=== PATIENT | female | born 1970 | race Caucasian/White ===

== ENCOUNTER 2017-02-03 23:53 | Emergency (ER) | payer MEDICAID, OTHER ==
[~2017-02-03] VITALS: Ht 165.1 cm; Wt 122.9 kg
[2017-02-04] MEDS ORDERED: TORS10TA2 PO (00:42)
[2017-02-04] MEDS ORDERED: ZOLP5TAB PO (00:42)
[2017-02-04] MEDS ORDERED: MONT10TA21 PO (00:42)
[2017-02-04] MEDS ORDERED: POTA99TA21 PO (00:42)
[2017-02-04] MEDS ORDERED: RT-ALBUINH IH (00:42)
[2017-02-04] MEDS ORDERED: [UNRECOGNIZED DRUG - CODE] TP (00:42)
[2017-02-04] MEDS ORDERED: LORA0.5T PO (00:42)
[2017-02-04] MEDS ORDERED: [UNRECOGNIZED DRUG - CODE] IJ (00:42)
[2017-02-04] MEDS ORDERED: ATOR80TA64 PO (00:42)
[2017-02-04 02:11] LABS: BILIRUBIN,URINE NEGATIVE (NEGATIVE); KETONES,URINE NEGATIVE (NEGATIVE); LEUKOCYTE ESTERASE ,URINE NEGATIVE (NEGATIVE); NITRITE,URINE NEGATIVE (NEGATIVE); PH,URINE 6.5 (5-9); PROTEIN,URINE NEGATIVE (NEGATIVE); UROBILINOGEN,URINE NORMAL (NORMAL)
[2017-02-04 02:19] LABS: SQUAMOUS EPITHELIAL CELL,UR 0-2 /HPF
[2017-02-04] MEDS ORDERED: fentaNYL INJECTION 100 MCG/2 ML AMP IVP ONE (02:45)
[2017-02-04 02:58] LABS: BASOPHILS % (AUTO) 0 % (0-10); EOSINOPHILS # (AUTO) 0.1 10^3/uL (0.0-0.3); EOSINOPHILS % (AUTO) 1 % (0-10); LYMPHOCYTES # (AUTO) 2.4 X 10^3 (1.0-4.0); LYMPHOCYTES % (AUTO) 21 % (12-44); MEAN CORPUSCULAR HEMOGLOBIN 32 PG (25-34); MEAN CORPUSCULAR HGB CONC 35 G/DL (32-36); MEAN CORPUSCULAR VOLUME 93 FL (80-99); MEAN PLATELET VOLUME 10.3 FL (7.4-10.4); MONOCYTES # (AUTO) 0.8 X 10^3 (0.0-1.0); MONOCYTES % (AUTO) 7 % (0-12); NEUTROPHILS # (AUTO) 8.1 X 10^3 (1.8-7.8); NEUTROPHILS % (AUTO) 71 % (42-75); PLATELET COUNT 208 10^3/uL (130-400); RED BLOOD COUNT 4.14 10^6/uL (4.35-5.85); RED CELL DISTRIBUTION WIDTH 12.7 % (10.0-14.5); WHITE BLOOD COUNT 11.4 10^3/uL (4.3-11.0)
[2017-02-04 03:17] LABS: ALANINE AMINOTRANSFERASE 23 U/L (0-55); ALBUMIN 3.9 G/DL (3.2-4.5); ANION GAP 13 MMOL/L (5-14); ASPARTATE AMINO TRANSFERASE 15 U/L (5-34); BILIRUBIN,TOTAL 0.6 MG/DL (0.1-1.0); BLOOD UREA NITROGEN 11 MG/DL (7-18); BUN/CREATININE RATIO 17; CALCIUM 9.8 MG/DL (8.5-10.1); CARBON DIOXIDE 28 MMOL/L (21-32); CHLORIDE 98 MMOL/L (98-107); CREATININE SERUM 0.66 MG/DL (0.60-1.30); GFR ESTIMATED > 60; GLUCOSE 146 MG/DL (70-105); LIPASE 23 U/L (8-78); POTASSIUM 3.1 MMOL/L (3.6-5.0); SODIUM 139 MMOL/L (135-145); TOTAL PROTEIN 6.8 G/DL (6.4-8.2)
[2017-02-04] MEDS ORDERED: LIDOCAINE 2% VISCOUS 15 ML UDC PO ONE (04:45)
[2017-02-04] MEDS ORDERED: ANTACID SUSP 30 ML UDC (MYLANTA) PO ONE (04:45)
[2017-02-04] MEDS ORDERED: FAMOTIDINE 20MG/2ML IV (PEPCID) IVP ONE (04:45)
[2017-02-04] MEDS ORDERED: KETOROLAC 30 MG/ML VIAL IVP ONE (05:15)
[2017-02-04] MEDS ORDERED: HYDR-3812 PO (05:17)
[2017-02-04] MEDS ORDERED: SUCR1ORA5 PO (05:17)
--- NOTE | 2017-02-04 05:17 | ED Abdominal Pain ---
General Chief Complaint: General Problems/Pain Stated Complaint: ABDOMINAL HERNIA PAIN Nursing Triage Note: PT AMBULATED TO ROOM. PT STATES SHE WOKE UP YESTERDAY AND HER HERNIA IN HER LOWER ABD HAS BEEN HURTING HER. Sepsis Screen: No Definite Risk Source of Information: Patient Exam Limitations: No Limitations History of Present Illness Time Seen By Provider: 02:06 Initial Comments This 46-year-old woman presents to the emergency room with complaints of left upper quadrant pain radiating down to the suprapubic region. She denies any nausea, vomiting, or diarrhea. Symptoms have been present since the morning of February 02. She reports her last bowel movement was February 03 and was normal. She denies constipation. She sees Dr. Herrera and Dr. Cortez in [place]. She has a known history of a ventral hernia. She reports her pain as 7/10. She has a history of gastric bypass, umbilical hernia, ventral hernia, , and tubal ligation. Allergies and Home Medications Allergies Coded Allergies: amoxicillin (Verified Allergy, Unknown, 02/04/17) clavulanic acid (Verified Allergy, Unknown, 02/04/17) morphine (Verified Allergy, Unknown, 02/04/17) Uncoded Allergies: PAPER TAPE (Allergy, Mild, 02/04/17) Home Medications Albuterol Sulfate 1 Puff Puff, 2 PUFF IH Q4H, (Reported) 1 PUFF = 90 MCG Atorvastatin Calcium 80 Mg Tablet, 80 MG PO, (Reported) Lidocaine HCl/Pf 10 Mg/1 Ml Ampul, 10 MG IJ, (Reported) Lorazepam 0.5 Mg Tablet, 0.5 MG PO, (Reported) Menthol/Aloe Vera Extract 85 Gm Gel..gram., 85 GM TP, (Reported) Montelukast Sodium 10 Mg Tablet, 10 MG PO, (Reported) Potassium Gluconate 99 Mg Tablet, 99 MG PO, (Reported) Sucralfate 1 Gm/10 Ml Oral.susp, 1 GM PO QID, #1200 30 minutes before meals and before bed. Shake well before use Prescribed by: ELIAS RIVERA on 02/04/17 0517 Torsemide 10 Mg Tablet, 10 MG PO, (Reported) Tramadol HCl 50 Mg Tablet, 50 MG PO Q6H PRN for PAIN-MODERATE TO SEVERE, #10 Prescribed by: ELIAS RIVERA on 02/04/17 0518 Zolpidem Tartrate 5 Mg Tablet, 5 MG PO, (Reported) Review of Systems Constitutional: no symptoms reported EENTM: No Symptoms Reported Respiratory: No Symptoms Reported Cardiovascular: No Symptoms Reported Gastrointestinal: See HPI Genitourinary: No Symptoms Reported Musculoskeletal: no symptoms reported Skin: no symptoms reported Psychiatric/Neurological: No Symptoms Reported Endocrine: No Symptoms Reported Past Gpzdthy-Dhrbnz-Xbcpyt Hx Patient Social History Alcohol Use: Denies Use Recreational Drug Use: No Smoking Status: Former Smoker 2nd Hand Smoke Exposure: No Recent Foreign Travel: No Contact w/Someone Who Travel: No Recent Infectious Disease Expo: No Recent Hopitalizations: No Seasonal Allergies Seasonal Allergies: Yes Surgeries HX Surgeries: Yes Surgeries: Abdominal (umbilical hernia repair, gastric bypass), Section, Tubal Ligation Respiratory Hx Respiratory Disorders: Yes Respiratory Disorders: Asthma Cardiovascular Hx Cardiac Disorders: Yes Cardiac Disorders: High Cholesterol, Hypertension Neurological Hx Neurological Disorders: No Reproductive System : No Genitourinary Hx Genitourinary Disorders: No Gastrointestinal Hx Gastrointestinal Disorders: Yes Gastrointestinal Disorders: Abdominal Hernia Musculoskeletal Hx Musculoskeletal Disorders: Yes Musculoskeletal Disorders: Chronic Back Pain Endocrine Hx Endocrine Disorders: Yes Endocrine Disorders: Diabetes, Non-Insulin dep HEENT HX ENT Disorders: No Cancer Hx Cancer: No Psychosocial Hx Psychiatric Problems: No Integumentary HX Skin/Integumentary Disorder: No Physical Exam Vital Signs VS - Last 72 Hours, by Label 02/04/17 02/04/17 02/04/17 02/04/17 00:31 01:00 02:00 03:00 Temp 99.2 Pulse 83 76 73 77 Resp 20 14 18 15 B/P (MAP) 106/57 130/97 131/71 118/60 Pulse Ox 92 95 95 96 O2 Delivery Room Air Room Air Room Air Room Air 02/04/17 02/04/17 04:10 05:22 Temp 98.2 Pulse 73 79 Resp 15 18 B/P (MAP) 135/71 Pulse Ox 98 94 O2 Delivery Room Air Capillary Refill : Less Than 3 Seconds General Appearance: WD/WN, no apparent distress, obese HEENT: PERRL/EOMI, normal ENT inspection Neck: normal inspection Respiratory: lungs clear, normal breath sounds, no respiratory distress, no accessory muscle use Cardiovascular: regular rate, rhythm, no edema, no murmur Gastrointestinal: normal bowel sounds, soft, tenderness (mild to moderate throughout the left and central abdomen, most intense in the left flank and left upper quadrant), other (obese abdomen obscured his exam) Extremities: normal inspection, no pedal edema 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 nml as tested, no motor/sensory deficits, alert, normal mood/affect, oriented x 3 Skin: normal color, warm/dry Progress/Results/Core Measures Results/Orders Lab Results Laboratory Tests Test 02/04/17 02:01 02/04/17 02:50 Range/Units Urine Color YELLOW Urine Clarity CLEAR Urine pH 6.5 5-9 Urine Specific [place] 1.010 L 1.016-1.022 Urine Protein NEGATIVE NEGATIVE Urine Glucose (UA) 4+ H NEGATIVE Urine Ketones NEGATIVE NEGATIVE Urine Nitrite NEGATIVE NEGATIVE Urine Bilirubin NEGATIVE NEGATIVE Urine Urobilinogen NORMAL NORMAL MG/DL Urine Leukocyte Esterase NEGATIVE NEGATIVE Urine RBC (Auto) NEGATIVE NEGATIVE Urine RBC NONE /HPF Urine WBC NONE /HPF Urine Squamous Epithelial Cells 0-2 /HPF Urine Crystals NONE /LPF Urine Bacteria NEGATIVE /HPF Urine Casts NONE /LPF Urine Mucus NEGATIVE /LPF Urine Culture Indicated NO White Blood Count 11.4 H 4.3-11.0 10^3/uL Red Blood Count 4.14 L 4.35-5.85 10^6/uL Hemoglobin 13.3 11.5-16.0 G/DL Hematocrit 39 35-52 % Mean Corpuscular Volume 93 80-99 FL Mean Corpuscular Hemoglobin 32 25-34 PG Mean Corpuscular Hemoglobin Concent 35 32-36 G/DL Red Cell Distribution Width 12.7 10.0-14.5 % Platelet Count 208 130-400 10^3/uL Mean Platelet Volume 10.3 7.4-10.4 FL Neutrophils (%) (Auto) 71 42-75 % Lymphocytes (%) (Auto) 21 12-44 % Monocytes (%) (Auto) 7 0-12 % Eosinophils (%) (Auto) 1 0-10 % Basophils (%) (Auto) 0 0-10 % Neutrophils # (Auto) 8.1 H 1.8-7.8 X 10^3 Lymphocytes # (Auto) 2.4 1.0-4.0 X 10^3 Monocytes # (Auto) 0.8 0.0-1.0 X 10^3 Eosinophils # (Auto) 0.1 0.0-0.3 10^3/uL Basophils # (Auto) 0.0 0.0-0.1 10^3/uL Sodium Level 139 135-145 MMOL/L Potassium Level 3.1 L 3.6-5.0 MMOL/L Chloride Level 98 98-107 MMOL/L Carbon Dioxide Level 28 21-32 MMOL/L Anion Gap 13 5-14 MMOL/L Blood Urea Nitrogen 11 7-18 MG/DL Creatinine 0.66 0.60-1.30 MG/DL Estimat Glomerular Filtration Rate > 60 BUN/Creatinine Ratio 17 Glucose Level 146 H 70-105 MG/DL Calcium Level 9.8 8.5-10.1 MG/DL Total Bilirubin 0.6 0.1-1.0 MG/DL Aspartate Amino Transf (AST/SGOT) 15 5-34 U/L Alanine Aminotransferase (ALT/SGPT) 23 0-55 U/L Alkaline Phosphatase 59 40-136 U/L Total Protein 6.8 6.4-8.2 G/DL Albumin 3.9 3.2-4.5 G/DL Lipase 23 8-78 U/L My Orders Orders - ELIAS WALLER MD Ua Culture If Indicated (02/04/17 02:05) Saline Lock/Iv-Start (02/04/17 02:38) Cbc With Automated Diff (02/04/17 02:38) Comprehensive Metabolic Panel (02/04/17 02:38) Lipase (02/04/17 02:38) Fentanyl Injection (Sublimaze Injection (02/04/17 02:45) Ct Abdomen/Pelvis W (02/04/17 03:27) Famotidine Injection (Pepcid Injection) (02/04/17 04:45) Lidocaine 2% Viscous 15 Ml (Xylocaine Vi (02/04/17 04:45) Antacid Suspension (Mylanta Suspension (02/04/17 04:45) Ketorolac Injection (Toradol Injection) (02/04/17 05:15) Medications Given in ED Vital Signs/I&O Vital Sign - Last 12Hours 02/04/17 02/04/17 02/04/17 02/04/17 00:31 01:00 02:00 03:00 Temp 99.2 Pulse 83 76 73 77 Resp 20 14 18 15 B/P (MAP) 106/57 130/97 131/71 118/60 Pulse Ox 92 95 95 96 O2 Delivery Room Air Room Air Room Air Room Air 02/04/17 02/04/17 04:10 05:22 Temp 98.2 Pulse 73 79 Resp 15 18 B/P (MAP) 135/71 Pulse Ox 98 94 O2 Delivery Room Air Blood Pressure Mean: 73 Progress Note : Progress Note GI cocktail and Pepcid did modestly improved pain. Patient was given Toradol for additional pain management. Patient was instructed to increase PPI use to twice daily and add Carafate. Lifestyle and dietary recommendations were suggested. Patient was advised to follow-up as soon as possible with her surgeon. A CD of images was provided. Diagnostic Imaging Diagonstic Imaging: CT Plain Films/CT/US/NM/MRI: abdomen, pelvis Comments CT abdomen and pelvis viewed by me and Stat rad report reviewed. There are numerous findings including a mild focal wall thickening of the gastric antrum. There is adjacent omental fat stranding. No free air or loculated fluid collection. This could represent focal omental infarct or focal gastritis. Neoplastic process is less likely. No findings to suggest perforation. There is a large ventral abdominal wall hernia containing loops of bowel. There is a well-circumscribed partially calcified ovoid cystic structure within the hernial sac. This most likely represents a chronic finding and could represent duplication cyst or sequela of prior omental infarct. Incidental findings include hepatic steatosis, cholelithiasis, and fibroid uterus. Departure Impression Impression: Primary Impression: Left sided abdominal pain Additional Impressions: Gastritis Qualified Codes: K29.00 - Acute gastritis without bleeding Ventral hernia Qualified Codes: K43.9 - Ventral hernia without obstruction or gangrene Disposition: 01 HOME, SELF-CARE Condition: Improved Departure-Patient Inst. Decision time for Depature: 05:00 Referrals: NO,LOCAL PHYSICIAN (PCP) Primary Care Physician Patient Instructions: CONTRAST ANTIDIABETIC MEDS, Gastritis Add. Discharge Instructions: Increase your Prilosec (omeprazole) to twice daily dosing for 2 weeks. Then reduce to once daily dosing again if symptoms improve. Add Carafate (sucralfate) as prescribed. Contact your surgeon as soon as possible for follow-up instructions. No may need endoscopy for further evaluation of possible gastritis or ulcer. Avoid the following: Eating large meals, eating close to bedtime, caffeine, carbonation, chocolate, tomato products, alcohol, tobacco, citrus fruits and juices, mints, fatty or greasy foods, spicy foods, NSAID medications such as ibuprofen or naproxen, or anything else you know your take your stomach. Return to the emergency room if symptoms worsen. All discharge instructions reviewed with patient and/or family. Voiced understanding. Scripts Tramadol HCl (Ultram) 50 Mg Tablet 50 MG PO Q6H Y for PAIN-MODERATE TO SEVERE, #10 TAB Prov: ELIAS WALLER MD 02/04/17 Sucralfate (Carafate) 1 Gm/10 Ml Oral.susp 1 GM PO QID, #1200 ML 30 minutes before meals and before bed. Shake well before use Prov: ELIAS WALLER MD 02/04/17 ELIAS WALLER MD Feb 04, 2017 05:17
[2017-02-04] MEDS ORDERED: TRAM-42 PO (05:18)
[2017-02-04 05:22] VITALS: BP 108/53
--- NOTE | 2017-02-04 08:52 | Diagnostic Imaging Report ---
PROCEDURE: CT abdomen and pelvis with contrast. TECHNIQUE: Multiple contiguous axial images were obtained through the abdomen and pelvis after administration of intravenous contrast. INDICATION: Abdominal pain There are no previous studies available for comparison. There are postsurgical changes involving the gastric fundus and body. Furthermore the gastric antrum is distended by gas. There also seems to be generalized thickening of the wall of the antrum and there is a prominent area of distortion of the mesenteric fat along the inferior margin of the gastric antrum. This finding does suggest edema/inflammation and could be secondary to antral gastritis. An omental infarct would be possible but less likely. There is a minute gallstone within the gallbladder. There is no sign of acute cholecystitis. The liver, spleen, pancreas, adrenals, kidneys, aorta and inferior vena cava show no sign of an acute abnormality. There is a large 25 CM defect in the anterior abdominal wall with segments of large and small bowel extending through the defect. There is no incarceration or obstruction of the bowel. Also, within this defect on the left there is a fairly well-circumscribed 4.9 x 9.0 CM area of low density. This may represent a fluid collection. There are linear radiopaque densities in this area which may be related to calcification or to wire mesh. Correlation with the patient's surgical history would be recommended. There is no pelvic mass or free fluid collection noted. The uterus is prominent and may contain one or 2 fibroids. The urinary bladder is grossly unremarkable. There may be a 1.8 CM cyst associated with the right ovary. The left ovary is unremarkable. The appendix was not well-visualized but there are no indirect signs of acute appendicitis. There is no acute bony abnormality appreciated. The lung bases are clear. IMPRESSION: The wall of the gastric antrum is thickened and there is a prominent area of distortion of the mesenteric fat adjacent to the gastric antrum. This does suggest edema/inflammation and may be related to antral gastritis. The possibility of an omental infarct would be less likely but should also be considered. There is no acute abnormality of the abdomen or pelvis otherwise. There is a large ventral hernia with segments of large bowel extending through the hernia. There is no evidence for obstruction of bowel. The fluid collection along the anterior aspect of the ventral hernia on the left is of uncertain etiology. Considerations as above. There is cholelithiasis without evidence for acute cholecystitis. Dictated by: Dictated on workstation # [id number]
== END 2017-02-04 05:23 | disposition home or self-care (01) ==
LOC: ER 02-04
DX: K29.70 Gastritis, unspecified, without bleeding (principal); K43.9 Ventral hernia without obstruction or gangrene; E11.9 Type 2 diabetes mellitus without complications; I10 Essential (primary) hypertension; E78.00 Pure hypercholesterolemia, unspecified; F17.200 Nicotine dependence, unspecified, uncomplicated
CPT/HCPCS: 36415; 74177; 80053; 81000; 83690; 85025; 96374; 96375

== ENCOUNTER 2018-01-11 12:13 | Emergency (ER) | payer MEDICAID ==
[~2018-01-11] VITALS: Ht 165.1 cm; Wt 122.9 kg
[~2018-01-11 12:13] MED LIST: ACHD5005 PO; ATOR80TA64 PO; LORA0.5T PO; MONT10TA21 PO; POTA99TA21 PO; RT-ALBUINH IH; SUCR1ORA5 PO; TORS10TA2 PO; TRAM-42 PO; ZOLP5TAB PO; [UNRECOGNIZED DRUG - CODE] IJ; [UNRECOGNIZED DRUG - CODE] TP
--- OUTSIDE RECORDS SUMMARY | 2018-01-11 12:21 | XMS REPORT | Encounter Summary ---
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 Name Role Phone Linus Herrera DO PCP Encounter Details Date Type Department Care Team Description 11/24/2017 Prep for Case [facility] Max Culver DO Incisional hernia, [place] [address] without obstruction or Surgery Clin [place] 2005 gangrene (Primary Dx); [address] [place] [address] [place] [address] [phone] Social History Tobacco Use Types Packs/Day Years Used Date Former Smoker Smokeless Tobacco: Never Used Alcohol Use Drinks/Week oz/Week Comments No Sex Assigned at Date Recorded Not on file as of this encounter Functional Status Functional Status Response Date of Assessment Does the patient have a hearing impairment: No 10/08/2017 Does the patient have a visual impairment: Yes 10/08/2017 Does the patient have impaired ambulation: No 10/08/2017 Does the patient have an activity of daily living No 10/08/2017 (ADL) impairment: Does the patient have an instrumental activity of No 10/08/2017 daily living (IADL) impairment: Cognitive Status Response Date of Assessment Does the patient have a cognitive impairment: No 10/08/2017 as of this encounter Plan of Treatment Not on fileas of this encounter Visit Diagnoses Diagnosis Incisional hernia, without obstruction or gangrene - Primary Incisional hernia without mention of obstruction or gangrene Abdominal pannus Localized adiposity
--- OUTSIDE RECORDS SUMMARY | 2018-01-11 12:21 | XMS REPORT | Continuity of Care Document ---
Author Author [facility] Organization [facility] Address Unknown Phone Unavailable Care Team Providers Care Rn Burn Name Role Phone [employer] Unavailable Unavailable Problems Medications Allergies, Adverse Reactions, Alerts Immunizations Results Vital Signs Encounters Location Location Details Encounter Type Encounter Number Reason For Visit Attending Provider ADM Date DC Date Status Source OUTPATIENT [id number] TRACEY VICTORIA 10/08/2017 10/08/2017 Active [facility] O TRACEY VICTORIA Active [facility] Procedures Plan of Care Social History Assessment and Plan Family History Advance Directives Functional Status
--- OUTSIDE RECORDS SUMMARY | 2018-01-11 12:21 | XMS REPORT | Clinical Summary ---
Author Author [facility] Organization [facility] Address Unknown Phone Unavailable Care Team Providers Care Equipment Operator Wage Hand Name Role Phone Linus Herrera DO PCP Source Comments Some departments are not documenting in the electronic medical record. If you do not see the information that you expected, contact Release of Information in the Health Information Management department at [phone] for further assistance in locating additional records.[facility] Allergies Active Allergy Reactions Severity Noted Date Comments Adhesive Tape (Rosins) HIVES Medium 08/21/2017 Paper tape Amoxicillin-Pot HIVES Medium 08/21/2017 Clavulanate Fentanyl HIVES Medium 08/21/2017 Morphine HEADACHE, HIVES, NAUSEA High 08/21/2017 ONLY, HYPOTENSION Current Medications Prescription Sig. Disp. Refills Start End Date Status Date zolpidem (AMBIEN) 10 mg Take 10 mg by mouth at Active tablet bedtime as needed for Sleep. LORazepam (ATIVAN) 0.5 mg Take 1 tablet by mouth Active tablet every 12 hours as needed for Nausea. exenatide microspheres Inject 2 mg under the Active ER(+) (BYDUREON) 2 mg skin every 7 days. injection dapagliflozin 10 mg tab Take 1 tablet by mouth at Active bedtime daily. fenofibrate Take 145 mg by mouth Active nanocrystallized (TRICOR) daily. Take with food. 145 mg tablet butalbital/acetaminophen/ Take 1 tablet by mouth Active caffeine(+) (FIORICET) every 4 hours as needed 50/325/40 mg tablet for Headache. cyclobenzaprine Take 10 mg by mouth three Active (FLEXERIL) 10 mg tablet times daily as needed for Muscle Cramps. fluticasone (FLONASE) 50 Apply 2 sprays to each Active mcg/actuation nasal spray nostril as directed daily. Shake bottle gently before using. HYDROcodone/acetaminophen Take 1 tablet by mouth Active (+) (NORCO) 10/325 mg every 6 hours as needed tablet for Pain lidocaine (LIDODERM) 5 % Apply 1 patch topically Active topical patch to affected area every 24 hours. Apply patch for 12 hours, then remove for 12 hours before repeating. atorvastatin (LIPITOR) 80 Take 80 mg by mouth Active mg tablet daily. potassium chloride SR Take 20 mEq by mouth Active (K-DUR) 20 mEq tablet three times daily. Take with a meal and a full glass of water. omeprazole DR(+) Take 20 mg by mouth daily Active (PRILOSEC) 20 mg capsule before breakfast. albuterol (PROAIR HFA) 90 Inhale 2 puffs by mouth Active mcg/actuation inhaler into the lungs every 6 hours as needed for Wheezing or Shortness of Breath. Shake well before use. montelukast (SINGULAIR) Take 10 mg by mouth at Active 10 mg tablet bedtime daily. torsemide(+) (DEMADEX) 20 Take 80 mg by mouth Active mg tablet daily. ERGOCALCIFEROL (VITAMIN Take 50,000 Units by Active D2) (VITAMIN D PO) mouth every 7 days. ranitidine(+) (ZANTAC) Take 150 mg by mouth Active 150 mg tablet twice daily. ondansetron (ZOFRAN) 8 mg Take 8 mg by mouth every Active tablet 8 hours as needed for Nausea or Vomiting. budesonide/formoterol Inhale by mouth into the 01/11/20 Active (SYMBICORT HFA) 160/4.5 lungs. 17 mcg inhalation Active Problems Problem Noted Date Abdominal pannus 09/29/2017 Incisional hernia, without obstruction or gangrene 09/11/2017 Encounters Date Type Specialty Care Team Description 12/12/2017 Telephone General Surgery Max Culver, DO General Question 11/24/2017 Prep for Case General Surgery Max Culver, DO Incisional hernia, without obstruction or gangrene (Primary Dx); Abdominal pannus from Last 3 Months Social History Tobacco Use Types Packs/Day Years Used Date Former Smoker Smokeless Tobacco: Never Used Alcohol Use Drinks/Week oz/Week Comments No Sex Assigned at Date Recorded Not on file Last Filed Vital Signs Vital Sign Reading Time Taken Blood Pressure 133/73 10/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 Pulse 87 10/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 Temperature 36.4 C (97.6 F) 10/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 Respiratory Rate 16 10/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 Oxygen Saturation - - Inhaled Oxygen - - Concentration Weight 129.4 kg (285 lb 3.2 oz) 10/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 Height 165.1 cm (5' 5") 10/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 Body Mass Index 47.46 10/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 Plan of Treatment Health Maintenance Due Date Last Done Comments PHYSICAL (COMPREHENSIVE) 1979 EXAM PERTUSSIS VACCINE 1983 HIV SCREENING 1987 TETANUS VACCINE 1989 CERVICAL CANCER SCREENING 2002 BREAST CANCER SCREENING 2012 INFLUENZA VACCINE 06/01/2018 Results Not on filefrom Last 3 Months
--- OUTSIDE RECORDS SUMMARY | 2018-01-11 12:21 | XMS REPORT | Encounter Summary ---
Author Author [facility] Organization [facility] Address Unknown Phone Unavailable Care Team Providers Care Ammunition Assembly I Laborer Name Role Phone Linus Herrera DO PCP Reason for Visit * Reason Comments General Question Encounter Details Date Type Department Care Team Description 12/12/2017 Telephone [facility] Max Culver DO General Question [address] [place] [address] [place] [address] [place] [address] [phone] Social History Tobacco Use Types Packs/Day Years [...] impairment: No 10/08/2017 as of this encounter Miscellaneous Notes * Telephone Encounter - Antonia Hope RN - 12/12/2017 10:49 AM CDT Pt with concerns regarding insurance and appeal for panniculectomy status. Directed pt to discuss with Dr. Cruz's office for appeal who will be performing the panniculectomy at [facility]. Pt reports insurance faxed appeal information to Dr. Dias's office. in this encounter Plan of Treatment Not on fileas of this encounter Visit Diagnoses Not on filein this encounter
[2018-01-11] MEDS ORDERED: NS IV 1000 ML 1,000 ML IV SCH (12:51)
--- NOTE | 2018-01-11 12:58 | ED Abdominal Pain ---
General Stated Complaint: ABD PAIN,VOMITING,HERNIA Source of Information: Patient, Family (daughter) Exam Limitations: No Limitations History of Present Illness Date Seen by Provider: January 11, 2018 Time Seen by Provider: 12:48 Initial Comments Patient presents to the ER by private conveyance with a chief complaint she is having 2 weeks now progressively worsening mid abdominal pain starting in her epigastric region working its way down to her suprapubic region. She has a history of , umbilical hernia repair with failure and ventral hernia repair. She is also had a sleeve gastrectomy. She says she's not been ill have a bowel movement for the past 7 days despite using Ex-Lax twice. This morning she drank some coffee hoping that would help her pass a bowel movement but then vomited it up. She's only down to keep down water and no food. She's not nauseated presently because she took one of her Zofran before coming in. She's not having any fevers but she did have some chills 2 days ago. She says she has a red patch on her mid abdominal wall that is tender to touch and feels that he has a fever in it. There is no discharge or mass. Her usual pain medicines are not helping. She did not take her NSAID lenex today. She usually uses hydrocodone 10 mg Half every 4 hours. Allergies and Home Medications Allergies Coded Allergies: amoxicillin (Verified Allergy, Unknown, 02/04/17) clavulanic acid (Verified Allergy, Unknown, 02/04/17) morphine (Verified Allergy, Unknown, 02/04/17) Uncoded Allergies: PAPER TAPE (Allergy, Mild, 02/04/17) Home Medications Albuterol Sulfate 1 Puff Puff, 2 PUFF IH Q4H, (Reported) 1 PUFF = 90 MCG Cephalexin 500 Mg Tablet, 500 MG PO QID Prescribed by: ANTHONY BAIRD on 01/11/18 155 Magnesium Oxide 500 Mg Capsule, 500 MG PO BID Prescribed by: ANTHONY BAIRD on 01/11/18 155 Potassium Chloride 20 Meq Tablet.er, 20 MEQ PO TID Prescribed by: ANTHONY BAIRD on 01/11/18 1553 Sucralfate 1 Gm/10 Ml Oral.susp, 1 GM PO QID 30 minutes before meals and before bed. Shake well before use Prescribed by: ELIAS RIVERA on 02/04/17 0517 Tramadol HCl 50 Mg Tablet, 50 MG PO Q6H PRN for PAIN-MODERATE TO SEVERE Prescribed by: ELIAS RIVERA on 02/04/17 0518 Patient Home Medication List Home Medication List Reviewed: Yes Review of Systems Constitutional: chills; No diaphoresis, No fever, No malaise, No weakness EENTM: No Blurred Vision, No Double Vision Respiratory: Denies Cough, Denies Shortness of Air Cardiovascular: Denies Chest Pain, Denies Edema Gastrointestinal: Denies Abdomen Distended; Abdominal Pain Genitourinary: Denies Burning, Denies Discharge Musculoskeletal: No back pain, No joint pain Skin: see HPI; No pruritus; rash Past Eutcxgl-Dcymno-Fdiqzz Hx Patient Social History Alcohol Use: Denies Use Recreational Drug Use: No Smoking Status: Never a Smoker 2nd Hand Smoke Exposure: No Recent Foreign Travel: No Contact w/Someone Who Travel: No Recent Hopitalizations: No Seasonal Allergies Seasonal Allergies: Yes Past Medical History Abdominal, Section, Tubal Ligation Respiratory: Yes Asthma Cardiac: Yes High Cholesterol, Hypertension Neurological: No Genitourinary: No Gastrointestinal: No Abdominal Hernia Musculoskeletal: No Chronic Back Pain Diabetes, Non-Insulin dep HEENT: No Cancer: No Psychosocial: No Integumentary: No Blood Disorders: No Physical Exam Vital Signs Vital Signs - First Documented 01/11/18 12:30 Temp 98.8 Pulse 86 Resp 18 B/P (MAP) 114/71 (85) Pulse Ox 95 Capillary Refill : General Appearance: no apparent distress, obese HEENT: PERRL/EOMI, normal ENT inspection, pharynx normal Neck: non-tender, supple, normal inspection Respiratory: chest non-tender, lungs clear, normal breath sounds, no respiratory distress, no accessory muscle use Cardiovascular: normal peripheral pulses, regular rate, rhythm, no edema Peripheral Pulses: 2+ Radial Pulses (R), 2+ Radial Pulses (L) Gastrointestinal: normal bowel sounds, soft, other (broad ventral hernia with firm palpable colon. There is an area about 10 cm in diameter periumbilical that is erythematous and warm to the touch without any area of fluctuance, or discharge.) Extremities: non-tender, no pedal edema, normal capillary refill Neurologic/Psychiatric: alert, normal mood/affect, oriented x 3 Skin: warm/dry, rash (10 cm periumbilical erythematous rash) Progress/Results/Core Measures Results/Orders Lab Results Laboratory Tests Test 01/11/18 13:00 Range/Units White Blood Count 9.8 4.3-11.0 10^3/uL Red Blood Count 4.06 L 4.35-5.85 10^6/uL Hemoglobin 12.7 11.5-16.0 G/DL Hematocrit 37 35-52 % Mean Corpuscular Volume 90 80-99 FL Mean Corpuscular Hemoglobin 31 25-34 PG Mean Corpuscular Hemoglobin Concent 35 32-36 G/DL Red Cell Distribution Width 13.5 10.0-14.5 % Platelet Count 228 130-400 10^3/uL Mean Platelet Volume 10.9 H 7.4-10.4 FL Neutrophils (%) (Auto) 68 42-75 % Lymphocytes (%) (Auto) 24 12-44 % Monocytes (%) (Auto) 6 0-12 % Eosinophils (%) (Auto) 1 0-10 % Basophils (%) (Auto) 0 0-10 % Neutrophils # (Auto) 6.7 1.8-7.8 X 10^3 Lymphocytes # (Auto) 2.4 1.0-4.0 X 10^3 Monocytes # (Auto) 0.6 0.0-1.0 X 10^3 Eosinophils # (Auto) 0.1 0.0-0.3 10^3/uL Basophils # (Auto) 0.0 0.0-0.1 10^3/uL Urine Color YELLOW Urine Clarity CLEAR Urine pH 6 5-9 Urine Specific [place] 1.010 L 1.016-1.022 Urine Protein 1+ H NEGATIVE Urine Glucose (UA) 4+ H NEGATIVE Urine Ketones NEGATIVE NEGATIVE Urine Nitrite NEGATIVE NEGATIVE Urine Bilirubin NEGATIVE NEGATIVE Urine Urobilinogen NORMAL NORMAL MG/DL Urine Leukocyte Esterase NEGATIVE NEGATIVE Urine RBC (Auto) NEGATIVE NEGATIVE Urine RBC NONE /HPF Urine WBC RARE /HPF Urine Squamous Epithelial Cells RARE /HPF Urine Crystals NONE /LPF Urine Bacteria TRACE /HPF Urine Casts NONE /LPF Urine Mucus NEGATIVE /LPF Urine Yeast FEW H /HPF Urine Culture Indicated NO Sodium Level 139 135-145 MMOL/L Potassium Level 2.8 L 3.6-5.0 MMOL/L Chloride Level 95 L 98-107 MMOL/L Carbon Dioxide Level 28 21-32 MMOL/L Anion Gap 16 H 5-14 MMOL/L Blood Urea Nitrogen 13 7-18 MG/DL Creatinine 0.66 0.60-1.30 MG/DL Estimat Glomerular Filtration Rate > 60 BUN/Creatinine Ratio 20 Glucose Level 198 H 70-105 MG/DL Calcium Level 9.8 8.5-10.1 MG/DL Magnesium Level 1.6 L 1.8-2.4 MG/DL Total Bilirubin 0.5 0.1-1.0 MG/DL Aspartate Amino Transf (AST/SGOT) 38 H 5-34 U/L Alanine Aminotransferase (ALT/SGPT) 64 H 0-55 U/L Alkaline Phosphatase 108 40-136 U/L Total Protein 7.3 6.4-8.2 GM/DL Albumin 3.9 3.2-4.5 GM/DL My Orders Orders - ANTHONY BAIRD Ct Abdomen/Pelvis W (01/11/18 12:51) Saline Lock/Iv-Start (01/11/18 12:51) Cbc With Automated Diff (01/11/18 12:51) Comprehensive Metabolic Panel (01/11/18 12:51) Magnesium (01/11/18 12:51) Ua Culture If Indicated (01/11/18 12:51) Saline Lock/Iv-Start (01/11/18 12:51) Ns Iv 1000 Ml (Sodium Chloride 0.9%) (01/11/18 12:51) Ketorolac Injection (Toradol Injection) (01/11/18 13:00) Iohexol Injection (Omnipaque 350 Mg/Ml 1 (01/11/18 13:30) Ns (Ivpb) (Sodium Chloride 0.9%) (01/11/18 13:30) Magnesium 1 Gm/100 Ml Ivpb (Magnesium [place] (01/11/18 14:45) Potassium Cl 10meq/50ml Ivpb (Kcl 10 Meq (01/11/18 14:45) Fentanyl Injection (Sublimaze Injection (01/11/18 14:45) Ceftriaxone Injection (Rocephin Injectio (01/11/18 14:45) Ekg Tracing (01/11/18 14:50) Medications Given in ED Current Medications Medications Dose Ordered Sig/Jj Route Start Time Stop Time Status Last Admin Dose Admin Ceftriaxone Sodium 1000 mg/ Sodium Chloride 50 ml @ 200 mls/hr ONCE ONCE IV 01/11/18 14:45 01/11/18 14:59 DC 01/11/18 15:07 200 MLS/HR Fentanyl Citrate 25 mcg ONCE ONCE IVP 01/11/18 14:45 01/11/18 14:46 DC 01/11/18 15:03 25 MCG Iohexol 100 ml ONCE ONCE IV 01/11/18 13:30 01/11/18 13:31 DC 01/11/18 13:51 100 ML Ketorolac Tromethamine 15 mg ONCE ONCE IVP 01/11/18 13:00 01/11/18 13:01 DC 01/11/18 13:12 15 MG Magnesium Sulfate/ Dextrose 100 ml @ 100 mls/hr ONCE ONCE IV 01/11/18 14:45 01/11/18 15:44 DC 01/11/18 15:04 100 MLS/HR Potassium Chloride 50 ml @ 50 mls/hr ONCE ONCE IV 01/11/18 14:45 01/11/18 15:44 DC 01/11/18 15:07 50 MLS/HR Sodium Chloride 250 ml ONCE ONCE IV 01/11/18 13:30 01/11/18 13:31 DC 01/11/18 13:51 80 ML Vital Signs/I&O 01/11/18 12:30 Temp 98.8 Pulse 86 Resp 18 B/P (MAP) 114/71 (85) Pulse Ox 95 Progress Progress Note #1: Time: 12:59 Progress Note There appears to be abdominal wall cellulitis as well as the possibility with her constipation there could be a bowel obstruction given her history of multiple surgeries of the abdomen and abdominal ventral hernias. We'll obtain a CT scan of her abdomen as well as some urine and blood samples. She is not septic at this time. Progress Note #2: Time: 14:46 Progress Note The patient's pain is fairly well controlled and it seems that her pathology is just cellulitis of the anterior abdominal wall. She would be a candidate for treating her hypokalemia which is chronic, hypomagnesemia and cellulitis outpatient. She is not septic. Her vomiting this morning she says is Axid chronic she says she usually vomits about once a day and take the Zofran about once a day on average although she has a written for 3 times a day as needed. She has an appointment to follow up on the which would be 2 weeks and we have discussed return precautions if things get worse. Initial ECG Impression Date: January 11, 2018 Initial ECG Impression Time: 14:53 Initial ECG Rate: 82 Initial ECG Rhythm: Normal Sinus Initial ECG Intervals: Normal Initial ECG Impression: Normal, Nonspecific Changes Initial ECG Comparisson: No Previous ECG Available Comment No tented T waves. No ST elevation or depression. Diagnostic Imaging Diagonstic Imaging: CT (w/contrast) Plain Films/CT/US/NM/MRI: abdomen, pelvis Comments [facility] [employer] [facility] [place], [place] NAME: NEWTON MOTA [facility] REC#: [id number] PT STATUS: REG ER : 1970 PHYSICIAN: ANTHONY BAIRD MD ADMIT DATE: 01/11/18/ER Draft Date of Exam:01/11/18 CT ABDOMEN/PELVIS W PROCEDURE: CT abdomen and pelvis with contrast. TECHNIQUE: Multiple contiguous axial images were obtained through the abdomen and pelvis after administration of intravenous contrast. INDICATION: Abdominal pain. COMPARISON: Comparison is made with a prior study from February 04, 2017. FINDINGS: The visualized lung bases are clear without infiltrate or effusion. The liver demonstrates no evidence of a focal intrahepatic abnormality. Patient is status post cholecystectomy. There is no abnormal biliary dilatation. Spleen is normal in size. Pancreas demonstrates no focal abnormality. There is no adrenal mass. The kidneys enhance normally and are nonobstructed. There are prior operative changes of a gastric sleeve. There are no findings of abnormal bowel dilation to suggest bowel obstruction. There is a large left paracentral and lower abdominal and pelvic hernia. This contains multiple loops of bowel as well as a stable region of low density fluid with internal calcifications. In addition to the bowel extending into the hernia sac, there are also some loops of bowel which extend through the hernia sac and are subcutaneous in location. This has also not significantly changed from the prior exam. There is some increased induration demonstrated around the inferior aspect of the hernia sac. Overlying cellulitis could not be excluded. The cecum and the appendix are within the hernia. There is no appendicitis. Urinary bladder is unremarkable. Uterus and adnexa are unremarkable. There is no intra-abdominal free air or free fluid or evidence of abscess. There is no pathologic adenopathy. IMPRESSION: 1. Large lower pelvic hernia containing multiple loops of small and large bowel as well as the appendix. There are no findings of dilation to suggest obstruction or evidence of incarceration of a loop of bowel. In addition to the loops of bowel extending into this hernia, there also is a defect within the hernia sac itself, and a loop of bowel extends superficial to the hernia sac and is immediately superficial to the skin surface. This is unchanged from the prior exam. There is some increased induration and stranding within the fat around the hernia sac and thickening of the overlying skin. Cellulitis could not be excluded. 2. Operative changes of previous gastric sleeve and cholecystectomy. 3. No intra-abdominal free air, free fluid, or abscess. Dictated on workstation # [id number] Dict: 01/11/18 1404 Trans: 01/11/18 1413 [id number] Interpreted by: FRANSISCA PHILLIPS MD Electronically signed by: Reviewed: Reviewed by Me Departure Impression Primary Impression: Cellulitis, abdominal wall Additional Impressions: Hypomagnesemia Hypokalemia Disposition: 01 HOME, SELF-CARE Condition: Improved Departure-Patient Inst. Decision time for Depature: 16:14 Referrals: NO,LOCAL PHYSICIAN (PCP) Primary Care Physician SHYLA GUARDADO DO (Family) Primary Care Physician Patient Instructions: Cellulitis (Skin Infection), Adult (DC) Add. Discharge Instructions: Start taking the Keflex tomorrow 4 times a day to completion. Follow up with your primary care provider. Return to the ER if you're unable to control your nausea with Zofran, fever above 100.3 after being on antibiotics for 2 days, or worsening redness and pain of your abdomen wall. Take one capsule of magnesium twice a day for the next week as well as double up on your potassium for the next week and call your primary care doctor office to recheck labs in the next 2 weeks. You can use Ex-Lax 1-2 times a day on a schedule and to you have bowel movements. Reduce the amount of opiates you use until you have a bowel movement. If you go another 3 days without a bowel movement call your primary care doctor's office. Scripts Cephalexin (Cephalexin) 500 Mg Tablet 500 MG PO QID for 7 Days, #28 TAB 0 Refills Prov: ANTHONY BAIRD 01/11/18 Potassium Chloride (Potassium Chloride) 20 Meq Tablet.er 20 MEQ PO TID for 7 Days, #21 TAB 0 Refills Prov: ANTHONY BAIRD 01/11/18 Magnesium Oxide (Magnesium) 500 Mg Capsule 500 MG PO BID for 7 Days, #14 CAP 0 Refills Prov: ANTHONY BAIRD 01/11/18 ANTHONY BAIRD January 11, 2018 12:58
[2018-01-11] MEDS ORDERED: KETOROLAC 30 MG/ML VIAL IVP ONE (13:00)
[2018-01-11 13:17] LABS: BASOPHILS % (AUTO) 0 % (0-10); EOSINOPHILS # (AUTO) 0.1 10^3/uL (0.0-0.3); EOSINOPHILS % (AUTO) 1 % (0-10); HEMATOCRIT 37 % (35-52); HEMOGLOBIN 12.7 G/DL (11.5-16.0); LYMPHOCYTES # (AUTO) 2.4 X 10^3 (1.0-4.0); LYMPHOCYTES % (AUTO) 24 % (12-44); MEAN CORPUSCULAR HEMOGLOBIN 31 PG (25-34); MEAN CORPUSCULAR HGB CONC 35 G/DL (32-36); MEAN CORPUSCULAR VOLUME 90 FL (80-99); MEAN PLATELET VOLUME 10.9 FL (7.4-10.4); MONOCYTES # (AUTO) 0.6 X 10^3 (0.0-1.0); MONOCYTES % (AUTO) 6 % (0-12); NEUTROPHILS # (AUTO) 6.7 X 10^3 (1.8-7.8); NEUTROPHILS % (AUTO) 68 % (42-75); PLATELET COUNT 228 10^3/uL (130-400); RED BLOOD COUNT 4.06 10^6/uL (4.35-5.85); RED CELL DISTRIBUTION WIDTH 13.5 % (10.0-14.5); WHITE BLOOD COUNT 9.8 10^3/uL (4.3-11.0)
[2018-01-11 13:18] LABS: BILIRUBIN,URINE NEGATIVE (NEGATIVE); CLARITY,URINE CLEAR; COLOR,URINE YELLOW; GLUCOSE, URINE (UA) 4+ (NEGATIVE); KETONES,URINE NEGATIVE (NEGATIVE); LEUKOCYTE ESTERASE ,URINE NEGATIVE (NEGATIVE); NITRITE,URINE NEGATIVE (NEGATIVE); PH,URINE 6 (5-9); PROTEIN,URINE 1+ (NEGATIVE); UROBILINOGEN,URINE NORMAL (NORMAL)
[2018-01-11 13:28] LABS: BACTERIA,URINE TRACE /HPF; SQUAMOUS EPITHELIAL CELL,UR RARE /HPF; WBC,URINE RARE /HPF; YEAST,URINE FEW /HPF
[2018-01-11] MEDS ORDERED: NS 250 ML (IVPB) BAG IV ONE (13:30)
[2018-01-11] MEDS ORDERED: IOHEXOL 350 MG/ML 100 ML (OMNIPAQUE 350) VIAL IV ONE (13:30)
[2018-01-11 13:35] LABS: ALANINE AMINOTRANSFERASE 64 U/L (0-55); ALBUMIN 3.9 GM/DL (3.2-4.5); ALKALINE PHOSPHATASE 108 U/L (40-136); BILIRUBIN,TOTAL 0.5 MG/DL (0.1-1.0); BUN/CREATININE RATIO 20; CALCIUM 9.8 MG/DL (8.5-10.1); CARBON DIOXIDE 28 MMOL/L (21-32); CHLORIDE 95 MMOL/L (98-107); CREATININE SERUM 0.66 MG/DL (0.60-1.30); GFR ESTIMATED > 60; GLUCOSE 198 MG/DL (70-105); MAGNESIUM 1.6 MG/DL (1.8-2.4); POTASSIUM 2.8 MMOL/L (3.6-5.0); SODIUM 139 MMOL/L (135-145); TOTAL PROTEIN 7.3 GM/DL (6.4-8.2)
--- NOTE | 2018-01-11 14:14 | Diagnostic Imaging Report ---
PROCEDURE: CT abdomen and pelvis with contrast. TECHNIQUE: Multiple contiguous axial images were obtained through the abdomen and pelvis after administration of intravenous contrast. INDICATION: Abdominal pain. COMPARISON: Comparison is made with a prior study from February 04, 2017. FINDINGS: The visualized lung bases are clear without infiltrate or effusion. The liver demonstrates no evidence of a focal intrahepatic abnormality. Patient is status post cholecystectomy. There is no abnormal biliary dilatation. Spleen is normal in size. Pancreas demonstrates no focal abnormality. There is no adrenal mass. The kidneys enhance normally and are nonobstructed. There are prior operative changes of a gastric sleeve. There are no findings of abnormal bowel dilation to suggest bowel obstruction. There is a large left paracentral and lower abdominal and pelvic hernia. This contains multiple loops of bowel as well as a stable region of low density fluid with internal calcifications. In addition to the bowel extending into the hernia sac, there are also some loops of bowel which extend through the hernia sac and are subcutaneous in location. This has also not significantly changed from the prior exam. There is some increased induration demonstrated around the inferior aspect of the hernia sac. Overlying cellulitis could not be excluded. The cecum and the appendix are within the hernia. There is no appendicitis. Urinary bladder is unremarkable. Uterus and adnexa are unremarkable. There is no intra-abdominal free air or free fluid or evidence of abscess. There is no pathologic adenopathy. IMPRESSION: 1. Large lower pelvic hernia containing multiple loops of small and large bowel as well as the appendix. There are no findings of dilation to suggest obstruction or evidence of incarceration of a loop of bowel. In addition to the loops of bowel extending into this hernia, there also is a defect within the hernia sac itself, and a loop of bowel extends superficial to the hernia sac and is immediately superficial to the skin surface. This is unchanged from the prior exam. There is some increased induration and stranding within the fat around the hernia sac and thickening of the overlying skin. Cellulitis could not be excluded. 2. Operative changes of previous gastric sleeve and cholecystectomy. 3. No intra-abdominal free air, free fluid, or abscess. Dictated by: Dictated on workstation # [id number]
[2018-01-11] MEDS ORDERED: cefTRIAXone INJECTION 1,000 MG in NS (IVPB) 50 ML IV ONE (14:45)
[2018-01-11] MEDS ORDERED: POTASSIUM CL 10MEQ/50ML IVPB 50 ML IV ONE (14:45)
[2018-01-11] MEDS ORDERED: MAGNESIUM 1 GM/100 ML IVPB 100 ML IV ONE (14:45)
[2018-01-11] MEDS ORDERED: fentaNYL INJECTION 100 MCG/2 ML AMP IVP ONE (14:45)
[2018-01-11] MEDS ORDERED: CEPH500T PO (15:53)
[2018-01-11] MEDS ORDERED: POTA-51 PO (15:53)
[2018-01-11] MEDS ORDERED: MAGN500C15 PO (15:53)
[2018-01-11 16:18] VITALS: BP 108/66
== END 2018-01-11 16:18 | disposition home or self-care (01) ==
LOC: EDUNIT# 12:13 → ER 12:14
DX: L03.311 Cellulitis of abdominal wall (principal); E83.42 Hypomagnesemia; E87.6 Hypokalemia; J45.909 Unspecified asthma, uncomplicated; E78.00 Pure hypercholesterolemia, unspecified; I10 Essential (primary) hypertension; E11.9 Type 2 diabetes mellitus without complications; Z88.0 Allergy status to penicillin; Z88.5 Allergy status to narcotic agent; Z88.8 Allergy status to other drugs, medicaments and biological substances; Z87.59 Personal history of other complications of pregnancy, childbirth and the puerperium; Z87.19 Personal history of other diseases of the digestive system; Z98.890 Other specified postprocedural states
CPT/HCPCS: 36415; 74177; 80053; 81000; 83735; 85025; 93005; 96361; 96365; 96367; 96368; 96375

== ENCOUNTER 2018-03-31 21:17 | Emergency (ER) | payer MEDICAID ==
[~2018-03-31] VITALS: Ht 165.1 cm; Wt 127.0 kg
[~2018-03-31 21:17] MED LIST changes: +CEPH500T PO; +MAGN500C15 PO; +POTA-51 PO
[2018-03-31] MEDS ORDERED: KETOROLAC 30 MG/ML VIAL IVP STA (21:38)
[2018-03-31] MEDS ORDERED: VANCOMYCIN INJECTION 1,000 MG in NS (IVPB) 250 ML IV ONE (21:45)
--- NOTE | 2018-03-31 22:03 | ED General ---
General Chief Complaint: Catheter/Drain/Tube Problems Stated Complaint: DRAIN TUBE LEAKING Nursing Triage Note: Pt ambulated to , 10 w/o difficulty. Pt states she had hernia surgery 3 weeks ago. Pt had drain put in at last Friday that started leaking Friday. Pt had new drain put in yesterday. Pt c/o localized pain/burning, and leaking from the L side of the tube. Pt states temperature at home was 101.9 and pt took clindamycin and hydrocodone at approximately 1800. Pt c/o generalized weakness and not feeling well. Nursing Sepsis Screen: No Definite Risk Source of Information: Patient History of Present Illness Date Seen by Provider: Mar 31, 2018 Time Seen by Provider: 21:30 Initial Comments PT ARRIVES VIA POV FROM HOME STATES SHE HAD HERNIA SURGERY 3 WEEKS AGO AT , AND WAS SENT HOME 2 WEEKS AGO PT DEVELOPED AN ABSCESS IN HER ABDOMEN, AND HAD A DRAIN PLACED AT 1 WEEK AGO ON Friday03/29/18, SHE STATES THE DRAIN QUIT WORKING AND STARTED LEAKING AROUND THE SITE YESTERDAY, AT , DRAIN WAS REPLACED STATES DRAIN HAS BEEN WORKING OK EARLIER TODAY--EMPTIED 150-160 ML THIS MORNING , EMPTIED 60 ML AT NOON, AND EMPTIED 125 ML AT 1700. CURRENTLY THERE IS > 120 ML OF SCOTTIE PURULENT DRAINAGE IN DRAINAGE CONTAINER PT STATES THAT AT 2000 TONIGHT SHE TOOK A BATH AND AFTERWARD, PUS "WAS GUSHING" OUT FROM AROUND DRAIN SITE PT STATES SHE HAD TEMP OF 101.9 TODAY HAS HAD INCREASED PAIN AROUND DRAIN AND "JUST DIDN'T FEEL GOOD" ALL DAY TODAY STATES SHE HAS HAD SOME FEVER OFF AND ON SINCE SHE WAS FIRST RELEASED FROM HOSPITAL PT IS CURRENTLY ON CLINDAMYCIN PT HAS BEEN EATING AND DRINKING WELL NO NAUSEA/VOMITING NO URINARY SYMPTOMS PT STATES SHE HAS BEEN TAKING HYDROCODONE 10 MG EVERY 4 HOURS, LAST DOSE WAS AT 1800 TONIGHT HAS OTHERWISE NOT TAKEN ANYTHING ELSE FOR SYMPTOMS HAS NOT ATTEMPTED TO CONTACT OR ANYONE ELSE TODAY FOR THESE SYMPTOMS Allergies and Home Medications Allergies Coded Allergies: amoxicillin (Verified Allergy, Unknown, 02/04/17) clavulanic acid (Verified Allergy, Unknown, 02/04/17) morphine (Verified Allergy, Unknown, 02/04/17) Uncoded Allergies: PAPER TAPE (Allergy, Mild, 02/04/17) Home Medications Albuterol Sulfate 1 Puff Puff, 2 PUFF IH Q4H, (Reported) 1 PUFF = 90 MCG Cephalexin 500 Mg Tablet, 500 MG PO QID Prescribed by: ANTHONY BAIRD on 01/11/181552 Magnesium Oxide 500 Mg Capsule, 500 MG PO BID Prescribed by: ANTHONY BAIRD on 01/11/181552 Potassium Chloride 20 Meq Tablet.er, 20 MEQ PO TID Prescribed by: ANTHONY BAIRD on 01/11/181552 Sucralfate 1 Gm/10 Ml Oral.susp, 1 GM PO QID 30 minutes before meals and before bed. Shake well before use Prescribed by: ELIAS RIVERA on 02/04/17516 Tramadol HCl 50 Mg Tablet, 50 MG PO Q6H PRN for PAIN-MODERATE TO SEVERE Prescribed by: ELIAS RIVERA on 02/04/17517 Patient Home Medication List Home Medication List Reviewed: Yes Review of Systems Constitutional: see HPI, fever, malaise, weakness EENTM: no symptoms reported Respiratory: no symptoms reported; No cough, No short of breath Cardiovascular: no symptoms reported Gastrointestinal: see HPI, abdominal pain; No constipation, No diarrhea, No loss of appetite, No nausea, No vomiting Genitourinary: no symptoms reported Musculoskeletal: no symptoms reported Skin: see HPI Psychiatric/Neurological: No Symptoms Reported Hematologic/Lymphatic: No Symptoms Reported Immunological/Allergic: no symptoms reported Past Xywzzth-Qphpjl-Enebih Hx Patient Social History Alcohol Use: Denies Use Recreational Drug Use: No 2nd Hand Smoke Exposure: No Recent Foreign Travel: No Contact w/Someone Who Travel: No Recent Infectious Disease Expo: No Recent Hopitalizations: No Immunizations Up To Date Tetanus Booster (TDap): Unknown Seasonal Allergies Seasonal Allergies: Yes Past Medical History Surgeries: Yes (HERNIA REPAIR X 2; DRAIN PLACED IN POST-OP ABSCESS 03/25/18 AND REPLACED AT [facility]; GASTRIC SLEEVE MARCH 2015) Abdominal, Section, Tubal Ligation Respiratory: Yes Asthma Cardiac: Yes High Cholesterol, Hypertension Neurological: No Last Menstrual Period: Oct 02, 2017 [employer] History: Tubal Ligation Genitourinary: No Gastrointestinal: Yes Abdominal Hernia Musculoskeletal: Yes Chronic Back Pain Endocrine: Yes (MORBID OBESITY) Diabetes, Non-Insulin dep HEENT: No Cancer: No Psychosocial: No Integumentary: No Blood Disorders: No Physical Exam Vital Signs Vital Signs - First Documented 03/31/18 21:32 Temp 97.3 Pulse 84 Resp 16 B/P (MAP) 107/66 (80) O2 Delivery Room Air Capillary Refill : Less Than 3 Seconds Height, Weight, BMI Height: 5'5.00" Weight: 280lbs. oz. 127.044661xc; BMI Method:Stated General Appearance: No Apparent Distress, Anxious, Obese Respiratory: Normal Breath Sounds, No Accessory Muscle Use, No Respiratory Distress Cardiovascular: Regular Rate, Rhythm, No Murmur Gastrointestinal: Other (MIDLINE INCISION HEALING, WITH SCAB FORMATION. SLIGHT ERYTHEMA TO INCISION LINE. DRAIN IN RIGHT MID ABDOMEN WITH LARGE AMOUNT OF PURULENT DRAINAGE. MILD TO MODERATE AMOUNT OF SURROUNDING ERYTHEMA TO LEFT ABDOMEN, WITH MODERATE AMOUNT OF INDURATION AND SIGNIFICANT TENDERNESS TO MOST OF LEFT ABDOMEN. SMALL AMOUNT OF PURULENT DRAINAGE FROM TUBE SITE. ) Back: No CVA Tenderness Extremity: Normal Range of Motion Neurologic/Psychiatric: Alert, Oriented x3, No Motor/Sensory Deficits, Normal Mood/Affect Skin: Normal Color, Warm/Dry, Other ( ABOVE) Focused Exam Lactate Level 03/31/18 21:55: Lactic Acid Level 1.84 Lactic Acid Level Laboratory Tests Test 03/31/18 21:55 Lactic Acid Level 1.84 MMOL/L (0.50-2.00) Progress/Results/Core Measures Suspected Sepsis Recent Fever Within 48 Hours: Yes Infection Criteria Present: Suspected New Infection New/Unexplained Altered Menta: No Sepsis Screen: No Definite Risk SIRS Temperature:97.3 Pulse: 84 Respiratory Rate: 16 Laboratory Tests 03/31/18 21:55: White Blood Count 8.0 Blood Pressure 107 /66 Mean: 80 03/31/18 21:55: Lactic Acid Level 1.84 Laboratory Tests 03/31/18 21:55: Creatinine 0.62, Platelet Count 637H, Total Bilirubin 0.3 Results/Orders Lab Results Laboratory Tests Test 03/31/18 21:55 Range/Units White Blood Count 8.0 4.3-11.0 10^3/uL Red Blood Count 3.24 L 4.35-5.85 10^6/uL Hemoglobin 9.7 L 11.5-16.0 G/DL Hematocrit 31 L 35-52 % Mean Corpuscular Volume 95 80-99 FL Mean Corpuscular Hemoglobin 30 25-34 PG Mean Corpuscular Hemoglobin Concent 32 32-36 G/DL Red Cell Distribution Width 15.1 H 10.0-14.5 % Platelet Count 637 H 130-400 10^3/uL Mean Platelet Volume 8.5 7.4-10.4 FL Neutrophils (%) (Auto) 54 42-75 % Lymphocytes (%) (Auto) 33 12-44 % Monocytes (%) (Auto) 8 0-12 % Eosinophils (%) (Auto) 4 0-10 % Basophils (%) (Auto) 1 0-10 % Neutrophils # (Auto) 4.3 1.8-7.8 X 10^3 Lymphocytes # (Auto) 2.6 1.0-4.0 X 10^3 Monocytes # (Auto) 0.7 0.0-1.0 X 10^3 Eosinophils # (Auto) 0.3 0.0-0.3 10^3/uL Basophils # (Auto) 0.1 0.0-0.1 10^3/uL Erythrocyte Sedimentation Rate > 140 H 0-20 MM/HR Sodium Level 140 135-145 MMOL/L Potassium Level 3.6 3.6-5.0 MMOL/L Chloride Level 99 98-107 MMOL/L Carbon Dioxide Level 29 21-32 MMOL/L Anion Gap 12 5-14 MMOL/L Blood Urea Nitrogen 9 7-18 MG/DL Creatinine 0.62 0.60-1.30 MG/DL Estimat Glomerular Filtration Rate > 60 BUN/Creatinine Ratio 15 Glucose Level 190 H 70-105 MG/DL Lactic Acid Level 1.84 0.50-2.00 MMOL/L Calcium Level 9.8 8.5-10.1 MG/DL Total Bilirubin 0.3 0.1-1.0 MG/DL Aspartate Amino Transf (AST/SGOT) 17 5-34 U/L Alanine Aminotransferase (ALT/SGPT) 26 0-55 U/L Alkaline Phosphatase 133 40-136 U/L C-Reactive Protein High Sensitivity 5.02 H 0.00-0.50 MG/DL Total Protein 7.4 6.4-8.2 GM/DL Albumin 3.3 3.2-4.5 GM/DL My Orders Orders - PREET,FARIDEH K DO Saline Lock/Iv-Start (03/31/18 21:38) Cbc With Automated Diff (03/31/18 21:38) Comprehensive Metabolic Panel (03/31/18 21:38) Hs C Reactive Protein (03/31/18 21:38) Erythrocyte Sedimentation Rate (03/31/18 21:38) Lactic Acid Analyzer (03/31/18 21:38) Blood Culture (03/31/18 21:38) Wound Culture (03/31/18 21:38) Ketorolac Injection (Toradol Injection) (03/31/18 21:38) Vancomycin Injection (Vancomycin Injecti (03/31/18 21:45) Medications Given in ED Current Medications Medications Dose Ordered Sig/Jj Route Start Time Stop Time Status Last Admin Dose Admin Vancomycin HCl 1000 mg/Sodium Chloride 250 ml @ 250 mls/hr ONCE ONCE IV 03/31/18 21:45 03/31/18 22:44 DC 03/31/18 22:25 250 MLS/HR Vital Signs/I&O 03/31/18 21:32 Temp 97.3 Pulse 84 Resp 16 B/P (MAP) 107/66 (80) O2 Delivery Room Air Capillary Refill : Less Than 3 Seconds Blood Pressure Mean: 80 Progress Note : Progress Note ON ARRIVAL, EMPTIED DRAIN OF 120 ML PURULENT DRAINAGE--CULTURES OBTAINED PRIOR TO DISMISSAL, AN ADDITIONAL 150 ML OF PURULENT DRAINAGE WAS EMPTIED, AND IS STARTING TO FILL AGAIN PT IS BEING DISMISSED REASSURANCE GIVEN TO PT PT STATES SHE HAS AN APPOINTMENT AT IN THE MORNING WITH SURGEON FOR FOLLOW UP ON THIS Departure Impression Primary Impression: Abscess of postoperative wound of abdominal wall Additional Impression: S/P hernia repair Disposition: 01 HOME, SELF-CARE Condition: Stable Departure-Patient Inst. Referrals: NO,LOCAL PHYSICIAN (PCP) Primary Care Physician SHYLA GUARDADO DO (Family) Primary Care Physician Patient Instructions: EXTERNAL DRAINAGE CATHETER D/C Add. Discharge Instructions: CONTINUE ALL POST OP INSTRUCTIONS CONTINUE YOUR REGULAR MEDICATIONS PRESCRIBED, INCLUDING YOUR ANTIBIOTIC KEEP YOUR APPOINTMENT WITH IN THE MORNING SCHEDULED All discharge instructions reviewed with patient and/or family. Voiced understanding. FARIDEH OVIEDO DO Mar 31, 2018 22:03
[2018-03-31 22:10] LABS: BASOPHILS # (AUTO) 0.1 10^3/uL (0.0-0.1); BASOPHILS % (AUTO) 1 % (0-10); EOSINOPHILS # (AUTO) 0.3 10^3/uL (0.0-0.3); EOSINOPHILS % (AUTO) 4 % (0-10); HEMATOCRIT 31 % (35-52); HEMOGLOBIN 9.7 G/DL (11.5-16.0); LYMPHOCYTES # (AUTO) 2.6 X 10^3 (1.0-4.0); LYMPHOCYTES % (AUTO) 33 % (12-44); MEAN CORPUSCULAR HEMOGLOBIN 30 PG (25-34); MEAN CORPUSCULAR HGB CONC 32 G/DL (32-36); MEAN CORPUSCULAR VOLUME 95 FL (80-99); MEAN PLATELET VOLUME 8.5 FL (7.4-10.4); MONOCYTES # (AUTO) 0.7 X 10^3 (0.0-1.0); MONOCYTES % (AUTO) 8 % (0-12); NEUTROPHILS # (AUTO) 4.3 X 10^3 (1.8-7.8); NEUTROPHILS % (AUTO) 54 % (42-75); PLATELET COUNT 637 10^3/uL (130-400); RED BLOOD COUNT 3.24 10^6/uL (4.35-5.85); RED CELL DISTRIBUTION WIDTH 15.1 % (10.0-14.5)
[2018-03-31 22:26] LABS: ALANINE AMINOTRANSFERASE 26 U/L (0-55); ALBUMIN 3.3 GM/DL (3.2-4.5); ALKALINE PHOSPHATASE 133 U/L (40-136); BILIRUBIN,TOTAL 0.3 MG/DL (0.1-1.0); BUN/CREATININE RATIO 15; CALCIUM 9.8 MG/DL (8.5-10.1); CARBON DIOXIDE 29 MMOL/L (21-32); CHLORIDE 99 MMOL/L (98-107); CREATININE SERUM 0.62 MG/DL (0.60-1.30); GFR ESTIMATED > 60; GLUCOSE 190 MG/DL (70-105); POTASSIUM 3.6 MMOL/L (3.6-5.0); SODIUM 140 MMOL/L (135-145); TOTAL PROTEIN 7.4 GM/DL (6.4-8.2)
[2018-03-31 22:54] LABS: ERYTHROCYTE SEDIMENTATION RATE > 140 MM/HR (0-20)
--- OUTSIDE RECORDS SUMMARY | 2018-03-31 23:33 | XMS REPORT | Clinical Summary ---
Author Author [facility] Organization [facility] Address Unknown Phone Unavailable Care Team Providers Care Labor Gang Supervisor Name Role Phone Linus Herrera DO PCP Source Comments Some departments are not documenting in the electronic medical record. If you do not see the information that you expected, contact Release of Information in the Health Information Management department at [phone] for further assistance in locating additional records.[facility] Allergies Active Allergy Reactions Severity Noted Date Comments Adhesive Tape (Rosins) ITCHING, REDNESS Medium 08/21/2017 Paper tape Amoxicillin-Pot HIVES Medium 08/21/2017 Pt reports that she Clavulanate tolerates Amoxil Fentanyl HIVES, NAUSEA ONLY Medium 08/21/2017 Morphine HEADACHE, HIVES, NAUSEA High 08/21/2017 ONLY, SHORTNESS OF BREATH, HYPOTENSION Current Medications Prescription Sig. Disp. Refills Start End Date Status Date exenatide microspheres Inject 2 mg under the Active ER(+) (BYDUREON) 2 mg skin every 7 days. injection Administer on Wednesdays dapagliflozin 10 mg tab Take 1 tablet by mouth at Active bedtime daily. fenofibrate Take 145 mg by mouth Active nanocrystallized (TRICOR) daily. Take with food. 145 mg tablet fluticasone (FLONASE) 50 Apply 2 sprays to each Active mcg/actuation nasal spray nostril as directed daily. Shake bottle gently before using. lidocaine (LIDODERM) 5 % Apply 2 patches topically Active topical patch to affected area at bedtime daily. Apply patch for 12 hours, then remove for 12 hours before repeating. atorvastatin (LIPITOR) 80 Take 80 mg by mouth Active mg tablet daily. potassium chloride SR Take 20 mEq by mouth Active (K-DUR) 20 mEq tablet three times daily. Take with a meal and a full glass of water. albuterol (PROAIR HFA) 90 Inhale 2 puffs by mouth Active mcg/actuation inhaler into the lungs every 6 hours as needed for Wheezing or Shortness of Breath. Shake well before use. montelukast (SINGULAIR) Take 10 mg by mouth at Active 10 mg tablet bedtime daily. ranitidine(+) (ZANTAC) Take 150 mg by mouth Active 150 mg tablet twice daily. ondansetron (ZOFRAN) 8 mg Take 8 mg by mouth every Active tablet 8 hours as needed for Nausea or Vomiting. budesonide/formoterol Inhale 1 puff by mouth 01/11/20 Active (SYMBICORT HFA) 160/4.5 into the lungs twice 17 mcg inhalation daily as needed. ergocalciferol (VITAMIN Take 1 capsule by mouth Active D-2) 50,000 unit capsule every 7 days. Administer on Friday' ipratropium/albuterol Inhale 1 puff by mouth Active (COMBIVENT RESPIMAT) into the lungs four times 20-100 mcg/actuation mist daily as needed. inhaler pediatric multivitamin Chew 2 tablets by mouth Active no.42 (CHILDREN'S daily. MULTIVITAMIN) chew cyanocobalamin (vitamin Dissolve 1 tablet by Active B-12) 5,000 mcg TbDi mouth daily. biotin 10,000 mcg TbDi Dissolve 2 tablets by Active mouth daily. prednisolone acetate Apply 1 drop to left eye 01/15/20 Active (PRED FORTE) 1 % as directed twice daily. 18 ophthalmic suspension metFORMIN (GLUCOPHAGE) Take 1 tablet by mouth 02/02/20 Active 1,000 mg tablet twice daily. 18 LINZESS 145 mcg cap Take 1 capsule by mouth 02/06/20 Active capsule daily. 18 clindamycin(+) (CLEOCIN Take 1 capsule by mouth 40 capsule 0 03/25/20 Active HCL) 300 mg capsule every 6 hours. Take with 18 8oz of water. HYDROcodone/acetaminophen Take 1 tablet by mouth 30 tablet 0 03/25/20 Active (+) (NORCO) 10/325 mg every 6 hours as needed 18 tablet for Pain zolpidem (AMBIEN) 10 mg Take 10 mg by mouth at 03/16/20 Discontin tablet bedtime daily. 18 ued LORazepam (ATIVAN) 0.5 mg Take 1 tablet by mouth at 03/16/20 Discontin tabletIndications: bedtime daily. 18 ued anxiety, sleep butalbital/acetaminophen/ Take 1 tablet by mouth 03/16/20 Discontin caffeine(+) (FIORICET) every 4 hours as needed 18 ued 50/325/40 mg tablet for Headache. cyclobenzaprine Take 10 mg by mouth three 03/16/20 Discontin (FLEXERIL) 10 mg tablet times daily as needed for 18 ued Muscle Cramps. HYDROcodone/acetaminophen Take 1 tablet by mouth 03/25/20 Discontin (+) (NORCO) 10/325 mg every 6 hours as needed 18 ued tablet for Pain omeprazole DR(+) Take 20 mg by mouth daily 03/25/20 Discontin (PRILOSEC) 20 mg capsule before breakfast. 18 ued torsemide(+) (DEMADEX) 20 Take 80 mg by mouth 03/25/20 Discontin mg tablet daily. 18 ued COLLAGEN MISC Take 1 tablet by mouth 03/25/20 Discontin daily. 18 ued ofloxacin(+) (FLOXIN) 0.3 Apply 1 drop to left eye 01/15/20 03/25/20 Discontin % ophthalmic solution as directed three times 18 18 ued daily. oxyCODONE (ROXICODONE, Take 1-3 tablets by mouth 40 tablet 0 03/16/20 03/25/20 Discontin OXY-IR) 5 mg tablet every 3 hours as needed 18 18 ued polyethylene glycol 3350 Take 2 packets by mouth 12 each 03/17/20 Discontin (MIRALAX) 17 g packet daily. 18 18 ued Active Problems Problem Noted Date Morbid obesity (HCC) 03/11/2018 Ventral hernia 03/10/2018 Abdominal pannus 09/29/2017 Incisional hernia, without obstruction or gangrene 09/11/2017 MALINDA on CPAP Hyperlipidemia GERD (gastroesophageal reflux disease) DM (diabetes mellitus) (HCC) Coronary artery disease Asthma Encounters Date Type Specialty Care Team Description 03/30/2018 [facility] Radiology Linus Maldonado MD Arrived Encounter Bertram Reid RN Lemons, Steven, MD 03/30/2018 Orders Only Radiology Sallie Walker RN 03/30/2018 Telephone Radiology Sallie Walker RN 03/27/2018 Telephone General Surgery Tracey Victoria, DO Transportation Issues; I 03/26/2018 Telephone General Surgery Tracey Victoria DO Appointment [facility] Abdominal fluid Encounter Caitie Nj Zachary S, MD 03/25/2018 Office Visit General Surgery Tracey Victoria DO Abdominal fluid collection (Primary Dx); Morbid obesity (HCC); Abdominal pannus; Incisional hernia, without obstruction or gangrene 03/25/2018 Telephone General Surgery Alex Rodarte RN Medication Follow-up 03/24/2018 Telephone General Surgery Tracey Victoria DO Skin Problem 03/16/2018 Pharmacy Visit 03/10/2018 [facility] Tracey, DO Incisional hernia, - Encounter without obstruction or 03/16/2018 gangrene 03/10/2018 Procedure Pass 03/10/2018 [facility] INCISIONAL HERNIA REPAIR WITH MESH, BILATERAL COMPONENT SEPARATION AND MYOCUTANOUS FLAP ADVANCEMENT, ABDOMINAL SCAR REVISION, REMOVAL OF FOREIGN OBJECT, REMOVAL AND DRAINAGE OF GRANULOMA/CYST 02/25/2018 PAC Office Anesthesiology Tracey Victoria DO Incisional hernia, Visit without obstruction or gangrene (Primary Dx); Pre-operative cardiovascular examination; Preoperative clearance 02/25/2018 Anesthesia Deb Leiva APRN Event 02/19/2018 Office Visit General Surgery Tracey Victoria DO Preoperative clearance (Primary Dx); Incisional hernia, without obstruction or gangrene; Abdominal pannus 02/19/2018 Prep for Case General Surgery Tracey Victoria, 01/30/2018 Telephone General Surgery Tracey Victoria DO Surgery ( appeal) 01/16/2018 Telephone General Surgery Tracey Victoria DO General Question 01/13/2018 Emergency Emergency Medicine Marbella Ahmadi MD 01/13/2018 Procedure Pass Emergency Medicine 01/12/2018 Telephone General Surgery Tracey Victoria DO Abdominal pain from Last 3 Months Social History Tobacco Use Types Packs/Day Years Used Date Former Smoker Quit: 03/11/1997 Smokeless Tobacco: Never Used Alcohol Use Drinks/Week oz/Week Comments No Sex Assigned at Date Recorded Not on file Last Filed Vital Signs Vital Sign Reading Time Taken Blood Pressure 116/61 03/30/2018 2:00 PM CDT Pulse 81 03/30/2018 2:00 PM CDT Temperature 36.7 C (98.1 F) 03/30/2018 1:38 PM CDT Respiratory Rate 18 03/25/2018 10:59 AM CDT Oxygen Saturation 96% 03/30/2018 2:00 PM CDT Inhaled Oxygen - - Concentration Weight 127 kg (280 lb) 03/30/2018 12:29 PM CDT Height 165.1 cm (5' 5") 03/30/2018 12:29 PM CDT Body Mass Index 46.59 03/30/2018 12:29 PM CDT Plan of Treatment Health Maintenance Due Date Last Done Comments PHYSICAL (COMPREHENSIVE) 1979 EXAM PERTUSSIS VACCINE 1983 HIV SCREENING 1987 TETANUS VACCINE 1989 CERVICAL CANCER SCREENING 2002 BREAST CANCER SCREENING 2012 INFLUENZA VACCINE 06/01/2018 Implants Implanted Type Area Transport Aircrewman Device Expiration Model / Identifier Date Serial / Lot Graft Soft Tissue [id number] Matristem N/A: [employer] 10/01/2019 [id number] / Thick Surgical Matrix - [id number] Abdomen [id number] / Implanted: Qty: 1 on 03/10/2018 by [id number] Tracey Victoria, DO Procedures Procedure Name Priority Date/Time Associated Diagnosis Comments ECG-SCAN 03/17/2018 Results for this 3:48 PM CDT procedure are in the results section. ECG-SCAN 03/17/2018 Results for this 3:48 PM CDT procedure are in the results section. CONSULT IV THERAPY TEAM Routine 03/12/2018 1:41 AM CDT ANESTHESIA EPIDURAL BLOCK Routine 03/10/2018 Results for this 1:00 PM CDT procedure are in the results section. REPAIR HERNIA VENTRAL 03/10/2018 Incisional hernia, 8:00 AM CDT without obstruction or gangrene from Last 3 Months Results * IR ASPIRATION/DRAIN (03/30/2018 1:23 PM) Only the most recent of 2 results within the time period is included. Impressions Performed At Fluoroscopic guided left lower quadrant abscess drain exchange and upsize to 12 [facility] Burmese. Finalized by Keshav Lentz M.D. on 03/31/2018 7:26 AM. Dictated by Keshav Lentz M.D. on 03/31/2018 7:22 AM. Narrative Performed At Left lower quadrant abscess drain exchange and upsize [facility] CLINICAL HISTORY: Left lower quadrant abscess with poor drainage output and pericatheter leakage TECHNIQUE AND FINDINGS: Ankur Sosa M.D., the attending radiologist, was present for the procedure, personally reviewed the images, and formulated the interpretations and opinions expressed in this report. SEDATION: I was personally responsible for the administration of moderate sedation services during the procedure performed, and I confirm requirements described in CPT section on moderate sedation were followed, including the use of an independent trained observer who had no other duties during the procedure.The total supervised sedation time was 4 minutes.See nursing log for complete details; the drugs utilized were:2 mg IV Versed; 0 mcg IV Fentanyl. After informed written consent was obtained, the patient was brought to the fluoroscopy suite and placed in the supine position. The left lower quadrant and 8 Burmese drainage catheter were prepped and draped in the usual sterile fashion. Contrast material was injected demonstrating a large residual abscess cavity within the left lower quadrant/pelvis. The catheter and anchor suture were transected after the skin was anesthetized with 2% lidocaine. An Amplatz wire was advanced through the catheter which was then removed and a 12 Burmese multipurpose pigtail drainage catheter was advanced over the Amplatz wire. The pigtails formed within the abscess. A large amount of purulent material was aspirated. The catheter was secured in place with 2 Ethilon suture and attached to a J vac drainage device. Sterile dressings were applied and the patient was taken to the recovery area in stable condition. Total radiation dose: 9 mg Contrast: 30 cc Isovue-300 Procedure Note Interface, Radiant Results - 03/31/2018 7:30 AM CDT Left lower quadrant abscess drain exchange and upsize CLINICAL HISTORY: Left lower quadrant abscess with poor drainage output and pericatheter leakage TECHNIQUE AND FINDINGS: Ankur Sosa M.D., the attending radiologist, was present for the procedure, personally reviewed the images, and formulated the interpretations and opinions expressed in this report. SEDATION: I was personally responsible for the administration of moderate sedation services during the procedure performed, and I confirm requirements described in CPT section on moderate sedation were followed, including the use of an independent trained observer who had no other duties during the procedure. The total supervised sedation time was 4 minutes. See nursing log for complete details; the drugs utilized were: 2 mg IV Versed; 0 mcg IV Fentanyl. After informed written consent was obtained, the patient was brought to the fluoroscopy suite and placed in the supine position. The left lower quadrant and 8 Burmese drainage catheter were prepped and draped in the usual sterile fashion. Contrast material was injected demonstrating a large residual abscess cavity within the left lower quadrant/pelvis. The catheter and anchor suture were transected after the skin was anesthetized with 2% lidocaine. An Amplatz wire was advanced through the catheter which was then removed and a 12 Burmese multipurpose pigtail drainage catheter was advanced over the Amplatz wire. The pigtails formed within the abscess. A large amount of purulent material was aspirated. The catheter was secured in place with 2 Ethilon suture and attached to a J vac drainage device. Sterile dressings were applied and the patient was taken to the recovery area in stable condition. Total radiation dose: 9 mg Contrast: 30 cc Isovue-300 IMPRESSION Fluoroscopic guided left lower quadrant abscess drain exchange and upsize to 12 Burmese. Finalized by Keshav Lentz M.D. on 03/31/2018 7:26 AM. Dictated by Keshav Lentz M.D. on 03/31/2018 7:22 AM. Performing Organization Address [facility] Phone Number [facility] RESULTS * ECG-SCAN (03/17/2018 3:48 PM) Narrative Performed At Ordered by an unspecified provider. * ECG-SCAN (03/17/2018 3:48 PM) Narrative Performed At Ordered by an unspecified provider. * POC GLUCOSE (03/16/2018 5:07 PM) Only the most recent of 36 results within the time period is included. Glucose, POC 224 (H) 70 - 100 MG/DL MAIN LAB Performing Organization Address [facility] Phone Number MAIN LAB [address] [place] [address] * PHOSPHORUS (03/16/2018 7:38 AM) Only the most recent of 7 results within the time period is included. Phosphorus 3.6 2.0 - 4.0 MG/DL MAIN LAB Specimen Blood Performing Organization [facility] Phone Number MAIN LAB [address] [place] [address] * MAGNESIUM (03/16/2018 7:38 AM) Only the most recent of 8 results within the time period is included. Magnesium 1.5 (L) 1.6 - 2.6 mg/dL [facility] Specimen Blood Performing Organization Address City/[facility]/Zipcode Phone Number MAIN LAB [address] [place] [address] * BASIC METABOLIC PANEL (03/16/2018 7:38 AM) Only the most recent of 8 results within the time period is included. Sodium 134 (L) 137 - 147 MMOL/L [facility] Potassium 3.8 3.5 - 5.1 MMOL/L [facility] Chloride 98 98 - 110 MMOL/L [facility] CO2 28 21 - 30 MMOL/L [facility] Anion Gap 8 3 - 12 [facility] Glucose 172 (H) 70 - 100 MG/DL [facility] Blood Urea Nitrogen 5 (L) 7 - 25 MG/DL [facility] Creatinine 0.27 (L) 0.4 - 1.00 MG/DL [facility] Calcium 9.1 8.5 - 10.6 MG/DL [facility] eGFR Non >60 >60 mL/min [facility] Comment: The eGFR is not validated for use in drug dosing adjustments.Continue to use estimated creatinine clearance per dosing reference text.Please contact the Clinical Pharmacist for questions. eGFR >60 >60 mL/min [facility] Comment: The eGFR is not validated for use in drug dosing adjustments.Continue to use estimated creatinine clearance per dosing reference text.Please contact the Clinical Pharmacist for questions. Specimen Blood Performing Organization Address City/[facility]/Zipcode Phone Number MAIN LAB [address] [place] [address] * CBC (03/15/2018 5:35 AM) Only the most recent of 7 results within the time period is included. White Blood Cells 8.5 4.5 - 11.0 K/UL [facility] RBC 2.80 (L) 4.0 - 5.0 M/UL [facility] Hemoglobin 8.8 (L) 12.0 - 15.0 GM/DL [facility] Hematocrit 25.9 (L) 36 - 45 % [facility] MCV 92.5 80 - 100 FL [facility] MCH 31.3 26 - 34 PG [facility] MCHC 33.9 32.0 - 36.0 G/DL [facility] RDW 14.9 11 - 15 % [facility] Platelet Count 283 150 - 400 K/UL [facility] MPV 7.7 7 - 11 FL [facility] Specimen Blood Performing Organization Address City/State/Zipcode Phone Number [facility] [address] [place] [address] * SURGICAL PATHOLOGY (03/10/2018 1:27 PM) PATHOLOGY REPORT [facility] [email or web address] Department of Pathology and Laboratory Medicine [address] [place] [address] Surgical Pathology Office:[phone] :[phone] SURGICAL PATHOLOGY REPORT NAME: RADHA MOTA SURG PATH #: [id number] MR #: [id number] SPECIMEN CLASS: SR BILLING #: [id number] ALT ID #:LOCATION: [id number] DATE OF PROCEDURE: 03/10/2018 AGE:47 SEX: F DATE RECEIVED: 03/10/2018 : 1970TIME RECEIVED:13:27 PHYSICIAN: TRACEY VICTORIA DATE OF REPORT: 03/12/2018 COPY TO:DATE OF PRINTIN03/12/2018 ############################## ############################## ############ Final Diagnosis: A. Foreign object, "foreign object", removal: Consistent with toothpick (gross only) B. Soft tissue, "abdominal wall cyst", excision: Fibrosis with necrosis and debris C. Mesothelial lined fibrous tissue, "old mesh", excision: Hernia sac with granulation tissue and chronic inflammation D. Skin, "abdominal scar", excision: Dermal fibrosis Attestation: By this signature, I attest that I have personally formulated the final interpretation expressed in this report and that the above diagnosis is based upon my examination of the slides and/or other material indicated in this report. +++ +++ ksw/03/11/2018 ############################## ############################## ############ Material Received: A: foreign object B: abdominal wall cyst C: old mesh D: abdominal scar History: 47-year-old female with a clinical history of incisional hernia, without obstruction or gangrene, abdominal pannus Gross Description: A. Received fresh, labeled with the patient's name and "foreign object" is a 0.5 cm in length by 0.3 cm in diameter andre-white, wood-like object consistent with a toothpick. The specimen is submitted for gross examination only. (jrt) B. Received in formalin, labeled with the patient's name and "abdominal wall cyst" is a 10.7 x 8.9 x 6.7 cm pink-purple cyst like structure with attached yellow-andre fibroadipose tissue. The cyst structure has been previously disrupted. The cystlike structure is opened to reveal yellow-andre, friable material. Technology Director sections of the specimen are submitted as follows: B1 Cyst wall. B2 Friable material. B3 Full thickness section of cyst wall fibroadipose tissue. (jrt) C. Received in formalin, labeled with the patient's name and "old mesh" is a 9.6 x 7.5 x 3.6 cm portion of andre-white, mesh like material with attached yellow-andre to pink-purple fibroadipose tissue. A pharmaceutical representative section of the attached fibroadipose tissue is submitted in cassette C1. (jrt) D. Received fresh labeled with the patient's name and "abdominal scar" is a 31.5 x 15.0 x 1.5 cm andre-white, annular portion of skin with a 1.5 x 1.5 cm possible umbilicus. No discrete scar is grossly identified on the surface of the skin. Technology Director sections are submitted in cassette D1. (sld) jr/03/10/2018 Performing Organization Address City/State/Zipcode Phone Number [facility] * ANESTHESIA EPIDURAL BLOCK (03/10/2018 1:00 PM) Narrative Performed At Elmer Mccauley DO 03/10/20188:01 AM Anesthesia Procedure: Epidural Block EPIDURAL BLOCK Date/Time: 03/10/2018 7:55 AM Patient location: pre-op Reason for block: post-op pain management Preprocedure checklist performed: 2 patient identifiers, risks & benefits discussed, patient evaluated, timeout performed, consent obtained, patient being monitored, existing labs reviewed, no anticoagulant within risk period and sterile drape Sterile technique: - Proper hand washing - Cap, mask - Sterile gloves - Skin prep for antisepsis Epidural Procedure Patient position: sitting Prep: ChloraPrep Monitoring: BP, EKG and continuous pulse ox Approach: right paramedian Location: thoracic Level/Interspace: T8-9 Injection technique: SERGIO saline Procedures: landmark technique Local infiltration: 1% lidocaine injected locally Number of attempts: 2 Needle/epidural catheter: Needle type: Tuohy Needle gauge: 18 G Needle length: 3.5 in Needle insertion depth: 8 cm Catheter type: multi orifice Catheter size: 20 G Catheter at skin depth: 13 cm Procedure Outcome Events: negative test dose, no paresthesia and negative aspiration test Patient tolerance of procedure: patient tolerated the procedure well with no immediate complications Refer to nursing documentation for vitals and monitoring data during procedure. Performed by: PRAVIN SHRESTHA Authorized by: PRAVIN SHRESTHA * TYPE & CROSSMATCH (03/10/2018 7:13 AM) Units Ordered 2 MAIN LAB Crossmatch Expires 03/13/2018 MAIN LAB Record Check FOUND MAIN LAB ABO/RH(D) A POS MAIN LAB Antibody Screen NEG MAIN LAB Electronic Crossmatch YES MAIN LAB Specimen Blood Performing Organization Address [facility] Phone Number MA[facility] LAB [address] [place] [address] * TEST-URINE (03/10/2018 6:25 AM) Urine-HCG NEG MAIN LAB Samples with Specific [place] <1.010 may result in a false negative test Specific [place] 1.019 MAIN LAB Specimen Urine - Urine Performing Organization Address [facility] Phone Number [facility] [address] [place] [address] * TYPE & SCREEN (NOT CROSSMATCH ELIGIBLE) (02/25/2018 5:06 PM) ABO/RH(D) A POS MAIN LAB Antibody Screen NEG MAIN LAB Blood Component Type RED CELL GROUP MAIN LAB Specimen Blood, venous - Blood Performing Organization Address City/State/Zipcode Phone Number MAIN LAB [address] [place] [address] * CT ABD/PELV W CONTRAST (01/13/2018 4:15 PM) Impressions Performed At 1.No bowel obstruction, ascites, or focal inflammatory process. [facility] 2.Large, wide-neck ventral abdominal wall hernia which contains nonobstructed small and large bowel loops. There are smaller associated hernias which extend from this larger hernia sac. A chronic, partially calcified fluid collection within the hernia sac is unchanged since an outside study one year prior, most likely a stable chronic walled off hematoma. 3.Mild inflammatory stranding of the anterior abdominal wall, which may represent particulate is. The lower aspect of the large hernia is not included on the [id number]. No abdominal wall fluid collections are identified to suggest abscess. 4.Hepatomegaly and probable diffuse hepatic steatosis. Rounding of the liver margins and fissural widening is more conspicuous than on the prior study, suggesting some degree of underlying liver fibrosis. 5.Irregular low attenuation within the left hepatic lobe adjacent to the falciform fissure, which has developed since the prior outside study 2016. This is incompletely characterized on this study, though is favored to represent a focal area of geographic steatosis. However, there is mild bile duct dilatation peripheral to this area, which is not typical for steatosis. Nonemergent contrast-enhanced MRI of the abdomen should be performed to exclude an underlying neoplasm. Liver findings and the recommendation for nonemergent MRI were discussed with Britt Lozano by telephone at 1655 on 01/13/2018. Finalized by Radha Diehl M.D. on 01/13/2018 4:59 PM. Dictated by Radha Diehl M.D. on 01/13/2018 4:36 PM. Narrative Performed At CT ABDOMEN AND PELVIS [facility] Clinical Indication:Female, 47 years old. Abdominal pain, hernia Technique:Multiple contiguous axial images were obtained through the abdomen and pelvis following the administration of IV contrast material. Portal venous phase of postcontrast imaging was obtained. Post processing coronal and sagittal reconstruction images were made from the axial images. IV contrast: Isovue-370 Bowel contrast:None Comparison: CT abdomen/pelvis performed at an outside facility 02/26/2017. FINDINGS: Lower Thorax: Unremarkable. Liver and Biliary system: The liver is enlarged with probable diffuse hepatic steatosis.Rounding of the liver margins and fissural widening is more conspicuous on the current exam. More focal, irregular low-attenuation in the left lobe is incompletely characterized on this study. Radiating linear structures extending from this mass in the left lobe, possibly mildly dilated bile ducts. The major portal veins are patent. Spleen: Persistent mild splenomegaly. Adrenal Glands and Kidneys: The kidneys are symmetric in size. No hydronephrosis. The adrenal glands are unremarkable. Pancreas and Retroperitoneum: No retroperitoneal adenopathy. Pancreas is unremarkable. Aorta and Major Vessels: The abdominal aorta is normal in caliber with very mild calcified plaque of the infrarenal aorta. A retroaortic left renal vein is noted. Bowel, Mesentery and Peritoneal space: Prior sleeve gastrectomy. The visualized small and large bowel loops are normal in caliber. The appendix is normal. There is a lentiform fluid collection with linear internal calcification within the larger hernia sac. This is not significantly changed in size since the prior outside study, today measuring 8.8 cm in maximum diameter compared to 8.8 cm on 02/26/2017. No ascites. Pelvis: The uterus and adnexa are normal for the patient age. There is no pelvic ascites or adenopathy. Abdominal wall and Osseous Structures: There is partial visualization of a large ventral abdominal wall hernia, with the hernia neck measuring greater than 15 cm in diameter. The lower aspect of the hernia sac is not included in the [id number]. The hernia contains nonobstructed small and large bowel loops. Separate, smaller hernias extend from this larger hernia sac, containing nonobstructed small bowel loops and/or areas of omental fat. There is mild inflammatory stranding of the anterior abdominal wall, though no associated fluid collection is identified. Mild lumbar spondylosis. No aggressive osseous lesions. Procedure Note Interface, Radiant Results - 01/13/2018 5:[address] ABDOMEN AND PELVIS Clinical Indication: Female, 47 years old. Abdominal pain, hernia Technique: Multiple contiguous axial images were obtained through the abdomen and pelvis following the administration of IV contrast material. Portal venous phase of postcontrast imaging was obtained. Post processing coronal and sagittal reconstruction images were made from the axial images. IV contrast: Isovue-370 Bowel contrast: None Comparison: CT abdomen/pelvis performed at an outside facility 02/26/2017. FINDINGS: Lower Thorax: Unremarkable. Liver and Biliary system: The liver is enlarged with probable diffuse hepatic steatosis. Rounding of the liver margins and fissural widening is more conspicuous on the current exam. More focal, irregular low-attenuation in the left lobe is incompletely characterized on this study. Radiating linear structures extending from this mass in the left lobe, possibly mildly dilated bile ducts. The major portal veins are patent. Spleen: Persistent mild splenomegaly. Adrenal Glands and Kidneys: The kidneys are symmetric in size. No hydronephrosis. The adrenal glands are unremarkable. Pancreas and Retroperitoneum: No retroperitoneal adenopathy. Pancreas is unremarkable. Aorta and Major Vessels: The abdominal aorta is normal in caliber with very mild calcified plaque of the infrarenal aorta. A retroaortic left renal vein is noted. Bowel, Mesentery and Peritoneal space: Prior sleeve gastrectomy. The visualized small and large bowel loops are normal in caliber. The appendix is normal. There is a lentiform fluid collection with linear internal calcification within the larger hernia sac. This is not significantly changed in size since the prior outside study, today measuring 8.8 cm in maximum diameter compared to 8.8 cm on 02/26/2017. No ascites. Pelvis: The uterus and adnexa are normal for the patient age. There is no pelvic ascites or adenopathy. Abdominal wall and Osseous Structures: There is partial visualization of a large ventral abdominal wall hernia, with the hernia neck measuring greater than 15 cm in diameter. The lower aspect of the hernia sac is not included in the [id number]. The hernia contains nonobstructed small and large bowel loops. Separate, smaller hernias extend from this larger hernia sac, containing nonobstructed small bowel loops and/or areas of omental fat. There is mild inflammatory stranding of the anterior abdominal wall, though no associated fluid collection is identified. Mild lumbar spondylosis. No aggressive osseous lesions. IMPRESSION 1. No bowel obstruction, ascites, or focal inflammatory process. 2. Large, wide-neck ventral abdominal wall hernia which contains nonobstructed small and large bowel loops. There are smaller associated hernias which extend from this larger hernia sac. A chronic, partially calcified fluid collection within the hernia sac is unchanged since an outside study one year prior, most likely a stable chronic walled off hematoma. 3. Mild inflammatory stranding of the anterior abdominal wall, which may represent particulate is. The lower aspect of the large hernia is not included on the [id number]. No abdominal wall fluid collections are identified to suggest abscess. 4. Hepatomegaly and probable diffuse hepatic steatosis. Rounding of the liver margins and fissural widening is more conspicuous than on the prior study, suggesting some degree of underlying liver fibrosis. 5. Irregular low attenuation within the left hepatic lobe adjacent to the falciform fissure, which has developed since the prior outside study 02/18/2017. This is incompletely characterized on this study, though is favored to represent a focal area of geographic steatosis. However, there is mild bile duct dilatation peripheral to this area, which is not typical for steatosis. Nonemergent contrast-enhanced MRI of the abdomen should be performed to exclude an underlying neoplasm. Liver findings and the recommendation for nonemergent MRI were discussed with Britt Lozano by telephone at 1655 on 01/13/2018. Finalized by Radha Diehl M.D. on 01/13/2018 4:59 PM. Dictated by Radha Diehl M.D. on 01/13/2018 4:36 PM. Performing Organization Address City/State/Zipcode Phone Number [facility] RESULTS * CBC AND DIFF (01/13/2018 12:06 PM) White Blood Cells 15.5 (H) 4.5 - 11.0 K/UL [facility] RBC 3.98 (L) 4.0 - 5.0 M/UL [facility] Hemoglobin 12.5 12.0 - 15.0 GM/DL [facility] Hematocrit 35.9 (L) 36 - 45 % [facility] MCV 90.0 80 - 100 FL [facility] MCH 31.5 26 - 34 PG [facility] MCHC 35.0 32.0 - 36.0 G/DL [facility] RDW 13.7 11 - 15 % [facility] Platelet Count 291 150 - 400 K/[facility] MPV 9.5 7 - 11 FL [facility] Neutrophils 61 41 - 77 % [facility] Lymphocytes 30 24 - 44 % [facility] Monocytes 6 4 - 12 % [facility] Eosinophils 2 0 - 5 % [facility] Basophils 1 0 - 2 % [facility] Absolute Neutrophil Count 9.50 (H) 1.8 - 7.0 K/UL [facility] Absolute Lymph Count 4.60 1.0 - 4.8 K/UL [facility] Absolute Monocyte Count 0.90 (H) 0 - 0.80 K/UL [facility] Absolute Eosinophil Count 0.30 0 - 0.45 K/UL [facility] Absolute Basophil Count 0.20 0 - 0.20 K/UL [facility] Specimen Blood Performing Organization Address [facility] Phone Number [facility] [address] [place] [address] * COMPREHENSIVE METABOLIC PANEL (01/13/2018 12:06 PM) Sodium 136 (L) 137 - 147 MMOL/L [facility] Potassium 3.8 3.5 - 5.1 MMOL/L [facility] Chloride 98 98 - 110 MMOL/L [facility] Glucose 162 (H) 70 - 100 MG/DL [facility] Blood Urea Nitrogen 14 7 - 25 MG/DL [facility] Creatinine 0.45 0.4 - 1.00 MG/DL [facility] Calcium 10.2 8.5 - 10.6 MG/DL [facility] Total Protein 7.0 6.0 - 8.0 G/DL [facility] Total Bilirubin 0.3 0.3 - 1.2 MG/DL [facility] Albumin 3.7 3.5 - 5.0 G/DL [facility] Alk Phosphatase 82 25 - 110 U/L [facility] AST (SGOT) 23 7 - 40 U/L [facility] CO2 31 (H) 21 - 30 MMOL/L [facility] ALT (SGPT) 35 7 - 56 U/L [facility] Anion Gap 7 3 - 12 [facility] eGFR Non >60 >60 mL/min [facility] Comment: The eGFR is not validated for use in drug dosing adjustments.Continue to use estimated creatinine clearance per dosing reference text.Please contact the Clinical Pharmacist for questions. eGFR >60 >60 mL/min [facility] Comment: The eGFR is not validated for use in drug dosing adjustments.Continue to use estimated creatinine clearance per dosing reference text.Please contact the Clinical Pharmacist for questions. Specimen Blood Performing Organization Address [facility] Phone Number [facility] [address] [place] [address] * URINALYSIS, MICROSCOPIC (01/13/2018 11:58 AM) WBCs,UA 0-2 0 - 2 /HPF [facility] RBCs,UA 0-2 0 - 3 /HPF [facility] MucousUA TRACE [facility] Squamous Epithelial Cells 0-2 0 - 5 [facility] Specimen Urine - Urine Performing Organization Address [facility] Phone Number [facility] [address] [place] [address] * URINALYSIS DIPSTICK POC (01/13/2018 11:57 AM) Urine Color POC YELLOW [facility] Urine Turbidity POC CLEAR CLEAR-CLEAR [facility] Urine Specific [place] <=1.005 1.003 - 1.035 [facility] POC Urine PH POC 5.5 5.0 - 8.0 [facility] Urine Protein POC NEG NEG-NEG [facility] Urine Glucose POC 3+ (A) NEG-NEG [facility] Urine Ketone POC NEG NEG-NEG [facility] Urine Bilirubin POC NEG NEG-NEG [facility] Urine Blood POC NEG NEG-NEG [facility] Urine Urobilinogen POC NORMAL NORM-NORMAL [facility] Urine Nitrite POC NEG NEG-NEG [facility] Urine Leukocytes POC NEG NEG-NEG [facility] Performing Organization Address City/[facility] Phone Number [facility] [address] [place] [address] from Last 3 Months
--- OUTSIDE RECORDS SUMMARY | 2018-03-31 23:36 | XMS REPORT | Encounter Summary ---
Author Author [facility] Organization [facility] Address Unknown Phone Unavailable Care Team Providers Care Breaker Mechanic Name Role Phone HerreraLinus mcclain Guanako DO PCP Encounter Details Date Type Department Care Team Description 03/30/2018 Hospital [facility] Linus Maldonado MD Arrived Encounter [facility] [address] [place] [address] [place] [address] H [phone] Bertram haas RN L Ankur iglesias MD [address] [place] [address] [phone] Social History Tobacco Use Types Packs/Day Years Used Date Former Smoker Quit: 03/11/1997 Smokeless Tobacco: Never Used Alcohol Use Drinks/Week oz/Week Comments No Sex Assigned at Date Recorded Not on file as of this encounter Last Filed Vital Signs Vital Sign Reading Time Taken Blood Pressure 116/61 03/30/2018 2:00 PM CDT Pulse 81 03/30/2018 2:00 PM CDT Temperature 36.7 C (98.1 F) 03/30/2018 1:38 PM CDT Respiratory Rate - - Oxygen Saturation 96% 03/30/2018 2:00 PM CDT Inhaled Oxygen - - Concentration Weight 127 kg (280 lb) 03/30/2018 12:29 PM CDT Height 165.1 cm (5' 5") 03/30/2018 12:29 PM CDT Body Mass Index 46.59 03/30/2018 12:29 PM CDT in this encounter Functional Status Functional Status Response Date of Assessment Does the patient have a hearing impairment: No 03/11/2018 Does the patient have a visual impairment: Yes 10/08/2017 Does the patient have impaired ambulation: No 10/08/2017 Does the patient have an activity of daily living No 10/08/2017 (ADL) impairment: Does the patient have an instrumental activity of No 10/08/2017 daily living (IADL) impairment: Cognitive Status Response Date of Assessment Does the patient have a cognitive impairment: No 10/08/2017 as of this encounter Medications at Time of Discharge Medication Sig. Disp. Refills Start Date End Date albuterol (PROAIR HFA) 90 Inhale 2 puffs by mouth mcg/actuation inhaler into the lungs every 6 hours as needed for Wheezing or Shortness of Breath. Shake well before use. atorvastatin (LIPITOR) 80 Take 80 mg by mouth mg tablet daily. biotin 10,000 mcg TbDi Dissolve 2 tablets by mouth daily. budesonide/formoterol Inhale 1 puff by mouth 01/10/2017 (SYMBICORT HFA) 160/4.5 into the lungs twice mcg inhalation daily as needed. clindamycin(+) (CLEOCIN Take 1 capsule by mouth 40 capsule 0 2017 HCL) 300 mg capsule every 6 hours. Take with 8oz of water. cyanocobalamin (vitamin Dissolve 1 tablet by B-12) 5,000 mcg TbDi mouth daily. dapagliflozin 10 mg tab Take 1 tablet by mouth at bedtime daily. ergocalciferol (VITAMIN Take 1 capsule by mouth D-2) 50,000 unit capsule every 7 days. Administer on exenatide microspheres Inject 2 mg under the ER(+) (BYDUREON) 2 mg skin every 7 days. injection Administer on Wednesdays fenofibrate Take 145 mg by mouth nanocrystallized (TRICOR) daily. Take with food. 145 mg tablet fluticasone (FLONASE) 50 Apply 2 sprays to each mcg/actuation nasal spray nostril as directed daily. Shake bottle gently before using. HYDROcodone/acetaminophen Take 1 tablet by mouth 30 tablet 0 2017 (+) (NORCO) 10/325 mg every 6 hours as needed tablet for Pain ipratropium/albuterol Inhale 1 puff by mouth (COMBIVENT RESPIMAT) into the lungs four times 20-100 mcg/actuation mist daily as needed. inhaler lidocaine (LIDODERM) 5 % Apply 2 patches topically topical patch to affected area at bedtime daily. Apply patch for 12 hours, then remove for 12 hours before repeating. LINZESS 145 mcg cap Take 1 capsule by mouth 02/05/2018 capsule daily. metFORMIN (GLUCOPHAGE) Take 1 tablet by mouth 02/01/2018 1,000 mg tablet twice daily. montelukast (SINGULAIR) Take 10 mg by mouth at 10 mg tablet bedtime daily. ondansetron (ZOFRAN) 8 mg Take 8 mg by mouth every tablet 8 hours as needed for Nausea or Vomiting. pediatric multivitamin Chew 2 tablets by mouth no.42 (CHILDREN'S daily. MULTIVITAMIN) chew potassium chloride SR Take 20 mEq by mouth (K-DUR) 20 mEq tablet three times daily. Take with a meal and a full glass of water. prednisolone acetate Apply 1 drop to left eye 01/14/2018 (PRED FORTE) 1 % as directed twice daily. ophthalmic suspension ranitidine(+) (ZANTAC) Take 150 mg by mouth 150 mg tablet twice daily. as of this encounter Progress Notes * Christie Jeong RN - 03/30/2018 1:20 PM CDT Sedation physician present in room. Recent vitals and patient condition reviewed between sedating physician and nurse. Reassessment completed. Determination made to proceed with planned sedation. in this encounter H&P Notes * Yobani Desai APRN-NP - 03/30/2018 12:46 PM CDT Formatting of this note may be different from the original. Pre-Procedure History and Physical/Sedation Plan Procedure Date: 03/30/2018 Planned Procedure(s): Abdominal drain check and treat Indication: Lyla-catheter leakage Chief Complaint: Lyla-catheter leakage History of Present Illness: Radha Cordova is a 47 y.o. female with a history of umbilical hernia repair who presents today for procedure. Patient Active Problem List Diagnosis Date Noted Morbid obesity (HCC) 03/11/2018 MALINDA on CPAP Hyperlipidemia GERD (gastroesophageal reflux disease) DM (diabetes mellitus) ([facility]) Coronary artery disease Asthma Ventral hernia 03/10/2018 Abdominal pannus 09/29/2017 Incisional hernia, without obstruction or gangrene 09/11/2017 Past Medical History: Diagnosis Date Anxiety disorder Asthma Coronary artery disease DM (diabetes mellitus) (HCC) GERD (gastroesophageal reflux disease) Headache Hyperlipidemia Obesity MALINDA on CPAP Past Surgical History: Procedure Laterality Date UMBILICAL HERNIA REPAIR 05/1999 SECTION 04/2000 HX TUBAL LIGATION 04/2000 VENTRAL HERNIA REPAIR 01/2011 rupture SLEEVE GASTROPLASTY 2014 HX CHOLECYSTECTOMY 02/19/2017 HX RETINAL DETACHMENT REPAIR Left 04/2017 HX CATARACT REMOVAL Left 02/09/2018 VENTRAL HERNIA REPAIR N/A 03/10/2018 OPEN INCISIONAL HERNIA REPAIR WITH MESH, BILATERAL COMPONENT SEPARATION AND MYOCUTANOUS FLAP ADVANCEMENT, ABDOMINAL SCAR REVISION, REMOVAL OF FOREIGN OBJECT , REMOVAL AND DRAINAGE OF GRANULOMA/CYST performed by Max Culver, at [facility] Prescriptions Prior to Admission Medication Sig Dispense Refill Last Dose albuterol (PROAIR HFA) 90 mcg/actuation inhaler Inhale 2 puffs by mouth into the lungs every 6 hours as needed for Wheezing or Shortness of Breath. Shake well before use. Past Week atorvastatin (LIPITOR) 80 mg tablet Take 80 mg by mouth daily. 03/29/2018 biotin 10,000 mcg TbDi Dissolve 2 tablets by mouth daily. 03/29/2018 budesonide/formoterol (SYMBICORT HFA) 160/4.5 mcg inhalation Inhale 1 puff by mouth into the lungs twice daily as needed. 03/30/2018 clindamycin(+) (CLEOCIN HCL) 300 mg capsule Take 1 capsule by mouth every 6 hours. Take with 8oz of water. 40 capsule 0 03/29/2018 cyanocobalamin (vitamin B-12) 5,000 mcg TbDi Dissolve 1 tablet by mouth daily. 03/29/2018 dapagliflozin 10 mg tab Take 1 tablet by mouth at bedtime daily. 2017 ergocalciferol (VITAMIN D-2) 50,000 unit capsule Take 1 capsule by mouth every 7 days. Administer on Friday'03/29/2018 exenatide microspheres ER(+) (BYDUREON) 2 mg injection Inject 2 mg under the skin every 7 days. Administer on Wednesdays03/25/2018 fenofibrate nanocrystallized (TRICOR) 145 mg tablet Take 145 mg by mouth daily. Take with food. 03/24/2018 fluticasone (FLONASE) 50 mcg/actuation nasal spray Apply 2 sprays to each nostril as directed daily. Shake bottle gently before using. 03/24/2018 HYDROcodone/acetaminophen(+) (NORCO) 10/325 mg tablet Take 1 tablet by mouth every 6 hours as needed for Pain 30 tablet 0 03/30/2018 ipratropium/albuterol (COMBIVENT RESPIMAT) 20-100 mcg/actuation mist inhaler Inhale 1 puff by mouth into the lungs four times daily as needed. 03/24 lidocaine (LIDODERM) 5 % topical patch Apply 2 patches topically to affected area at bedtime daily. Apply patch for 12 hours, then remove for 12 hours before repeating. 03/29/2018 LINZESS 145 mcg cap capsule Take 1 capsule by mouth daily. 03/29/2018 metFORMIN (GLUCOPHAGE) 1,000 mg tablet Take 1 tablet by mouth twice daily. 03/29/2018 montelukast (SINGULAIR) 10 mg tablet Take 10 mg by mouth at bedtime daily. 03/29/2018 ondansetron (ZOFRAN) 8 mg tablet Take 8 mg by mouth every 8 hours as needed for Nausea or Vomiting. 03/29/2018 pediatric multivitamin no.42 (CHILDREN'S MULTIVITAMIN) chew Chew 2 tablets by mouth daily. 03/29/2018 potassium chloride SR (K-DUR) 20 mEq tablet Take 20 mEq by mouth three times daily. Take with a meal and a full glass of water. 03/29/2018 prednisolone acetate (PRED FORTE) 1 % ophthalmic suspension Apply 1 drop to left eye as directed twice daily. 03/24/2018 ranitidine(+) (ZANTAC) 150 mg tablet Take 150 mg by mouth twice daily. Allergies Allergen Reactions Morphine HEADACHE, HIVES, NAUSEA ONLY, SHORTNESS OF BREATH and HYPOTENSION Adhesive Tape (Rosins) ITCHING and REDNESS Paper tape Augmentin [Amoxicillin-Pot Clavulanate] HIVES Pt reports that she tolerates Amoxil Fentanyl HIVES and NAUSEA ONLY Social History: Social History Substance Use Topics Smoking status: Former Smoker Quit date: 03/11/1997 Smokeless tobacco: Never Used Alcohol use No History reviewed. No pertinent family history. Review of Systems A comprehensive review of systems was negative. Previous Personal Anesthetic/Sedation History: Denies adverse events related to sedation/anesthesia. Previous Family Anesthetic/Sedation History: Denies adverse events related to sedation/anesthesia. Physical Exam: Vital Signs: Last Filed In 24 Hours Vital Signs: 24 Hour Range BP: 109/54 (03/30 1229) Temp: 36.8 C (98.2 F) (03/30 122) Pulse: 80 (03/30 1229) Respirations: 13 PER MINUTE (03/30 1229) SpO2: 96 % (03/30 1229) O2 Delivery: None (Room Air) (03/30 1229) Height: 165.1 cm (65") (03/30 1229) BP: (109)/(54) Temp: [36.8 C (98.2 F)] Pulse: [80] Respirations: [13 PER MINUTE] SpO2: [96 %] O2 Delivery: None (Room Air) Intensity Pain Scale 0-10 (Pain 1): 6 (03/30/18 122) General appearance: alert and no distress noted. Neurologic: Grossly normal. Lungs: Non labored. Heart: regular rate and rhythm Airway: airway assessment performed Mallampati II (soft palate, uvula, fauces visible) and habitus: significant obesity (especially involving the neck and facial structures) Head and Neck: no abnormalities noted Mouth: no abnormalities noted NPO status: Acceptable Status: Not Anesthesia Classification: ASA III (A patient with a severe systemic disease that limits activity, but is not incapacitating) Sedation/Medication Plan: Conscious sedation Discussion/Reviews: Physician has discussed risks and alternatives of this type of sedation and above planned procedures with patient Lab/Radiology/Other Diagnostic Tests: Labs: Pertinent labs reviewed Yobani Desai APRN-MACHINE SHOP SPECIALIST Pager [phone] in this encounter Miscellaneous Notes * Procedures (Immed Post or Bedside) - Ankur Lentz MD - 03/30/2018 1:28 PM CDT Immediate Post Procedure Note Date: 03/30/2018 Attending Physician: Tor Performing Provider: Ankur Lentz MD Consent: Consent obtained from patient. Time out performed: Consent obtained, correct patient verified, correct procedure verified, correct site verified, patient marked as necessary. Pre/Post Procedure Diagnosis: Abdominal abscess Indications: pericatheter leakeage Anesthesia: Local 5 mL 2% lidocaine without epinephrine with IV sedation versed 2mg Procedure(s) Abscess drain exchange/upsize to 12F Findings: Large residual abscess Estimated Blood Loss: None/Negligible Specimen(s) Removed/Disposition: Yes, sent to pathology Complications: None Patient Tolerated Procedure: Well Post-Procedure Condition: stable Ankur Lentz MD Pager [phone] in this encounter Plan of Treatment Not on fileas of this encounter Visit Diagnoses Not on filein this encounter Administered Medications Medication Order MAR Action Action Date Dose Rate Site iopamidol 300 (ISOVUE-300) injection 30 Given 03/30/2018 30 mL mL 13:45 CDT 30 mL, SEE ADMIN INSTRUCTIONS, ONCE, 1 dose, 03/30/18 at 1345, NOTE: This is a HIGH ALERT Medication. midazolam (VERSED) injection 1-2 mg Given 03/30/2018 1 mg 1-2 mg, Intravenous, ONCE, 1 dose, Mon 13:02 CDT 03/30/18 at 1300 midazolam (VERSED) injection Given 03/30/2018 1 mg INTRA-PROCEDURE MED, Starting Fri 13:19 CDT 03/30/18 at 1319, Until Fri03/30/18 at 1621 in this encounter
--- OUTSIDE RECORDS SUMMARY | 2018-03-31 23:38 | XMS REPORT | Encounter Summary ---
Author Author [facility] Address Unknown Phone Unavailable Care Team Providers Care Borematic Operator Name Role Phone Linus Herrera DO PCP Encounter Details Date Type Department Care Team Description 03/30/2018 Orders Only [facility] Sallie Walker RN Hospital Radiology [facility] [address] [place] [address] Social History Tobacco Use Types Packs/Day Years [...] Treatment Not on fileas of this encounter Results * IR ASPIRATION/DRAIN (03/30/2018 1:23 PM) Impressions Performed At Fluoroscopic guided left lower quadrant abscess drain exchange and upsize to 12 [facility] [place]. Finalized by Keshav Lentz M.D. on 03/31/2018 [...] position. The left lower quadrant and 8 Palauan drainage catheter were prepped and draped in the usual sterile fashion. Contrast material was injected demonstrating a large residual abscess cavity within the left lower quadrant/pelvis. The catheter and anchor suture were transected after the skin was anesthetized with 2% lidocaine. An Amplatz wire was advanced through the catheter which was then removed and a 12 Palauan multipurpose pigtail drainage catheter was advanced over [...] position. The left lower quadrant and 8 Palauan drainage catheter were prepped and draped in the usual sterile fashion. Contrast material was injected demonstrating a large residual abscess cavity within the left lower quadrant/pelvis. The catheter and anchor suture were transected after the skin was anesthetized with 2% lidocaine. An Amplatz wire was advanced through the catheter which was then removed and a 12 Palauan multipurpose pigtail drainage catheter was advanced over [...] abscess drain exchange and upsize to 12 [place]. Finalized by Keshav Lentz M.D. on 03/31/2018 7:26 AM. Dictated by Keshav Lentz M.D. on 03/31/2018 7:22 AM. Performing Organization Address City/State/Zipcode Phone Number [facility] in this encounter Visit Diagnoses Not on filein this encounter
--- OUTSIDE RECORDS SUMMARY | 2018-03-31 23:39 | XMS REPORT | Encounter Summary ---
Author Author [facility] Organization [facility] Address Unknown Phone Unavailable Care Team Providers Care Internal Controls Manager Name Role Phone Linus Herrera DO PCP Encounter Details Date Type Department Care Team Description 03/30/2018 Telephone [facility] Sallie Walker, BREA [facility] Radiology [facility] [address] [place] [address] Social History Tobacco Use Types Packs/Day Years [...] impairment: No 10/08/2017 as of this encounter Progress Notes * Sallie Walker, RN - 03/30/2018 8:54 AM CDT Interventional Radiology Progress Note Pt called this AM with c/o leaking j vac drain. Drain placed on 03/27. Per pt starting yesterday at about 12, no output has been in drain, but she is leaking "somewhere" as it has soaked her clothing. States drain can be flushed, no leaking at site when flushed, but has had some green output around drain. Pt has tightened and attempted to reset bag, but still no output. Pt will come today to [facility] to have drain check with possible exchange. Check in at 1200, pt has been NPO, only coffee this AM. Will bring route driver. Sallie Walker RN in this encounter Plan of Treatment Not on fileas of this encounter Visit Diagnoses Not on filein this encounter
--- OUTSIDE RECORDS SUMMARY | 2018-03-31 23:43 | XMS REPORT | Encounter Summary ---
Author Author [facility] Organization [facility] Address Unknown Phone Unavailable Care Team Providers Care Phone Specialist Name Role Phone Linus Herrera DO PCP Reason for Visit * Reason Comments Transportation Issues FYI Encounter Details Date Type Department Care Team Description 03/27/2018 Telephone [facility] Max Culver DO Transportation Issues; [address] FYI Surgery [place] [address] [place] [address] [place] [address] [phone] Social History Tobacco Use Types Packs/Day Years [...] encounter Miscellaneous Notes * Telephone Encounter - Belinda Vivar MA - 03/27/2018 2:29 PM CDT Left very detailed voicemail letting the patient know I have called her insurance and set up transportation for her upcoming appt on 04/01/[address] Culver at the main campus. [id number] transportation will call her he day before to verify milk pickup driver time and her location once again. All information was verified with insurance company. Ref# for this trip is [id number] I have also mailed out a copy of this including ALL information for the patient sent to her home address. in this encounter Plan of Treatment Not on fileas of this encounter Visit Diagnoses Not on filein this encounter
[2018-03-31 23:45] VITALS: BP 127/65
--- OUTSIDE RECORDS SUMMARY | 2018-03-31 23:46 | XMS REPORT | Encounter Summary ---
Author Author [facility] Organization [facility] Address Unknown Phone Unavailable Care Team Providers Care Garden Equipment Mechanic Name Role Phone Linus Herrera DO PCP Reason for Visit * Reason Comments Appointment Encounter Details Date Type Department Care Team Description 03/26/2018 Telephone [facility] Max Cluver DO Appointment [address] Surgery [place] [address] [place] [address] [place] [address] [phone] Social History Tobacco Use Types Packs/Day Years [...] Telephone Encounter - Antonia Hope RN - 03/26/2018 4:08 PM CDT Offered pt appt tomorrow with Dr. Culver to follow up on drain placement. Pt LVM stating she cannot get a ride for appt on Tuesday 03/27. in this encounter Plan of Treatment Not on fileas of this encounter Visit Diagnoses Not on filein this encounter
--- OUTSIDE RECORDS SUMMARY | 2018-03-31 23:48 | XMS REPORT | Encounter Summary ---
Author Author [facility] Organization [facility] Address Unknown Phone Unavailable Care Team Providers Care Identity Management Consultant Name Role Phone Linus Herrera DO PCP Reason for Visit * Reason Comments Medication Follow-up Encounter Details Date Type Department Care Team Description 03/25/2018 Telephone [facility] Alex Rodarte RN Medication Follow-up Physicians - Surgery [facility] [address] [place] [address] Social History Tobacco Use Types Packs/Day Years [...] encounter Miscellaneous Notes * Telephone Encounter - Alex Rodarte RN - 03/25/2018 12:04 PM CDT Rx given to patient today for Hamilton. Patient states she already has a Rx for Hamilton from her PCP. States it does not relieve her pain and would like to have Oxy-IR. Dr. Culver and residents in the OR for another few hours. Patient does not need this Rx at this time. [facility] Witnessed by CARISSA Marte. Alex Rodarte RN in this encounter Plan of Treatment Not on fileas of this encounter Visit Diagnoses Not on filein this encounter
--- OUTSIDE RECORDS SUMMARY | 2018-03-31 23:51 | XMS REPORT | Encounter Summary ---
Author Author [facility] Organization [facility] Address Unknown Phone Unavailable Care Team Providers Care Brine Supervisor Name Role Phone Linus Herrera DO PCP Reason for Referral * Radiology Services Status Reason Specialty Diagnoses / Referred By Referred To Procedures Contact Contact No Auth Needed Radiology Diagnoses [place] Culver, [place] [address] [place] [place] [address] [address] rocedures [place] [address] Phone: [place], [place] [phone] ASPIRATION/DRAIN [address] [place] Phone: [place] [phone] DX/THER Fax: W/IMAGING [phone] GUIDANCE * Radiology Services Status Reason Specialty Diagnoses / Referred By Referred To Procedures Contact Contact No Auth Needed Radiology Diagnoses [place] [address] [place] [place] [address] [address] rocedures [place] [address] Phone: [place], [place] [phone] ASPIRATION/DRAIN [address] [place] [address] Phone: [place] [phone] DX/THER Fax: W/IMAGING [phone] GUIDANCE Reason for Visit * Radiology Services Status Reason Specialty Diagnoses / Referred By Referred To Procedures Contact Contact No Auth Needed Radiology Diagnoses Max Culver, [place] [address] [place] [place] [address] [address] rocedures [place] [address] Phone: [place], [place] [phone] ASPIRATION/DRAIN [address] [place] Phone: [place] [phone] DX/THER Fax: W/IMAGING [phone] GUIDANCE Encounter Details Date Type Department Care Team Description 03/25/2018 Hospital [facility] Max Culver, DO Abdominal fluid Encounter [facility] [address] [place] [address] [place] [address] [phone] Caitie Powell Zachary S, MD [address] [place] [address] [phone] Social History Tobacco Use Types Packs/Day Years Used Date Former Smoker Quit: 03/11/1997 Smokeless Tobacco: Never Used Alcohol Use Drinks/Week oz/Week Comments No Sex Assigned at Date Recorded Not on file as of this encounter Last Filed Vital Signs Vital Sign Reading Time Taken Blood Pressure 124/79 03/25/2018 4:45 PM CDT Pulse 85 03/25/2018 4:45 PM CDT Temperature 37.6 C (99.6 F) 03/25/2018 4:27 PM CDT Respiratory Rate - - Oxygen Saturation 97% 03/25/2018 4:45 PM CDT Inhaled Oxygen - - Concentration Weight 130.6 kg (288 lb) 03/25/2018 2:12 PM CDT Height 165.1 cm (5' 5") 03/25/2018 2:12 PM CDT Body Mass Index 47.93 03/25/2018 2:12 PM CDT in this encounter Functional Status [...] impairment: No 10/08/2017 as of this encounter Discharge Instructions * Patient Instructions - Christie Jeong RN - 03/25/2018 2:15 PM CDT ABSCESS/FLUID COLLECTION DRAINAGE An abscess is a localized collection of infected fluid that usually occurs in the abdomen, pelvis, or chest. In some cases, a fluid collection may form that is not infected but that may need to be drained to alleviate pressure or pain on surrounding tissues. During abscess or fluid collection drainage, the Interventional Radiologist inserts a small, flexible tube into the abscess or fluid collection using x-ray or CT guidance. The tube, which may also be referred to as a drain or catheter, is then connected to a drainage bag, suction bulb or other drainage reservoir (often referred to as a j-vac) which assists in removing the abscess drainage or fluid collection from your body. POST-PROCEDURE ACTIVITY: A responsible adult must drive you home. If you receive sedation or anesthesia, do not drive, operate heavy machinery or do anything that requires concentration for at least 24 hours. It is recommended that a responsible adult be with you until morning. Avoid any strenuous activity that may affect the drain. Do not lift more than 10 lbs. and avoid pushing, pulling or straining while the drain is in place. Avoid any activity that causes tension or pulling on the drain and avoid bending or crimping the tube. Never use scissors, pins or other sharp objects near the tube. POST-PROCEDURE SITE CARE: Wash your hands thoroughly before handling the tube or touching near the tube site. Remove the bandage and clean around the tube every 2 days or more often if it becomes wet or soiled. 1. Clean around the tube with mild soap and clean gauze and rinse with saline or water. 2. When cleaning, start by cleaning in a circular motion around the tube site and work outward for 3-4 inches. 3. Rinse and gently dry. 4. Place a new clean bandage around the tube and tape to secure. Keep the bandage dry at all times. You may shower but you must cover the tube site with a waterproof covering such as plastic wrap. If the bandage becomes wet or soiled, it should be changed immediately. Do not submerge the tube or the tube site underwater (no tub bath, swimming, hot tub, etc.) Do not use ointments, creams or powders around the tube unless specifically ordered by the doctor. Wash your hands thoroughly beforehandling the tube or touching near the tube site. FLUSHING THE DRAIN: You will need to flush the drain with 5 mL of sterile saline every 8 hours or as ordered by the doctor. Flushing the drain will help keep the tube functioning properly. Always wash your hands thoroughly prior to this step. To flush the drain: 1. Turn the stopcock off to the drainage bag. 2. Clean the flushing port with an alcohol wipe for 30 seconds. 3. Attach the flush syringe. 4. Gently inject the saline and remove the syringe. 5. Turn the stopcock off to the flushing port and open to the drainage bag or reservoir. Write downthe daily output of your drain. Subtract the total amount of saline used for flushing. When the amount of drainage drops to less than 10- 15 mL per day, it will be time to have the drain reassessed. Be sure to notify your doctor when this happens. EMPTYING THE DRAIN: Empty the drain when flushing or as needed if the drain reservoir appears to be full. To empty the j-vac: 1. Turn the stopcock off to the body. 2. Open the drainage container orreservoir by removing the cap. 3. Empty the fluidandmeasure the amount of drainage. Discard the fluid into the toilet. 4. When emptied, compress the j-vac with both hands as illustrated on the drainagereservoir. 5. After hearing a click, replace the cap. Re-open the stopcock. 6. Activate the j-vac by bending the bottom of the drain up, until you hear another click. 7. Write down the amount of drainage on your drain log. DIET/MEDICATIONS: You may resume your previous diet after the procedure. If you receive sedation or anesthesia, avoid any foods or beverages containing alcohol for at least 24 hours. Please see the Medication Reconciliation sheet for instructions regarding resuming your home medications. CALL THE DOCTOR IF: Bright red blood soaks the bandage around the drain site or roberto carlos blood is seen in the drain tube or reservoir. You may noticea small amount of blood in the drainage for 1-2 days. The tube has become dislodged or pulled out. No drainage is seen coming out of the drain or you are unable to flush the drain tube. Drainage is leaking around the tube site onto the skin. You have new or worsened pain. Some soreness is to be expected. You have new or worsened signs of infection such as redness around tube site or fever greater than 101F. You oryour caregiver should call 911 for any severe bleeding,dizziness, shortness of breath or loss of consciousness. For any of the above symptoms or for problems or concerns related to the procedure,call [phone] for Friday-Friday 7-5. After-hours and weekends, please [phone] and ask for the Interventional Pharmacy Technician on-call. in this encounter Medications at Time of Discharge [...] as of this encounter Progress Notes * Caitie jN - 03/25/2018 4:05 PM CDT Sedation physician present in room. Recent vitals and patient condition reviewed between sedating physician and nurse. Reassessment completed. Determination made to proceed with planned sedation. in this encounter H&P Notes * Chucho Toledo MD - 03/25/2018 3:31 PM CDT Formatting of this note may be different from the original. Pre Procedure History and Physical/Sedation Plan Procedure Date: 03/25/2018 Planned Procedure(s): US or CT guided abdominal seroma placement Sedation/Medication Plan: Midazolam and Dilaudid Discussion/Reviews: Physician has discussed risks and alternatives of this type of sedation and above planned procedures with patient Chief Complaint: " Seroma " Previous Anesthetic/Sedation History: Fentanyl allergy Allergies: Morphine; Adhesive tape (rosins); Augmentin [amoxicillin-pot clavulanate]; and Fentanyl Medications: Scheduled Meds:Continuous Infusions: PRN and Respiratory Meds: Vital Signs: Last Filed Vital Signs: 24 Hour Range BP: 115/61 (03/25 1413) Temp: 37.2 C (98.9 F) (03/25 1413) Pulse: 86 (03/25 1413) Respirations: 18 PER MINUTE (03/25 1413) SpO2: 96 % (03/25 1413) O2 Delivery: None (Room Air) (03/25 1413) Height: 165.1 cm (65") (03/25 141) BP: (115-121)/(61-64) Temp: [36.7 C (98 F)-37.2 C (98.9 F)] Pulse: [86-96] Respirations: [18 PER MINUTE] SpO2: [96 %] O2 Delivery: None (Room Air) NPO Status: Airway: airway assessment performed Mallampati III (soft palate, base of uvula visible) Anesthesia Classification: ASA III (A patient with a severe systemic disease that limits activity, but is not incapacitating) Lab/Radiology/Other Diagnostic Tests Labs: Relevant labs reviewed I have examined the patient, and there are no significant changes in their condition, from the previous H&P performed on 03/10/18. Chucho Toledo MD Pager [phone] in this encounter Plan of Treatment Not on fileas of this encounter Results * IR ASPIRATION/DRAIN (03/25/2018 4:21 PM) Impressions Performed At Successful ultrasound-guided abscess drain placement as described. [facility] Finalized by Sonny Ravi M.D. on 03/27/2018 5:34 PM. Dictated by Sonny Ravi M.D. on 03/27/2018 5:32 PM. Narrative Performed At Ultrasound guided abscess drain placement: [facility] History: Left anterior abdominal fluid collection Technique and Findings: The procedure including risks, alternatives and benefits was explained to the patient.Written and verbal consent was obtained. The patient was placed supine on the examination table. A preliminary ultrasound of the affected abscess region was obtained. This redemonstrated an abscess in left anterior abdomen. A site overlying the abscess was then prepped in and draped sterilely. 1% lidocaine was used to anesthetize the local soft tissues. A dermatotomy was made with an 11 blade scalpel. A 7 cm 18-gauge Seldinger needle was advanced from the skin into the abscess under dynamic ultrasound guidance. Once in proper position, an Amplatz wire was advanced through the needle into the abscess. An ultrasound scan confirmed satisfactory wire position. At this point, the needle was withdrawn and exchanged for an 8 Persian pigtail catheter. The pigtail catheter was advanced over the wire into the abscess. The [place] loop was formed. The catheter was sewn in place with 2-0 Ethilon and attached to a J-Vac container for continuous aspiration. A sterile dressing was applied. A sample was sent for culture and sensitivity. Patient tolerated the procedure well and left the department in stable condition. Sedation Medication:I was personally responsible for the administration of moderate sedation services during the procedure performed and I confirm requirements described in CPT section on moderate sedation were followed, including the use of an independent trained observer who had no other duties during the procedure.The total supervised sedation time was 6 minutes.See nursing log for complete details; the drugs utilized were: 2 mg IV Versed; 0 mcg IV Fentanyl. Procedure Note Interface, Radiant Results - 03/27/2018 5:37 PM CDT Ultrasound guided abscess drain placement: History: Left anterior abdominal fluid collection Technique and Findings: The procedure including risks, alternatives and benefits was explained to the patient. Written and verbal consent was obtained. The patient was placed supine on the examination table. A preliminary ultrasound of the affected abscess region was obtained. This redemonstrated an abscess in left anterior abdomen. A site overlying the abscess was then prepped in and draped sterilely. 1% lidocaine was used to anesthetize the local soft tissues. A dermatotomy was made with an 11 blade scalpel. A 7 cm 18-gauge Seldinger needle was advanced from the skin into the abscess under dynamic ultrasound guidance. Once in proper position, an Amplatz wire was advanced through the needle into the abscess. An ultrasound scan confirmed satisfactory wire position. At this point , the needle was withdrawn and exchanged for an 8 Persian pigtail catheter. The pigtail catheter was advanced over the wire into the abscess. The [place] loop was formed. The catheter was sewn in place with 2-0 Ethilon and attached to a J-Vac container for continuous aspiration. A sterile dressing was applied. A sample was sent for culture and sensitivity. Patient tolerated the procedure well and left the department in stable condition. Sedation Medication: I was personally responsible for the administration of moderate sedation services during the procedure performed and I confirm requirements described in CPT section on moderate sedation were followed, including the use of an independent trained observer who had no other duties during the procedure. The total supervised sedation time was 6 minutes. See nursing log for complete details; the drugs utilized were: 2 mg IV Versed; 0 mcg IV Fentanyl. IMPRESSION Successful ultrasound-guided abscess drain placement as described. Finalized by Sonny Ravi M.D. on 03/27/2018 5:34 PM. Dictated by Sonny Ravi M.D. on 03/27/2018 5:32 PM. Performing Organization Address City/State/Zipcode Phone Number [facility] in this encounter Visit Diagnoses Diagnosis Abdominal fluid collection Other ascites Admitting Diagnoses Diagnosis Abdominal fluid collection Other ascites Administered Medications Medication Order MAR Action Action Date Dose Rate Site HYDROmorphone injection (DILAUDID) Given 03/25/2018 0.5 mg injection 0.5-1 mg 15:59 CDT 0.5-1 mg, Intravenous, ONCE, 1 dose, 03/25/18 at 1545 HYDROmorphone injection (DILAUDID) Given 03/25/2018 0.5 mg injection 16:07 CDT INTRA-PROCEDURE MED, Starting 03/25/18 at 1607, Until Fri03/25/18 at 1607 midazolam (VERSED) injection 1 mg Given 03/25/2018 1 mg 1 mg, Intravenous, ONCE, 1 dose, Wed 15:57 CDT 03/25/18 at 1545, Pre-procedural midazolam (VERSED) injection Given 03/25/2018 1 mg INTRA-PROCEDURE MED, Starting Wed 16:05 CDT 03/25/18 at 1605, Until Fri03/25/18 at 1605 sodium chloride 0.9 % infusion Given - New 03/25/2018 250 mL INTRA-PROCEDURE MED(CONT), Starting Wed Bag 15:57 CDT 03/25/18 at 1557, Until Fri03/25/18 at 1557 in this encounter
--- OUTSIDE RECORDS SUMMARY | 2018-03-31 23:58 | XMS REPORT | Encounter Summary ---
Author Author [facility] Organization [facility] Address Unknown Phone Unavailable Care Team Providers Care Crab Fisherman Name Role Phone Linus Herrera DO PCP Reason for Referral * Radiology Services Status Reason Specialty Diagnoses / Referred By Referred To Procedures Contact Contact No Auth Needed Radiology Diagnoses Max Culver, [place] [address] collection [address] [place] [place] [address] [address] rocedures [place] 2005 Phone: IR [place] [phone] ASPIRATION/DRAIN [address] [place] ABDOM Phone: [facility] [phone] DX/THER Fax: W/IMAGING [phone] GUIDANCE Reason for Visit * Reason Comments Post Operative Visit Encounter Details Date Type Department Care Team Description 03/25/2018 Office Visit [facility] Max Culver DO Abdominal fluid Physicians - Surgery [address] [facility] collection (Primary Dx); [facility] [place] 2005 Morbid obesity (HCC); [address] [place] [address] Abdominal pannus; [place], [place] [phone] Incisional hernia, [id number] without obstruction or [phone] gangrene Social History Tobacco Use Types Packs/Day Years Used Date Former Smoker Quit: 03/11/1997 Smokeless Tobacco: Never Used Alcohol Use Drinks/Week oz/Week Comments No Sex Assigned at Date Recorded Not on file as of this encounter Last Filed Vital Signs Vital Sign Reading Time Taken Blood Pressure 121/64 03/25/2018 10:59 AM CDT Pulse 96 03/25/2018 10:59 AM CDT Temperature 36.7 C (98 F) 03/25/2018 10:59 AM CDT Respiratory Rate 18 03/25/2018 10:59 AM CDT Oxygen Saturation - - Inhaled Oxygen - - Concentration Weight 130.9 kg (288 lb 9.6 oz) 03/25/2018 10:59 AM CDT Height 165.1 cm (5' 5") 03/25/2018 10:59 AM CDT Body Mass Index 48.03 03/25/2018 10:59 AM CDT in this encounter Functional Status Functional [...] impairment: No 10/08/2017 as of this encounter Instructions * Patient Instructions - Alex Rodarte RN - 03/25/2018 10:30 AM CDT Interventional Radiology for drain placement at [facility], conveniently located Address [address] [place] [address] Directions Located close to [facility], the [facility] is just north of [facility] and [facility] in [place], [place]. The main entrance to the hospital is on the south side of the building. Helpful driving directions - Take [facility] to [facility], [address] - Go north to [address] [place] [address]. - Turn left onto [address] [place] [address]. - Take the first left into the [facility] Parking Plentiful complimentary parking is just steps away from the front door, located on the south side of the building. Convenient complimentary parking for [facility] patients is located at that facility. Call BREA Johnson [phone] with questions or concerns Return next week to see Dr. Culver. in this encounter Progress Notes * Max Culver DO - 03/25/2018 10:30 AM CDT Reports was doing well until Friday when she noted a small area of redness along the inferior aspect of her incision. Redness has spread and she is feeling more pressure and pain Has been running low grade fevers. Decreased appetite, no N/V Normal BMs Has been wearing the binder. VSS Afebrile Abd - soft, no distention, no tenderness Incision well approximated, extensive cellulitis inferiorly, no drainage, (+) seroma - accessed with 18 ga needle and 2200 cc turbid fluid extracted. Unable to drain entirety S/P Incisional ehrnia repair WIll refer to IR for further drainage and drain placement today. Cont use of the binder Will start on abx prophylactically RTC on Friday for evaluation of seroma in this encounter Plan of Treatment Not [...] was withdrawn and exchanged for an 8 [place]kin[place] pigtail catheter. The pigtail catheter was advanced over the wire into the abscess. The [place] loop was formed. The catheter was sewn [...] was withdrawn and exchanged for an 8 [place] pigtail catheter. The pigtail catheter was advanced over the wire into the abscess. The [place] loop was formed. The catheter was sewn [...] encounter Visit Diagnoses Diagnosis Abdominal fluid collection - Primary Other ascites Morbid obesity (HCC) Morbid obesity Abdominal pannus Localized adiposity Incisional hernia, without obstruction or gangrene Incisional hernia without mention of obstruction or gangrene
--- OUTSIDE RECORDS SUMMARY | 2018-04-01 | XMS REPORT | Encounter Summary ---
Author Author [facility] Organization [facility] Address Unknown Phone Unavailable Care Team Providers Care Correctional Supervisor Lieutenant Name Role Phone Herrera, Linus Guanako LAWSON PCP Reason for Visit * Reason Comments Skin Problem Encounter Details Date Type Department Care Team Description 03/24/2018 Telephone [facility] Max Culver DO Skin Problem [address] Surgery [place] [address] [place] [address] [place] [address] [phone] Social History Tobacco Use Types Packs/Day Years [...] Telephone Encounter - Antonia Hope RN - 03/24/2018 11:48 AM CDT Pt states she saw PCP yesterday who felt she had a "small skin infection at the surface." Pt reports redness, warmth, tender to touch above and below the incision. Denies swelling or drainage of incision. Pt states she hasn't been checking her temperature but will begin, states she does have chills at times. Discussed with Dr. Culver, pt to keep planned post-op appt for tomorrow 03/25. Pt verbalizes understanding. in this encounter Plan of Treatment Not on fileas of this encounter Visit Diagnoses Not on filein this encounter
--- OUTSIDE RECORDS SUMMARY | 2018-04-01 00:01 | XMS REPORT | Encounter Summary ---
Author Author [facility] Organization [facility] Address Unknown Phone Unavailable Care Team Providers Care Door Manager Name Role Phone Herrera, Linus Guanako DO PCP Encounter Details Date Type Department Care Team Description 03/16/2018 Pharmacy Visit [facility] [address] [place] [address] Social History Tobacco Use Types Packs/Day Years [...]
--- OUTSIDE RECORDS SUMMARY | 2018-04-01 00:07 | XMS REPORT | Encounter Summary ---
Author Author [facility] Organization [facility] Address Unknown Phone Unavailable Care Team Providers Care Millinery Salesperson Name Role Phone HerreraLinus mcclain DO PCP Reason for Visit * Auth/Cert Status Reason Specialty Diagnoses / Referred By Referred To Procedures Contact Contact Diagnoses Incisional hernia, without obstruction or gangrene Abdominal pannus Incisional hernia, without obstruction or gangrene [K43.2] Abdominal pannus [E65] P rocedures GA REPAIR FIRST ABDOMINAL WALL HERNIA GA MUSC MYOCUTANEOUS/FAS CIOCUTANEOUS FLAP TRUNK GA REPAIR COMPLEX TRUNK 2.6-7.5 CM GA REPAIR COMPLEX TRUNK EACH ADDITIONAL 5 CM/< open incisional hernia repair with mesh, bilateral component separation and myoctuaneous flap advancement, abdominal scar revision Encounter Details Date Type Department Care Team Description 03/10/2018 Hospital Gen/Vasc/Plst/Trm Tracey Victoria, DO Incisional hernia, - [facility] [address] without obstruction or 03/16/2018 51 MS 2005 gangrene [address] [place] [address] [place] [address] [phone] Social History Tobacco Use Types Packs/Day Years Used Date Former Smoker Quit: 03/11/1997 Smokeless Tobacco: Never Used Alcohol Use Drinks/Week oz/Week Comments No Sex Assigned at Date Recorded Not on file as of this encounter Last Filed Vital Signs Vital Sign Reading Time Taken Blood Pressure 105/62 03/16/2018 3:11 PM CDT Pulse 93 03/16/2018 3:11 PM CDT Temperature 36.7 C (98 F) 03/16/2018 3:11 PM CDT Respiratory Rate - - Oxygen Saturation 96% 03/16/2018 3:11 PM CDT Inhaled Oxygen - - Concentration Weight 131 kg (288 lb 12.8 oz) 03/10/2018 6:09 PM CDT Height 165.1 cm (5' 5") 03/10/2018 6:09 PM CDT Body Mass Index 48.06 03/10/2018 6:09 PM CDT in this encounter Functional Status [...] No 10/08/2017 as of this encounter Discharge Summaries * Sylvester, November - 03/16/2018 7:48 AM CDT Formatting of this note may be different from the original. Physician Discharge Summary Name: Radha Mota Date Of : 1970 Age: 47 years Admit date: 03/10/2018 Discharge date: 03/16/2018 Attending Physician: Dr. Tracey Victoria DO Service: Surgery- Elective/Outpatient Physician Summary completed by: Yunier Harris MD Reason for hospitalization: Incisional hernia, without obstruction or gangrene; Abdominal pannus; Vent* Significant PMH: Past Medical History: Diagnosis Date Anxiety disorder Asthma Coronary artery disease DM (diabetes mellitus) (HCC) GERD (gastroesophageal reflux disease) Headache Hyperlipidemia Obesity MALINDA on CPAP Allergies: Morphine; Adhesive tape (rosins); Augmentin [amoxicillin-pot clavulanate]; and Fentanyl Admission Physical Exam notable for: Constitutional: She is oriented to person, place, and time. She appears well- developed and well-nourished. No distress. HENT: Head: Normocephalic and atraumatic. Cardiovascular: Normal rate and regular rhythm. Pulmonary/Chest: Effort normal and breath sounds normal. Abdominal: Soft. Bowel sounds are normal. She exhibits no distension. There is tenderness. There is no rebound and no guarding. A hernia (large with extension into large pannus. No erythema or ecchymosis) is present. Neurological: She is alert and oriented to person, place, and time. Skin: Skin is warm and dry. Psychiatric: She has a normal mood and affect. Her behavior is normal. Judgment and thought content normal. Admission Lab/Radiology studies notable for: Results for orders placed or performed during the hospital encounter of (from the past 24 hour(s)) POC GLUCOSE Result Value Ref Range Glucose, POC 197 (H) 70 - 100 MG/DL POC GLUCOSE Result Value Ref Range Glucose, POC 227 (H) 70 - 100 MG/DL POC GLUCOSE Result Value Ref Range Glucose, POC 202 (H) 70 - 100 MG/DL POC GLUCOSE Result Value Ref Range Glucose, POC 233 (H) 70 - 100 MG/DL POC GLUCOSE Result Value Ref Range Glucose, POC 210 (H) 70 - 100 MG/DL BASIC METABOLIC PANEL Result Value Ref Range Sodium 129 (L) 137 - 147 MMOL/L Potassium 4.0 3.5 - 5.1 MMOL/L Chloride 95 (L) 98 - 110 MMOL/L CO2 25 21 - 30 MMOL/L Anion Gap 9 3 - 12 Glucose 195 (H) 70 - 100 MG/DL Blood Urea Nitrogen 7 7 - 25 MG/DL Creatinine 0.30 (L) 0.4 - 1.00 MG/DL Calcium 8.8 8.5 - 10.6 MG/DL eGFR Non >60 >60 mL/min eGFR >60 >60 mL/min CBC Result Value Ref Range White Blood Cells 10.0 4.5 - 11.0 K/UL RBC 3.09 (L) 4.0 - 5.0 M/UL Hemoglobin 9.6 (L) 12.0 - 15.0 GM/DL Hematocrit 28.5 (L) 36 - 45 % MCV 92.3 80 - 100 FL MCH 31.0 26 - 34 PG MCHC 33.6 32.0 - 36.0 G/DL RDW 15.0 11 - 15 % Platelet Count 182 150 - 400 K/UL MPV 8.2 7 - 11 FL MAGNESIUM Result Value Ref Range Magnesium 1.7 1.6 - 2.6 mg/dL PHOSPHORUS Result Value Ref Range Phosphorus 2.0 2.0 - 4.0 MG/DL Brief Hospital Course: The patient was admitted and the following issues were addressed during this hospitalization: (with pertinent details). Radha Mota is a 47 y.o. female who was admitted following open incisional hernia repair with mesh, bilateral component separation and myocutaneous flap advancement, abdominal scar revision, removal of foreign object, removal and drainage of granuloma/cyst on 03/10/[address] Victoria for an incisional hernia. After the surgery she was transitioned from her epidural to PO pain medications, her diet was advanced, and she was voiding without difficulty. She worked with PT/OT during her stay and progressively improved. Her drains were removed on 03/16. At the time of discharge, her pain was controlled with PO pain medication, she was tolerating a general diet without any nausea or vomiting, voiding spontaneously, and ambulating with assistance. She was discharged to home with family assist. Condition at Discharge: Stable Discharge Diagnoses: Hospital Problems Active Problems Incisional hernia, without obstruction or gangrene Abdominal pannus Ventral hernia Morbid obesity (HCC) MALINDA on CPAP Hyperlipidemia GERD (gastroesophageal reflux disease) DM (diabetes mellitus) (HCC) Coronary artery disease Asthma Active Problems: Incisional hernia, without obstruction or gangrene Abdominal pannus Ventral hernia Morbid obesity (HCC) MALINDA on CPAP Hyperlipidemia GERD (gastroesophageal reflux disease) DM (diabetes mellitus) (HCC) Coronary artery disease Asthma Surgical Procedures: Procedure(s) (LRB): OPEN INCISIONAL HERNIA REPAIR WITH MESH, BILATERAL COMPONENT SEPARATION AND MYOCUTANOUS FLAP ADVANCEMENT, ABDOMINAL SCAR REVISION, REMOVAL OF FOREIGN OBJECT , REMOVAL AND DRAINAGE OF GRANULOMA/CYST (N/A) Significant Diagnostic Studies and Procedures: noted in brief hospital course Consults: CONSULT REHABILITATION MEDICINE PHYSICIAN Patient Disposition: Home with family assist Patient instructions/medications: No discharge procedures on file. Current Discharge Medication List CONTINUE these medications which have NOT CHANGED Details albuterol (PROAIR HFA) 90 mcg/actuation inhaler Inhale 2 puffs by mouth into the lungs every 6 hours as needed for Wheezing or Shortness of Breath. Shake well before use. PRESCRIPTION TYPE: Historical Med atorvastatin (LIPITOR) 80 mg tablet Take 80 mg by mouth daily. PRESCRIPTION TYPE: Historical Med biotin 10,000 mcg TbDi Dissolve 2 tablets by mouth daily. PRESCRIPTION TYPE: Historical Med budesonide/formoterol (SYMBICORT HFA) 160/4.5 mcg inhalation Inhale 1 puff by mouth into the lungs twice daily as needed. PRESCRIPTION TYPE: Historical Med butalbital/acetaminophen/caffeine(+) (FIORICET) 50/325/40 mg tablet Take 1 tablet by mouth every 4 hours as needed for Headache. PRESCRIPTION TYPE: Historical Med COLLAGEN MISC Take 1 tablet by mouth daily. PRESCRIPTION TYPE: Historical Med cyanocobalamin (vitamin B-12) 5,000 mcg TbDi Dissolve 1 tablet by mouth daily. PRESCRIPTION TYPE: Historical Med cyclobenzaprine (FLEXERIL) 10 mg tablet Take 10 mg by mouth three times daily as needed for Muscle Cramps. PRESCRIPTION TYPE: Historical Med dapagliflozin 10 mg tab Take 1 tablet by mouth at bedtime daily. PRESCRIPTION TYPE: Historical Med ergocalciferol (VITAMIN D-2) 50,000 unit capsule Take 1 capsule by mouth every 7 days. Administer on PRESCRIPTION TYPE: Historical Med exenatide microspheres ER(+) (BYDUREON) 2 mg injection Inject 2 mg under the skin every 7 days. Administer on Wednesdays PRESCRIPTION TYPE: Historical Med fenofibrate nanocrystallized (TRICOR) 145 mg tablet Take 145 mg by mouth daily. Take with food. PRESCRIPTION TYPE: Historical Med fluticasone (FLONASE) 50 mcg/actuation nasal spray Apply 2 sprays to each nostril as directed daily. Shake bottle gently before using. PRESCRIPTION TYPE: Historical Med HYDROcodone/acetaminophen(+) (NORCO) 10/325 mg tablet Take 1 tablet by mouth every 6 hours as needed for Pain PRESCRIPTION TYPE: Historical Med ipratropium/albuterol (COMBIVENT RESPIMAT) 20-100 mcg/actuation mist inhaler Inhale 1 puff by mouth into the lungs four times daily as needed. PRESCRIPTION TYPE: Historical Med lidocaine (LIDODERM) 5 % topical patch Apply 2 patches topically to affected area at bedtime daily. Apply patch for 12 hours, then remove for 12 hours before repeating. PRESCRIPTION TYPE: Historical Med LINZESS 145 mcg cap capsule Take 1 capsule by mouth daily. PRESCRIPTION TYPE: Historical Med LORazepam (ATIVAN) 0.5 mg tablet Take 1 tablet by mouth at bedtime daily. PRESCRIPTION TYPE: Historical Med metFORMIN (GLUCOPHAGE) 1,000 mg tablet Take 1 tablet by mouth twice daily. PRESCRIPTION TYPE: Historical Med montelukast (SINGULAIR) 10 mg tablet Take 10 mg by mouth at bedtime daily. PRESCRIPTION TYPE: Historical Med ofloxacin(+) (FLOXIN) 0.3 % ophthalmic solution Apply 1 drop to left eye as directed three times daily. PRESCRIPTION TYPE: Historical Med omeprazole DR(+) (PRILOSEC) 20 mg capsule Take 20 mg by mouth daily before breakfast. PRESCRIPTION TYPE: Historical Med ondansetron (ZOFRAN) 8 mg tablet Take 8 mg by mouth every 8 hours as needed for Nausea or Vomiting. PRESCRIPTION TYPE: Historical Med pediatric multivitamin no.42 (CHILDREN'S MULTIVITAMIN) chew Chew 2 tablets by mouth daily. PRESCRIPTION TYPE: Historical Med potassium chloride SR (K-DUR) 20 mEq tablet Take 20 mEq by mouth three times daily. Take with a meal and a full glass of water. PRESCRIPTION TYPE: Historical Med prednisolone acetate (PRED FORTE) 1 % ophthalmic suspension Apply 1 drop to left eye as directed twice daily. PRESCRIPTION TYPE: Historical Med ranitidine(+) (ZANTAC) 150 mg tablet Take 150 mg by mouth twice daily. PRESCRIPTION TYPE: Historical Med torsemide(+) (DEMADEX) 20 mg tablet Take 80 mg by mouth daily. PRESCRIPTION TYPE: Historical Med zolpidem (AMBIEN) 10 mg tablet Take 10 mg by mouth at bedtime daily. PRESCRIPTION TYPE: Historical Med Future Appointments Date Time Provider Department Center 03/19/2018 10:00 AM Tracey Victoria, DO [id number] General Pending items needing follow up: None Signed: Yunier Harris MD 03/13/2018 cc: Primary Care Physician: Linus Herrera Verified Referring physicians: Additional provider(s): in this encounter Medications at Time of [...] lungs twice mcg inhalation daily as needed. cyanocobalamin (vitamin Dissolve 1 tablet by B-12) [...] directed daily. Shake bottle gently before using. ipratropium/albuterol Inhale 1 puff by mouth (COMBIVENT [...] by mouth 150 mg tablet twice daily. COLLAGEN MISC Take 1 tablet by mouth 03/25/2018 daily. HYDROcodone/acetaminophen Take 1 tablet by mouth 03/25/2018 (+) (NORCO) 10/325 mg every 6 hours as needed tablet for Pain ofloxacin(+) (FLOXIN) 0.3 Apply 1 drop to left eye 01/14/20182017 % ophthalmic solution as directed three times daily. omeprazole DR(+) Take 20 mg by mouth daily 03/25/2018 (PRILOSEC) 20 mg capsule before breakfast. oxyCODONE (ROXICODONE, Take 1-3 tablets by mouth 40 tablet 0 201703/25/2018 OXY-IR) 5 mg tablet every 3 hours as needed polyethylene glycol 3350 Take 2 packets by mouth 12 each 03/17/2018 03/25/2018 (MIRALAX) 17 g packet daily. torsemide(+) (DEMADEX) 20 Take 80 mg by mouth 03/25/2018 mg tablet daily. as of this encounter Progress Notes * Delbert Briggs, RN - 03/16/2018 6:12 PM CDT Radha Mota discharged on 03/16/2018. . Discharge instructions reviewed with patient and family. Valuables returned: Personal Items / Valuables: CPAP Machine, Cell Phone Where Are Valuables Stored?: with pt. Home medications: . Functional assessment at discharge complete: Yes . Pt educated on d/c when walker arrived however pt did not want to wait. This RN called Eleazar who was to deliver the walker and he said that he will be here in 10 -15 minutes. This RN told pt and family that however they decided to leave stating that they had a walker at home they could use. Pt taken to lobby by aide via wheelchair. * Deven Ruffin RT - 03/16/2018 10:33 AM CDT Formatting of this note may be different from the original. RESPIRATORY THERAPY ADULT PROTOCOL EVALUATION RESPIRATORY PROTOCOL PLAN Medications Albuterol: MDI PRN Albuterol/Ipratropium: MDI PRN Note: If indicated by protocol, medication orders will be placed by therapist. Procedures PATIENT EVALUATION RESULTS Chart Review * Pulmonary Hx: Hx pulmonary disease, hx reactive or obstructive airway disease (PEFR & AM) OR regular home use of bronchodilators (AM) OR inhaled or systemic steroid use for lungs < or equal to 4 times/yr (AM) * Surgical Hx: Thoracic or abdominal surgery/injury (LE) * Chest X-Ray: Clear OR not available * PFT/Oxygenation: FEV1, PEFR > 80% predicted OR physically unable to perform OR Pa02 >80 RA OR Sp02 >95% RA Patient Assessment * Respiratory Pattern: Regular pattern and rate OR good chest excursion with deep breathing * Breath Sounds: Clear apically, but diminished in bases (LE) OR CHF related crackles (02) (oximetry) * Cough / Sputum: Good effective cough OR occasional or minimal sputum OR thin sputum * Mental Status: Alert, oriented, cooperative * Activity Level: Ambulatory with assistance Priority Index Total Points: 9 Points * Priority Index: 1+ PRIORITY INDEX GUIDELINES* Priority Points 1 0-9 points 2 9-18 points 3 > 18 points + Pulm Dx or Home Rx *Higher points indicate higher acuity. Therapist: Deven Ruffin, RT Date: 03/16/2018 Russell AC=Airway clearance AM=Aerosolized medication BA=Harper aerosol DB&C=Deep breathe & cough FEV1=Forced expiratory volume in first second) IC=Inspiratory capacity LE=Lung expansion MDI=Metered dose inhaler Neb=Nebulizer O2=Oxygen Oxim=Oximetry PEFR=Peak expiratory flow rate [employer]=Rapid Response Team * Shital Valdez, PT - 03/16/2018 8:55 AM CDT PHYSICAL THERAPY PROGRESS NOTE MOBILITY: Mobility Progressive Mobility Level: Walk laps (Simultaneous filing. User may not have seen previous data.) Distance Walked (feet): 300 ft (Simultaneous filing. User may not have seen previous data.) Level of Assistance: Stand by assistance (Simultaneous filing. User may not have seen previous data.) Assistive Device: None (Simultaneous filing. User may not have seen previous data.) Time Tolerated: 0-10 minutes (Simultaneous filing. User may not have seen previous data.) Activity Limited By: Fatigue;Pain (Simultaneous filing. User may not have seen previous data.) SUBJECTIVE: Subjective Significant hospital events: Dx: hx of gastric sleeve in 2014; s/p open incisional hernia repair and removal of foreign object (03/10) Mental / Cognitive Status: Alert;Oriented;Cooperative;Follows Commands Persons Present: Mother (Simultaneous filing. User may not have seen previous data.) Pain: Patient complains of pain;Patient does not rate pain Pain Location: Abdomen;Post-surgical Pain Interventions: Patient agrees to participate in therapy;Nursing staff notified of patient's pain level;Treatment altered to patient's pain tolerance Precautions: Abdominal Binder Ambulation Assist: Independent Mobility in Community without Device Patient Owned Equipment: None Home Situation: Lives with Family Type of Home: Mobile Home (Simultaneous filing. User may not have seen previous data.) Entry Stairs: 3-5 Stairs;Rail on 1 Side In-Home Stairs: No Stairs BED MOBILITY/TRANSFERS: Bed Mobility/Transfers Transfer Type: Sit to/from Stand Transfer: Assistance Level: Bed Side Chair;To;Bed;Standby Assist Transfer: Assistive Device: Roller Walker End Of Activity Status: Sitting at Edge of Bed GAIT: Gait Gait Distance: 300 feet Gait: Assistance Level: Standby Assist Gait: Assistive Device: None (occasionally reaches for handrail) Gait: Descriptors: Pace: Slow Stairs: Number Climbed: 5 Stairs: Descriptors: Ascend;Descend;Reciprocal Stairs: Assistance Level: Standby Assist Stairs: Assistive Device: One Rail ASSESSMENT/PROGRESS: Assessment/Progress Impaired Mobility Due To: Decreased Strength;Pain;Decreased Activity Tolerance; Post Surgical Changes Impaired Strength Due To: Pain;Post Surgical Changes Assessment/Progress: Should Improve w/ Continued PT Patient with improved mobility and able to ambulate and do stairs safely. Patient would like to DC home to mother's house and she can assist if needed. AM-PAC 6 Clicks Basic Mobility Inpatient Turning from your back to your side while in a flat bed without using bed rails : A Little Moving from lying on your back to sitting on the side of a flatbed without using bedrails : A Little Moving to and from a bed to a chair (including a wheelchair): None Standing up from a chair using your arms (e.g. wheelchair, or bedside chair): None To walk in hospital room: None Climbing 3-5 steps with a railing: None Raw Score: 22 Standardized (T-scale) Score: 47.4 Basic Mobility CMS 0-100%: 25.02 CMS G Code Modifier for Basic Mobility: CJ GOALS: Goals Goal Formulation: With Patient/Family Time For Goal Achievement: 5 days Pt Will Go Supine To/From Sit: Independently, Ongoing Pt Will Logroll: Independently Pt Will Transfer Bed/Chair: Ongoing Pt Will Transfer Sit to Stand: Independently, Ongoing Pt Will Ambulate: 101-150 Feet, w/ Walker, Independently, Ongoing Pt Will Go Up / Down Stairs: 3-5 Stairs, w/ Stand By Assist, Ongoing PLAN: Plan Treatment Interventions: Mobility Training;Strengthening;Endurance Training Plan Frequency: 5-7 Days per Week PT Plan for Next Visit: wean off walker RECOMMENDATIONS: PT Discharge Recommendations PT Discharge Recommendations: Home Equipment Recommendations: Roller Walker Patient requires the use of a walker with wheels to complete ADLs in the home including meal preparation, ambulation the bathroom for toileting, bathing and grooming, and safe home mobility. Patient is unable to complete these ADL s with a cane or crutch and can safely use the walker. Therapist: Shital Valdez, PT Date: 03/16/2018 * Frederick Ren, OT - 03/16/2018 8:49 AM CDT Formatting of this note may be different from the original. OCCUPATIONAL THERAPY PROGRESS/DISCHARGE NOTE Patient Name: Radha Mota Room/Bed: [id number]/ Admitting Diagnosis: Incisional hernia, without obstruction or gangrene [K43.2] Abdominal pannus [E65] Ventral hernia Past Medical History: Diagnosis Date Anxiety disorder Asthma Coronary artery disease DM (diabetes mellitus) (HCC) GERD (gastroesophageal reflux disease) Headache Hyperlipidemia Obesity MALINDA on CPAP Mobility Progressive Mobility Level: Walk laps Distance Walked (feet): 300 ft Level of Assistance: Stand by assistance Assistive Device: None Time Tolerated: 0-10 minutes Activity Limited By: Fatigue;Pain Subjective Pertinent Dx per Physician: OPEN INCISIONAL HERNIA REPAIR WITH MESH, BILATERAL COMPONENT SEPARATION AND MYOCUTANOUS FLAP ADVANCEMENT, ABDOMINAL SCAR REVISION, REMOVAL OF FOREIGN OBJECT, REMOVAL AND DRAINAGE OF GRANULOMA/CYST Precautions: Falls;Abdominal Binder (CARINA drain x2) Pain / Complaints: Patient agrees to participate in therapy Pain Location: Incisional Pain Level Current: 3 Objective Psychosocial Status: Willing and Cooperative to Participate Persons Present: Mother Home Living Type of Home: Mobile Home Home Layout: One Level Bathroom Shower / Tub: Tub/Shower Unit Home Equipment: (none) Comment: Pt reports her family will be unavailable to assist her during the day but will be available at night. Pt's daughter is a PLASTER DIE MAKER. 03/16/18: Pt now stating that her "adopted" mother is able and wanting to care for the pt following discharge. Her mother's home has 4 steps to enter, is a single level home, with a tub/shower combo and a shower chair with grab bars. Pt's mother will be able to provide 24/03 supervision/assist. Prior Function Level Of [place]: Independent with ADLs and functional transfers; Independent with homemaking w/ ambulation Lives With: Son;Daughter Receives Help From: None Needed Vocational: On Disability Vision Current Vision: No Visual Deficits ADL's Where Assessed: Chair;Standing at Sink;Supine, Bed;Edge of Bed Eating Assist: Independent Eating Deficits: No Assist Needed Grooming Assist: Independent (Standing at sink) Grooming Deficits: Setup;Wash/Dry Face;Teeth Care;Brushing Hair Bathing Assist: (Getting ready to shower with clinical nursing manager) Bathing Deficits: (Reports bathing the "other day" without difficulty) LE Dressing Assist: Stand By Assist (Sitting EOB and in chair) LE Dressing Deficits: Thread RLE Into Pants;Thread LLE Into Pants;Pull Up Over Hips;Fasteners;Don/Doff R Shoe;Don/Doff L Shoe Toileting Assist: (Denies difficulty with toileting in the past 24 hours) Functional Transfer Assist: Stand By Assist Functional Transfer Deficits: Supervision/Safety Comment: Pt in bed upon arrival and completes supine>sit with SBA. Pt completes sit<>stand and functional mobility around room for ADLs with SBA; with and without rolling walker. Pt working with PT at end of session. Activity Tolerance Endurance: 2/5 Tolerates 10-20 Minutes Exercise w/Multiple Rests Sitting Balance: 4/5 Moves/Returns Trunkal Midpoint 1-2 Inches in Multiple Planes Cognition Overall Cognitive Status: WFL to Adequately Complete Self Care Tasks Safely Education Persons Educated: Patient/Family Teaching Methods: Verbal Instruction;Demonstration Patient Response: Verbalized and Demo Understanding Topics: Role of OT, Goals for Therapy;ADL Compensatory Techniques;Energy Conservation;Home safety;DME for Home Discharge Goal Formulation: With Patient/Family Assessment Prognosis: Good;w/ Family Goal Formulation: Pt/family AM-PAC 6 Clicks Daily Activity Inpatient Putting on and taking off regular lower body clothes?: None Bathing (Including washing, rinsing, drying): A Little Toileting, which includes using toilet, bedpan, or urinal: None Putting on and taking off regular upper body clothing: None Taking care of personal grooming such as brushing teeth: None Eating meals?: None Daily Activity Raw Score: 23 Standardized (t-scale) score: 51.12 CMS 0-100% Score: 15.86 CMS G Code Modifier: CI Plan Progress: No Further Limitations OT Frequency: No Further Treatment ADL Goals Patient Will Perform All ADL's: w/ Setup;w/ Stand By Assist;Met Functional Transfer Goals Pt Will Perform All Functional Transfers: w/ Stand By Assist, Met OT Discharge Recommendations OT Discharge Recommendations: Home with family assist, Available help at home Equipment Recommendations: Shower Chair Recommend ongoing assistance for: Bathing, Dressing, Meal preparation Therapist: AMBER Boss/[place] [id number] Date: 03/16/2018 * Yunier Harris MD - 03/16/2018 7:40 AM CDT Formatting of this note may be different from the original. Daily Progress Note Today's Date: 03/16/2018 Name: Radha Mota Admission Date: 03/10/2018 (LOS: 6 days) Assessment: 47 y.o. female with a pmh of of gastric sleeve (2014), DM, CAD, obesity, MALINDA 6 Days Post-Op from Procedure(s) (LRB): OPEN INCISIONAL HERNIA REPAIR WITH MESH, BILATERAL COMPONENT SEPARATION AND MYOCUTANOUS FLAP ADVANCEMENT, ABDOMINAL SCAR REVISION, REMOVAL OF FOREIGN OBJECT , REMOVAL AND DRAINAGE OF GRANULOMA/CYST (N/A) on 03/10/2018. Active Problems: Incisional hernia, without obstruction or gangrene Abdominal pannus Ventral hernia Morbid obesity (HCC) MALINDA on CPAP Hyperlipidemia GERD (gastroesophageal reflux disease) DM (diabetes mellitus) (HCC) Coronary artery disease Asthma Plan: - pain control with acetaminophen, oxy for breakthrough - right sided drains removed this morning, will remove left sided drains prior to discharge - rehab recommending inpatient vs home with family assist depending on improvement with continued PT/OT - hyponatremia improving, continue 1.5L free water restriction and torsemide - bowel regimen with miralax, dulcolax suppository, - DIET DIABETIC (STANDARD) CONSISTENT CARB - Dispo: floor, discharge today, likely to rehab pending PT/OT recommendations today. Seen and discussed with Dr. Nelson. Subjective: Resting in bed this morning. Pain controlled. +flatus, +bm. Objective: BP: (100-117)/(58-87) Temp: [36.6 C (97.8 F)-37.9 C (100.2 F)] Pulse: [78-102] Respirations: [18 PER MINUTE] SpO2: [92 %-97 %] O2 Delivery: None (Room Air) Lab Results Component Value Date/Time NA 134 (L) 03/15/2018 05:35 AM K 4.1 03/15/2018 05:35 AM CL 99 03/15/2018 05:35 AM CO2 28 03/15/2018 05:35 AM BUN 6 (L) 03/15/2018 05:35 AM CR 0.26 (L) 03/15/2018 05:35 AM MG 1.6 03/15/2018 05:35 AM PO4 3.5 03/15/2018 05:35 AM Lab Results Component Value Date/Time HGB 8.8 (L) 03/15/2018 05:35 AM HCT 25.9 (L) 03/15/2018 05:35 AM WBC 8.5 03/15/2018 05:35 AM PLTCT 283 03/15/2018 05:35 AM Lab Results Component Value Date/Time GLUPOC 185 (H) 03/16/2018 03:01 AM GLUPOC 233 (H) 03/15/2018 09:43 PM GLUPOC 236 (H) 03/15/2018 05:35 PM Physical Exam Constitutional: She is oriented to person, place, and time. She appears well- developed and well-nourished. No distress. HENT: Head: Normocephalic and atraumatic. Eyes: No scleral icterus. Neck: No JVD present. No tracheal deviation present. Cardiovascular: Normal rate and intact distal pulses. Pulmonary/Chest: Effort normal and breath sounds normal. No stridor. No respiratory distress. Abdominal: Soft. She exhibits no distension. There is tenderness (appropriately tender to palpation). There is no rebound and no guarding. Obese; two CARINA drains on left - superior drain is subcutaneous, inferior drain is deep to mesh, minimal serosanguineous drainage, midline incision covered with dermabond with no erythema. Abdominal binder in place. Neurological: She is alert and oriented to person, place, and time. She exhibits normal muscle tone. Skin: Skin is warm and dry. Rash (erythema under breasts, nystatin powder applied) noted. No erythema. No pallor. Psychiatric: She has a normal mood and affect. Her behavior is normal. Judgment and thought content normal. Yunier Harris MD Service Pager: # [phone] Associated attestation - Tracey Victoria DO - 03/16/2018 12:38 PM CDT Formatting of this note may be different from the original. ATTESTATION I personally performed the russell portions of the E/M visit, discussed case with resident and concur with resident documentation of history, physical exam, assessment, and treatment plan unless otherwise noted. Staff name: TRACEY VICTORIA DO Date: 03/16/2018 * Darlene Welch - 03/15/2018 11:27 AM CDT PHYSICAL THERAPY MOBILITY NOTE Patient was mobilized today with the assistance of the P.T. mobility aide as part of the ongoing physical therapy plan of care. Mobility Progressive Mobility Level: Walk in hallway Distance Walked (feet): 60 ft Level of Assistance: Stand by assistance Assistive Device: Walker Time Tolerated: 0-10 minutes Activity Limited By: Fatigue Aide: Darlene Welch Date: 03/15/2018 * Judy Moran RN - 03/15/2018 8:08 AM CDT Patient informed this RN at shift change of taking a medication (magnesium citrate) without an order over night. RN notified MD Luis Manuel about issue. RN not to give one time dose of magnesium citrate ordered this morning. RN educated patient not to take medications without an order d/t possible risks may cause to patient. Patient verbalized understanding. Will continue to monitor. * Todd Issa DO - 03/15/2018 7:37 AM CDT Formatting of this note may be different from the original. Daily Progress Note Today's Date: 03/15/2018 Name: Radha Mota Admission Date: 03/10/2018 (LOS: 5 days) Assessment: 47 y.o. female 5 Days Post-Op from Procedure(s) (LRB): OPEN INCISIONAL HERNIA REPAIR WITH MESH, BILATERAL COMPONENT SEPARATION AND MYOCUTANOUS FLAP ADVANCEMENT, ABDOMINAL SCAR REVISION, REMOVAL OF FOREIGN OBJECT , REMOVAL AND DRAINAGE OF GRANULOMA/CYST (N/A) Active Problems: Incisional hernia, without obstruction or gangrene Abdominal pannus Ventral hernia Morbid obesity (HCC) MALINDA on CPAP Hyperlipidemia GERD (gastroesophageal reflux disease) DM (diabetes mellitus) (HCC) Coronary artery disease Asthma Plan: - Pain control - continue DAYCARE DIRECTOR meds - increasing bowel regimen - replace mag - Monitor drain output, will likely remove some drains tomorrow - therapy recommending inpatient rehab, will work on placement tomorrow - DIET DIABETIC (STANDARD) CONSISTENT CARB Subjective: passing gas, minimal pain, but complaining of feeling constipated Objective: BP: (107-123)/(59-67) Temp: [36.7 C (98 F)-37.4 C (99.4 F)] Pulse: [76-92] Respirations: [16 PER MINUTE-19 PER MINUTE] SpO2: [93 %-98 %] O2 Delivery: None (Room Air) Lab Results Component Value Date/Time NA 134 (L) 03/15/2018 05:35 AM K 4.1 03/15/2018 05:35 AM CL 99 03/15/2018 05:35 AM CO2 28 03/15/2018 05:35 AM BUN 6 (L) 03/15/2018 05:35 AM CR 0.26 (L) 03/15/2018 05:35 AM MG 1.6 03/15/2018 05:35 AM PO4 3.5 03/15/2018 05:35 AM Lab Results Component Value Date/Time HGB 8.8 (L) 03/15/2018 05:35 AM HCT 25.9 (L) 03/15/2018 05:35 AM WBC 8.5 03/15/2018 05:35 AM PLTCT 283 03/15/2018 05:35 AM Lab Results Component Value Date/Time GLUPOC 201 (H) 03/15/2018 03:15 AM GLUPOC 207 (H) 03/14/2018 09:40 PM GLUPOC 236 (H) 03/14/2018 06:02 PM Physical Exam Constitutional: She is oriented to person, place, and time. She appears well- developed and well-nourished. No distress. HENT: Head: Normocephalic and atraumatic. Cardiovascular: Normal rate. Abdominal: Soft. She exhibits no distension. There is no tenderness. There is no rebound. obese incision CDI with dermabond in place 4 CARINA drains with yellow serous drainage Musculoskeletal: She exhibits no edema. Neurological: She is alert and oriented to person, place, and time. She exhibits normal muscle tone. Skin: Skin is warm and dry. She is not diaphoretic. No erythema. Psychiatric: She has a normal mood and affect. Her behavior is normal. Nursing note and vitals reviewed. Todd Issa DO Personal Pager: # [phone] Team Pager: # [phone] * Shital Valdez, PT - 03/14/2018 3:32 PM CDT PHYSICAL THERAPY PROGRESS NOTE MOBILITY: Mobility Progressive Mobility Level: Walk in hallway Distance Walked (feet): 65 ft Level of Assistance: Stand by assistance Assistive Device: Walker Time Tolerated: 11-30 minutes SUBJECTIVE: Subjective Significant hospital events: Dx: hx of gastric sleeve in 2014; s/p open incisional hernia repair and removal of foreign object (03/10) Mental / Cognitive Status: Alert;Oriented;Cooperative;Follows Commands Pain: Patient complains of pain;Patient does not rate pain Pain Location: Abdomen;Post-surgical Pain Interventions: Patient agrees to participate in therapy;Nursing staff notified of patient's pain level;Treatment altered to patient's pain tolerance Precautions: Abdominal Binder Ambulation Assist: Independent Mobility in Community without Device Patient Owned Equipment: None Home Situation: Lives with Family Type of Home: Mobile Home Entry Stairs: 3-5 Stairs;Rail on 1 Side In-Home Stairs: No Stairs BED MOBILITY/TRANSFERS: Bed Mobility/Transfers Bed Mobility: Supine to Sit: Minimal Assist;Head of Bed Elevated Bed Mobility: Sit to Supine: Minimal Assist;HOB Elevated Transfer Type: Sit to/from Stand Transfer: Assistance Level: To/From;Bed;Minimal Assist Transfer: Assistive Device: Roller Walker Transfers: Type Of Assistance: For Safety Considerations GAIT: Gait Gait Distance: 65 feet Gait: Assistance Level: Minimal Assist (contact guard assist) Gait: Assistive Device: Roller Walker Gait: Descriptors: Pace: Slow;Swing-Through Gait;No balance loss;Decreased step length Activity Limited By: Complaint of Pain ASSESSMENT/PROGRESS: Progressing with mobility. Anticipate continued improvement with physical therapy. AM-PAC 6 Clicks Basic Mobility Inpatient Turning from your back to your side while in a flat bed without using bed rails : A Little Moving from lying on your back to sitting on the side of a flatbed without using bedrails : A Lot Moving to and from a bed to a chair (including a wheelchair): A Little Standing up from a chair using your arms (e.g. wheelchair, or bedside chair): A Little To walk in hospital room: A Little Climbing 3-5 steps with a railing: A Lot Raw Score: 16 Standardized (T-scale) Score: 38.32 Basic Mobility CMS 0-100%: 47.12 CMS G Code Modifier for Basic Mobility: CK GOALS: Goals Goal Formulation: With Patient/Family Time For Goal Achievement: 5 days Pt Will Go Supine To/From Sit: Independently, Ongoing Pt Will Logroll: Independently Pt Will Transfer Bed/Chair: Ongoing Pt Will Transfer Sit to Stand: Independently, Ongoing Pt Will Ambulate: 101-150 Feet, w/ Walker, Independently, Ongoing Pt Will Go Up / Down Stairs: 3-5 Stairs, w/ Stand By Assist, Ongoing PLAN: Plan Treatment Interventions: Mobility Training;Strengthening;Endurance Training Plan Frequency: 5-7 Days per Week PT Plan for Next Visit: increase gait distance, increase independence with bed mobility and transfers RECOMMENDATIONS: PT Discharge Recommendations PT Discharge Recommendations: Inpatient Setting Equipment Recommendations: Roller Walker Therapist: Shital Valdez, PT Date: 03/14/2018 * Yunier Harris MD - 03/14/2018 6:33 AM CDT Formatting of this note may be different from the original. Daily Progress Note Today's Date: 03/14/2018 Name: Radha Mota Admission Date: 03/10/2018 (LOS: 4 days) Assessment: 47 y.o. female with a pmh of of gastric sleeve (2014), DM, CAD, obesity, MALINDA 4 Days Post-Op from Procedure(s) (LRB): OPEN INCISIONAL HERNIA REPAIR WITH MESH, BILATERAL COMPONENT SEPARATION AND MYOCUTANOUS FLAP ADVANCEMENT, ABDOMINAL SCAR REVISION, REMOVAL OF FOREIGN OBJECT , REMOVAL AND DRAINAGE OF GRANULOMA/CYST (N/A) on 03/10/2018. Active Problems: Incisional hernia, without obstruction or gangrene Abdominal pannus Ventral hernia Morbid obesity (HCC) MALINDA on CPAP Hyperlipidemia GERD (gastroesophageal reflux disease) DM (diabetes mellitus) (HCC) Coronary artery disease Asthma Plan: - pain control with acetaminophen, oxy for breakthrough, given one dose of toradol overnight for headache - encourage ambulation, out of bed to chair, and IS as patient is high risk for atelectasis given body habitus - rehab recommending inpatient vs home with family assist depending on improvement with continued PT/OT - hyponatremia improving, continue 1.5L free water restriction and torsemide - bowel regimen with miralax - ADVANCE DIET TOLERATED DIET DIABETIC (STANDARD) CONSISTENT CARB - Dispo: floor, discharge early this week to rehab vs home with family assistance depending on improvement with PT Seen and discussed with Dr. Nelson. Subjective: Sleeping in bed with CPAP on this morning. Pain improved from yesterday. Toradol helped with headache last night. Ambulating short distance down jha with assistance, +flatus, +bm. Objective: BP: (96-130)/(56-65) Temp: [36.6 C (97.8 F)-37 C (98.6 F)] Pulse: [83-97] Respirations: [16 PER MINUTE-20 PER MINUTE] SpO2: [95 %-98 %] O2 Delivery: CPAP/BiPAP (Pt Owned) Lab Results Component Value Date/Time NA 134 (L) 03/14/2018 04:53 AM K 4.1 03/14/2018 04:53 AM CL 100 03/14/2018 04:53 AM CO2 25 03/14/2018 04:53 AM BUN 12 03/14/2018 04:53 AM CR 0.32 (L) 03/14/2018 04:53 AM MG 1.8 03/14/2018 04:53 AM PO4 3.1 03/14/2018 04:53 AM Lab Results Component Value Date/Time HGB 9.5 (L) 03/14/2018 04:53 AM HCT 28.6 (L) 03/14/2018 04:53 AM WBC 8.2 03/14/2018 04:53 AM PLTCT 236 03/14/2018 04:53 AM Lab Results Component Value Date/Time GLUPOC 213 (H) 03/14/2018 03:59 AM GLUPOC 243 (H) 03/13/2018 09:01 PM GLUPOC 232 (H) 03/13/2018 05:37 PM Physical Exam Constitutional: She is oriented to person, place, and time. She appears well- developed and well-nourished. No distress. HENT: Head: Normocephalic and atraumatic. Eyes: No scleral icterus. Neck: No JVD present. No tracheal deviation present. Cardiovascular: Normal rate and intact distal pulses. Pulmonary/Chest: Effort normal and breath sounds normal. No stridor. No respiratory distress. Abdominal: Soft. She exhibits no distension. There is tenderness (appropriately tender to palpation, improved from yesterdaya). There is no rebound and no guarding. Obese; four CARINA drains - superior drains are subcutaneous, inferior drains are deep to mesh, minimal serosanguineous drainage, midline incision c/d/i covered with dermabond with no erythema. Abdominal binder in place. Neurological: She is alert and oriented to person, place, and time. She exhibits normal muscle tone. Skin: Skin is warm and dry. No rash noted. No erythema. No pallor. Psychiatric: She has a normal mood and affect. Her behavior is normal. Judgment and thought content normal. Yunier Harris MD Service Pager: # [phone] * Teresa Gongora, RT - 03/13/2018 5:12 PM CDT Formatting of this note may be different from the original. RESPIRATORY THERAPY ADULT PROTOCOL EVALUATION RESPIRATORY PROTOCOL PLAN Medications Albuterol: MDI PRN Albuterol/Ipratropium: MDI PRN Note: If indicated by protocol, medication orders will be placed by therapist. Procedures PEP Therapy: Place a nursing order for "IS Q1h While Awake" for any of Lung Expansion indicators Oxygen/Humidity: Discontinued Monitoring: Discontinued Comment: MALINDA PATIENT EVALUATION RESULTS Chart Review * Pulmonary Hx: Hx pulmonary disease, hx reactive or obstructive airway disease (PEFR & AM) OR regular home use of bronchodilators (AM) OR inhaled or systemic steroid use for lungs < or equal to 4 times/yr (AM) * Surgical Hx: Thoracic or abdominal surgery/injury (LE) * Chest X-Ray: Clear OR not available * PFT/Oxygenation: FEV1, PEFR > 80% predicted OR physically unable to perform OR Pa02 >80 RA OR Sp02 >95% RA Patient Assessment * Respiratory Pattern: Regular pattern and rate OR good chest excursion with deep breathing * Breath Sounds: Clear apically, but diminished in bases (LE) OR CHF related crackles (02) (oximetry) * Cough / Sputum: Good effective cough OR occasional or minimal sputum OR thin sputum * Mental Status: Alert, oriented, cooperative * Activity Level: Ambulatory with assistance Priority Index Total Points: 9 Points * Priority Index: 1+ PRIORITY INDEX GUIDELINES* Priority Points 1 0-9 points 2 9-18 points 3 > 18 points + Pulm Dx or Home Rx *Higher points indicate higher acuity. Therapist: Teresa Gongora, RT Date: 03/13/2018 Russell AC=Airway clearance AM=Aerosolized medication BA=Harper aerosol DB&C=Deep breathe & cough FEV1=Forced expiratory volume in first second) IC=Inspiratory capacity LE=Lung expansion MDI=Metered dose inhaler Neb=Nebulizer O2=Oxygen Oxim=Oximetry PEFR=Peak expiratory flow rate [employer] [employer]=Rapid Response Team * Deb Degroot OT - 03/13/2018 2:45 PM CDT OCCUPATIONAL THERAPY NO TREATMENT NOTE The patient was not seen due to: Patient declined Attempted to see patient 1 time, pt declining OT having just worked with PT and complaining of a headache, OT will cont to follow Therapist: AMBER Renee/Elyse [id number] Date: 03/13/2018 * Brianna Ruiz - 03/13/2018 1:41 PM CDT PHYSICAL THERAPY PROGRESS NOTE MOBILITY: Mobility Progressive Mobility Level: Walk in hallway Distance Walked (feet): 40 ft Level of Assistance: Assist X1 Assistive Device: Walker Time Tolerated: 11-30 minutes Activity Limited By: Fatigue SUBJECTIVE: Subjective Significant hospital events: Dx: hx of gastric sleeve in 2014; s/p open incisional hernia repair and removal of foreign object (03/10) Mental / Cognitive Status: Alert;Oriented;Cooperative;Follows Commands Persons Present: Daughter Pain: Patient complains of pain;04/10;Patient does not rate pain Pain Location: Abdomen;Post-surgical Pain Interventions: Patient pre-medicated;Treatment altered to patient's pain tolerance;Pain unchanged after treatment;Patient assisted into position of comfort Precautions: Abdominal Binder Ambulation Assist: Independent Mobility in Community without Device Patient Owned Equipment: None Home Situation: Lives with Family Type of Home: Mobile Home Entry Stairs: 3-5 Stairs;Rail on 1 Side In-Home Stairs: No Stairs Pt C/O not feeling well today after reporting she had a reaction to IV fentanyl last night and this morning. BED MOBILITY/TRANSFERS: Bed Mobility/Transfers Transfer Type: Sit to/from Stand Transfer: Assistance Level: To/From;Bed Side Chair;Minimal Assist Transfer: Assistive Device: Roller Walker Transfers: Type Of Assistance: For Balance;For Strength Deficit;For Safety Considerations;Requires Extra Time End Of Activity Status: Up in Chair;Instructed Patient to Request Assist with Mobility;Instructed Patient to Use Call Light GAIT: Gait Gait Distance: 40 feet Gait: Assistance Level: Minimal Assist (contact guard assist) Gait: Assistive Device: Roller Walker Gait: Descriptors: Pace: Slow;Swing-Through Gait;No balance loss;Decreased step length Activity Limited By: Complaint of Fatigue ASSESSMENT/PROGRESS: Assessment/Progress Impaired Mobility Due To: Decreased Strength;Pain;Decreased Activity Tolerance; Post Surgical Changes AM-PAC 6 Clicks Basic Mobility Inpatient Turning from your back to your side while in a flat bed without using bed rails : A Little Moving from lying on your back to sitting on the side of a flatbed without using bedrails : A Lot Moving to and from a bed to a chair (including a wheelchair): A Little Standing up from a chair using your arms (e.g. wheelchair, or bedside chair): A Little To walk in hospital room: A Little Climbing 3-5 steps with a railing: A Lot Raw Score: 16 Standardized (T-scale) Score: 38.32 Basic Mobility CMS 0-100%: 47.12 CMS G Code Modifier for Basic Mobility: CK GOALS: Goals Goal Formulation: With Patient/Family Time For Goal Achievement: 5 days Pt Will Go Supine To/From Sit: Independently, Ongoing Pt Will Logroll: Independently Pt Will Transfer Bed/Chair: Ongoing Pt Will Transfer Sit to Stand: Independently, Ongoing Pt Will Ambulate: 101-150 Feet, w/ Walker, Independently, Ongoing Pt Will Go Up / Down Stairs: 3-5 Stairs, w/ Stand By Assist, Ongoing PLAN: Plan Treatment Interventions: Mobility Training;Strengthening;Endurance Training Plan Frequency: 5-7 Days per Week PT Plan for Next Visit: increase gait distance, increase independence with bed mobility and transfers . P.T. mobility aide to assist with ongoing mobilization and exercise per instructions of licensed physical therapy staff. RECOMMENDATIONS: PT Discharge Recommendations PT Discharge Recommendations: Home with Assistance;versus;Inpatient Setting. Anticipate patient will progress well and be safe for home discharge. Currently limited by: decreased strength, nausea, has not practiced stairs yet, and unsure of how much support pt will have at home. Will continue to assess and update recommendations. Equipment Recommendations: Roller Walker. Patient requires the use of a walker with wheels to complete ADLs in the home including meal preparation, ambulation the bathroom for toileting, bathing and grooming, and safe home mobility. Patient is unable to complete these ADLs with a cane or crutch and can safely use the walker. Therapist: Brianna Ruiz Date: 03/13/2018 * Yunier Harris MD - 03/13/2018 7:09 AM CDT Formatting of this note may be different from the original. Daily Progress Note Today's Date: 03/13/2018 Name: Radha ESTRADAN: [id number] Admission Date: 03/10/2018 (LOS: 3 days) Assessment: 47 y.o. female with a pmh of of gastric sleeve (2014), DM, CAD, obesity, MALINDA 3 Days Post-Op from Procedure(s) (LRB): OPEN INCISIONAL HERNIA REPAIR WITH MESH, BILATERAL COMPONENT SEPARATION AND MYOCUTANOUS FLAP ADVANCEMENT, ABDOMINAL SCAR REVISION, REMOVAL OF FOREIGN OBJECT , REMOVAL AND DRAINAGE OF GRANULOMA/CYST (N/A) on 03/10/2018. Active Problems: Incisional hernia, without obstruction or gangrene Abdominal pannus Ventral hernia Morbid obesity (HCC) MALINDA on CPAP Hyperlipidemia GERD (gastroesophageal reflux disease) DM (diabetes mellitus) (HCC) Coronary artery disease Asthma Plan: - pain control with acetaminophen, oxy for breakthrough - high risk for atelectasis given body habitus, encourage ambulation, out of bed to chair, and IS - will likely require rehab to return to prior level of function, will consult rehab today - hyponatremia - 1.5L free water restriction - restart home torsemide - bowel regimen with miralax - ADVANCE DIET TOLERATED DIET DIABETIC (STANDARD) CONSISTENT CARB - Dispo: floor, discharge planning based on rehab recommendations Seen and discussed with Dr. Victoria. Subjective: Awake, in bed this morning. Having increased pain this morning after the epidural was removed yesterday. Ambulated to the bathroom, was out of bed in the chair, +flatus, -bm. Objective: BP: (113-129)/(65-74) Temp: [36.4 C (97.6 F)-37.3 C (99.1 F)] Pulse: [77-96] Respirations: [18 PER MINUTE] SpO2: [92 %-99 %] O2 Delivery: CPAP/BiPAP (Pt Owned) Lab Results Component Value Date/Time NA 129 (L) 03/13/2018 05:05 AM K 4.0 03/13/2018 05:05 AM CL 95 (L) 03/13/2018 05:05 AM CO2 25 03/13/2018 05:05 AM BUN 7 03/13/2018 05:05 AM CR 0.30 (L) 03/13/2018 05:05 AM MG 1.7 03/13/2018 05:05 AM PO4 2.0 03/13/2018 05:05 AM Lab Results Component Value Date/Time HGB 9.6 (L) 03/13/2018 05:05 AM HCT 28.5 (L) 03/13/2018 05:05 AM WBC 10.0 03/13/2018 05:05 AM PLTCT 182 03/13/2018 05:05 AM Lab Results Component Value Date/Time GLUPOC 210 (H) 03/13/2018 03:22 AM GLUPOC 233 (H) 03/12/2018 09:06 PM GLUPOC 202 (H) 03/12/2018 05:55 PM Physical Exam Constitutional: She is oriented to person, place, and time. She appears well- developed and well-nourished. No distress. HENT: Head: Normocephalic and atraumatic. Eyes: No scleral icterus. Neck: No JVD present. No tracheal deviation present. Cardiovascular: Normal rate and intact distal pulses. Pulmonary/Chest: Effort normal and breath sounds normal. No stridor. No respiratory distress. Abdominal: Soft. She exhibits no distension. There is tenderness (appropriately tender to palpation). There is no rebound and no guarding. Obese; four CARINA drains - superior drains are subcutaneous, inferior drains are deep to mesh, all with serosanguineous drainage, midline incision c/d/i covered with dermabond. Neurological: She is alert and oriented to person, place, and time. She exhibits normal muscle tone. Skin: Skin is warm and dry. No rash noted. No erythema. No pallor. Psychiatric: She has a normal mood and affect. Her behavior is normal. Judgment and thought content normal. Yunier Harris MD Service Pager: # [phone] Associated attestation - Tracye Victoria DO - 03/13/2018 8:18 AM CDT Formatting of this note may be different from the original. ATTESTATION I personally performed the russell portions of the E/M visit, discussed case with resident and concur with resident documentation of history, physical exam, assessment, and treatment plan unless otherwise noted. Staff name: TRACEY VICTORIA DO Date: 03/13/2018 * Taryn Gorman - 03/12/2018 4:26 PM CDT Reason for Visit: Reptile Keeper rounds Maryann/Christian: Congregational Source of Purpose/Meaning: Not assessed Worries/Concerns/Struggles: Patient greeted aerial planting and cultivation manager with "I feel like I have been hit by a mac truck!" Pt expressed desire to do what the medical staff are asking her to do (get up, move around) but it is very hard for her. The patient is concerned that she will not have much time to recover at home. Method(s) of Coping: Not assessed. Support System: Large family support system, including her cousin who is also her broker agricultural produce. Interventions/Plan: Reptile Keeper provided supportive presence and prayer with the patient. Reptile Keeper and patient also talked about strategies for healing at home, including asking for help from her support system. The spiritual care team is available as needed, 24/03, through the campus switchboard ([phone]). For immediate response, please page [phone]. For a response within 24 hours, please submit an order in O2 for a aerial planting and cultivation manager consult or call the administrative voicemail at [phone]. * Loree Littlejohn, PT - 03/12/2018 1:27 PM CDT PHYSICAL THERAPY PROGRESS NOTE MOBILITY: Mobility Progressive Mobility Level: Walk in room Distance Walked (feet): 12 ft Level of Assistance: Assist X1 Assistive Device: Walker Time Tolerated: 11-30 minutes Activity Limited By: Pain;Fatigue;Patient request to stop SUBJECTIVE: Subjective Significant hospital events: Dx: hx of gastric sleeve in 2014; s/p open incisional hernia repair and removal of foreign object (03/10) Mental / Cognitive Status: Alert;Oriented;Cooperative;Follows Commands Pain: Patient complains of pain;Before activity;04/10 Pain Location: Abdomen;Post-surgical Pain Description: Aching Pain Interventions: Patient pre-medicated;Treatment altered to patient's pain tolerance;Pain unchanged after treatment;Patient assisted into position of comfort Precautions: Abdominal Binder Ambulation Assist: Independent Mobility in Community without Device Patient Owned Equipment: None Home Situation: Lives with Family Type of Home: Mobile Home Entry Stairs: 3-5 Stairs;Rail on 1 Side In-Home Stairs: No Stairs POSTURE/NEURO: Posture / Neurological Head Control: Independent Posture: Rounded Shoulders;Obesity Overall Tone: Normal BED MOBILITY/TRANSFERS: Bed Mobility/Transfers Transfer Type: Sit to/from Stand Transfer: Assistance Level: To/From;Bed Side Chair;Minimal Assist Transfer: Assistive Device: Roller Walker Transfers: Type Of Assistance: For Balance;For Safety Considerations End Of Activity Status: Up in Chair;Instructed Patient to Request Assist with Mobility;Instructed Patient to Use Call Light Comments: Pt. needs cues for hand placement with transfers BALANCE: Balance Sitting Balance: Static Sitting Balance;No UE Support;Independent Standing Balance: Dynamic Standing Balance;2 UE support;Minimal Assist GAIT: Gait Gait Distance: 12 feet Gait: Assistance Level: Minimal Assist Gait: Assistive Device: Roller Walker Gait: Descriptors: Pace: Slow;Swing-Through Gait;No balance loss;Decreased step length Activity Limited By: Complaint of Fatigue;Patient Choice Comments: Pt. able to ambulate on room air; O2 sats 96% post gait on room air ACTIVITY/EXERCISE: Activity / Exercise Stand At Bedside : 2 minutes Stand At Bedside Assist: Stand By Assist Exercise: Seated;RLE;LLE (ankle pumps) Exercise Repetitions: 3 EDUCATION: Education Persons Educated: Patient Patient Barriers To Learning: Pain Interventions: Repetition of Instructions;Demonstration Provided Teaching Methods: Verbal Instruction;Demonstration Patient Response: Verbalized Understanding;Return Demonstration Topics: Plan/Goals of PT Interventions;Mobility Progression;Up with Assist Only; Importance of Increasing Activity;Ambulate With Nursing;Equipment Recommendations;Positioning;Recommend Continued Therapy;Therapy Schedule Comments: Pt. encouraged to stay up in chair and ambulate again later today with nursing staff. ASSESSMENT/PROGRESS: Assessment/Progress Impaired Mobility Due To: Decreased Strength;Pain;Decreased Activity Tolerance; Post Surgical Changes Impaired Strength Due To: Pain;Post Surgical Changes Assessment/Progress: Should Improve w/ Continued PT AM-PAC 6 Clicks Basic Mobility Inpatient Turning from your back to your side while in a flat bed without using bed rails : A Little Moving from lying on your back to sitting on the side of a flatbed without using bedrails : A Lot Moving to and from a bed to a chair (including a wheelchair): A Lot Standing up from a chair using your arms (e.g. wheelchair, or bedside chair): A Lot To walk in hospital room: A Lot Climbing 3-5 steps with a railing: A Lot Raw Score: 13 Standardized (T-scale) Score: 33.99 Basic Mobility CMS 0-100%: 57.65 CMS G Code Modifier for Basic Mobility: CK GOALS: Goals Goal Formulation: With Patient/Family Time For Goal Achievement: 5 days Pt Will Go Supine To/From Sit: Independently, Ongoing Pt Will Logroll: Independently Pt Will Transfer Bed/Chair: Ongoing Pt Will Transfer Sit to Stand: Independently, Ongoing Pt Will Ambulate: 101-150 Feet, w/ Walker, Independently, Ongoing Pt Will Go Up / Down Stairs: 3-5 Stairs, w/ Stand By Assist, Ongoing PLAN: Plan Treatment Interventions: Mobility Training;Strengthening;Endurance Training Plan Frequency: 5-7 Days per Week PT Plan for Next Visit: increase gait distance, increase independence with bed mobility and transfers RECOMMENDATIONS: PT Discharge Recommendations PT Discharge Recommendations: Home with Assistance;versus;Inpatient Setting At current level of function would recommend inpatient setting due to the following barriers: patient continues to need assist with transfers and gait and will need to be more independent prior to discharge home as she will be alone during the day. Patient is progressing toward PT goals and is aware that she needs to increase her activity to discharge back to home. If patient does discharge home would require: Equipment Recommendations: Roller Walker Recommend ongoing assistance for: In and out of house;Transfers;Ambulation; Stairs;Bed mobility Patient requires the use of a walker with wheels to complete ADLs in the home including meal preparation, ambulation the bathroom for toileting, bathing and grooming, and safe home mobility. Patient is unable to complete these ADL s with a cane or crutch and can safely use the walker. Therapist: Loree Littlejohn, PT Date: 03/12/2018 * Nicolette Walter OT - 03/12/2018 11:32 AM CDT Formatting of this note may be different from the original. OCCUPATIONAL THERAPY PROGRESS NOTE Patient Name: Radha Mota Room/Bed: [place] [address] Admitting Diagnosis: Incisional hernia, without obstruction or gangrene [K43.2] Abdominal pannus [E65] Ventral hernia Past Medical History: Diagnosis Date Anxiety disorder Asthma Coronary artery disease DM (diabetes mellitus) (HCC) GERD (gastroesophageal reflux disease) Headache Hyperlipidemia Obesity MALINDA on CPAP Mobility Progressive Mobility Level: Active transfer to chair Level of Assistance: Assist X1 Assistive Device: Walker Time Tolerated: 11-30 minutes Activity Limited By: Pain Subjective Pertinent Dx per Physician: OPEN INCISIONAL HERNIA REPAIR WITH MESH, BILATERAL COMPONENT SEPARATION AND MYOCUTANOUS FLAP ADVANCEMENT, ABDOMINAL SCAR REVISION, REMOVAL OF FOREIGN OBJECT, REMOVAL AND DRAINAGE OF GRANULOMA/CYST Precautions: Standard;Falls;Abdominal Binder Pain / Complaints: Patient agrees to participate in therapy Pain Location: Abdomen Pain Level Current: 8 Very severe pain Comments: Pt seated in chair at end of session. Call light in reach and belongings near. Objective Psychosocial Status: Willing and Cooperative to Participate Persons Present: Daughter Home Living Type of Home: Mobile Home Home Layout: One Level Bathroom Shower / Tub: Tub/Shower Unit Home Equipment: (none) Comment: Pt reports her family will be unavailable to assist her during the day but will be available at night. Pt's daughter is a P[employer]ER [employer] Prior Function Level Of [place]: Independent with ADLs and functional transfers; Independent with homemaking w/ ambulation Lives With: Son;Daughter Receives Help From: None Needed Vocational: On Disability Vision Current Vision: No Visual Deficits ADL's Where Assessed: Edge of Bed;Chair Eating Assist: Independent Eating Deficits: No Assist Needed Grooming Assist: Stand By Assist Grooming Deficits: Setup;Wash/Dry Face UE Dressing Assist: Minimal Assist UE Dressing Deficits: Thread RUE;Thread LUE;Firestopper Technician Head;Fasteners LE Dressing Assist: Total Assist LE Dressing Deficits: Don/Doff R Sock;Don/Doff L Sock Functional Transfer Assist: Moderate Assist Functional Transfer Deficits: (Chair Transfer) Comment: Pt transfers to edge of bed with mod assist and increased time. Pt transfers to standing via walker and mod assist x1. Pt completes transfer to bedside chair but declined further mobility this date. OT will continue to follow. Activity Tolerance Endurance: 3/5 Tolerates 25-30 Minutes Exercise w/Multiple Rests Sitting Balance: 3+/5 Sits w/o UE Support for 30 Seconds or Greater Cognition Overall Cognitive Status: WFL to Adequately Complete Self Care Tasks Safely UE Strength / Tone Overall Strength / Tone: WFL Able to Perform ADL Tasks Education Persons Educated: Patient/Family Barriers To Learning: Pain Teaching Methods: Verbal Instruction;Demonstration Patient Response: Verbalized Understanding;Return Demonstration Topics: Role of OT, Goals for Therapy Goal Formulation: With Patient/Family Assessment Assessment: Decreased ADL Status;Decreased Endurance;Decreased Self-Care Trans; Decreased High-Level ADLs Prognosis: Good;w/Cont OT s/p Acute Discharge Goal Formulation: Pt/family AM-PAC 6 Clicks Daily Activity Inpatient Putting on and taking off regular lower body clothes?: Total Bathing (Including washing, rinsing, drying): A Lot Toileting, which includes using toilet, bedpan, or urinal: Total (catheter) Putting on and taking off regular upper body clothing: A Little Taking care of personal grooming such as brushing teeth: A Little Eating meals?: None Daily Activity Raw Score: 14 Standardized (t-scale) score: 33.39 CMS 0-100% Score: 59.67 CMS G Code Modifier: CK Plan Progress: Progressing Toward Goals OT Frequency: 5x/week OT Plan for Next Visit: Toilet transfer if able; LE dressing with AE ADL Goals Patient Will Perform All ADL's: w/ Setup;w/ Stand By Assist Functional Transfer Goals Pt Will Perform All Functional Transfers: w/ Stand By Assist OT Discharge Recommendations OT Discharge Recommendations: Inpatient Setting, Vs, Home with family assist. Pt 's activity limited by pain this session. Pt may benefit from continued care/ therapy in rehabilitation center to progress independence and endurance with ADL. If pt were to go home she would need to be able to tolerate increased mobility and ADL with less assist as family will not be available during the day. Equipment Recommendations: Too early to be determined Recommend ongoing assistance for: In and out of house, Transfers, Bed mobility, Ambulation, Stairs Therapist: [place] [id number] Date: 03/12/2018 * Ayan Cabrera MD - 03/12/2018 10:16 AM CDT Formatting of this note may be different from the original. Anesthesiology Acute Pain Service Date of Service: 03/12/2018 Name: Radha Mota is a 47 y.o. female : 1970 MRN# : [id number] PROCEDURE: Procedure(s) with comments: OPEN INCISIONAL HERNIA REPAIR WITH MESH, BILATERAL COMPONENT SEPARATION AND MYOCUTANOUS FLAP ADVANCEMENT, ABDOMINAL SCAR REVISION, REMOVAL OF FOREIGN OBJECT , REMOVAL AND DRAINAGE OF GRANULOMA/CYST - CASE LENGTH 4 HOURS, REQUEST 1ST START POD #: 2 ANALGESIA TECHNIQUE Epidural catheter: Bupivacaine 0.125% Bolus dose: 4mL Delay: 20mL Basal Infusion: 6mL ADJUNCT ANALGESIA MEDICATIONS fentanyl dilaudid oxycodone acetaminophen PO TREATMENT PLAN -TRAVIS removed per request from primary team given Pt has been hypotensive with SBP in 90s-100s yesterday and overnight -Encouraged use of PO pain adjuncts for pain control; will be managed by primary surgical team moving forward Anesthesia Pain pager: [phone] Allergies Allergen Reactions Morphine HEADACHE, HIVES, NAUSEA ONLY, SHORTNESS OF BREATH and HYPOTENSION Adhesive Tape (Rosins) ITCHING and REDNESS Paper tape Augmentin [Amoxicillin-Pot Clavulanate] HIVES Pt reports that she tolerates Amoxil Fentanyl NAUSEA ONLY and SEE COMMENTS Hypotension Inpatient Medications Scheduled Meds: atorvastatin (LIPITOR) tablet 80 mg 80 mg Oral QDAY budesonide/formoterol (SYMBICORT HFA) 160/4.5 mcg inhalation 2 puff 2 puff Inhalation BID enoxaparin (LOVENOX) syringe 40 mg 40 mg Subcutaneous QDAY(21) insulin aspart U-100 (NOVOLOG FLEXPEN) injection PEN 0-28 Units 0-28 Units Subcutaneous 5 X Day montelukast (SINGULAIR) tablet 10 mg 10 mg Oral QHS pantoprazole DR (PROTONIX) tablet 40 mg 40 mg Oral QDAY(21) polyethylene glycol 3350 (MIRALAX) packet 34 g 2 packet Oral QDAY sodium phosphate 20 mmol in sodium chloride 0.9% (NS) 250 mL IVPB 20 mmol Intravenous ONCE Continuous Infusions: bupivacaine FURNITURE MECHANIC 0.125% in NS 50mL epidural infusion syr Stopped (03/12/18 0700) PRN and Respiratory Meds:acetaminophen Q4H PRN, albuterol Q6H PRN, fentaNYL citrate PF Q1H PRN, HYDROmorphone (DILAUDID) injection Q10 MIN PRN, ipratropium/ albuterol QID PRN, lidocaine PF PRN, naloxone PRN, oxyCODONE Q3H PRN Anticoagulants enoxaparin (LOVENOX) syringe 40 mg QDAY(21) HPI Visual Analog Scale (VAS) (0-10 Scale) At rest: 6-7 Patient satisfied with pain control: Yes Side Effects: none EXAM Recent Vitals Vital Signs: 24 Hour Range BP: 121/68 (03/12 808) Temp: 36.8 C (98.2 F) (03/12 808) Pulse: 89 (03/12 808) Respirations: 18 PER MINUTE (03/12 808) SpO2: 92 % (03/12 808) O2 Delivery: CPAP/BiPAP (Pt Owned) (03/12 240) BP: (97-121)/(50-68) Temp: [36.6 C (97.8 F)-37.6 C (99.6 F)] Pulse: [78-94] Respirations: [16 PER MINUTE-18 PER MINUTE] SpO2: [92 %-97 %] O2 Delivery: CPAP/BiPAP (Pt Owned) Lab Results Component Value Date PLTCT 179 03/12/2018 WBC 12.1 03/12/2018 HGB 9.8 03/12/2018 HCT 29.7 03/12/2018 CR 0.37 03/12/2018 Level of Consciousness: Awake/alert Neurologic Function Sensory block: Yes Motor: No Insertion Site: site clean, non-erythematous Associated attestation - Kodi Gates MD - 03/12/2018 3:34 PM CDT ATTESTATION I personally observed the resident performing the E/M, discussed case with resident, and concur with resident documentation of history, physical assessment and treatment plan unless otherwise noted. * Yunier Harris MD - 03/12/2018 5:52 AM CDT Formatting of this note may be different from the original. Daily Progress Note Today's Date: 03/12/2018 Name: Radha Mota Admission Date: 03/10/2018 (LOS: 2 days) Assessment: 47 y.o. female with a pmh of of gastric sleeve (2014), DM, CAD, obesity, MALINDA 2 Days Post-Op from Procedure(s) (LRB): OPEN INCISIONAL HERNIA REPAIR WITH MESH, BILATERAL COMPONENT SEPARATION AND MYOCUTANOUS FLAP ADVANCEMENT, ABDOMINAL SCAR REVISION, REMOVAL OF FOREIGN OBJECT , REMOVAL AND DRAINAGE OF GRANULOMA/CYST (N/A) on 03/10/2018. Active Problems: Incisional hernia, without obstruction or gangrene Abdominal pannus Ventral hernia Morbid obesity (HCC) MALINDA on CPAP Hyperlipidemia GERD (gastroesophageal reflux disease) DM (diabetes mellitus) (HCC) Coronary artery disease Asthma Plan: - d/c PCEA, pain control with acetaminophen, oxy for breakthrough - high risk for atelectasis given body habitus, encourage ambulation, out of bed to chair, and IS - d/c diaz - bowel regimen with miralax - ADVANCE DIET TOLERATED DIET DIABETIC (STANDARD) CONSISTENT CARB - Dispo: floor, plan for discharge later this week, PT/OT recommending home with assistance vs inpatient Seen and discussed with Dr. Victoria. Subjective: Sleeping in bed with CPAP in place. Less pain than yesterday, +flatus, +bm. Objective: BP: (97-115)/(50-63) Temp: [36.6 C (97.8 F)-37.8 C (100 F)] Pulse: [78-94] Respirations: [16 PER MINUTE-18 PER MINUTE] SpO2: [92 %-97 %] O2 Delivery: CPAP/BiPAP (Pt Owned) Lab Results Component Value Date/Time NA 135 (L) 03/11/2018 03:15 AM K 3.6 03/11/2018 03:15 AM CL 103 03/11/2018 03:15 AM CO2 25 03/11/2018 03:15 AM BUN 16 03/11/2018 03:15 AM CR 0.50 03/11/2018 03:15 AM MG 1.4 (L) 03/11/2018 03:15 AM PO4 3.8 03/11/2018 03:15 AM Lab Results Component Value Date/Time HGB 11.5 (L) 03/11/2018 03:15 AM HCT 34.3 (L) 03/11/2018 03:15 AM WBC 10.0 03/11/2018 03:15 AM PLTCT 170 03/11/2018 03:15 AM Lab Results Component Value Date/Time GLUPOC 208 (H) 03/12/2018 02:40 AM GLUPOC 232 (H) 03/11/2018 08:56 PM GLUPOC 218 (H) 03/11/2018 04:27 PM Physical Exam Constitutional: She is oriented to person, place, and time. She appears well- developed and well-nourished. No distress. HENT: Head: Normocephalic and atraumatic. Eyes: No scleral icterus. Neck: No JVD present. No tracheal deviation present. Cardiovascular: Normal rate and intact distal pulses. Pulmonary/Chest: Effort normal and breath sounds normal. No stridor. No respiratory distress. Shallow breathing and splinting due to pain Abdominal: Soft. She exhibits no distension. There is tenderness (appropriately tender to palpation). There is no rebound and no guarding. Obese; four CARINA drains in place with serosanguinous drainage, superior drains are subcutaneous, inferior drains are deep to mesh Neurological: She is alert and oriented to person, place, and time. She exhibits normal muscle tone. Skin: Skin is warm and dry. No rash noted. No erythema. No pallor. Psychiatric: She has a normal mood and affect. Her behavior is normal. Judgment and thought content normal. Yunier Harris MD Service Pager: # [phone] Associated attestation - Tracey Victoria DO - 03/12/2018 9:12 AM CDT Formatting of this note may be different from the original. ATTESTATION I personally performed the russell portions of the E/M visit, discussed case with resident and concur with resident documentation of history, physical exam, assessment, and treatment plan unless otherwise noted. Staff name: TRACEY VICTORIA DO Date: 03/12/2018 * Madhavi Meadows OT - 03/11/2018 12:04 PM CDT Formatting of this note may be different from the original. OCCUPATIONAL THERAPY ASSESSMENT NOTE Patient Name: Radha Mota Room/Bed: [place] [address] Admitting Diagnosis: Incisional hernia, without obstruction or gangrene [K43.2] Abdominal pannus [E65] Ventral hernia Past Medical History: Diagnosis Date Anxiety disorder Asthma Coronary artery disease DM (diabetes mellitus) ([facility]) GERD (gastroesophageal reflux disease) Headache Hyperlipidemia Obesity MALINDA on CPAP Mobility Progressive Mobility Level: Sit on edge of bed Level of Assistance: Assist X1 Assistive Device: None Time Tolerated: 11-30 minutes Activity Limited By: Change in vital signs;Dizziness;Patient request to stop Subjective Pertinent Dx per Physician: PMH gastric sleeve, CPAP Dx: hernia repair Precautions: Standard;Falls (epidural in place) Pain / Complaints: Patient agrees to participate in therapy (epidural) Pain Location: Abdomen Pain Level Current: 6 Severe pain Objective Psychosocial Status: Willing and Cooperative to Participate (at bed level) Persons Present: Daughter;Son;Nursing Staff Home Living Type of Home: Mobile Home Home Layout: One Level Bathroom Shower / Tub: Tub/Shower Unit Home Equipment: (none) Prior Function Level Of [place]: Independent with ADLs and functional transfers; Independent with homemaking w/ ambulation Lives With: Son;Daughter Receives Help From: None Needed Vocational: On Disability Vision Current Vision: No Visual Deficits ADL's Where Assessed: Supine, Bed Eating Assist: Independent Eating Deficits: No Assist Needed Grooming Assist: Stand By Assist Grooming Deficits: Setup;No Assist Needed;Wash/Dry Hands;Wash/Dry Face;Teeth Care UE Dressing Assist: Not Addressed Today LE Dressing Assist: Total Assist LE Dressing Deficits: Don/Doff R Sock;Don/Doff L Sock Toileting Assist: Total Assist Toileting Deficits: (catheter in place) Functional Transfer Assist: Not Addressed Today Comment: Pt orthostatic at EOB wht PT just prior to OT treatment. EOB/OOB deferred at this time Activity Tolerance Sitting Balance: (stand by assist per PT) Cognition Overall Cognitive Status: WFL to Adequately Complete Self Care Tasks Safely UE Strength / Tone Overall Strength / Tone: WFL Able to Perform ADL Tasks Education Persons Educated: Patient Barriers To Learning: None Noted Teaching Methods: Verbal Instruction Patient Response: Verbalized Understanding;More Instruction Required Topics: Role of OT, Goals for Therapy Goal Formulation: With Patient/Family Assessment Assessment: Decreased ADL Status;Decreased Self-Care Trans AM-PAC 6 Clicks Daily Activity Inpatient Putting on and taking off regular lower body clothes?: Total Bathing (Including washing, rinsing, drying): A Lot Toileting, which includes using toilet, bedpan, or urinal: Total Putting on and taking off regular upper body clothing: A Little Taking care of personal grooming such as brushing teeth: A Little Eating meals?: None Daily Activity Raw Score: 14 Standardized (t-scale) score: 33.39 CMS 0-100% Score: 59.67 CMS G Code Modifier: CK Plan OT Frequency: 5x/week ADL Goals Patient Will Perform All ADL's: w/ Setup;w/ Stand By Assist OT Discharge Recommendations OT Discharge Recommendations: Inpatient Setting, Vs, Home with family assist At current level of function would recommend inpatient setting due to the following barriers: orthostatsis- should improve and be able to go home If patient does discharge home would require: to be independent with ADL's/ mobility Recommend ongoing assistance for: In and out of house, Transfers, Bed mobility, Ambulation, Stairs Therapist: Madhavi Meadows OT Date: 03/11/2018 * Loree Littlejohn, PT - 03/11/2018 11:36 AM CDT PHYSICAL THERAPY ASSESSMENT MOBILITY: Mobility Progressive Mobility Level: Sit on edge of bed Level of Assistance: Assist X1 Assistive Device: None Time Tolerated: 11-30 minutes Activity Limited By: Change in vital signs;Dizziness;Patient request to stop SUBJECTIVE: Subjective Significant hospital events: Dx: hx of gastric sleeve in 2014; s/p open incisional hernia repair and removal of foreign object (03/10) Mental / Cognitive Status: Alert;Oriented;Lethargic;Cooperative;Follows Commands Persons Present: Daughter;Son;Nursing Staff Pain: Patient complains of pain;03/10;Before activity;05/11;During activity Pain Location: Abdomen;Post-surgical Pain Interventions: Patient pre-medicated;Patient encouraged to use FURNITURE MECHANIC/PNC (IV) ;Treatment altered to patient's pain tolerance;Patient assisted into position of comfort Comments: Pt. wearing abdominal binder; 4 CARINA drains and epidural Ambulation Assist: Independent Mobility in Community without Device Patient Owned Equipment: None Home Situation: Lives with Family (Pt. is alone during the day) Type of Home: Mobile Home Entry Stairs: 3-5 Stairs;Rail on 1 Side In-Home Stairs: No Stairs ROM: ROM ROM Position Assessed: Supine;Seated ROM Method: Active LE ROM: Bilateral;Knee;Ankle;WFL STRENGTH: Strength Strength Unable To Assess: Due to Pain/Surgery Strength Comment: Pt. able to scoot up along side of bed in sitting POSTURE/NEURO: Posture / Neurological Head Control: Independent Posture: Rounded Shoulders;Flexed Trunk;Obesity BED MOBILITY/TRANSFERS: Bed Mobility/Transfers Bed Mobility: Rolling: Log Roll;Moderate Assist;Verbal Cues;Use of Rail; Requires Extra Time Bed Mobility: Supine to Sit: Moderate Assist;Verbal Cues;Assist with B LE; Assist with Trunk Bed Mobility: Sit to Supine: Moderate Assist;Verbal Cues;Bed Flat;Assist with B LE Comments: BP: 93/51 in sitting; transfers deferred End Of Activity Status: In Bed Comments: Pt. able to scoot in seated position with min A BALANCE: Balance Sitting Balance: Static Sitting Balance;2 UE Support;Standby Assist GAIT: Gait Comments: Gait assessment deferred secondary to low BP in sitting ACTIVITY/EXERCISE: Activity / Exercise Sit Edge Of Bed: 15 minutes Sit Edge Of Bed Assist: Stand By Assist EDUCATION: Education Persons Educated: Patient/Family Patient Barriers To Learning: Decreased Alertness;Pain Interventions: Repetition of Instructions;Demonstration Provided Teaching Methods: Verbal Instruction;Demonstration Patient Response: Verbalized Understanding;More Instruction Required Topics: Plan/Goals of PT Interventions;Use of Assistive Device/Orthosis; Mobility Progression;Safety Awareness;Up with Assist Only;Importance of Increasing Activity;Positioning;Compression;Recommend Continued Therapy;Therapy Schedule ASSESSMENT/PROGRESS: Assessment/Progress Impaired Mobility Due To: Decreased Strength;Pain;Decreased Activity Tolerance; Post Surgical Changes Impaired Strength Due To: Pain;Post Surgical Changes Assessment/Progress: Should Improve w/ Continued PT AM-PAC 6 Clicks Basic Mobility Inpatient Turning from your back to your side while in a flat bed without using bed rails : A Little Moving from lying on your back to sitting on the side of a flatbed without using bedrails : A Lot Moving to and from a bed to a chair (including a wheelchair): A Lot Standing up from a chair using your arms (e.g. wheelchair, or bedside chair): A Lot To walk in hospital room: A Lot Climbing 3-5 steps with a railing: A Lot Raw Score: 13 Standardized (T-scale) Score: 33.99 Basic Mobility CMS 0-100%: 57.65 CMS G Code Modifier for Basic Mobility: CK GOALS: Goals Goal Formulation: With Patient/Family Time For Goal Achievement: 5 days Pt Will Go Supine To/From Sit: Independently Pt Will Logroll: Independently Pt Will Transfer Bed/Chair: Independently Pt Will Transfer Sit to Stand: Independently Pt Will Ambulate: 101-150 Feet, w/ Walker, Independently Pt Will Go Up / Down Stairs: 3-5 Stairs, w/ Stand By Assist PLAN: Plan Treatment Interventions: Mobility Training Plan Frequency: 5-7 Days per Week PT Plan for Next Visit: assess transfers and gait if MAP > 60 mmHg., increase independence with bed mobility RECOMMENDATIONS: PT Discharge Recommendations PT Discharge Recommendations: Home with Assistance;versus;Inpatient Setting Equipment Recommendations: Too early to be determined At current level of function would recommend inpatient setting due to the following barriers: Patient needs mod A for bed mobility and is not ambulating at this time secondary to pain and hypotension. Anticipate patient will be able to progress with PT once BP normalizes. Will continue to assess. If patient does discharge home would require: 24-hour assistance, wheelchair Recommend ongoing assistance for: In and out of house;Transfers;Bed mobility; Ambulation;Stairs Therapist: Loree Littlejohn, PT Date: 03/11/2018 G-Codes: Mobility G8978 Current Status: 40-59% impairment G8979 Goal Status: 1-19% impairment Based on above evaluation and clinical judgment. * Ayan Cabrera MD - 03/11/2018 10:22 AM CDT Formatting of this note may be different from the original. Anesthesiology Acute Pain Service Date of Service: 03/11/2018 Name: Radha Mota is a 47 y.o. female : 1970 MRN# : [id number] PROCEDURE: Procedure(s) with comments: OPEN INCISIONAL HERNIA REPAIR WITH MESH, BILATERAL COMPONENT SEPARATION AND MYOCUTANOUS FLAP ADVANCEMENT, ABDOMINAL SCAR REVISION, REMOVAL OF FOREIGN OBJECT , REMOVAL AND DRAINAGE OF GRANULOMA/CYST - CASE LENGTH 4 HOURS, REQUEST 1ST START POD #: 1 ANALGESIA TECHNIQUE Epidural catheter: Bupivacaine 0.125% Bolus dose: 4mL Delay: 20mL Basal Infusion: 6mL ADJUNCT ANALGESIA MEDICATIONS fentanyl dilaudid TREATMENT PLAN Continue use of epidural for pain management Pt reports that pain is tolerable and has adequate coverage from TRAVIS. May consider increasing basal infusion rate for improved analgesia but will currently hold off given that Pt remains hypotensive with SBP in 90s. Anesthesia Pain pager: [phone] Allergies Allergen Reactions Morphine HEADACHE, HIVES, NAUSEA ONLY, SHORTNESS OF BREATH and HYPOTENSION Adhesive Tape (Rosins) ITCHING and REDNESS Paper tape Augmentin [Amoxicillin-Pot Clavulanate] HIVES Pt reports that she tolerates Amoxil Fentanyl NAUSEA ONLY and SEE COMMENTS Hypotension Inpatient Medications Scheduled Meds: budesonide/formoterol (SYMBICORT HFA) 160/4.5 mcg inhalation 2 puff 2 puff Inhalation BID enoxaparin (LOVENOX) syringe 40 mg 40 mg Subcutaneous QDAY(21) insulin aspart U-100 (NOVOLOG FLEXPEN) injection PEN 0-14 Units 0-14 Units Subcutaneous 5 X Day magnesium sulfate 4 g/50 mL IVPB 4 g Intravenous ONCE pantoprazole (PROTONIX) injection 40 mg 40 mg Intravenous QDAY Continuous Infusions: bupivacaine FURNITURE MECHANIC 0.125% in NS 50mL epidural infusion syr lactated ringers infusion Stopped (03/10/18 0900) PRN and Respiratory Meds:albuterol Q6H PRN, fentaNYL citrate PF Q1H PRN, HYDROmorphone (DILAUDID) injection Q10 MIN PRN, ipratropium/albuterol QID PRN, lidocaine PF PRN, naloxone PRN, promethazine Q10 MIN PRN, promethazine Q10 MIN PRN Anticoagulants enoxaparin (LOVENOX) syringe 40 mg QDAY(21) HPI Visual Analog Scale (VAS) (0-10 Scale) At rest: 6-7 Patient satisfied with pain control: Yes Side Effects: none EXAM Recent Vitals Vital Signs: 24 Hour Range BP: 97/57 (03/11 804) Temp: 37.8 C (100 F) (03/11 804) Pulse: 86 (03/11 804) Respirations: 17 PER MINUTE (03/11 804) SpO2: 92 % (03/11 804) O2 Delivery: Nasal Cannula (03/11 804) SpO2 Pulse: 93 (03/10 1700) Height: 165.1 cm (65") (03/10 1809) BP: (90-129)/(47-77) Temp: [36.4 C (97.6 F)-37.8 C (100 F)] Pulse: [81-96] Respirations: [8 PER MINUTE-22 PER MINUTE] SpO2: [92 %-99 %] O2 Delivery: Nasal Cannula Lab Results Component Value Date PLTCT 170 03/11/2018 WBC 10.0 03/11/2018 HGB 11.5 03/11/2018 HCT 34.3 03/11/2018 CR 0.50 03/11/2018 Level of Consciousness: Awake/alert Neurologic Function Sensory block: Yes Motor: No Insertion Site: deferred inspection at this time Associated attestation - Kodi Gates MD - 03/11/2018 3:44 PM CDT ATTESTATION I personally observed the resident performing the E/M, discussed case with resident, and concur with resident documentation of history, physical assessment and treatment plan unless otherwise noted. * Yunier Harris MD - 03/11/2018 7:12 AM CDT Formatting of this note may be different from the original. Daily Progress Note Today's Date: 03/11/2018 Name: Radha Mota Admission Date: 03/10/2018 (LOS: 1 day) Assessment: 47 y.o. female with a pmh of of gastric sleeve (2014), DM, CAD, obesity, MALINDA 1 Day Post-Op from Procedure(s) (LRB): OPEN INCISIONAL HERNIA REPAIR WITH MESH, BILATERAL COMPONENT SEPARATION AND MYOCUTANOUS FLAP ADVANCEMENT, ABDOMINAL SCAR REVISION, REMOVAL OF FOREIGN OBJECT , REMOVAL AND DRAINAGE OF GRANULOMA/CYST (N/A) on 03/10/2018. Active Problems: Incisional hernia, without obstruction or gangrene Abdominal pannus Ventral hernia Plan: - pain control with bupivicaine PCEA - high risk for atelectasis given body habitus, encourage ambulation, out of bed to chair, and IS - magnesium replaced - ADVANCE DIET TOLERATED DIET DIABETIC CLEAR LIQUIDS (60 G CARB/MEAL) - Dispo: floor, plan for discharge later this week Seen and discussed with Dr. Victoria. Subjective: Sleeping in bed with CPAP in place this morning. Pain is 6/10 this morning, - flatus, -bm. Objective: BP: (90-136)/(47-79) Temp: [36.4 C (97.6 F)-37.6 C (99.7 F)] Pulse: [68-96] Respirations: [8 PER MINUTE-22 PER MINUTE] SpO2: [92 %-100 %] O2 Delivery: CPAP/BiPAP (Pt Owned) Lab Results Component Value Date/Time NA 135 (L) 03/11/2018 03:15 AM K 3.6 03/11/2018 03:15 AM CL 103 03/11/2018 03:15 AM CO2 25 03/11/2018 03:15 AM BUN 16 03/11/2018 03:15 AM CR 0.50 03/11/2018 03:15 AM MG 1.4 (L) 03/11/2018 03:15 AM PO4 3.8 03/11/2018 03:15 AM Lab Results Component Value Date/Time HGB 11.5 (L) 03/11/2018 03:15 AM HCT 34.3 (L) 03/11/2018 03:15 AM WBC 10.0 03/11/2018 03:15 AM PLTCT 170 03/11/2018 03:15 AM Lab Results Component Value Date/Time GLUPOC 231 (H) 03/11/2018 03:15 AM GLUPOC 239 (H) 03/10/2018 08:47 PM GLUPOC 212 (H) 03/10/2018 06:10 PM Physical Exam Constitutional: She is oriented to person, place, and time. She appears well- developed and well-nourished. No distress. HENT: Head: Normocephalic and atraumatic. Eyes: No scleral icterus. Neck: No JVD present. No tracheal deviation present. Cardiovascular: Normal rate and intact distal pulses. Pulmonary/Chest: Effort normal and breath sounds normal. No stridor. No respiratory distress. Shallow breathing and splinting due to pain Abdominal: Soft. She exhibits no distension. There is tenderness (appropriately tender to palpation). There is no rebound and no guarding. Obese; four CARINA drains in place with serosanguinous drainage, superior drains are subcutaneous, inferior drains are deep to mesh, dana in place with no erythema or drainage. Neurological: She is alert and oriented to person, place, and time. She exhibits normal muscle tone. Skin: Skin is warm and dry. No rash noted. No erythema. No pallor. Psychiatric: She has a normal mood and affect. Her behavior is normal. Judgment and thought content normal. Yunier Harris MD Service Pager: # [phone] Associated attestation - Tracey Victoria DO - 03/11/2018 7:52 AM CDT Formatting of this note may be different from the original. ATTESTATION I personally performed the russell portions of the E/M visit, discussed case with resident and concur with resident documentation of history, physical exam, assessment, and treatment plan unless otherwise noted. Staff name: TRACEY VICTORIA DO Date: 03/11/2018 * Teresa Gongora, RT - 03/10/2018 7:09 PM CDT Formatting of this note may be different from the original. RESPIRATORY THERAPY ADULT PROTOCOL EVALUATION RESPIRATORY PROTOCOL PLAN Medications Albuterol: MDI PRN Albuterol/Ipratropium: MDI PRN Note: If indicated by protocol, medication orders will be placed by therapist. Procedures PEP Therapy: Place a nursing order for "IS Q1h While Awake" for any of Lung Expansion indicators Oxygen/Humidity: O2 to keep SpO2 > 95% (post-op) Monitoring: First treatment;PEFR Q a.m. & PRN;Pulse oximetry BID & PRN Comment: MALINDA on CPAP. PATIENT EVALUATION RESULTS Chart Review * Pulmonary Hx: Hx pulmonary disease, hx reactive or obstructive airway disease (PEFR & AM) OR regular home use of bronchodilators (AM) OR inhaled or systemic steroid use for lungs < or equal to 4 times/yr (AM) (Asthma, DAYCARE DIRECTOR: Combivent PRN , Albuterol PRN, Symbicort PRN) * Surgical Hx: Thoracic or abdominal surgery/injury (LE) * Chest X-Ray: Clear OR not available * PFT/Oxygenation: FEV1, PEFR < 70% OR Pa02 < 70 RA OR Sp02 <92% RA OR Fi02 > 0.21 to keep Sp02 > 92% OR < 24 hours post-op (02 & oxim) OR chronic C02 retention (C02) (post-op) Patient Assessment * Respiratory Pattern: Regular pattern and rate OR good chest excursion with deep breathing * Breath Sounds: Clear apically, but diminished in bases (LE) OR CHF related crackles (02) (oximetry) * Cough / Sputum: Strong, effective cough OR nonproductive * Mental Status: Alert, oriented, cooperative * Activity Level: Ambulatory Priority Index Total Points: 9 Points * Priority Index: 1+ PRIORITY INDEX GUIDELINES* Priority Points 1 0-9 points 2 9-18 points 3 > 18 points + Pulm Dx or Home Rx *Higher points indicate higher acuity. Therapist: Teresa Gongora, RT Date: 03/10/2018 Russell AC=Airway clearance AM=Aerosolized medication BA=Harper aerosol DB&C=Deep breathe & cough FEV1=Forced expiratory volume in first second) IC=Inspiratory capacity LE=Lung expansion MDI=Metered dose inhaler Neb=Nebulizer O2=Oxygen Oxim=Oximetry PEFR=Peak expiratory flow rate [employer]=Rapid Response Team * Siomara Dugan RN - 03/10/2018 6:08 PM CDT Patient arrived on unit via cart accompanied by transport. Patient scooted over to the bed with assistance. Focused assessment completed, refer to flowsheet for details. Orders released, reviewed, and implemented as appropriate. Oriented to surroundings, call light within reach. Plan of care reviewed. Will continue to monitor and assess. in this encounter H&P Notes * Yunier Harris MD - 03/10/2018 7:07 AM CDT Formatting of this note may be different from the original. History and Physical Update Note Allergies: Morphine; Adhesive tape (rosins); Augmentin [amoxicillin-pot clavulanate]; and Fentanyl Lab/Radiology/Other Diagnostic Tests: Pertinent labs reviewed Point of Care Testing: (Last 24 hours): I have examined the patient, and there are no significant changes in their condition, from the previous H&P performed on 02/19/2018. Yunier Harris MD Pager [phone] Date of Service: 02/19/2018 Subjective: Radha Mota is a 47 y.o. female. History of Present Illness Has continued to lose weight but reports she's been having more episodes of pain as well as nausea. Was seen in OSH with signs of incarceration and the hernia was able to be reduced. No hematochezia or melena. No fever or chills Review of Systems Constitutional: Negative for chills and fever. Respiratory: Negative for cough and shortness of breath. Cardiovascular: Negative for chest pain and palpitations. Gastrointestinal: Positive for abdominal pain and nausea. Negative for blood in stool, constipation and diarrhea. Genitourinary: Negative for dysuria and hematuria. Skin: Negative for rash and wound. Objective: albuterol (PROAIR HFA) 90 mcg/actuation inhaler Inhale 2 puffs by mouth into the lungs every 6 hours as needed for Wheezing or Shortness of Breath. Shake well before use. atorvastatin (LIPITOR) 80 mg tablet Take 80 mg by mouth daily. biotin 10,000 mcg TbDi Dissolve 2 tablets by mouth daily. budesonide/formoterol (SYMBICORT HFA) 160/4.5 mcg inhalation Inhale 1 puff by mouth into the lungs twice daily as needed. butalbital/acetaminophen/caffeine(+) (FIORICET) 50/325/40 mg tablet Take 1 tablet by mouth every 4 hours as needed for Headache. COLLAGEN MISC Take 1 tablet by mouth daily. cyanocobalamin (vitamin B-12) 5,000 mcg TbDi Dissolve 1 tablet by mouth daily. cyclobenzaprine (FLEXERIL) 10 mg tablet Take 10 mg by mouth three times daily as needed for Muscle Cramps. dapagliflozin 10 mg tab Take 1 tablet by mouth at bedtime daily. ergocalciferol (VITAMIN D-2) 50,000 unit capsule Take 1 capsule by mouth every 7 days. Administer on exenatide microspheres ER(+) (BYDUREON) 2 mg injection Inject 2 mg under the skin every 7 days. Administer on Wednesdays fenofibrate nanocrystallized (TRICOR) 145 mg tablet Take 145 mg by mouth daily. Take with food. fluticasone (FLONASE) 50 mcg/actuation nasal spray Apply 2 sprays to each nostril as directed daily. Shake bottle gently before using. HYDROcodone/acetaminophen(+) (NORCO) 10/325 mg tablet Take 1 tablet by mouth every 6 hours as needed for Pain ipratropium/albuterol (COMBIVENT RESPIMAT) 20-100 mcg/actuation mist inhaler Inhale 1 puff by mouth into the lungs four times daily as needed. lidocaine (LIDODERM) 5 % topical patch Apply 2 patches topically to affected area at bedtime daily. Apply patch for 12 hours, then remove for 12 hours before repeating. LINZESS 145 mcg cap capsule Take 1 capsule by mouth daily. LORazepam (ATIVAN) 0.5 mg tablet Take 1 tablet by mouth at bedtime daily. metFORMIN (GLUCOPHAGE) 1,000 mg tablet Take 1 tablet by mouth twice daily. montelukast (SINGULAIR) 10 mg tablet Take 10 mg by mouth at bedtime daily. ofloxacin(+) (FLOXIN) 0.3 % ophthalmic solution Apply 1 drop to left eye as directed three times daily. omeprazole DR(+) (PRILOSEC) 20 mg capsule Take 20 mg by mouth daily before breakfast. ondansetron (ZOFRAN) 8 mg tablet Take 8 mg by mouth every 8 hours as needed for Nausea or Vomiting. pediatric multivitamin no.42 (CHILDREN'S MULTIVITAMIN) chew Chew 2 tablets by mouth daily. potassium chloride SR (K-DUR) 20 mEq tablet Take 20 mEq by mouth three times daily. Take with a meal and a full glass of water. prednisolone acetate (PRED FORTE) 1 % ophthalmic suspension Apply 1 drop to left eye as directed twice daily. ranitidine(+) (ZANTAC) 150 mg tablet Take 150 mg by mouth twice daily. torsemide(+) (DEMADEX) 20 mg tablet Take 80 mg by mouth daily. zolpidem (AMBIEN) 10 mg tablet Take 10 mg by mouth at bedtime daily. Vitals: 02/19/18 1044 BP: 123/59 Pulse: 83 Resp: 18 Temp: 36.7 C (98 F) SpO2: 96% Weight: 127 kg (280 lb) Height: 165.1 cm (65") Body mass index is 46.59 kg/m. Physical Exam Constitutional: She is oriented to person, place, and time. She appears well- developed and well-nourished. No distress. HENT: Head: Normocephalic and atraumatic. Cardiovascular: Normal rate and regular rhythm. Pulmonary/Chest: Effort normal and breath sounds normal. Abdominal: Soft. Bowel sounds are normal. She exhibits no distension. There is tenderness. There is no rebound and no guarding. A hernia (large with extension into large pannus. No erythema or ecchymosis) is present. Neurological: She is alert and oriented to person, place, and time. Skin: Skin is warm and dry. Psychiatric: She has a normal mood and affect. Her behavior is normal. Judgment and thought content normal. Assessment and Plan: Will proceed with repair of her hernia. Discussed need for revision of her previous scar with excision of excess skin as well The procedure was described. Risks, benefits, complications were described. All questions were answered. The patient wishes to proceed with surgery Will schedule for PAT and surgery Associated attestation - Tracey Victoria DO - 03/10/2018 7:25 AM CDT Formatting of this note may be different from the original. ATTESTATION I personally performed the russell portions of the E/M visit, discussed case with resident and concur with resident documentation of history, physical exam, assessment, and treatment plan unless otherwise noted. Staff name: TRACEY VICTORIA DO Date: 03/10/2018 * Tracey Victoria DO - 02/19/2018 10:00 AM CDT Formatting of this note may be different from the original. Date of Service: 02/19/2018 Subjective: Radha Mota is a 47 y.o. female. History of Present Illness Has continued to lose weight but reports she's been having more episodes of pain as well as nausea. Was seen in OSH with signs of incarceration and the hernia was able to be reduced. No hematochezia or melena. No fever or chills Review of Systems Constitutional: Negative for chills and fever. Respiratory: Negative for cough and shortness of breath. Cardiovascular: Negative for chest pain and palpitations. Gastrointestinal: Positive for abdominal pain and nausea. Negative for blood in stool, constipation and diarrhea. Genitourinary: Negative for dysuria and hematuria. Skin: Negative for rash and wound. Objective: albuterol (PROAIR HFA) 90 mcg/actuation inhaler Inhale 2 puffs by mouth into the lungs every 6 hours as needed for Wheezing or Shortness of Breath. Shake well before use. atorvastatin (LIPITOR) 80 mg tablet Take 80 mg by mouth daily. biotin 10,000 mcg TbDi Dissolve 2 tablets by mouth daily. budesonide/formoterol (SYMBICORT HFA) 160/4.5 mcg inhalation Inhale 1 puff by mouth into the lungs twice daily as needed. butalbital/acetaminophen/caffeine(+) (FIORICET) 50/325/40 mg tablet Take 1 tablet by mouth every 4 hours as needed for Headache. COLLAGEN MISC Take 1 tablet by mouth daily. cyanocobalamin (vitamin B-12) 5,000 mcg TbDi Dissolve 1 tablet by mouth daily. cyclobenzaprine (FLEXERIL) 10 mg tablet Take 10 mg by mouth three times daily as needed for Muscle Cramps. dapagliflozin 10 mg tab Take 1 tablet by mouth at bedtime daily. ergocalciferol (VITAMIN D-2) 50,000 unit capsule Take 1 capsule by mouth every 7 days. Administer on exenatide microspheres ER(+) (BYDUREON) 2 mg injection Inject 2 mg under the skin every 7 days. Administer on Wednesdays fenofibrate nanocrystallized (TRICOR) 145 mg tablet Take 145 mg by mouth daily. Take with food. fluticasone (FLONASE) 50 mcg/actuation nasal spray Apply 2 sprays to each nostril as directed daily. Shake bottle gently before using. HYDROcodone/acetaminophen(+) (NORCO) 10/325 mg tablet Take 1 tablet by mouth every 6 hours as needed for Pain ipratropium/albuterol (COMBIVENT RESPIMAT) 20-100 mcg/actuation mist inhaler Inhale 1 puff by mouth into the lungs four times daily as needed. lidocaine (LIDODERM) 5 % topical patch Apply 2 patches topically to affected area at bedtime daily. Apply patch for 12 hours, then remove for 12 hours before repeating. LINZESS 145 mcg cap capsule Take 1 capsule by mouth daily. LORazepam (ATIVAN) 0.5 mg tablet Take 1 tablet by mouth at bedtime daily. metFORMIN (GLUCOPHAGE) 1,000 mg tablet Take 1 tablet by mouth twice daily. montelukast (SINGULAIR) 10 mg tablet Take 10 mg by mouth at bedtime daily. ofloxacin(+) (FLOXIN) 0.3 % ophthalmic solution Apply 1 drop to left eye as directed three times daily. omeprazole DR(+) (PRILOSEC) 20 mg capsule Take 20 mg by mouth daily before breakfast. ondansetron (ZOFRAN) 8 mg tablet Take 8 mg by mouth every 8 hours as needed for Nausea or Vomiting. pediatric multivitamin no.42 (CHILDREN'S MULTIVITAMIN) chew Chew 2 tablets by mouth daily. potassium chloride SR (K-DUR) 20 mEq tablet Take 20 mEq by mouth three times daily. Take with a meal and a full glass of water. prednisolone acetate (PRED FORTE) 1 % ophthalmic suspension Apply 1 drop to left eye as directed twice daily. ranitidine(+) (ZANTAC) 150 mg tablet Take 150 mg by mouth twice daily. torsemide(+) (DEMADEX) 20 mg tablet Take 80 mg by mouth daily. zolpidem (AMBIEN) 10 mg tablet Take 10 mg by mouth at bedtime daily. Vitals: 02/19/18 1044 BP: 123/59 Pulse: 83 Resp: 18 Temp: 36.7 C (98 F) SpO2: 96% Weight: 127 kg (280 lb) Height: 165.1 cm (65") Body mass index is 46.59 kg/m. Physical Exam Constitutional: She is oriented to person, place, and time. She appears well- developed and well-nourished. No distress. HENT: Head: Normocephalic and atraumatic. Cardiovascular: Normal rate and regular rhythm. Pulmonary/Chest: Effort normal and breath sounds normal. Abdominal: Soft. Bowel sounds are normal. She exhibits no distension. There is tenderness. There is no rebound and no guarding. A hernia (large with extension into large pannus. No erythema or ecchymosis) is present. Neurological: She is alert and oriented to person, place, and time. Skin: Skin is warm and dry. Psychiatric: She has a normal mood and affect. Her behavior is normal. Judgment and thought content normal. Assessment and Plan: Will proceed with repair of her hernia. Discussed need for revision of her previous scar with excision of excess skin as well The procedure was described. Risks, benefits, complications were described. All questions were answered. The patient wishes to proceed with surgery Will schedule for PAT and surgery in this encounter Consult Notes * Vibha Damon MD - 03/13/2018 9:54 AM CDT Associated Order(s): CONSULT REHABILITATION MEDICINE PHYSICIAN Formatting of this note may be different from the original. Physical Medicine & Rehabilitation Consult Note Date of Service: 03/13/2018 Radha Mota is a 47 y.o. female. : 1970 MRN# : [id number] Primary Insurance: [employer] [place] Secondary Insurance: Tertiary Insurance: Financial Class: Medicaid Repl [place] Date of Admission: 03/10/2018 Referring Physician: Tracey Victoria DO Reason for Consult: evaluate for Post-Acute Rehab/Placement Precautions: Fall, Weight bearing Precautions: No WB precautions Active Problems Active Problems: Incisional hernia, without obstruction or gangrene Abdominal pannus Ventral hernia Morbid obesity (HCC) MALINDA on CPAP Hyperlipidemia GERD (gastroesophageal reflux disease) DM (diabetes mellitus) (HCC) Coronary artery disease Asthma Pain Gait abnormality Impaired Mobility and ADLs Assessment & Plan Radha Mota is a 47 y.o. female admitted to [facility] on 03/10/2018 with the following issues: debility due to hernia repair Impairments: pain, poor activity tolerance and weakness Activity Limitations: grooming, bathing, dressing - lower, transfers, ambulation and stairs Participation Restrictions: unable to return home safely Post-acute care rehabilitation needs: home w/ family assist vs. SNF -Patient has therapeutic goals but limited medical complexity -At this moment, patient will likely need ongoing PT/OT therapy services. -Patient will need to be Mod-I as she will be home alone during the day. Depending on the duration of the patient's hospital stay, she may progress to that level of independence & may benefit from additional Home health PT/OT. However, if patient is unable to get to a functional level that is safe or family cannot provide assistance, referrals to SNF should be sent. -Will continue to follow as patient becomes medically stable and progresses with therapy. Other recommendations (bowel, bladder, skin, pain, etc): Impaired gait/mobility: DAYCARE DIRECTOR pt was independent at community level without assistive device Currently requiring Min A RW 12' Will benefit from continued work with PT to address mobility deficits Impaired ADL: DAYCARE DIRECTOR pt was independent Currently requiring Min A Grooming; total A LE Dressing; Mod A RW transfer to bedside chair Will benefit from ongoing OT to address functional deficits Acute post-op pain: Patient would benefit from pre-treatment of pain prior to therapies and possibly scheduling Tylenol 650mg-1g TID while awake for improved pain and function. Skin/MSK: Given relative immobility and/or risk for contractures and skin breakdown, recommend HOB > 30 degrees to reduce shearing, turning q2 hours while supine in bed, pressure relief [id number] in seated position. Thank you for this consultation. Please call our consult pager with questions or concerns. Vibha Damon MD Rehab Consult Pager: [phone] History of Present Illness Chief Complaint: Weakness Hospital Course: Radha Mota is a 47F PMH GERD gastric sleeve (2014) who presents with hernia s/p open incisional repair & removal of foreign object 03/[address] Victoria. Prior to this hospital admission, patient was ambulating without difficulty & without assitive device. PT and OT consulted to address functional and mobility deficits, rehab is now consulted for post-acute rehab/ placement recommendations. Past Medical History: Diagnosis Date Anxiety disorder Asthma Coronary artery disease DM (diabetes mellitus) (HCC) GERD (gastroesophageal reflux disease) Headache Hyperlipidemia Obesity MALINDA on CPAP Past Surgical History: Procedure Laterality Date UMBILICAL HERNIA REPAIR 05/1999 SECTION 04/2000 HX TUBAL LIGATION 04/2000 VENTRAL HERNIA REPAIR 01/2011 rupture SLEEVE GASTROPLASTY 2015 HX CHOLECYSTECTOMY 02/19/2017 HX RETINAL DETACHMENT REPAIR Left 04/2017 HX CATARACT REMOVAL Left 02/09/2018 VENTRAL HERNIA REPAIR N/A 03/10/2018 OPEN INCISIONAL HERNIA REPAIR WITH MESH, BILATERAL COMPONENT SEPARATION AND MYOCUTANOUS FLAP ADVANCEMENT, ABDOMINAL SCAR REVISION, REMOVAL OF FOREIGN OBJECT , REMOVAL AND DRAINAGE OF GRANULOMA/CYST performed by Tracey Victoria, DO at [facility] Social History Social History Marital status: Single Spouse name: N/A Number of children: N/A Years of education: N/A Occupational History Not on file. Social History Main Topics Smoking status: Former Smoker Quit date: 03/11/1997 Smokeless tobacco: Never Used Alcohol use No Drug use: No Sexual activity: Not on file Other Topics Concern Not on file Social History Narrative No narrative on file No family history on file. Scheduled Meds: atorvastatin (LIPITOR) tablet 80 mg 80 mg Oral QDAY budesonide/formoterol (SYMBICORT HFA) 160/4.5 mcg inhalation 2 puff 2 puff Inhalation BID bumetanide (BUMEX) tablet 0.25 mg 0.25 mg Oral QDAY enoxaparin (LOVENOX) syringe 40 mg 40 mg Subcutaneous QDAY(21) insulin aspart U-100 (NOVOLOG FLEXPEN) injection PEN 0-28 Units 0-28 Units Subcutaneous 5 X Day magnesium sulfate 4 g/50 mL IVPB 4 g Intravenous ONCE montelukast (SINGULAIR) tablet 10 mg 10 mg Oral QHS pantoprazole DR (PROTONIX) tablet 40 mg 40 mg Oral QDAY(21) polyethylene glycol 3350 (MIRALAX) packet 34 g 2 packet Oral QDAY sodium phosphate 16 mmol in sodium chloride 0.9% (NS) 250 mL IVPB 16 mmol Intravenous ONCE Continuous Infusions: PRN and Respiratory Meds:acetaminophen Q4H PRN, albuterol Q6H PRN, fentaNYL citrate PF Q1H PRN, HYDROmorphone (DILAUDID) injection Q10 MIN PRN, ipratropium/ albuterol QID PRN, lidocaine PF PRN, melatonin QHS PRN, naloxone PRN, oxyCODONE Q3H PRN Allergies Allergen Reactions Morphine HEADACHE, HIVES, NAUSEA ONLY, SHORTNESS OF BREATH and HYPOTENSION Adhesive Tape (Rosins) ITCHING and REDNESS Paper tape Augmentin [Amoxicillin-Pot Clavulanate] HIVES Pt reports that she tolerates Amoxil Fentanyl NAUSEA ONLY and SEE COMMENTS Hypotension Prior Level of Function Self-Care/ADLs: Independent Mobility: independent at community level w/o assistive device Support: Patient currently lives with family who can provide some assistance in the evening. Patient will be home alone during the day. Home Environment: Home Situation: Lives with Family (03/12/2018 1:00 PM) Patient Owned Equipment: None (03/12/2018 1:00 PM) Type of Home: Mobile Home (03/12/2018 1:00 PM) Entry Stairs: 3-5 Stairs;Rail on 1 Side (03/12/2018 1:00 PM) In-Home Stairs: No Stairs (03/12/2018 1:00 PM) No Data Recorded No Data Recorded Current Level Of Function: PT Gait:Gait Distance: 12 feet Gait: Assistance Level: Minimal Assist Gait: Assistive Device: Roller Walker Bed Mobility/Transfers Bed Mobility: Rolling: Log Roll, Moderate Assist, Verbal Cues, Use of Rail, Requires Extra Time Bed Mobility: Supine to Sit: Moderate Assist, Verbal Cues, Assist with B LE, Assist with Trunk Bed Mobility: Sit to Supine: Moderate Assist, Verbal Cues, Bed Flat, Assist with B LE Comments: BP: 93/51 in sitting; transfers deferred Transfer Type: Sit to/from Stand Transfer: Assistance Level: To/From, Bed Side Chair, Minimal Assist Transfer: Assistive Device: Roller Walker Transfers: Type Of Assistance: For Balance, For Safety Considerations End Of Activity Status: Up in Chair, Instructed Patient to Request Assist with Mobility, Instructed Patient to Use Call Light Comments: Pt. needs cues for hand placement with transfers OT ADL's Where Assessed: Edge of Bed, Chair Eating Assist: Independent Eating Deficits: No Assist Needed Grooming Assist: Stand By Assist Grooming Deficits: Setup, Wash/Dry Face UE Dressing Assist: Minimal Assist UE Dressing Deficits: Thread RUE, Thread LUE, Firestopper Technician Head, Fasteners LE Dressing Assist: Total Assist LE Dressing Deficits: Don/Doff R Sock, Don/Doff L Sock Toileting Assist: Total Assist Toileting Deficits: (catheter in place) Functional Transfer Assist: Moderate Assist Functional Transfer Deficits: (Chair Transfer) Comment: Pt transfers to edge of bed with mod assist and increased time. Pt transfers to standing via walker and mod assist x1. Pt completes transfer to bedside chair but declined further mobility this date. OT will continue to follow. PRESS BRAKE OPERATOR COGNITIVE EVALUATION SUMMARY PRAGMATICS: BEHAVIOR: AUDITORY COMPREHENSION: ORIENTATION: AUDITORY ATTENTION/WORKING MEMORY: AUDITORY MEMORY/SUSTAINED ATTENTION: NEW LEARNING: SEQUENCING/ORGANIZATION: PROBLEM SOLVING: REASONING: MATH/MONEY SKILLS: VISUAL PERCEPTUAL: SWALLOW EVALUATION SUMMARY Review of Systems A 14 point review of systems was negative except for: Gastrointestinal: positive for abdominal pain Musculoskeletal: positive for muscle weakness Neurological: positive for gait problems and weakness Physical Exam BP: 96/56 (03/13 729) Temp: 36.6 C (97.9 F) (03/13 729) Pulse: 83 (03/13 729) Respirations: 18 PER MINUTE (03/13 729) SpO2: 95 % (03/13 729) O2 Delivery: None (Room Air) (03/13 729) Body mass index is 48.06 kg/m. Gen: awake, alert, NAD HEENT: NCAT, EOMI, MMM Neck: Supple and symmetric Heart: Extremities are well perfused Lungs: respirations even and non-labored Abdomen: Soft, non-distended + CARINA drains Psych: pleasant mood/appropriate affect Ext: No c/c/e MS: Root Right Left Shoulder ABduction C5 5 5 Elbow Flexion C5 5 5 Wrist Extension C6 5 5 Elbow Extension C7 5 5 Finger Flexion C8 5 5 Finger Abduction T1 5 5 Hip Flexion L2 4 4 Knee Extension L3 5 5 Dorsiflexion L4 5 5 EHL Extension L5 5 5 Plantarflexion S1 5 5 Neuro: Cranial Nerves Cranial Nerves 2-12 are grossly intact DTR's no hyperreflexia Babinski Downgoing Bilaterally Prajapati Negative bilaterally Upper Extremity Tone Normal Lower Extremity Tone Normal Upper Extremity Sensation Intact to light touch bilaterally Lower Extremity Sensation Intact to light touch bilaterally Clonus Negative Bilaterally Memory/Concentration grossly intact Intake/Output Summary (Last 24 hours) at 03/13/18 0959 Last data filed at 03/13/18 0734 Gross per 24 hour Intake 3050 ml Output 2572.5 ml Net 477.5 ml Hematology: Lab Results Component Value Date HGB 9.6 03/13/2018 HCT 28.5 03/13/2018 PLTCT 182 03/13/2018 WBC 10.0 03/13/2018 NEUT 61 01/13/2018 ANC 9.50 01/13/2018 ALC 4.60 01/13/2018 WALESKA 6 01/13/2018 AMC 0.90 01/13/2018 ABC 0.20 01/13/2018 MCV 92.3 03/13/2018 MCHC 33.6 03/13/2018 MPV 8.2 03/13/2018 RDW 15.0 03/13/2018 , Coagulation: No results found for: PT, PTT, INR and General Chemistry: Lab Results Component Value Date NA 129 03/13/2018 K 4.0 03/13/2018 CL 95 03/13/2018 GAP 9 03/13/2018 BUN 7 03/13/2018 CR 0.30 03/13/2018 GLU 195 03/13/2018 CA 8.8 03/13/2018 ALBUMIN 3.7 01/13/2018 MG 1.7 03/13/2018 TOTBILI 0.3 01/13/2018 Radiology: Reviewed Vibha Damon MD Associated attestation - Carrillo Sosa MD - 03/14/2018 10:26 AM CDT Rehabilitation Medicine Attending Physician Attestation: I personally performed russell portions of the history and exam. I discussed the case with the resident and agree with the resident's documentation of history, physical assessment and treatment plan unless otherwise noted. Thank you for allowing us to participate in the care of this patient. Carrillo Sosa MD 03/14/2018 10:26 AM Attending physician in this encounter Miscellaneous Notes * Care Plan - Delbert Briggs RN - 03/16/2018 4:57 PM CDT Problem: Respiratory Impairment (Non-Ventilated Patient) Goal: Effective gas exchange Outcome: Goal Achieved Date Met: 03/16/18 Pt demonstrating effective gas exchange Goal: Effective breathing pattern Outcome: Goal Achieved Date Met: 03/16/18 Pt demonstrating effective breathing pattern Problem: Discharge Planning Goal: Participation in plan of care Outcome: Goal Achieved Date Met: 03/16/18 Pt participating in plan of care Goal: Knowledge regarding plan of care Outcome: Goal Achieved Date Met: 03/16/18 Pt educated regarding plan of care and verbalizes understanding Goal: Prepared for discharge Outcome: Goal Achieved Date Met: 03/16/18 Pt prepared for d/c Problem: Anxiety Goal: Alleviation of anxiety Outcome: Goal Achieved Date Met: 03/16/18 Pt verbalizes alleviation of anxiety Problem: Pain Goal: Management of pain Outcome: Goal Achieved Date Met: 03/16/18 Pt verbalizes pain managed with prn pain medication Goal: Knowledge of pain management Outcome: Goal Achieved Date Met: 03/16/18 Pt educated regarding pain management interventions and verbalizes undersatnding Problem: Self-Care Deficit Goal: Maximize ADL functioning Outcome: Goal Achieved Date Met: 03/16/18 Pt working towards maximal ADL functioning * Case Mgmt DC Plan - Madhavi Cortez RN - 03/16/2018 11:03 AM CDT Formatting of this note may be different from the original. Case Management Progress Note NAME:Radha Mota : AGE: 47 y.o. ADMISSION DATE: 03/10/2018 DAYS ADMITTED: LOS: 6 days Todays Date: 03/16/2018 Plan -Physical Therapy recommended patient d/c to home with use of a roller walker. -Order faxed to [facility] [phone]. [facility] [phone] will deliver RW prior to d/c today. Interventions ? Support Support: Pt/Family Updates re:POC or DC Plan ? Info or Referral ? Discharge Planning Discharge Planning: Inpatient Rehabilitation ? Medication Needs ? Financial ? Legal ? Other Disposition ? Expected Discharge Date Expected Discharge Date: 03/16/18 ? Transportation Does the patient need discharge transport arranged?: No Does the patient use Medicaid Transportation?: No ? Next Level of Care (Acute Psych discharges only) ? Discharge Disposition Durable Medical Equipment No service has been selected for the patient. Destination No service has been selected for the patient. Home Care No service has been selected for the patient. Dialysis/Infusion No service has been selected for the patient. Eddie CortezRN, [facility] Integrated [employer] *[phone] * Case Mgmt DC Plan - AleshaKrystal - 03/16/2018 9:28 AM CDT Formatting of this note may be different from the original. Case Management Progress Note NAME:Radha Mota : AGE: 47 y.o. ADMISSION DATE: 03/10/2018 DAYS ADMITTED: LOS: 6 days Todays Date: 03/16/2018 Plan: Pt to d/c home today. Interventions ? Support ? Info or Referral ? Discharge Planning Discharge Planning: Inpatient Rehabilitation SW spoke to MD Harris and pt is stable for d/c today. JARRETT contacted PT and requested PT/OT see pt this morning. JARRETT updated by OT pt was was seen by PT/OT and pt can d/c home but needs a walker. JARRETT updated BRET Cortez via text. ? Medication Needs ? Financial ? Legal ? Other Disposition ? Expected Discharge Date Expected Discharge Date: 03/16/18 ? Transportation Does the patient need discharge transport arranged?: No Does the patient use Medicaid Transportation?: No ? Next Level of Care (Acute Psych discharges only) ? Discharge Disposition Durable Medical Equipment No service has been selected for the patient. Destination No service has been selected for the patient. Home Care No service has been selected for the patient. Dialysis/Infusion No service has been selected for the patient. Krystal Eduardo LMSW *[phone] * Care Plan - Delbert Briggs RN - 03/14/2018 1:38 PM CDT Problem: Respiratory Impairment (Non-Ventilated Patient) Goal: Effective gas exchange Outcome: Goal Ongoing Pt demonstrating effective gas exchange Goal: Effective breathing pattern Outcome: Goal Ongoing Pt demonstrating effective breathing pattern Problem: Discharge Planning Goal: Participation in plan of care Outcome: Goal Ongoing Pt participating in plan of care Goal: Knowledge regarding plan of care Outcome: Goal Ongoing Pt educated regarding plan of care and verbalizes understanding Goal: Prepared for discharge Outcome: Goal Ongoing Pt has no d/c orders at this time Problem: Anxiety Goal: Alleviation of anxiety Outcome: Add Note Pt shows alleviation of anxiety during this shift Problem: Pain Goal: Management of pain Outcome: Goal Ongoing Pt verbalizes pain managed with prn pain medication. Pt states that she prefers the 10 mg of oxycodone vs 15 however is not able to get passed the 3 hour ruchi. Pt states that 15 mg causes her to have a headache. Pt educated regarding nonpharm pain interventions and pt verbalizes understanding. Goal: Knowledge of pain management Outcome: Goal Ongoing Pt educated regarding pain management interventions and verbalizes understanding Problem: Self-Care Deficit Goal: Maximize ADL functioning Outcome: Goal Ongoing Pt working towards maximal functional ADLs * Case Mgmt DC Plan - Katerin Montalvo - 03/13/2018 11:24 AM CDT BEVERAGE SERVER Note Sent an initial placement request via [employer] to the [facility] facility, per request from JARRETT StocktonCM: VIA [facility] [id number] Updated [facility]. Katerin Montalvo Plodding Operator For further assistance, please contact JOMAR Stockton *[phone] * Case Mgmt DC Plan - Krystal Eduardo - 03/13/2018 11:07 AM CDT Formatting of this note may be different from the original. Case Management Progress Note NAME:Radha Mota : AGE: 47 y.o. ADMISSION DATE: 03/10/2018 DAYS ADMITTED: LOS: 3 days Todays Date: 03/13/2018 Plan: [facility] [place] when medically stable and pending insurance authorization. Interventions ? Support Support: Pt/Family Updates re:POC or DC Plan SW met with pt and daughter at bedside and introduced self. SW discussed pt's d/ c plans and explained PT/OT recommendations. SW discussed Rehab placement in detail and provided pt with a Rehab list. Pt's daughter states she works at [employer] in [place] and pt would like her referral sent there. Pt reports she has support from her daughter. Pt has other family that is available if necessary but some of her family have their own health issues and would not be able to physically assist pt. Pt states she was independent with ADL's prior to admission. Pt understands her POC and is agreeable. SW to follow up with pt on the outcome of her Rehab referral. Pt denies any other needs at this time. SW provided pt with contact information. ? Info or Referral ? Discharge Planning Discharge Planning: Inpatient Rehabilitation JARRETT notified by MD Harris pt may d/c this vs Friday and Rehab has been consulted. JARRETT updated BRET Cortez. JARRETT tasked CELESTE Montalvo via [employer] and requested pt's referral be sent. JARRETT spoke to OT and requested pt be placed on weekend PT/OT list. JARRETT updated . JARRETT received a message from November with [facility] stating they can accept pt upon d/c. November stated she needs pt's H&P sent and then she can request insurance authorization. JARRETT notified BEVERAGE SERVER who will re-send pt's H&P. JARRETT called November back and left a message explaining pt will likely d/c Friday and JARRETT will update her on Mandeep with pt's POC. SW will continue to follow. ? Medication Needs ? Financial ? Legal ? Other Disposition ? Expected Discharge Date Expected Discharge Date: 03/16/18 ? Transportation Does the patient need discharge transport arranged?: No Does the patient use Medicaid Transportation?: No ? Next Level of Care (Acute Psych discharges only) ? Discharge Disposition Durable Medical Equipment No service has been selected for the patient. [facility] Destination No service has been selected for the patient. Home Care No service has been selected for the patient. [facility] Dialysis/Infusion No service has been selected for the patient. Krystal Eduardo, [facility] *[phone] * Med Student Progress Note - Harley Wong, MS - 03/13/2018 7:46 AM CDT Formatting of this note may be different from the original. Daily Progress Note Today's Date: 03/13/2018 Name: Radha Mota Admission Date: 03/10/2018 (LOS: 3 days) Assessment: 47 y.o. female with a pmh of asthma, DM, GERD, Sleep apnea, morbid obesity 3 Days Post-Op from Procedure(s) (LRB): OPEN INCISIONAL HERNIA REPAIR WITH MESH, BILATERAL COMPONENT SEPARATION AND MYOCUTANOUS FLAP ADVANCEMENT, ABDOMINAL SCAR REVISION, REMOVAL OF FOREIGN OBJECT , REMOVAL AND DRAINAGE OF GRANULOMA/CYST (N/A) Active Problems: Incisional hernia, without obstruction or gangrene Abdominal pannus Ventral hernia Morbid obesity (HCC) MALINDA on CPAP Hyperlipidemia GERD (gastroesophageal reflux disease) DM (diabetes mellitus) (HCC) Coronary artery disease Asthma Plan: - Continue PT/OT - Wean 02 during day - Rehab consult for discharge plan - Advance Diet as Tolerated - Continue to encourage ambulation and IS use - Dispo: Continue Floor status Subjective: No acute overnight events. Pain currently 5/10, no n/v, passing flatus but no BM yesterday, tolerating diet. Up in chair yesterday. Objective: BP: (96-129)/(56-74) Temp: [36.4 C (97.6 F)-37.3 C (99.1 F)] Pulse: [77-96] Respirations: [18 PER MINUTE] SpO2: [92 %-99 %] O2 Delivery: None (Room Air) Lab Results Component Value Date/Time NA 129 (L) 03/13/2018 05:05 AM K 4.0 03/13/2018 05:05 AM CL 95 (L) 03/13/2018 05:05 AM CO2 25 03/13/2018 05:05 AM BUN 7 03/13/2018 05:05 AM CR 0.30 (L) 03/13/2018 05:05 AM MG 1.7 03/13/2018 05:05 AM PO4 2.0 03/13/2018 05:05 AM Lab Results Component Value Date/Time HGB 9.6 (L) 03/13/2018 05:05 AM HCT 28.5 (L) 03/13/2018 05:05 AM WBC 10.0 03/13/2018 05:05 AM PLTCT 182 03/13/2018 05:05 AM Lab Results Component Value Date/Time GLUPOC 210 (H) 03/13/2018 03:22 AM GLUPOC 233 (H) 03/12/2018 09:06 PM GLUPOC 202 (H) 03/12/2018 05:55 PM Physical Exam GENERAL: Vital signs reviewed. A&Ox3. Patient appears well. HEENT: Normocephalic, atraumatic ORAL: Moist mucous membranes. ABD: Soft, appropriately tender to palpation, BS present, incision CDI, four CARINA drains with SS fluid MUSC: no pedal edema. SKIN: Normal color, no rash, warm, dry. PSYCH: mood/affect normal. Harley Wong, MS4 * Care Plan - Celso Mccray RN - 03/12/2018 6:21 PM CDT Problem: Infection, Risk of, Urinary Catheter-Associated Urinary Tract Infection Goal: Absence of urinary catheter-associated infection Outcome: Goal Achieved Date Met: 03/12/18 Pt has no signs and symptoms of infection Problem: Respiratory Impairment (Non-Ventilated Patient) Goal: Effective gas exchange Outcome: Goal Ongoing Pt has effective gas exchange. Goal: Effective breathing pattern Outcome: Goal Ongoing Pt has effective breathing pattern. Problem: Discharge Planning Goal: Participation in plan of care Outcome: Goal Ongoing Pt participating and verbalizes understanding of plan of care Goal: Knowledge regarding plan of care Outcome: Goal Ongoing Pt updated on plan of care, verbalizes understanding Goal: Prepared for discharge Outcome: Goal Ongoing Pt is working towards discharge. Problem: Anxiety Goal: Alleviation of anxiety Outcome: Goal Ongoing Pt has no anxiety. Problem: Pain Goal: Management of pain Outcome: Goal Ongoing Pt verbalizes understanding of pain management medications Goal: Knowledge of pain management Outcome: Goal Ongoing Pt verbalizes understanding of pain management medications Problem: Self-Care Deficit Goal: Maximize ADL functioning Pt is working on improving her ADL'S * Med Student Progress Note - Harley Wong, MS - 03/12/2018 5:47 AM CDT Formatting of this note may be different from the original. Medical Student Progress Note - Inpatient Daily Progress Note Today's Date: 03/12/2018 Name: Radha Mota Admission Date: 03/10/2018 (LOS: 2 days) Assessment: 47 y.o. female with a pmh of asthma, DM, GERD, Sleep apnea, morbid obesity 2 Days Post-Op from Procedure(s) (LRB): OPEN INCISIONAL HERNIA REPAIR WITH MESH, BILATERAL COMPONENT SEPARATION AND MYOCUTANOUS FLAP ADVANCEMENT, ABDOMINAL SCAR REVISION, REMOVAL OF FOREIGN OBJECT , REMOVAL AND DRAINAGE OF GRANULOMA/CYST (N/A) Active Problems: Incisional hernia, without obstruction or gangrene Abdominal pannus Ventral hernia Morbid obesity (HCC) MALINDA on CPAP Hyperlipidemia GERD (gastroesophageal reflux disease) DM (diabetes mellitus) (HCC) Coronary artery disease Asthma Plan: - Discontinue PCEA and switch to oral pain medication - Remove diaz catheter - Wean 02 during day - PT/OT - Advance Diet as Tolerated - Continue to encourage ambulation and IS use - Dispo: Continue Floor status Subjective: No acute overnight events. Pain currently 6/10, no n/v, having flatus and bm last night, not out of bed much, tolerating diet. Objective: BP: (97-115)/(50-63) Temp: [36.6 C (97.8 F)-37.8 C (100 F)] Pulse: [78-94] Respirations: [16 PER MINUTE-18 PER MINUTE] SpO2: [92 %-97 %] O2 Delivery: CPAP/BiPAP (Pt Owned) Lab Results Component Value Date/Time NA 135 (L) 03/11/2018 03:15 AM K 3.6 03/11/2018 03:15 AM CL 103 03/11/2018 03:15 AM CO2 25 03/11/2018 03:15 AM BUN 16 03/11/2018 03:15 AM CR 0.50 03/11/2018 03:15 AM MG 1.4 (L) 03/11/2018 03:15 AM PO4 3.8 03/11/2018 03:15 AM Lab Results Component Value Date/Time HGB 11.5 (L) 03/11/2018 03:15 AM HCT 34.3 (L) 03/11/2018 03:15 AM WBC 10.0 03/11/2018 03:15 AM PLTCT 170 03/11/2018 03:15 AM Lab Results Component Value Date/Time GLUPOC 208 (H) 03/12/2018 02:40 AM GLUPOC 232 (H) 03/11/2018 08:56 PM GLUPOC 218 (H) 03/11/2018 04:27 PM Physical Exam GENERAL: Vital signs reviewed. A&Ox3. Patient appears well. HEENT: Normocephalic, atraumatic ORAL: Moist mucous membranes. ABD: Soft, appropriately tender to palpation, BS present, incision CDI, four CARINA drains with SS fluid MUSC: no pedal edema. SKIN: Normal color, no rash, warm, dry. PSYCH: mood/affect normal. Harley Wong, MS4 * Care Plan - Celso Mccray RN - 03/11/2018 2:26 PM CDT Problem: Infection, Risk of, Urinary Catheter-Associated Urinary Tract Infection Goal: Absence of urinary catheter-associated infection Outcome: Goal Ongoing Pt has no signs and symptoms of infections. Problem: Respiratory Impairment (Non-Ventilated Patient) Goal: Effective gas exchange Outcome: Goal Ongoing Pt has effective gas exchange. Goal: Effective breathing pattern Outcome: Goal Ongoing Pt has effective breathing pattern. Problem: Discharge Planning Goal: Participation in plan of care Outcome: Goal Ongoing Pt participating and verbalizes understanding of plan of care Goal: Knowledge regarding plan of care Outcome: Goal Ongoing Pt updated on plan of care, verbalizes understanding Goal: Prepared for discharge Outcome: Goal Ongoing Pt is working towards discharge. Problem: Anxiety Goal: Alleviation of anxiety Outcome: Goal Ongoing Pt has no signs and symptoms anxiety. Problem: Pain Goal: Management of pain Outcome: Goal Ongoing Pt verbalizes understanding of pain management medications Goal: Knowledge of pain management Outcome: Goal Ongoing Pt verbalizes understanding of pain management medications Problem: Self-Care Deficit Goal: Maximize ADL functioning Outcome: Goal Ongoing Pt is working on improving on her ADL'S * Case Mgmt DC Plan - Madhavi Cortez RN - 03/11/2018 10:54 AM CDT Formatting of this note may be different from the original. Case Management Admission Assessment NAME:Radha Mota : AGE: 47 y.o. ADMISSION DATE: 03/10/2018 DAYS ADMITTED: LOS: 1 day Todays Date: 03/11/2018 Source of Information: Met with patient and her daughter and other friends/ family members at the bedside. Introduced self and explained role of CM. Patient 1 day s/p open hernia repair. Her daughter is availablle to assist her until next week when she returns to work. Patient stated she might want HH. RNCM explained she would have to qualify for this and that the physician orders it. Will continue to assess for d/c needs and facilitate as appropriate. Patient usess CPAP at home and obtains her supplies through [facility]. Plan Plan: Assist PRN with /NCM Services, Discharge Planning for Home Anticipated Interventions ? Support ? Info or Referral ? Discharge Planning ? Medication Needs ? Financial ? Legal ? Other Disposition ? Expected Discharge Date Expected Discharge Date: 03/13/18 ? Transportation Does the patient need discharge transport arranged?: No Does the patient use Medicaid Transportation?: No ? Next Level of Care (Acute Psych discharges only) ? Discharge Disposition Durable Medical Equipment No service has been selected for the patient. Destination No service has been selected for the patient. Home Care No service has been selected for the patient. Dialysis/Infusion No service has been selected for the patient. Patient Address/Phone [address] [facility] [address] (home) Emergency Contact Extended Emergency Contact Information Primary Emergency Contact: Thomas Mota [facility] Relation: Daughter Healthcare Directive Healthcare Directive: No, patient does not have a healthcare directive Transportation Does the patient need discharge transport arranged?: No Does the patient use Medicaid Transportation?: No Expected Discharge Date Expected Discharge Date: 03/13/18 Living Situation Prior to Admission ? Living Arrangements Type of Residence: Home, independent Living Arrangements: Children Bathroom Shower / Tub: Tub/Shower Unit How many levels in the residence?: 1 Can patient live on one level if needed?: Yes Does residence have entry and/or side stairs?: Yes (5) Assistance needed prior to admit or anticipated on discharge: No ? Level of Function Prior level of function: Independent ? Cognitive Abilities Cognitive Abilities: Alert and Oriented, Participates in decision making Financial Resources ? Coverage Primary Insurance: Medicaid ? Source of Income Source Of Income: SSDI ? Financial Assistance Needed? No Psychosocial Needs ? Mental Health Mental Health History: No ? Substance Use History Substance Use History Screen: No ? Other No Current/Previous Services ? PCP Linus Herrera, , ? Pharmacy [id number] [address] [address] [address] [facility] [address] ? Durable Medical Equipment Durable Medical Equipment at home: None ? Home Health Receiving home health: No ? Hemodialysis or Peritoneal Dialysis Undergoing hemodialysis or peritoneal dialysis: No ? Tube/Enteral Feeds Receive tube/enteral feeds: No ? Infusion Receive infusions: No ? Private Duty Private duty help used: No ? Home and Community Based Services Home and community based services: No ? [place]: N/A ? Hospice Hospice: No ? Outpatient Therapy PT: No OT: No PRESS BRAKE OPERATOR: No ? Retirement Facility/Snf SNF: No NH: No ? Inpatient Rehab IPR: No ? Long-Term Acute Care Hospital LTACH: No ? Acute Hospital Stay Acute Hospital Stay: No Eddie Cortez RN, [facility] Integrated Briefcase Sewer *[phone] * Anesthesia Post Op Day 1 - Denisse Red CRNA - 03/11/2018 10:02 AM CDT Formatting of this note may be different from the original. Anesthesia Follow-Up Evaluation: Post-Procedure Day One Name: Radha Mota : 1970 Age: 47 y.o. Sex: female Procedure Date: 03/10/2018 Procedure: Procedure(s) with comments: OPEN INCISIONAL HERNIA REPAIR WITH MESH, BILATERAL COMPONENT SEPARATION AND MYOCUTANOUS FLAP ADVANCEMENT, ABDOMINAL SCAR REVISION, REMOVAL OF FOREIGN OBJECT , REMOVAL AND DRAINAGE OF GRANULOMA/CYST - CASE LENGTH 4 HOURS, REQUEST 1ST START Physical Assessment Height: 165.1 cm (65") Weight: 131 kg (288 lb 12.8 oz) Vital Signs (Last Filed in 24 hours) BP: 97/57 (03/11 804) Temp: 37.8 C (100 F) (03/11 804) Pulse: 86 (03/11 804) Respirations: 17 PER MINUTE (03/11 804) SpO2: 92 % (03/11 804) O2 Delivery: Nasal Cannula (03/11 804) SpO2 Pulse: 93 (03/10 1700) Height: 165.1 cm (65") (03/10 180) Patient History Allergies Allergies Allergen Reactions Morphine HEADACHE, HIVES, NAUSEA ONLY, SHORTNESS OF BREATH and HYPOTENSION Adhesive Tape (Rosins) ITCHING and REDNESS Paper tape Augmentin [Amoxicillin-Pot Clavulanate] HIVES Pt reports that she tolerates Amoxil Fentanyl NAUSEA ONLY and SEE COMMENTS Hypotension Medications Scheduled Meds: budesonide/formoterol (SYMBICORT HFA) 160/4.5 mcg inhalation 2 puff 2 puff Inhalation BID enoxaparin (LOVENOX) syringe 40 mg 40 mg Subcutaneous QDAY(21) insulin aspart U-100 (NOVOLOG FLEXPEN) injection PEN 0-14 Units 0-14 Units Subcutaneous 5 X Day magnesium sulfate 4 g/50 mL IVPB 4 g Intravenous ONCE pantoprazole (PROTONIX) injection 40 mg 40 mg Intravenous QDAY Continuous Infusions: bupivacaine FURNITURE MECHANIC 0.125% in NS 50mL epidural infusion syr lactated ringers infusion Stopped (03/10/18 0900) PRN and Respiratory Meds:albuterol Q6H PRN, fentaNYL citrate PF Q1H PRN, HYDROmorphone (DILAUDID) injection Q10 MIN PRN, ipratropium/albuterol QID PRN, lidocaine PF PRN, naloxone PRN, promethazine Q10 MIN PRN, promethazine Q10 MIN PRN Diagnostic Tests Hematology: Lab Results Component Value Date HGB 11.5 03/11/2018 HCT 34.3 03/11/2018 PLTCT 170 03/11/2018 WBC 10.0 03/11/2018 NEUT 61 01/13/2018 ANC 9.50 01/13/2018 ALC 4.60 01/13/2018 WALESKA 6 01/13/2018 AMC 0.90 01/13/2018 EOSA 2 01/13/2018 ABC 0.20 01/13/2018 MCV 92.3 03/11/2018 MCH 31.0 03/11/2018 MCHC 33.6 03/11/2018 MPV 8.7 03/11/2018 RDW 14.9 03/11/2018 General Chemistry: Lab Results Component Value Date NA 135 03/11/2018 K 3.6 03/11/2018 CL 103 03/11/2018 CO2 25 03/11/2018 GAP 7 03/11/2018 BUN 16 03/11/2018 CR 0.50 03/11/2018 GLU 210 03/11/2018 CA 8.2 03/11/2018 ALBUMIN 3.7 01/13/2018 MG 1.4 03/11/2018 TOTBILI 0.3 01/13/2018 PO4 3.8 03/11/2018 Coagulation: No results found for: PT, PTT, INR Follow-Up Assessment Patient location during evaluation: floor Anesthetic Complications: Anesthetic complications: The patient did not experience any anesthestic complications. Pain: Score: 6 Management:satisfactory to patient Level of Consciousness: awake and alert Hydration:acceptable Airway Patency: patent Respiratory Status: acceptable Cardiovascular Status:acceptable Regional/Neuroaxial: Epidural in place * Med Student Progress Note - Harley Wong, - 03/11/2018 5:44 AM CDT Formatting of this note may be different from the original. Medical Student Progress Note - Inpatient Daily Progress Note Today's Date: 03/11/2018 Name: Radha Mota Admission Date: 03/10/2018 (LOS: 1 day) Assessment: 47 y.o. female with a pmh of asthma, DM, GERD, Sleep apnea, morbid obesity 1 Day Post-Op from Procedure(s) (LRB): OPEN INCISIONAL HERNIA REPAIR WITH MESH, BILATERAL COMPONENT SEPARATION AND MYOCUTANOUS FLAP ADVANCEMENT, ABDOMINAL SCAR REVISION, REMOVAL OF FOREIGN OBJECT , REMOVAL AND DRAINAGE OF GRANULOMA/CYST (N/A) Active Problems: Incisional hernia, without obstruction or gangrene Abdominal pannus Ventral hernia Plan: - Continue Pain management with bupivicaine FURNITURE MECHANIC and fentanyl - Consult PT/OT - Advance Diet as Tolerated - Electrolyte replacement - Dispo: Continue Floor status Subjective: No acute overnight events. Pain 6/10 and moderately controlled, No N/V, no flatus or BM, up to side of bedx2, currently NPO. Objective: BP: (90-136)/(47-79) Temp: [36.4 C (97.6 F)-37.6 C (99.7 F)] Pulse: [68-96] Respirations: [8 PER MINUTE-25 PER MINUTE] SpO2: [92 %-100 %] O2 Delivery: CPAP/BiPAP (Pt Owned) Lab Results Component Value Date/Time NA 135 (L) 03/11/2018 03:15 AM K 3.6 03/11/2018 03:15 AM CL 103 03/11/2018 03:15 AM CO2 25 03/11/2018 03:15 AM BUN 16 03/11/2018 03:15 AM CR 0.50 03/11/2018 03:15 AM MG 1.4 (L) 03/11/2018 03:15 AM PO4 3.8 03/11/2018 03:15 AM Lab Results Component Value Date/Time HGB 11.5 (L) 03/11/2018 03:15 AM HCT 34.3 (L) 03/11/2018 03:15 AM WBC 10.0 03/11/2018 03:15 AM PLTCT 170 03/11/2018 03:15 AM Lab Results Component Value Date/Time GLUPOC 231 (H) 03/11/2018 03:15 AM GLUPOC 239 (H) 03/10/2018 08:47 PM GLUPOC 212 (H) 03/10/2018 06:10 PM Physical Exam GENERAL: Vital signs reviewed. A&Ox3. Patient appears well. HEENT: Normocephalic, atraumatic ORAL: Moist mucous membranes. ABD: Soft, appropriately tender to palpation, BS present, incision CDI, four CARINA drains with SS fluid MUSC: no pedal edema. SKIN: Normal color, no rash, warm, dry. PSYCH: mood/affect normal. Harley Wong, MS4 * Procedures (Immed Post or Bedside) - Todd Issa DO - 03/10/2018 2 :57 PM CDT Formatting of this note may be different from the original. Brief Operative Note Name: Radha Mota is a 47 y.o. female : 1970 MRN# : [id number] DATE OF OPERATION: 03/10/2018 Date: 03/10/2018 Preoperative Dx: Incisional hernia, without obstruction or gangrene [K43.2] Abdominal pannus [E65] Post-op Diagnosis * Incisional hernia, without obstruction or gangrene [K43.2] * Abdominal pannus [E65] Procedure(s): OPEN INCISIONAL HERNIA REPAIR WITH MESH, BILATERAL COMPONENT SEPARATION AND MYOCUTANOUS FLAP ADVANCEMENT, ABDOMINAL SCAR REVISION, REMOVAL OF FOREIGN OBJECT , REMOVAL AND DRAINAGE OF GRANULOMA/CYST Anesthesia Type: General Surgeon(s) and Role: * Tracey Victoria DO - Primary * Todd Issa DO - Resident - Assisting Findings: complex abdominal hernia with multiple serbian cheese defects. intraabdominal cyst adhered to anterior abdominal wall with sebaceous contents. Dense adhesions between bowel and prior hernia repairs. Palpable foreign body in small bowel removed through small enterotomy which was repair in 2 layers. Foreign body was a tooth pick, presumably swallowed. Primary closure of peritoneum / posterior sheath. Underlay mesh with closure of fascia anteriorly over the mesh Estimated Blood Loss: 100 ml Specimen(s) Removed/Disposition: ID Type Source Tests Collected by Time Destination 1 : FOREIGN OBJECT Other (specify) Foreign Object SURGICAL PATHOLOGY Tracey Victoria DO 03/10/2018 1011 2 : ABDOMINAL WALL CYST - ROUTINE Tissue Abdominal Wall SURGICAL PATHOLOGY Tracey Victoria DO 03/10/2018 1246 3 : OLD MESH - ROUTINE Hardware Mesh SURGICAL PATHOLOGY Tracey Victoria DO 03/10/2018 1247 4 : ABDOMINAL SCAR FOR ROUTINE Tissue Abdomen SURGICAL PATHOLOGY Tracey Victoria DO 03/10/2018 1403 Complications: None Implants: biologic mesh Drains: 4 19F CARINA drains. The inferior drains are deep to the mesh. The superior drains are in the subcutaneous layer Disposition: PACU - stable Todd Issa DO Pager [phone] * Operative Report (DICTATED ONLY) - Tracey Victoria DO - 03/10/2018 2:37 PM CDT [address] [address] PATIENT NAME: RADHA MOTA MR#/PT#: [id number] Page 2 OPERATIVE REPORT DATE OF OPERATION: 03/10/2018 SURGEON: Tracey Victoria DO, FACOS CO-SURGEON(S): Todd Issa DO PREOPERATIVE DIAGNOSIS: Recurrent multiple incarcerated incisional hernia. POSTOPERATIVE DIAGNOSIS: Same. OPERATIVE PROCEDURE: 1. Repair of recurrent incarcerated incisional hernia times 3 with ACell biologic matrix measuring 30 x 30 cm. 2. Enterotomy with removal of foreign body with primary closure. 3. Component separation times 2. 4. Soft tissue rearrangements flaps measuring 40 x 30 cm in circumference. 5. Preparation of site for implantation of the mesh measuring 60 x 2 cm in aggregate. 6. Scar revision measuring 60 x 4 cm in aggregate. 7. Extensive intraabdominal lysis of adhesions lasting 2 hours in duration. ANESTHESIA: General endotracheal. DESCRIPTION AND FINDINGS OF OPERATIVE PROCEDURE: The patient was brought into the operating room after having had sequential compression devices placed in perioperative unit for DVT prophylaxis as well as initiation of appropriate antibiotic prophylaxis within 1 hour of surgical start time. She was placed in a supine position. General endotracheal anesthesia was administered by the Anesthesia Department. The area of the abdomen was sterilely prepped and draped in usual fashion. Using midline incision, skin was incised with a knife. Dissection continued down through the subcutaneous tissues. Hernia sac was identified. This was dissected circumferentially. Hernia sac was opened finding densely adhered small bowel. Hernia sac was opened to its fullest extent. Fascial bridge was open and second hernia sac was also identified and dissected circumferentially. Bridge was open connecting the 2 and hernia sac was opened to its fullest extent again noting significant intraabdominal small bowel adhesions. Final inferior hernia sac was identified as well and fascial bridge connecting between the 2, was opened to its fullest extent as well. Contents within all the hernias were significantly adhesed and incarcerated and this required extensive lysis of adhesions to reduce contents back into the abdominal cavity requiring 2 hours of dissection. Once small bowel, colon and omentum were back into anatomical position, area was inspected. The bowel was run, no enterotomies was noted. Foreign body was identified within the lumen of the mid jejunum. Using electrocautery, enterotomy was created on the anti- messenteric side of the bowel and foreign body was removed consistent with a toothpick. This was passed off the field for pathological review. Enterotomy was closed in 2 layer fashion with interrupted sutures of 3-0 Vicryl and the top layer of 3-0 GI silks in Lembert fashion. No other gross intraabdominal pathology was identified. Decision was made to proceed with hernia repair and closure. Due to the size and nature of the hernia defect as well as previous repairs, decision was made to proceed with bilateral component separation. Posterior sheath and peritoneum were identified on the right side, and these were dissected free laterally to the linea semilunaris and extending into the plane between the transversus abdominis and internal oblique. Similarly, on the left side, as well posterior sheath and peritoneum were dissected free laterally to the linea semilunaris extending inferiorly to the plane beyond the transversalis and internal oblique muscles. Once this was completed, the posterior sheath and peritoneum were closed in running fashion with a suture of 2-0 Vicryl closing the abdomen. Soft tissue rearrangements flaps measuring 40 x 30 cm were created to disconnect the anterior abdominal wall from its subcutaneous and skin components to release the tension at the midline. The retrorectus plane was measured and a piece of ACell 30 x 30 cm Gentrix biologic matrix was soaked appropriately. While soaking, the fascial edges and hernia sac were excised in preparation for implantation of the mesh measuring 60 x 2 cm in aggregate of excision of hernia sac and fascia. The mesh was fashioned, placed into the retrorectus plane and secured with U-stitches of 0 Vicryl through the anterior abdominal wall lateral to the linea semilunaris, but not cinched down at this time. Anterior fascia was reapproximated at the midline using a kwaep-hrdx-rrjx technique with interrupted mvryik-ez-guveo sutures of 0 Vicryl. Prior to closure of the midline, two 19-Moroccan Bradley drains 1 in the right and 1 on the left were brought through the fascia and placed along the lateral aspects of the subfascial plane. These were secured at the skin with interrupted sutures of 3-0 Nylon. The fascia was closed. Repair was inspected , found to have only physiologic tension at the midline. Through 2 separate stab incisions, 1 in the right and 1 in the left lower quadrant, two 19-Moroccan Bradley drains were brought into the subcutaneous plane and placed along the lateral gutters. Due to previous surgeries and excess skin, decision was made to proceed with scar revision with scar and excess skin measuring 60 x 4 in aggregate were excised and passed off the field. Skin and subcutaneous tissues were reapproximated with interrupted sutures of 0 Vicryl. Subdermal plane was closed with running 2-0 Monoderm Stratafix suture in running fashion and skin was closed with running 3-0 Monoderm Stratafix suture in subcuticular fashion. Dermabond was applied over the incision. This was allowed to dry. Dressing was applied. Binder was applied. The patient was awakened, extubated, and transferred to recovery room in stable condition. Sponge and needle counts were correct times 2. She tolerated the procedure well. There were no complications. ESTIMATED BLOOD LOSS: 250 mL. DRAINS: Two 19-Moroccan Bradley drains in the subfascial plane and two 19-Moroccan Bradley drains in the subcutaneous plane. SPECIMENS REMOVED: 1. Hernia sac and fascia measuring 60 x 2 in aggregate to Pathology. 2. Skin and scar measuring 60 x 4 in aggregate to Pathology 3. Foreign body (toothpick for gross only). COMPLICATIONS: None. Tracey Victoria DO, FACOS GB / [id number] /[id number] cc: - Tracey Victoria DO, DAHIANA Issa DO in this encounter Plan of Treatment Name Priority Associated Diagnoses Order Schedule SURGICAL PATHOLOGY Routine Incisional hernia, ONCE for 1 Occurrences without obstruction or starting 03/10/2018 gangrene Abdominal pannus as of this encounter Procedures Procedure Name Priority Date/Time Associated Diagnosis Comments ECG-SCAN 03/17/2018 Results for this 3:48 PM CDT procedure are in the results section. ECG-SCAN 03/17/2018 Results for this 3:48 PM CDT procedure are in the results section. CONSULT IV THERAPY TEAM Routine 03/12/2018 1:41 AM CDT REPAIR HERNIA VENTRAL 03/10/2018 Incisional hernia, 8:00 AM CDT without obstruction or gangrene in this encounter Results * ECG-SCAN (03/17/2018 3:48 PM) Narrative Performed At Ordered by an unspecified provider. * ECG-SCAN (03/17/2018 3:48 PM) Narrative Performed At Ordered by an unspecified provider. * POC GLUCOSE (03/16/2018 5:07 PM) Glucose, POC 224 (H) 70 - 100 MG/DL [facility] Performing Organization Address [facility] Phone Number [facility] [address] [place] [address] * POC GLUCOSE (03/16/2018 1:59 PM) Glucose, POC 175 (H) 70 - 100 MG/DL [facility] Performing Organization Address [facility] Phone Number [facility] [address] [place] [address] * POC GLUCOSE (03/16/2018 11:28 AM) Glucose, POC 188 (H) 70 - 100 MG/DL [facility] Performing Organization Address [facility] Phone Number [facility] [address] [place] [address] * POC GLUCOSE (03/16/2018 8:09 AM) Glucose, POC 172 (H) 70 - 100 MG/DL [facility] Performing Organization Address [facility] Phone Number [facility] [address] [place] [address] * PHOSPHORUS (03/16/2018 7:38 AM) Phosphorus 3.6 2.0 - 4.0 MG/DL [facility] Specimen Blood Performing Organization Address [facility] Unitcowi Phone Number MA[facility] [address] [place] [address] * MAGNESIUM (03/16/2018 7:38 AM) Magnesium 1.5 (L) 1.6 - 2.6 mg/dL [facility] Specimen Blood Performing Organization Address [facility] Phone Number [facility] [address] [place] [address] * BASIC METABOLIC PANEL (03/16/2018 7:38 AM) Sodium 134 (L) 137 - 147 MMOL/L [facility] Potassium 3.8 3.5 - 5.1 MMOL/L [facility] Chloride 98 98 - 110 MMOL/L [facility] CO2 28 21 - 30 MMOL/L [facility] Anion Gap 8 3 - 12 [facility] Glucose 172 (H) 70 - 100 MG/DL [facility] Blood Urea Nitrogen 5 (L) 7 - 25 MG/DL [facility] Creatinine 0.27 (L) 0.4 - 1.00 MG/DL [facility] Calcium 9.1 8.5 - 10.6 MG/DL [facility] eGFR Non >60 >60 mL/min [facility] Comment: The eGFR is not validated for use in drug dosing adjustments.Continue to use estimated creatinine clearance per dosing reference text.Please contact the Clinical Pharmacist for questions. eGFR >60 >60 mL/min [facility] Comment: The eGFR is not validated for use in drug dosing adjustments.Continue to use estimated creatinine clearance per dosing reference text.Please contact the Clinical Pharmacist for questions. Specimen Blood Performing Organization Address [facility]/Zipcode Phone Number MAIN LAB [address] [place] [address] * POC GLUCOSE (03/16/2018 3:01 AM) Glucose, POC 185 (H) 70 - 100 MG/DL [facility] Performing Organization Address [facility] Phone Number [facility] [address] [place] [address] * POC GLUCOSE (03/15/2018 9:43 PM) Glucose, POC 233 (H) 70 - 100 MG/DL [facility] Performing Organization Address City/[facility] Phone Number [facility] [address] [place] [address] * POC GLUCOSE (03/15/2018 5:35 PM) Glucose, POC 236 (H) 70 - 100 MG/DL [facility] Performing Organization Address [facility] Phone Number [facility] [address] [place] [address] * POC GLUCOSE (03/15/2018 3:27 PM) Glucose, POC 199 (H) 70 - 100 MG/DL [facility] Performing Organization Address [facility] Phone Number [facility] [address] [place] [address] * POC GLUCOSE (03/15/2018 9:04 AM) Glucose, POC 119 (H) 70 - 100 MG/DL [facility] Performing Organization Address [facility] Phone Number [facility] [address] [place] [address] * PHOSPHORUS (03/15/2018 5:35 AM) Phosphorus 3.5 2.0 - 4.0 MG/DL [facility] Specimen Blood Performing Organization Address [facility] Phone Number [facility] [address] [place] [address] * MAGNESIUM (03/15/2018 5:35 AM) Magnesium 1.6 1.6 - 2.6 mg/dL [facility] Specimen Blood Performing Organization Address [facility] Phone Number [facility] [address] [place] [address] * CBC (03/15/2018 5:35 AM) White Blood Cells 8.5 4.5 - 11.0 K/UL [facility] RBC 2.80 (L) 4.0 - 5.0 M/UL [facility] Hemoglobin 8.8 (L) 12.0 - 15.0 GM/DL [facility] Hematocrit 25.9 (L) 36 - 45 % [facility] MCV 92.5 80 - 100 FL [facility] MCH 31.3 26 - 34 PG [facility] MCHC 33.9 32.0 - 36.0 G/DL [facility] RDW 14.9 11 - 15 % [facility] Platelet Count 283 150 - 400 K/UL MA[facility] MPV 7.7 7 - 11 FL [facility] Specimen Blood Performing Organization Address City/[facility]/Zipcode Phone Number MAIN LAB [address] [place] [address] * BASIC METABOLIC PANEL (03/15/2018 5:35 AM) Sodium 134 (L) 137 - 147 MMOL/L [facility] Potassium 4.1 3.5 - 5.1 MMOL/L [facility] Chloride 99 98 - 110 MMOL/L [facility] CO2 28 21 - 30 MMOL/L [facility] Anion Gap 7 3 - 12 [facility] Glucose 191 (H) 70 - 100 MG/DL [facility] Blood Urea Nitrogen 6 (L) 7 - 25 MG/DL [facility] Creatinine 0.26 (L) 0.4 - 1.00 MG/DL [facility] Calcium 8.9 8.5 - 10.6 MG/DL [facility] eGFR Non >60 >60 mL/min [facility] Comment: The eGFR is not validated for use in drug dosing adjustments.Continue to use estimated creatinine clearance per dosing reference text.Please contact the Clinical Pharmacist for questions. eGFR >60 >60 mL/min [facility] Comment: The eGFR is not validated for use in drug dosing adjustments.Continue to use estimated creatinine clearance per dosing reference text.Please contact the Clinical Pharmacist for questions. Specimen Blood Performing Organization Address City/[facility] Phone Number [facility] [address] [place] [address] * POC GLUCOSE (03/15/2018 3:15 AM) Glucose, POC 201 (H) 70 - 100 MG/DL [facility] Performing Organization Address City/[facility]/Zipcode Phone Number MAIN LAB [address] [place] [address] * POC GLUCOSE (03/14/2018 9:40 PM) Glucose, POC 207 (H) 70 - 100 MG/DL [facility] Performing Organization Address City/[facility]/Zipcode Phone Number MAIN [facility] [address] [place] [address] * POC GLUCOSE (03/14/2018 6:02 PM) Glucose, POC 236 (H) 70 - 100 MG/DL [facility] Performing Organization Address [facility] Phone Number [facility] [address] [place] [address] * POC GLUCOSE (03/14/2018 3:51 PM) Glucose, POC 228 (H) 70 - 100 MG/DL [facility] Performing Organization Address [facility] Phone Number [facility] [address] [place] [address] * POC GLUCOSE (03/14/2018 1:48 PM) Glucose, POC 180 (H) 70 - 100 MG/DL [facility] Performing Organization Address [facility] Phone Number [facility] [address] [place] [address] * POC GLUCOSE (03/14/2018 9:33 AM) Glucose, POC 225 (H) 70 - 100 MG/DL [facility] Performing Organization Address [facility] Phone Number [facility] [address] [place] [address] * PHOSPHORUS (03/14/2018 4:53 AM) Phosphorus 3.1 2.0 - 4.0 MG/DL [facility] Specimen Blood Performing Organization Address [facility] Phone Number [facility] [address] [place] [address] * MAGNESIUM (03/14/2018 4:53 AM) Magnesium 1.8 1.6 - 2.6 mg/dL [facility] Specimen Blood Performing Organization Address [facility] Phone Number [facility] [address] [place] [address] * CBC (03/14/2018 4:53 AM) White Blood Cells 8.2 4.5 - 11.0 K/UL [facility] RBC 3.11 (L) 4.0 - 5.0 M/UL [facility] Hemoglobin 9.5 (L) 12.0 - 15.0 GM/DL [facility] Hematocrit 28.6 (L) 36 - 45 % [facility] MCV 91.9 80 - 100 FL [facility] MCH 30.5 26 - 34 PG MAIN LAB MCHC 33.2 32.0 - 36.0 G/DL MAIN LAB RDW 14.9 11 - 15 % MAIN LAB Platelet Count 236 150 - 400 K/UL MAIN LAB MPV 8.1 7 - 11 FL MAIN LAB Specimen Blood Performing Organization Address City/[facility] Phone Number MAIN LAB [address] [place] [address] * BASIC METABOLIC PANEL (03/14/2018 4:53 AM) Sodium 134 (L) 137 - 147 MMOL/L [facility] Potassium 4.1 3.5 - 5.1 MMOL/L [facility] Chloride 100 98 - 110 MMOL/L [facility] CO2 25 21 - 30 MMOL/L [facility] Anion Gap 9 3 - 12 MAIN LAB Glucose 238 (H) 70 - 100 MG/DL MAIN LAB Blood Urea Nitrogen 12 7 - 25 MG/DL [facility] Creatinine 0.32 (L) 0.4 - 1.00 MG/DL MAIN LAB Calcium 9.2 8.5 - 10.6 MG/DL MAIN LAB eGFR Non >60 >60 mL/min [...] for questions. Specimen Blood Performing Organization Address City/[facility] Phone Number MAIN LAB [address] [place] [address] * POC GLUCOSE (03/14/2018 3:59 AM) Glucose, POC 213 (H) 70 - 100 MG/DL [facility] Performing Organization Address City/[facility] Phone Number MAIN LAB [address] [place] [address] * POC GLUCOSE (03/13/2018 9:01 PM) Glucose, POC 243 (H) 70 - 100 MG/DL [facility] Performing Organization Address City/[facility] Phone Number MAIN LAB [address] [place] [address] * POC GLUCOSE (03/13/2018 5:37 PM) Glucose, POC 232 (H) 70 - 100 MG/DL [facility] Performing Organization Address [facility] Phone Number [facility] [address] [place] [address] * POC GLUCOSE (03/13/2018 12:55 PM) Glucose, POC 180 (H) 70 - 100 MG/DL [facility] Performing Organization Address [facility] Phone Number [facility] [address] [place] [address] * POC GLUCOSE (03/13/2018 9:07 AM) Glucose, POC 203 (H) 70 - 100 MG/DL [facility] Performing Organization Address [facility] Phone Number [facility] [address] [place] [address] * PHOSPHORUS (03/13/2018 5:05 AM) Phosphorus 2.0 2.0 - 4.0 MG/DL [facility] Specimen Blood Performing Organization Address [facility] Phone Number [facility] [address] [place] [address] * MAGNESIUM (03/13/2018 5:05 AM) Magnesium 1.7 1.6 - 2.6 mg/dL [facility] Specimen Blood Performing Organization Address [facility] Phone Number [facility] [address] [place] [address] * CBC (03/13/2018 5:05 AM) White Blood Cells 10.0 4.5 - 11.0 K/UL [facility] RBC 3.09 (L) 4.0 - 5.0 M/UL [facility] Hemoglobin 9.6 (L) 12.0 - 15.0 GM/DL MAIN LAB Hematocrit 28.5 (L) 36 - 45 % MAIN LAB MCV 92.3 80 - 100 FL MAIN LAB MCH 31.0 26 - 34 PG MAIN LAB MCHC 33.6 32.0 - 36.0 G/DL [facility] RDW 15.0 11 - 15 % MAIN LAB Platelet Count 182 150 - 400 K/UL [facility] MPV 8.2 7 - 11 FL MAIN LAB Specimen Blood Performing Organization Address City/[facility]/Zipcode Phone Number MAIN LAB [address] [place] [address] * BASIC METABOLIC PANEL (03/13/2018 5:05 AM) Sodium 129 (L) 137 - 147 MMOL/L [facility] Potassium 4.0 3.5 - 5.1 MMOL/L [facility] Chloride 95 (L) 98 - 110 MMOL/L [facility] CO2 25 21 - 30 MMOL/L [facility] Anion Gap 9 3 - 12 [facility] Glucose 195 (H) 70 - 100 MG/DL MAIN LAB Blood Urea Nitrogen 7 7 - 25 MG/DL [facility] Creatinine 0.30 (L) 0.4 - 1.00 MG/DL MAIN LAB Calcium 8.8 8.5 - 10.6 MG/DL MAIN LAB eGFR Non >60 >60 mL/min MAIN LAB Comment: The eGFR is not validated for use in drug dosing adjustments.Continue to use estimated creatinine clearance per dosing reference text.Please contact the Clinical Pharmacist for questions. eGFR >60 >60 mL/min MAIN LAB Comment: The eGFR is not validated for use in drug dosing adjustments.Continue to use estimated creatinine clearance per dosing reference text.Please contact the Clinical Pharmacist for questions. Specimen Blood Performing Organization Address [facility] Phone Number MAIN LAB [address] [place] [address] * POC GLUCOSE (03/13/2018 3:22 AM) Glucose, POC 210 (H) 70 - 100 MG/DL [facility] Performing Organization Address City/[facility] Phone Number MAIN LAB [address] [place] [address] * POC GLUCOSE (03/12/2018 9:06 PM) Glucose, POC 233 (H) 70 - 100 MG/DL [facility] Performing Organization Address City/[facility]/Zipcode Phone Number MAIN LAB [address] [place] [address] * POC GLUCOSE (03/12/2018 5:55 PM) Glucose, POC 202 (H) 70 - 100 MG/DL [facility] Performing Organization Address City/[facility]/Zipcode Phone Number MAIN LAB [address] [place] [phone] * POC GLUCOSE (03/12/2018 1:53 PM) Glucose, POC 227 (H) 70 - 100 MG/DL [facility] Performing Organization Address [facility] Phone Number [facility] [address] [place] [phone] * POC GLUCOSE (03/12/2018 8:20 AM) Glucose, POC 197 (H) 70 - 100 MG/DL [facility] Performing Organization Address [facility] Phone Number [facility] [address] [place] [phone] * PHOSPHORUS (03/12/2018 7:34 AM) Phosphorus 1.3 (LL) 2.0 - 4.0 MG/DL MAIN LAB Comment: Critical Value PHOS: Called To: MARIKA Aguirre at: 08:45:10 by: ELISE Read back by: MARIKA Aguirre Specimen Blood Performing Organization Address [facility] Phone Number [facility]IN [facility] [address] [place] [phone] * MAGNESIUM (03/12/2018 7:34 AM) Magnesium 1.9 1.6 - 2.6 mg/dL MAIN LAB Specimen Blood Performing Organization Address [facility] Phone Number [facility]IN [facility] [address] [place] [phone] * CBC (03/12/2018 7:34 AM) White Blood Cells 12.1 (H) 4.5 - 11.0 K/UL MAIN LAB RBC 3.22 (L) 4.0 - 5.0 M/UL MAIN LAB Hemoglobin 9.8 (L) 12.0 - 15.0 GM/DL MAIN LAB Hematocrit 29.7 (L) 36 - 45 % [facility] MCV 92.2 80 - 100 FL [facility] MCH 30.4 26 - 34 PG MAIN LAB MCHC 33.0 32.0 - 36.0 G/DL MAIN LAB RDW 14.9 11 - 15 % [facility] Platelet Count 179 150 - 400 K/UL [facility] MPV 8.1 7 - 11 FL [facility] Specimen Blood Performing Organization Address [facility]/State/Zipcode Phone Number MAIN LAB [address] [place] [address] * BASIC METABOLIC PANEL (03/12/2018 7:34 AM) Sodium 130 (L) 137 - 147 MMOL/L [facility] Potassium 3.6 3.5 - 5.1 MMOL/L [facility] Chloride 98 98 - 110 MMOL/L [facility] CO2 25 21 - 30 MMOL/L [facility] Anion Gap 7 3 - 12 [facility] Glucose 207 (H) 70 - 100 MG/DL [facility] Blood Urea Nitrogen 11 7 - 25 MG/DL [facility] Creatinine 0.37 (L) 0.4 - 1.00 MG/DL [facility] Calcium 8.7 8.5 - 10.6 MG/DL [facility] [...] for questions. Specimen Blood Performing Organization Address City/[facility]/Zipcode Phone Number MAIN LAB [address] [place] [address] * POC GLUCOSE (03/12/2018 2:40 AM) Glucose, POC 208 (H) 70 - 100 MG/DL [facility] Performing Organization Address City/[facility]/Zipcode Phone Number [facility] [address] [place] [address] * POC GLUCOSE (03/11/2018 8:56 PM) Glucose, POC 232 (H) 70 - 100 MG/DL [facility] Performing Organization Address City/State/Zipcode Phone Number MAIN LAB [address] [place] [address] * POC GLUCOSE (03/11/2018 4:27 PM) Glucose, POC 218 (H) 70 - 100 MG/DL [facility] Performing Organization Address City/[facility]/Zipcode Phone Number MAIN LAB [address] [place] [address] * POC GLUCOSE (03/11/2018 3:22 PM) Glucose, POC 212 (H) 70 - 100 MG/DL [facility] Performing Organization Address [facility] Phone Number [facility] [address] [place] [address] * POC GLUCOSE (03/11/2018 11:21 AM) Glucose, POC 215 (H) 70 - 100 MG/DL [facility] Performing Organization Address [facility] Phone Number [facility] [address] [place] [address] * POC GLUCOSE (03/11/2018 8:04 AM) Glucose, POC 213 (H) 70 - 100 MG/DL [facility] Performing Organization Address [facility] Phone Number [facility] [address] [place] [address] * POC GLUCOSE (03/11/2018 3:15 AM) Glucose, POC 231 (H) 70 - 100 MG/DL [facility] Performing Organization Address [facility] Phone Number [facility] [address] [place] [address] * PHOSPHORUS (03/11/2018 3:15 AM) Phosphorus 3.8 2.0 - 4.0 MG/DL [facility] Specimen Blood Performing Organization Address [facility] Phone Number [facility] [address] [place] [address] * MAGNESIUM (03/11/2018 3:15 AM) Magnesium 1.4 (L) 1.6 - 2.6 mg/dL [facility] Specimen Blood Performing Organization Address [facility] Phone Number [facility] [address] [place] [address] * CBC (03/11/2018 3:15 AM) White Blood Cells 10.0 4.5 - 11.0 K/UL [facility] RBC 3.71 (L) 4.0 - 5.0 M/UL [facility] Hemoglobin 11.5 (L) 12.0 - 15.0 GM/DL [facility] Hematocrit 34.3 (L) 36 - 45 % [facility] MCV 92.3 80 - 100 FL [facility] MCH 31.0 26 - 34 PG MAIN LAB MCHC 33.6 32.0 - 36.0 G/DL MAIN LAB RDW 14.9 11 - 15 % MAIN LAB Platelet Count 170 150 - 400 K/UL MAIN LAB MPV 8.7 7 - 11 FL MAIN LAB Specimen Blood Performing Organization Address City/[facility]/Zipcode Phone Number MAIN LAB [address] [place] [address] * BASIC METABOLIC PANEL (03/11/2018 3:15 AM) Sodium 135 (L) 137 - 147 MMOL/L [facility] Potassium 3.6 3.5 - 5.1 MMOL/L MAIN LAB Chloride 103 98 - 110 MMOL/L MAIN LAB CO2 25 21 - 30 MMOL/L MAIN LAB Anion Gap 7 3 - 12 MAIN LAB Glucose 210 (H) 70 - 100 MG/DL MAIN LAB Blood Urea Nitrogen 16 7 - 25 MG/DL MAIN LAB Creatinine 0.50 0.4 - 1.00 MG/DL MAIN LAB Calcium 8.2 (L) 8.5 - 10.6 MG/DL MAIN LAB eGFR Non >60 >60 mL/min MAIN LAB Comment: The eGFR is not validated for use in drug dosing adjustments.Continue to use estimated creatinine clearance per dosing reference text.Please contact the Clinical Pharmacist for questions. eGFR >60 >60 mL/min MAIN LAB Comment: The eGFR is not validated for use in drug dosing adjustments.Continue to use estimated creatinine clearance per dosing reference text.Please contact the Clinical Pharmacist for questions. Specimen Blood Performing Organization Address City/[facility]/Zipcode Phone Number MAIN LAB [address] [place] [address] * POC GLUCOSE (03/10/2018 8:47 PM) Glucose, POC 239 (H) 70 - 100 MG/DL [facility] Performing Organization Address City/[facility]/Zipcode Phone Number MAIN LAB [address] [place] [address] * POC GLUCOSE (03/10/2018 6:10 PM) Glucose, POC 212 (H) 70 - 100 MG/DL [facility] Performing Organization Address City/[facility]/Zipcode Phone Number MAIN LAB [address] [place] [address] * PHOSPHORUS (03/10/2018 3:53 PM) Phosphorus 5.7 (H) 2.0 - 4.0 MG/DL [facility] Specimen Blood Performing Organization Address [facility] Phone Number [facility] [address] [place] [address] * MAGNESIUM (03/10/2018 3:53 PM) Magnesium 1.5 (L) 1.6 - 2.6 mg/dL [facility] Specimen Blood Performing Organization Address [facility] Phone Number [facility] [address] [place] [address] * CBC (03/10/2018 3:53 PM) White Blood Cells 10.2 4.5 - 11.0 K/UL [facility] RBC 3.73 (L) 4.0 - 5.0 M/UL [facility] Hemoglobin 11.3 (L) 12.0 - 15.0 GM/DL [facility] Hematocrit 34.6 (L) 36 - 45 % [facility] MCV 92.8 80 - 100 FL [facility]IN [facility] MCH 30.4 26 - 34 PG [facility]IN [facility] MCHC 32.7 32.0 - 36.0 G/DL [facility] RDW 14.9 11 - 15 % [facility] Platelet Count 199 150 - 400 K/UL [facility]IN [facility] MPV 8.5 7 - 11 FL [facility]IN [facility] Specimen Blood Performing Organization Address [facility] Phone Number [facility] [address] [place] [address] * BASIC METABOLIC PANEL (03/10/2018 3:53 PM) Sodium 140 137 - 147 MMOL/L [facility] Potassium 3.9 3.5 - 5.1 MMOL/L [facility] Chloride 102 98 - 110 MMOL/L [facility] CO2 25 21 - 30 MMOL/L [facility] Anion Gap 13 (H) 3 - 12 [facility]IN [facility] Glucose 204 (H) 70 - 100 MG/DL [facility] Blood Urea Nitrogen 15 7 - 25 MG/DL [facility] Creatinine 0.52 0.4 - 1.00 MG/DL [facility] Calcium 9.1 8.5 - 10.6 MG/DL [facility] eGFR Non >60 >60 mL/min [facility] Comment: The eGFR is not validated for use in drug dosing adjustments.Continue to use estimated creatinine clearance per dosing reference text.Please contact the Clinical Pharmacist for questions. eGFR >60 >60 mL/min MAIN LAB Comment: The eGFR is not validated for use in drug dosing adjustments.Continue to use estimated creatinine clearance per dosing reference text.Please contact the Clinical Pharmacist for questions. Specimen Blood Performing Organization Address City/State/Zipcode Phone Number [facility] [address] [place] [address] * POC GLUCOSE (03/10/2018 3:17 PM) Glucose, POC 195 (H) 70 - 100 MG/DL MAIN LAB Performing Organization Address City/[facility]/Zipcode Phone Number [facility] [address] [place] [address] * SURGICAL PATHOLOGY (03/10/2018 1:27 PM) PATHOLOGY REPORT [facility] [email or web address] Department of Pathology and Laboratory Medicine [address] [place] [address] Surgical Pathology Office:[phone] SURGICAL PATHOLOGY REPORT NAME: RADHA MOTA GEOVANI SURG PATH #: [id number] MR #: [id number] SPECIMEN CLASS: SR BILLING #: [id number] ALT ID #:LOCATION: DATE OF PROCEDURE: 03/10/2018 AGE:47 SEX: F [...] is opened to reveal yellow-andre, friable material. Review Scheduling Coordinator sections of the specimen are submitted as follows: B1 Cyst wall. B2 Friable material. B3 Full thickness section of cyst wall fibroadipose tissue. (jrt) C. Received in formalin, labeled with the patient's name and "old mesh" is a 9.6 x 7.5 x 3.6 cm portion of andre-white, mesh like material with attached yellow-andre to pink-purple fibroadipose tissue. A chemical sales representative section of the attached fibroadipose tissue is submitted in cassette C1. (jrt) D. Received fresh labeled with the patient's name and "abdominal scar" is a 31.5 x 15.0 x 1.5 cm andre-white, annular portion of skin with a 1.5 x 1.5 cm possible umbilicus. No discrete scar is grossly identified on the surface of the skin. Review Scheduling Coordinator sections are submitted in cassette D1. (sld) jrt/03/10/2018 Performing Organization Address City/[facility] Phone Number LAB RESULTS * POC GLUCOSE (03/10/2018 7:21 AM) Glucose, POC 181 (H) 70 - 100 MG/DL [facility]IN [facility] Performing Organization Address [facility] Phone Number MAIN LAB [address] [place] [address] * TYPE & CROSSMATCH (03/10/2018 7:13 AM) Units Ordered 2 MAIN LAB Crossmatch Expires 03/13/2018 MAIN LAB Record Check FOUND MAIN LAB ABO/RH(D) A POS MAIN LAB Antibody Screen NEG MAIN LAB Electronic Crossmatch YES MAIN LAB Specimen Blood Performing Organization Address [facility] Phone Number MAIN LAB [address] [place] [phone] * TEST-URINE (03/10/2018 6:25 AM) Urine-HCG NEG MAIN LAB Samples with Specific [place] <1.010 may result in a false negative test Specific [place] 1.019 MAIN LAB Specimen Urine - Urine Performing Organization Address [facility] Phone Number MAIN LAB [address] [place] [address] in this encounter Visit Diagnoses Diagnosis Incisional hernia, without obstruction or gangrene Incisional hernia without mention of obstruction or gangrene Abdominal pannus Localized adiposity Ventral hernia Ventral hernia, unspecified, without mention of obstruction or gangrene Morbid obesity (HCC) Morbid obesity MALINDA on CPAP Obstructive sleep apnea (adult) (pediatric) Hyperlipidemia Other and unspecified hyperlipidemia GERD (gastroesophageal reflux disease) Esophageal reflux DM (diabetes mellitus) (HCC) Type II or unspecified type diabetes mellitus without mention of complication , not stated as uncontrolled Coronary artery disease Coronary atherosclerosis of unspecified type of vessel, [place] or graft Asthma Unspecified asthma Admitting Diagnoses Diagnosis Incisional hernia, without obstruction or gangrene - Incisional hernia, without obstruction or gangrene [K43.2] Incisional hernia without mention of obstruction or gangrene Abdominal pannus - Abdominal pannus [E65] Localized adiposity Ventral hernia Administered Medications Medication Order MAR Action Action Date Dose Rate Site acetaminophen (TYLENOL) tablet 1,000 mg Given 03/15/2018 1,000 mg 1,000 mg, Oral, EVERY 8 HOURS, First 20:09 CDT dose on 03/14/18 at 1200, Until Discontinued, TOTAL ACETAMINOPHEN DOSE NOT TO EXCEED 4GM DAILY Given 03/16/2018 1,000 mg 03:57 CDT Given 03/16/2018 1,000 mg 11:54 CDT acetaminophen (TYLENOL) tablet 650 mg Given 03/13/2018 650 mg 650 mg, Oral, EVERY 4 HOURS PRN, 15:56 CDT Starting Danae 03/12/18 at 0628, Until 03/14/18 at 0738, Pain non-opioid: may be used alone or in combination with opioid analgesia, TOTAL ACETAMINOPHEN DOSE NOT TO EXCEED 4GM DAILY Given 03/13/2018 650 mg 20:57 CDT Given 03/14/2018 650 mg 04:45 CDT albuterol (PROAIR HFA, VENTOLIN HFA, or PROVENTIL HFA) inhaler 2 puff 2 puff, Inhalation, RT EVERY 6 HOURS PRN, Starting Fri03/10/18 at 1905, Until Fri03/16/18 at 2029, RT PROTOCOL, When administered by RT, will be per RT policy. atorvastatin (LIPITOR) tablet 80 mg Given 03/14/2018 80 mg 80 mg, Oral, DAILY, First dose on Danae 09:25 CDT 03/12/18 at 0900, Until Discontinued Given 03/15/2018 80 mg 08:50 CDT Given 03/16/2018 80 mg 08:05 CDT bisacodyl (DULCOLAX) rectal suppository Given 03/13/2018 10 mg 10 mg 20:57 CDT 10 mg, Rectal, TWICE DAILY, First dose on Fri03/13/18 at 2100, Until Discontinued, Hold for loose stools Given 03/14/2018 10 mg 17:30 CDT Given 03/15/2018 10 mg 15:06 CDT budesonide/formoterol (SYMBICORT HFA) Given 03/15/2018 2 puffs 160/4.5 mcg inhalation 2 puff 17:35 CDT 2 puff, Inhalation, RT TWICE DAILY, First dose on Fri03/10/18 at 1915, Until Discontinued, When administered by RT, will be per RT policy. Given 03/16/2018 2 puffs 05:16 CDT Given 03/16/2018 2 puffs 16:48 CDT bumetanide (BUMEX) tablet 0.25 mg Given 03/14/2018 0.25 mg 0.25 mg, Oral, DAILY, First dose on Fri 09:25 CDT 03/13/18 at 0900, Until Discontinued Given 03/15/2018 0.25 mg 08:54 CDT Given 03/16/2018 0.25 mg 08:04 CDT bupivacaine FURNITURE MECHANIC 0.125% in NS 50mL Given - New 03/12/2018 epidural infusion syr Bag 01:52 CDT Epidural, FURNITURE MECHANIC, Starting Fri03/10/18 at 0915, Until Danae 03/12/18 at 1022, --FOR EPIDURAL ADMINISTRATION ONLY -- Administer only with FURNITURE MECHANIC Pump -- Only Patient may push FURNITURE MECHANIC button Prescription change can only be made by Anesthesiology Pain Service. NOTE: This is a HIGH ALERT Medication. Given - New Bag 03/12/2018 04:13 CDT Given - New Bag 03/12/2018 06:19 CDT enoxaparin (LOVENOX) syringe 40 mg Given 03/13/2018 40 mg Abdominal 40 mg, Subcutaneous, DAILY, First dose 20:57 CDT Tissue on Fri03/10/18 at 2100, Until Discontinued, For patients undergoing surgery: Consult physician in advance -- enoxaparin is an anticoagulant and may need to be held for 12hr prior to surgery or invasive procedures. NOTE: This is a HIGH ALERT Medication. Given 03/14/2018 40 mg Abdominal 20:55 CDT Tissue Given 03/15/2018 40 mg Abdominal 20:09 CDT Tissue fenofibrate nanocrystallized (TRICOR) Given 03/15/2018 145 mg tablet 145 mg 08:51 CDT 145 mg, Oral, DAILY, First dose on Fri03/15/18 at 0900, Until Discontinued, NURSING: Please educate patient and document: Give with food Given 03/16/2018 145 mg 08:05 CDT fentaNYL citrate PF (SUBLIMAZE) Given 03/12/2018 25 mcg injection 25-50 mcg 17:37 CDT 25-50 mcg, Intravenous, EVERY 1 HOUR PRN, Starting Fri03/10/18 at 0802, Until Fri03/13/18 at 1111, Pain Injectable, Give for inadequate pain control with Epidural PCEA. Given 03/12/2018 50 mcg 21:17 CDT Given 03/13/2018 50 mcg 06:46 CDT HYDROmorphone injection (DILAUDID) Given 03/11/2018 0.5 mg injection 0.5 mg 08:20 CDT 0.5 mg, Intravenous, EVERY 10 MIN PRN, Starting Fri03/10/18 at 1410, Until Fri03/13/18 at 1111, Pain Injectable, For Pain Score 4-6, Maximum total dose of 2 mg Hold for RR < 10 insulin aspart U-100 (NOVOLOG FLEXPEN) Given 03/11/2018 4 Units Abdomen:RLQ injection PEN 0-14 Units 03:16 CDT 0-14 Units, Subcutaneous, FIVE TIMES DAILY, First dose on Fri03/10/18 at 1700, Until Discontinued, -POC glucose 140-180mg/dL at administer 2 units insulin, at , 03* administer 0 units. -POC glucose 181-220mg/dL at , administer 4 units insulin, at , 03* administer 2 units. -POC glucose 221-260mg/dL at administer 6 units insulin, at , * administer 4 units. -POC glucose 261-300mg/dL at administer 8 units insulin, at , 03* administer 6 units. -POC glucose 301-350mg/dL at administer 10 units insulin, at , 03* administer 8 units. -POC glucose 351-400mg/dL at administer 12 units insulin, at , 03* administer 10 units. -POC glucose >400mg/dL at administer 14 units insulin, at , 03* administer 12 units. *only if ordered 5x's daily For POCT glucose >350mg/dL give correction bolus and recheck POCT glucose in 2 hours. If POCT glucose at 2 hours >300mg/dL call physician for further orders. For patients who are not eating meals, continue to administer the appropriate correction factor. NOTE: This is a HIGH ALERT Medication. Given 03/11/2018 4 Units Abdomen:LLQ 08:05 CDT Given 03/11/2018 4 Units Abdomen:LLQ 12:05 CDT insulin aspart U-100 (NOVOLOG FLEXPEN) Given 03/16/2018 4 Units Abdominal injection PEN 0-28 Units 03:58 CDT Tissue 0-28 Units, Subcutaneous, FIVE TIMES DAILY, First dose on Fri03/11/18 at 1715, Until Discontinued, -POC glucose 140-180mg/dL at , , administer 4 units insulin, at 21, 03* administer 0 units. -POC glucose 181-220mg/dL at , , administer 8 units insulin, at , 03* administer 4 units. -POC glucose 221-260mg/dL at , , administer 12 units insulin, at , * administer 8 units. -POC glucose 261-300mg/dL at , , administer 16 units insulin, at , * administer 12 units. -POC glucose 301-350mg/dL at , , administer 20 units insulin, at , 03* administer 16 units. -POC glucose 351-400mg/dL at , , administer 24 units insulin, at , 03* administer 20 units. -POC glucose >400mg/dL at , , administer 28 units insulin, at , 03* administer 24 units. *only if ordered 5x's daily For POCT glucose >350mg/dL give correction bolus and recheck POCT glucose in 2 hours. If POCT glucose at 2 hours >300mg/dL call physician for further orders. For patients who are not eating meals, continue to administer the appropriate correction factor. NOTE: This is a HIGH ALERT Medication. Given 03/16/2018 4 Units Abdominal 08:16 CDT Tissue Given 03/16/2018 4 Units Arm, Right 14:13 CDT ipratropium/albuterol (COMBIVENT Given 03/14/2018 1 puff RESPIMAT) inhaler 1 puff 16:55 CDT 1 puff, Inhalation, FOUR TIMES DAILY PRN, Starting Fri03/10/18 at 1905, Until Fri03/16/18 at 202, RT PROTOCOL, When administered by RT, will be per RT policy. NOT TO EXCEED 6 INHALATIONS / 24 HOURS Given 03/15/2018 1 puff 04:59 CDT Given 03/15/2018 1 puff 17:35 CDT ketorolac (TORADOL) injection 30 mg Given 03/13/2018 30 mg 30 mg, Intravenous, ONCE, 1 dose, Fri 17:31 CDT 03/13/18 at 1715, Please note: this medication will be automatically discontinued 5 days after ordered per hospital policy. Please obtain a new order if the medication needs to be continued. lactated ringers infusion Given - 03/10/2018 1,000 mL 20 mL/hr 1,000 mL, 1,000 mL, Intravenous, at 20 Bag 07:30 CDT mL/hr, CONTINUOUS, Starting Fri03/10/18 at 0545, Until Danae 03/12/18 at 0544 lidocaine PF 1% (10 mg/mL) injection 0.1-2 mL 0.1-2 mL, Injection, NEEDED, Starting Fri03/10/18 at 0635, Until Fri03/16/18 at 2029, Other..., for IV insertion magnesium sulfate 1 g/D5W 100 mL IVPB Given - 03/11/2018 1 g 100 mL/hr 1 g, Intravenous, 100 mL, Administer Bag 06:08 CDT over 1 Hours, ONCE, 1 dose, Fri03/11/18 at 0600, Each 1gm delivers 8.1 mEq Magnesium. magnesium sulfate 1 g/D5W 100 mL IVPB Given - 03/12/2018 1 g 100 mL/hr 1 g, Intravenous, 100 mL, Administer Bag 14:08 CDT over 1 Hours, ONCE, 1 dose, [place] 03/12/18 at 1200, Each 1gm delivers 8.1 mEq Magnsium. magnesium sulfate 1 g/D5W 100 mL IVPB Given - 03/14/2018 1 g 100 mL/hr 1 g, Intravenous, 100 mL, Administer Bag 06:45 CDT over 1 Hours, ONCE, 1 dose, [facility] 03/14/18 at 0600, Each 1gm delivers 8.1 mEq Magnesium. magnesium sulfate 4 g/50 mL IVPB Given - 03/11/2018 4 g 4 g, Intravenous, 50 mL, Administer over Bag 07:28 CDT 4 Hours, ONCE, 1 dose, Fri03/11/18 at 0700, Each 1gm delivers 8.1 mEq Magnesium magnesium sulfate 4 g/50 mL IVPB Given - 03/13/2018 4 g 4 g, Intravenous, 50 mL, Administer over Bag 06:54 CDT 4 Hours, ONCE, 1 dose, Fri03/13/18 at 0645, Each 1gm delivers 8.1 mEq Magnesium magnesium sulfate 4 g in dextrose 5% Given - New 03/15/2018 4 g 13 mL/ hr (D5W) 50 mL IVPB Bag 08:52 CDT 4 g, Intravenous, 50 mL, Administer over 4 Hours, ONCE, 1 dose, Fri03/15/18 at 0745, Each 1gm delivers 8.1 mEq magnesium. melatonin tablet 5 mg Given 03/13/2018 5 mg 5 mg, Oral, AT BEDTIME PRN, Starting Danae 20:57 CDT 03/12/18 at 2059, Until 03/16/18 at 2029, Insomnia Given 03/14/2018 5 mg 20:55 CDT Given 03/15/2018 5 mg 20:09 CDT milk/molasses(#) 1:1 rectal enema 200 mL Given 03/15/2018 200 mL 200 mL (1 each), Rectal, TWICE DAILY, 08:52 CDT First dose on 03/15/18 at 0900, Until Discontinued montelukast (SINGULAIR) tablet 10 mg Given 03/13/2018 10 mg 10 mg, Oral, AT BEDTIME DAILY, First 20:57 CDT dose on Danae 03/12/18 at 2100, Until Discontinued Given 03/14/2018 10 mg 20:55 CDT Given 03/15/2018 10 mg 20:10 CDT naloxegol (MOVANTIK) tablet 25 mg Given 03/15/2018 25 mg 25 mg, Oral, ONCE, 1 dose, [place] 03/15/18 11:42 CDT at 0930, Should be administered at least 1 hour prior to the first meal of the day or 2 hours after the meal. For patients who are unable to swallow the tablet whole, the tablet can be crushed to a powder, mixed with 4 ounces (120 mL) of water and drunk immediately. The glass should be refilled with 4 ounces (120 mL) of water, stirred and the contents drunk. Consumption of grapefruit or grapefruit juice during treatment with naloxegol should be avoided. nystatin (NYSTOP) topical powder Given 03/15/2018 Topical, TWICE DAILY, First dose on Sat 08:54 CDT 03/14/18 at 1230, Until Discontinued, Apply to rash under breasts. Given 03/15/2018 21:00 CDT Given 03/16/2018 08:16 CDT ondansetron (ZOFRAN) tablet 4 mg Given 03/14/2018 4 mg 4 mg, Oral, EVERY 6 HOURS PRN, Starting 22:08 CDT 03/14/18 at 1124, Until 03/16/18 at 2028, Nausea/Vomiting PO oxyCODONE (ROXICODONE, OXY-IR) tablet Given 03/13/2018 10 mg 5-10 mg 09:14 CDT 5-10 mg, Oral, EVERY 3 HOURS PRN, Starting Danae 03/12/18 at 0628, Until Fri03/13/18 at 1712, Pain PO Given 03/13/2018 10 mg 12:37 CDT Given 03/13/2018 10 mg 15:56 CDT oxyCODONE (ROXICODONE, OXY-IR) tablet Given 03/16/2018 15 mg 5-15 mg 03:57 CDT 5-15 mg, Oral, EVERY 3 HOURS PRN, Starting 03/13/18 at 1712, Until 03/16/18 at 2028, Pain PO Given 03/16/2018 15 mg 08:28 CDT Given 03/16/2018 15 mg 13:32 CDT pantoprazole (PROTONIX) injection 40 mg Given 03/11/2018 40 mg 40 mg, Intravenous, DAILY, First dose on 08:00 CDT 03/10/18 at 1515, Until Discontinued pantoprazole DR (PROTONIX) tablet 40 mg Given 03/13/2018 40 mg 40 mg, Oral, DAILY, First dose on Danae 20:57 CDT 03/12/18 at 0630, Until Discontinued, Do not crush or chew tablet. Given 03/14/2018 40 mg 20:55 CDT Given 03/15/2018 40 mg 20:10 CDT polyethylene glycol 3350 (MIRALAX) Given 03/14/2018 34 g packet 34 g 09:25 CDT 34 g (2 packet), Oral, DAILY, First dose on Danae 03/12/18 at 0900, Until Discontinued, 8.5 GRAMS=0.5 PACKET 17 GRAMS=1 PACKET 34 GRAMS=2 PACKETS Given 03/15/2018 34 g 08:50 CDT Given 03/16/2018 34 g 08:04 CDT potassium chloride SR (K-DUR) tablet 40 Given 03/11/2018 40 mEq mEq 08:00 CDT 40 mEq, Oral, ONCE, 1 dose, 03/11/18 at 0745, - Tablet may be dispersed in water. Place tab in 30 mL of water for 40-60 seconds. - Gently swirl until fully dispersed. If particles remain after admin, add small amount of water and admin remaining content. - DO NOT CRUSH. Tablet may be split in half. potassium chloride SR (K-DUR) tablet 40 Given 03/12/2018 40 mEq mEq 14:08 CDT 40 mEq, Oral, ONCE, 1 dose, [facility] 03/12/18 at 1300, - Tablet may be dispersed in water. Place tab in 30 mL of water for 40-60 seconds. - Gently swirl until fully dispersed. If particles remain after admin, add small amount of water and admin remaining content. - DO NOT CRUSH. Tablet may be split in half. potassium chloride SR (K-DUR) tablet 40 Given 03/16/2018 40 mEq mEq 11:54 CDT 40 mEq, Oral, ONCE, 1 dose, 03/16/18 at 1015, Do NOT break or crush tablet senna/docusate (SENOKOT-S) tablet 1 Given 03/14/2018 1 tablet tablet 18:21 CDT 1 tablet, Oral, ONCE, 1 dose, 03/14/18 at 1815, Hold for loose stools senna/docusate (SENOKOT-S) tablet 1 Given 03/15/2018 1 tablet tablet 08:50 CDT 1 tablet, Oral, TWICE DAILY, First dose on 03/15/18 at 0900, Until Discontinued, Hold for loose stools Given 03/15/2018 1 tablet 20:09 CDT Given 03/16/2018 1 tablet 08:05 CDT sodium phosphate 16 mmol in sodium Given - New 03/13/2018 16 mmol 63 mL /hr chloride 0.9% (NS) 250 mL IVPB Bag 11:01 CDT 16 mmol, Intravenous, 250 mL, Administer over 4 Hours, ONCE, 1 dose, 03/13/18 at 0645 sodium phosphate 20 mmol in sodium Given - New 03/12/2018 20 mmol 63 mL /hr chloride 0.9% (NS) 250 mL IVPB Bag 11:15 CDT 20 mmol, Intravenous, 250 mL, Administer over 4 Hours, ONCE, 1 dose, [place]e 03/12/18 at 0900 in this encounter
--- OUTSIDE RECORDS SUMMARY | 2018-04-01 00:11 | XMS REPORT | Encounter Summary ---
Author [facility] Address Unknown Phone Unavailable Care Team Providers Care [place] Rep[employer] Name Role Phone Javier Linus Guanako DO PCP Encounter Details Date Type Department Care Team Description 03/10/2018 Procedure Pass Main Operating Room [address] [place] [address] Social History Tobacco Use Types Packs/Day Years Used Date Former Smoker Smokeless Tobacco: Never Used Alcohol Use Drinks/Week oz/Week Comments No Sex Assigned at Date Recorded Not on file as of this encounter Functional Status Functional Status Response Date of Assessment Does the patient have a hearing impairment: No 01/13/2018 Does the patient have a visual impairment: [...]
--- OUTSIDE RECORDS SUMMARY | 2018-04-01 00:15 | XMS REPORT | Encounter Summary ---
Author Author [facility] Organization [facility] Address Unknown Phone Unavailable Care Team Providers Care Surveillance System Monitor Name Role Phone Linus Herrera DO PCP Reason for Visit * Auth/Cert Status Reason Specialty Diagnoses / Referred By Referred To Procedures Contact Contact Diagnoses Incisional hernia, without obstruction or gangrene Abdominal pannus Incisional hernia, without obstruction or gangrene [K43.2] Abdominal pannus [E65] P rocedures IN REPAIR FIRST ABDOMINAL WALL HERNIA IN MUSC MYOCUTANEOUS/FAS CIOCUTANEOUS FLAP TRUNK IN REPAIR COMPLEX TRUNK 2.6-7.5 CM IN REPAIR COMPLEX TRUNK EACH ADDITIONAL 5 CM/< open incisional hernia repair with mesh, bilateral component separation and myoctuaneous flap advancement, abdominal scar revision Encounter Details Date Type Department Care Team Description 03/10/2018 Surgery Main Operating Room Tracey Victoria DO OPEN INCISIONAL HERNIA [facility] 2nd fl [address] REPAIR WITH MESH, [address] [place] [address] [place] [address] SEPARATION AND [phone] MYOCUTANOUS FLAP ADVANCEMENT, ABDOMINAL SCAR REVISION, REMOVAL OF FOREIGN OBJECT, REMOVAL AND DRAINAGE OF GRANULOMA/CYST Social History Tobacco Use Types Packs/Day Years [...] Center 03/19/2018 10:00 AM Tracey Victoria, DO [id number] [facility] General Pending items needing follow up: None [...] lobby by aide via wheelchair. * Deven Ruffin, - 03/16/2018 10:33 AM CDT Formatting of [...] Date: 03/16/2018 Russell AC=Airway clearance AM=Aerosolized medication BA=Dixie aerosol DB&C=Deep breathe & cough FEV1=Forced expiratory volume in first second) IC=Inspiratory capacity LE=Lung expansion MDI=Metered dose inhaler Neb=Nebulizer O2=Oxygen Oxim=Oximetry PEFR=Peak expiratory flow rate HORTICULTURAL THERAPIST=Rapid Response Team * Shital Valdez, PT - [...] PROGRESS/DISCHARGE NOTE Patient Name: Radha Mota Room/Bed: [id number] Admitting Diagnosis: Incisional hernia, without obstruction or [...] available at night. Pt's daughter is a BLEACHING MACHINE OPERATOR. 03/16/18: Pt now stating that her "adopted" mother is able and wanting to care for the pt following discharge. Her mother's home has 4 steps to enter, is a single level home, with a tub/shower combo and a shower chair with grab bars. Pt's mother will be able to provide 24/03 supervision/assist. Prior Function Level Of [place]: Independent with ADLs and functional transfers; Independent [...] Bathing Assist: (Getting ready to shower with nursing informatics analyst) Bathing Deficits: (Reports bathing the "other day" [...] Bathing, Dressing, Meal preparation Therapist: AMBER Boss/Elyse [id number] Date: 03/16/2018 * Yunier Harris MD - [...] normal. Yunier Harris MD Service Pager: # [phone] Associated attestation - Tracey Victoria DO - [...] Asthma Plan: - Pain control - continue COSMETIC MAKER meds - increasing bowel regimen - replace [...] reviewed. Todd Issa DO Personal Pager: # [phone] Team Pager: # [phone] * Shital Valdez, PT - 03/14/2018 3:32 [...] Setting Equipment Recommendations: Roller Walker Therapist: Shital Valdez PT Date: 03/14/2018 * Yunier Harris MD [...] normal. Judgment and thought content normal. Yunier Lauryn Helmsbscher, MD Service Pager: # [phone] * Teresa Gongora, RT - 03/13/2018 5:12 [...] Date: 03/13/2018 Russell AC=Airway clearance AM=Aerosolized medication BA=Dixie aerosol DB&C=Deep breathe & cough FEV1=Forced expiratory volume in first second) IC=Inspiratory capacity LE=Lung expansion MDI=Metered dose inhaler Neb=Nebulizer O2=Oxygen Oxim=Oximetry PEFR=Peak expiratory flow rate HORTICULTURAL THERAPIST=Rapid Response Team * Deb Degroot, OT - 03/13/2018 2:45 PM CDT OCCUPATIONAL THERAPY NO TREATMENT NOTE The patient was not seen due to: Patient declined Attempted to see patient 1 time, pt declining OT having just worked with PT and complaining of a headache, OT will cont to follow Therapist: Deb Degroot OTR/L [id number] Date: 03/13/2018 * Brianna Ruiz - 03/13/2018 [...] normal. Yunier Harris MD Service Pager: # [phone] Associated attestation - Tracey Victoria, - 03/13/2018 8:18 AM CDT Formatting of this note may be different from the original. ATTESTATION I personally performed the russell portions of the E/M visit, discussed case with resident and concur with resident documentation of history, physical exam, assessment, and treatment plan unless otherwise noted. Staff name: TRACEY VICTORIADO Date: 03/13/2018 * Taryn Gorman - 03/12/2018 4:26 PM CDT Reason for Visit: Copy Chief rounds Maryann/Methodist: Jainism Source of Purpose/Meaning: Not assessed Worries/Concerns/Struggles: Patient greeted driftman with "I feel like I have been [...] including her cousin who is also her bridge leverman. Interventions/Plan: Copy Chief provided supportive presence and prayer with the patient. Copy Chief and patient also talked about strategies for healing at home, including asking for help from her support system. The spiritual care team is available as needed, 24/03, through the campus switchboard ([phone]). For immediate response, please page [phone]. For a response within 24 hours, please submit an order in O2 for a driftman consult or call the administrative voicemail at [phone]. * Loree Littlejohn, PT - 03/12/2018 1:27 [...] PROGRESS NOTE Patient Name: Radha Mota Room/Bed: [place] [address] Admitting Diagnosis: Incisional hernia, without obstruction or [...] available at night. Pt's daughter is a BLEACHING MACHINE OPERATOR Prior Function Level Of [place]: Independent with ADLs and functional transfers; Independent with homemaking w/ ambulation Lives With: Son;Daughter Receives Help From: None Needed Vocational: On Disability Vision Current Vision: No Visual Deficits ADL's Where Assessed: Edge of Bed;Chair Eating Assist: Independent Eating Deficits: No Assist Needed Grooming Assist: Stand By Assist Grooming Deficits: Setup;Wash/Dry Face UE Dressing Assist: Minimal Assist UE Dressing Deficits: Thread RUE;Thread LUE;Hole Filler Head;Fasteners LE Dressing Assist: Total Assist LE [...] mobility, Ambulation, Stairs Therapist: [place] [id number] Date: 03/12/2018 * Ayan Cabrera MD - 03/12/2018 10:16 AM CDT Formatting of this note may be different from the original. Anesthesiology Acute Pain Service Date of Service: 03/12/2018 Name: Radha Mota is a 47 y.o. female : 1970 MRN# : [id number] PROCEDURE: Procedure(s) with comments: OPEN INCISIONAL HERNIA [...] surgical team moving forward Anesthesia Pain pager: [phone] Allergies Allergen Reactions Morphine HEADACHE, HIVES, NAUSEA [...] 20 mmol Intravenous ONCE Continuous Infusions: bupivacaine SHREDDED FILLER HOPPER FEEDER 0.125% in NS 50mL epidural infusion syr [...] normal. Yunier Harris MD Service Pager: # [phone] Associated attestation - Tracey Victoria DO - [...] ASSESSMENT NOTE Patient Name: Radha Mota Room/Bed: [id number]/01 Admitting Diagnosis: Incisional hernia, without obstruction or [...] Home Equipment: (none) Prior Function Level Of [place]: Independent with ADLs and functional transfers; Independent [...] Pain Interventions: Patient pre-medicated;Patient encouraged to use SHREDDED FILLER HOPPER FEEDER/PNC (IV) ;Treatment altered to patient's pain tolerance;Patient [...] 47 y.o. female : 1970 MRN# : [id number] PROCEDURE: Procedure(s) with comments: OPEN INCISIONAL HERNIA [...] with SBP in 90s. Anesthesia Pain pager: [phone] Allergies Allergen Reactions Morphine HEADACHE, HIVES, NAUSEA [...] 40 mg Intravenous QDAY Continuous Infusions: bupivacaine SHREDDED FILLER HOPPER FEEDER 0.125% in NS 50mL epidural infusion syr [...] 1700) Height: 165.1 cm (65") (03/10 180) BP: (90-129)/(47-77) Temp: [36.4 C (97.6 F)-37.8 [...] normal. Yunier Harris MD Service Pager: # [phone] Associated attestation - Tracey Victoria DO - 03/11/2018 7:52 AM CDT Formatting of this note may be different from the original. ATTESTATION I personally performed the russell portions of the E/M visit, discussed case with resident and concur with resident documentation of history, physical exam, assessment, and treatment plan unless otherwise noted. Staff name: TRACEY VICTORIA DO Date: 03/11/2018 * Teresa Gongora, - 03/10/2018 7:09 PM CDT Formatting of [...] or equal to 4 times/yr (AM) (Asthma, COSMETIC MAKER: Combivent PRN , Albuterol PRN, Symbicort PRN) [...] acuity. Therapist: Teresa Gongora, RT Date: 03/10/2018 [place] AC=Airway clearance AM=Aerosolized medication BA=Dixie aerosol DB&C=Deep breathe & cough FEV1=Forced expiratory volume in first second) IC=Inspiratory capacity LE=Lung expansion MDI=Metered dose inhaler Neb=Nebulizer O2=Oxygen Oxim=Oximetry PEFR=Peak expiratory flow rate HORTICULTURAL THERAPIST=Rapid Response Team * Siomara Dugan RN - [...] performed on 02/19/2018. Yunier Harris MD Pager [phone] Date of Service: 02/19/2018 Subjective: Radha Mota [...] TRACEY VICTORIA DO Date: 03/10/2018 * Tracey Victoria, DO - 02/19/2018 10:00 AM CDT Formatting [...] by mouth every 7 days. Administer on Friday' exenatide microspheres ER(+) (BYDUREON) 2 mg injection [...] 47 y.o. female. : 1970 MRN# : [id number] Primary Insurance: [employer] [place] Secondary Insurance: Tertiary Insurance: Financial Class: [place] Date of Admission: 03/10/2018 Referring Physician: Tracey [...] a 47 y.o. female admitted to [facility] on 03/10/2018 with the following issues: debility [...] (bowel, bladder, skin, pain, etc): Impaired gait/mobility: COSMETIC MAKER pt was independent at community level without assistive device Currently requiring Min A RW 12' Will benefit from continued work with PT to address mobility deficits Impaired ADL: COSMETIC MAKER pt was independent Currently requiring Min A [...] hours while supine in bed, pressure relief [id number] in seated position. Thank you for this consultation. Please call our consult pager with questions or concerns. Vibha Damon MD Rehab Consult Pager: [phone] History of Present Illness Chief Complaint: Weakness [...] DRAINAGE OF GRANULOMA/CYST performed by Tracey Victoria, at Main OR/Periop Social History Social History [...] UE Dressing Deficits: Thread RUE, Thread LUE, Hole Filler Head, Fasteners LE Dressing Assist: Total Assist [...] this date. OT will continue to follow. ANTHROPOLOGY PROFESSOR COGNITIVE EVALUATION SUMMARY PRAGMATICS: BEHAVIOR: AUDITORY COMPREHENSION: [...] a roller walker. -Order faxed to [facility] [phone]. [facility] [phone] will deliver RW prior to d/c today. [...] has been selected for the patient. Eddie Cortez RN, [facility] Integrated Exceptional Student Education Aide *[phone] * Case Mgmt DC Plan - BeataKrystal mcintosh - 03/16/2018 9:28 AM CDT Formatting of [...] and requested PT/OT see pt this morning. SW updated by OT pt was was seen [...] Katerin Montalvo - 03/13/2018 11:24 AM CDT TRUCK TRAILER MECHANIC Note Sent an initial placement request via [employer] to the [facility] facility, per request from JOMAR Stockton: [facility] [address] [place] [address] Updated [facility]. Katerin Montalvo Balloon Seller For further assistance, please contact JOMAR Stockton *[phone] * Case Mgmt DC Plan - Krystal Eduardo - 03/13/2018 11:07 AM CDT Formatting of this note may be different from the original. Case Management Progress Note NAME:Radha Mota : AGE: 47 y.o. ADMISSION DATE: 03/10/2018 DAYS ADMITTED: LOS: 3 days Todays Date: 03/13/2018 Plan: Pt to d/c to [facility] in [place] when medically stable and pending insurance authorization. Interventions ? Support Support: Pt/Family Updates re:POC or DC Plan JARRETT met with pt and daughter at bedside and introduced self. SW discussed pt's d/ c plans and explained PT/OT recommendations. SW discussed Rehab placement in detail and provided pt with a Rehab list. Pt's daughter states she works at [facility] in [place] and pt would like her referral sent [...] denies any other needs at this time. JARRETT provided pt with contact information. ? Info or Referral ? Discharge Planning Discharge Planning: Inpatient Rehabilitation JARRETT notified by MD Harris pt may d/c this vs Friday and Rehab has been consulted. JARRETT updated BRET Cortez. JARRETT tasked CELESTE Montalvo via [employer] and requested pt's referral be sent. JARRETT spoke to OT and requested pt be placed on weekend PT/OT list. JARRETT updated . JARRETT received a message from November with [facility] stating they can accept pt upon d/c. November stated she needs pt's H&P sent and then she can request insurance authorization. JARRETT notified TRUCK TRAILER MECHANIC who will re-send pt's H&P. JARRETT called November back and left a message explaining pt will likely d/c Friday and SW will update her on Friday with pt's POC. SW will continue to [...] been selected for the patient. Krystal Eduardo, [facility] *[phone] * Med Student Progress Note - [...] at home and obtains her supplies through [facility]. Plan Plan: Assist PRN with /NCM Services, [...] the patient. Patient Address/Phone [address] [facility] [address] (home) Emergency Contact Extended Emergency Contact Information Primary Emergency Contact: Thomas Mota [facility] Relation: Daughter Healthcare Directive Healthcare Directive: [...] ? PCP Linus Herrera, , ? Pharmacy [facility] #[id number] [facility] [address] [address] ? Durable Medical Equipment Durable Medical Equipment at home: None ? Home Health Receiving home health: No ? Hemodialysis or Peritoneal Dialysis Undergoing hemodialysis or peritoneal dialysis: No ? Tube/Enteral Feeds Receive tube/enteral feeds: No ? Infusion Receive infusions: No ? Private Duty Private duty help used: No ? Home and Community Based Services Home and community based services: No ? Red Zaida Cerda: N/A ? Hospice Hospice: No ? Outpatient Therapy PT: No OT: No ANTHROPOLOGY PROFESSOR: No ? Alf Facility/Prison SNF: No NH: No ? Inpatient Rehab IPR: No ? Long-Term Acute Care Hospital LTACH: No ? Acute Hospital Stay Acute Hospital Stay: No Eddie Cortez RN, [facility] Integrated Exceptional Student Education Aide *[phone] * Anesthesia Post Op Day 1 - [...] 40 mg Intravenous QDAY Continuous Infusions: bupivacaine SHREDDED FILLER HOPPER FEEDER 0.125% in NS 50mL epidural infusion syr [...] Plan: - Continue Pain management with bupivicaine SHREDDED FILLER HOPPER FEEDER and fentanyl - Consult PT/OT - Advance [...] 47 y.o. female : 1970 MRN# : [id number] DATE OF OPERATION: 03/10/2018 Date: 03/10/2018 Preoperative [...] Assisting Findings: complex abdominal hernia with multiple sammarinese cheese defects. intraabdominal cyst adhered to anterior [...] PACU - stable Todd Issa DO Pager [phone] * Operative Report (DICTATED ONLY) - Tracey Victoria DO - 03/10/2018 2:[address] PM [address] [address] PATIENT NAME: RADHA MOTA MR#/PT#: [id number] Page 2 OPERATIVE REPORT DATE OF OPERATION: [...] was reapproximated at the midline using a [id number] technique with interrupted vgspfl-vw-frzfc sutures of 0 Vicryl. Prior to closure of the midline, two 19-Botswanan Bradley drains 1 in the right and [...] 1 in the left lower quadrant, two 19-Botswanan Bradley drains were brought into the subcutaneous [...] ESTIMATED BLOOD LOSS: 250 mL. DRAINS: Two 19-Botswanan Bradley drains in the subfascial plane and two 19-Botswanan Bradley drains in the subcutaneous plane. SPECIMENS REMOVED: 1. Hernia sac and fascia measuring 60 x 2 in aggregate to Pathology. 2. Skin and scar measuring 60 x 4 in aggregate to Pathology 3. Foreign body (toothpick for gross only). COMPLICATIONS: None. Tracey Victoria DO, FACOS GB / [id number] /[id number] cc: - Tracey Victoria DO, DAHIANA Issa [...] MG/DL [facility] Performing Organization Address [facility] Phone Number [facility] [address] [place] [address] * POC GLUCOSE (03/16/2018 1:59 PM) Glucose, POC 175 (H) 70 - 100 MG/DL [facility] Performing Organization Address [facility] Phone Number [facility] [address] [place] [address] * POC GLUCOSE (03/16/2018 11:28 AM) Glucose, POC 188 (H) 70 - 100 MG/DL [facility] Performing Organization Address [facility] Phone Number [facility] [address] [place] [address] * POC GLUCOSE (03/16/2018 8:09 AM) Glucose, POC 172 (H) 70 - 100 MG/DL [facility] Performing Organization Address [facility]/Zipcode Phone Number MAIN LAB [address] [place] [address] * PHOSPHORUS (03/16/2018 7:38 AM) Phosphorus 3.6 2.0 - 4.0 MG/DL [facility] Specimen Blood Performing Organization Address [facility] Phone Number [facility] [address] [place] [address] * MAGNESIUM (03/16/2018 7:38 AM) Magnesium 1.5 (L) 1.6 - 2.6 mg/dL [facility] Specimen Blood Performing Organization Address [facility] Phone Number [facility] [address] [place] [address] * BASIC METABOLIC PANEL (03/16/2018 7:38 AM) [...] for questions. Specimen Blood Performing Organization Address [facility]/Zipcode Phone Number MAIN LAB [address] [place] [address] * POC GLUCOSE (03/16/2018 3:01 AM) Glucose, POC 185 (H) 70 - 100 MG/DL [facility] Performing Organization Address [facility] Phone Number [facility] [address] [place] [address] * POC GLUCOSE (03/15/2018 9:43 PM) Glucose, POC 233 (H) 70 - 100 MG/DL [facility] Performing Organization Address [facility] Phone Number [facility] [address] [place] [address] * POC GLUCOSE (03/15/2018 5:35 PM) Glucose, POC 236 (H) 70 - 100 MG/DL [facility] Performing Organization Address [facility] Phone Number [facility] [address] [place] [address] * POC GLUCOSE (03/15/2018 3:27 PM) Glucose, POC 199 (H) 70 - 100 MG/DL [facility] Performing Organization Address [facility] Phone Number [facility] [address] [place] [address] * POC GLUCOSE (03/15/2018 9:04 AM) Glucose, POC 119 (H) 70 - 100 MG/DL [facility] Performing Organization Address [facility] Phone Number [facility] [address] [place] [address] * PHOSPHORUS (03/15/2018 5:35 AM) Phosphorus 3.5 2.0 - 4.0 MG/DL [facility] Specimen Blood Performing Organization Address [facility] Phone Number [facility] [address] [place] [address] * MAGNESIUM (03/15/2018 5:35 AM) Magnesium 1.6 1.6 - 2.6 mg/dL [facility] Specimen Blood Performing Organization Address [facility] Phone Number [facility] [address] [place] [address] * CBC (03/15/2018 5:35 AM) White Blood [...] MAIN LAB Specimen Blood Performing Organization Address [facility] Phone Number [facility] [address] [place] [address] * BASIC METABOLIC PANEL (03/15/2018 5:35 AM) Sodium 134 (L) 137 - 147 MMOL/L [facility] Potassium 4.1 3.5 - 5.1 MMOL/L [facility] Chloride 99 98 - 110 MMOL/L [facility] [...] for questions. Specimen Blood Performing Organization Address [facility] Phone Number [facility] [address] [place] [address] * POC GLUCOSE (03/15/2018 3:15 AM) Glucose, POC 201 (H) 70 - 100 MG/DL [facility] Performing Organization Address [facility] Phone Number [facility] [address] [place] [address] * POC GLUCOSE (03/14/2018 9:40 PM) Glucose, POC 207 (H) 70 - 100 MG/DL [facility] Performing Organization Address [facility] Phone Number [facility] [address] [place] [address] * POC GLUCOSE (03/14/2018 6:02 PM) Glucose, POC 236 (H) 70 - 100 MG/DL [facility] Performing Organization Address [facility] Phone Number [facility] [address] [place] [address] * POC GLUCOSE (03/14/2018 3:51 PM) Glucose, POC 228 (H) 70 - 100 MG/DL [facility] Performing Organization Address [facility] Phone Number [facility] [address] [place] [address] * POC GLUCOSE (03/14/2018 1:48 PM) Glucose, POC 180 (H) 70 - 100 MG/DL [facility] Performing Organization Address [facility] Phone Number [facility] [address] [place] [address] * POC GLUCOSE (03/14/2018 9:33 AM) Glucose, POC 225 (H) 70 - 100 MG/DL [facility] Performing Organization Address [facility] Phone Number [facility] [address] [place] [address] * PHOSPHORUS (03/14/2018 4:53 AM) Phosphorus 3.1 2.0 - 4.0 MG/DL [facility] Specimen Blood Performing Organization Address [facility] Phone Number [facility] [address] [place] [address] * MAGNESIUM (03/14/2018 4:53 AM) Magnesium 1.8 1.6 - 2.6 mg/dL [facility] Specimen Blood Performing Organization Address [facility] Phone Number [facility] [address] [place] [address] * CBC (03/14/2018 4:53 AM) White Blood Cells 8.2 4.5 - 11.0 K/UL [facility] RBC 3.11 (L) 4.0 - 5.0 M/UL [facility] Hemoglobin 9.5 (L) 12.0 - 15.0 GM/DL [facility] Hematocrit 28.6 (L) 36 - 45 % [facility] MCV 91.9 80 - 100 FL [facility] MCH 30.5 26 - 34 PG [facility] MCHC 33.2 32.0 - 36.0 G/DL [facility] RDW 14.9 11 - 15 % [facility]IN [facility] Platelet Count 236 150 - 400 K/UL [facility] MPV 8.1 7 - 11 FL [facility] Specimen Blood Performing Organization Address [facility] Phone [facility] [address] [place] [address] * BASIC METABOLIC PANEL (03/14/2018 4:53 AM) Sodium 134 (L) 137 - 147 MMOL/L [facility] Potassium 4.1 3.5 - 5.1 MMOL/L [facility] Chloride 100 98 - 110 MMOL/L [facility] CO2 25 21 - 30 MMOL/L [facility] Anion Gap 9 3 - 12 [facility] Glucose 238 (H) 70 - 100 MG/DL [facility] Blood Urea Nitrogen 12 7 - 25 MG/DL [facility] Creatinine 0.32 (L) 0.4 - [...] for questions. Specimen Blood Performing Organization Address [facility] Phone Number [facility] [address] [place] [address] * POC GLUCOSE (03/14/2018 3:59 AM) Glucose, POC 213 (H) 70 - 100 MG/DL [facility] Performing Organization Address [facility] Phone Number [facility] [address] [place] [address] * POC GLUCOSE (03/13/2018 9:01 PM) Glucose, POC 243 (H) 70 - 100 MG/DL [facility] Performing Organization Address [facility] Phone Number [facility] [address] [place] [address] * POC GLUCOSE (03/13/2018 5:37 PM) Glucose, POC 232 (H) 70 - 100 MG/DL [facility] Performing Organization Address [facility] Phone Number [facility] [address] [place] [address] * POC GLUCOSE (03/13/2018 12:55 PM) Glucose, POC 180 (H) 70 - 100 MG/DL [facility] Performing Organization Address [facility] [facility] Phone Number [facility] [address] [place] [address] * POC GLUCOSE (03/13/2018 9:07 AM) Glucose, POC 203 (H) 70 - 100 MG/DL [facility] Performing Organization Address [facility] Phone Number [facility] [address] [place] [address] * PHOSPHORUS (03/13/2018 5:05 AM) Phosphorus 2.0 2.0 - 4.0 MG/DL [facility] Specimen Blood Performing Organization Address [facility] Phone Number [facility] [address] [place] [address] * MAGNESIUM (03/13/2018 5:05 AM) Magnesium 1.7 1.6 - 2.6 mg/dL [facility] Specimen Blood Performing Organization Address [facility] Phone Number MAIN LAB [address] [place] [address] * CBC (03/13/2018 5:05 AM) White Blood Cells 10.0 4.5 - 11.0 K/UL [facility] RBC 3.09 (L) 4.0 - 5.0 M/UL [facility] Hemoglobin 9.6 (L) 12.0 - 15.0 GM/DL [facility] Hematocrit 28.5 (L) 36 - 45 % [facility] MCV 92.3 80 - 100 FL [facility] MCH 31.0 26 - 34 PG [facility] MCHC 33.6 32.0 - 36.0 G/DL MAIN LAB RDW 15.0 11 - 15 % [facility] Platelet Count 182 150 - 400 K/UL [facility] MPV 8.2 7 - 11 FL MAIN LAB Specimen Blood Performing Organization Address City/[facility]/Zipcode Phone Number MAIN LAB [address] [place] [address] * BASIC METABOLIC PANEL (03/13/2018 5:05 AM) Sodium 129 (L) 137 - 147 MMOL/L MAIN LAB Potassium 4.0 3.5 - 5.1 MMOL/L [facility] Chloride 95 (L) 98 - 110 MMOL/L MAIN LAB CO2 25 21 - 30 MMOL/L [facility] Anion Gap 9 3 - 12 MAIN LAB Glucose 195 (H) 70 - 100 MG/DL MAIN LAB Blood Urea Nitrogen 7 7 - 25 MG/DL MAIN LAB Creatinine 0.30 (L) 0.4 - [...] for questions. Specimen Blood Performing Organization Address [facility] Phone Number MAIN LAB [address] [place] [address] * POC GLUCOSE (03/13/2018 3:22 AM) Glucose, POC 210 (H) 70 - 100 MG/DL [facility] Performing Organization Address City/[facility]/Zipcode Phone Number MAIN LAB [address] [place] [address] * POC GLUCOSE (03/12/2018 9:06 PM) Glucose, POC 233 (H) 70 - 100 MG/DL [facility] Performing Organization Address City/[facility]/Zipcode Phone Number MAIN LAB [address] [place] [address] * POC GLUCOSE (03/12/2018 5:55 PM) Glucose, POC 202 (H) 70 - 100 MG/DL [facility] Performing Organization Address City/[facility]/Zipcode Phone Number [facility] [address] [place] [address] * POC GLUCOSE (03/12/2018 1:53 PM) Glucose, POC 227 (H) 70 - 100 MG/DL [facility] Performing Organization Address [facility] Phone Number [facility] [address] [place] [phone] * POC GLUCOSE (03/12/2018 8:20 AM) Glucose, POC 197 (H) 70 - 100 MG/DL [facility] Performing Organization Address [facility] Phone Number MAIN LAB [address] [place] [phone] * PHOSPHORUS (03/12/2018 7:34 AM) Phosphorus 1.3 (LL) 2.0 - 4.0 MG/DL MAIN LAB Comment: Critical Value PHOS: Called To: MARIKA Aguirre at: 08:45:10 by: ELISE Read back by: MARIKA Aguirre Specimen Blood Performing Organization [facility] Phone Number MAIN LAB [address] [place] [phone] * MAGNESIUM (03/12/2018 7:34 AM) Magnesium 1.9 1.6 - 2.6 mg/dL MAIN LAB Specimen Blood Performing Organization [facility] Phone Number MAIN LAB [address] [place] [address] * CBC (03/12/2018 7:34 AM) White Blood Cells 12.1 (H) 4.5 - 11.0 K/UL [facility] RBC 3.22 (L) 4.0 - 5.0 M/UL MAIN LAB Hemoglobin 9.8 (L) 12.0 - 15.0 GM/DL [facility] Hematocrit 29.7 (L) 36 - 45 % [facility] MCV 92.2 80 - 100 FL [facility] MCH 30.4 26 - 34 PG MAIN LAB MCHC 33.0 32.0 - 36.0 G/DL [facility] RDW 14.9 11 - 15 % [facility] Platelet Count 179 150 - 400 K/UL [facility] MPV 8.1 7 - 11 FL MAIN LAB Specimen Blood Performing Organization Address City/[facility]/Zipcode Phone Number MAIN LAB [address] [place] [address] * BASIC METABOLIC PANEL (03/12/2018 7:34 AM) Sodium 130 (L) 137 - 147 MMOL/L [facility] Potassium 3.6 3.5 - 5.1 MMOL/L [facility] Chloride 98 98 - 110 MMOL/L [facility] CO2 25 21 - 30 MMOL/L [facility] Anion Gap 7 3 - 12 MAIN LAB Glucose 207 (H) 70 - 100 MG/DL [facility] Blood Urea Nitrogen 11 7 - 25 MG/DL MAIN LAB Creatinine 0.37 (L) 0.4 - 1.00 MG/DL MAIN LAB Calcium 8.7 8.5 - 10.6 MG/DL MAIN LAB eGFR [...] for questions. Specimen Blood Performing Organization Address City/[facility]/Zipcode Phone Number MAIN LAB [address] [place] [address] * POC GLUCOSE (03/12/2018 2:40 AM) Glucose, POC 208 (H) 70 - 100 MG/DL [facility] Performing Organization Address City/[facility]/Zipcode Phone Number MAIN LAB [address] [place] [address] * POC GLUCOSE (03/11/2018 8:56 PM) Glucose, POC 232 (H) 70 - 100 MG/DL [facility] Performing Organization Address City/[facility]/Zipcode Phone Number MAIN LAB [address] [place] [address] * POC GLUCOSE (03/11/2018 4:27 PM) Glucose, POC 218 (H) 70 - 100 MG/DL [facility] Performing Organization Address City/[facility]/Zipcode Phone Number MAIN LAB [address] [place] [address] * POC GLUCOSE (03/11/2018 3:22 PM) Glucose, POC 212 (H) 70 - 100 MG/DL [facility] Performing Organization Address [facility] Phone Number [facility] [address] [place] [address] * POC GLUCOSE (03/11/2018 11:21 AM) Glucose, POC 215 (H) 70 - 100 MG/DL [facility] Performing Organization Address [facility] Phone Number [facility] [address] [place] [address] * POC GLUCOSE (03/11/2018 8:04 AM) Glucose, POC 213 (H) 70 - 100 MG/DL [facility] Performing Organization Address [facility] Phone Number [facility] [address] [place] [address] * POC GLUCOSE (03/11/2018 3:15 AM) Glucose, POC 231 (H) 70 - 100 MG/DL [facility] Performing Organization Address [facility] Phone Number [facility] [address] [place] [address] * PHOSPHORUS (03/11/2018 3:15 AM) Phosphorus 3.8 2.0 - 4.0 MG/DL [facility] Specimen Blood Performing Organization Address [facility] Phone Number MAIN LAB [address] [place] [address] * MAGNESIUM (03/11/2018 3:15 AM) Magnesium 1.4 (L) 1.6 - 2.6 mg/dL [facility] Specimen Blood Performing Organization Address [facility] Phone Number [facility] [address] [place] [address] * CBC (03/11/2018 3:15 AM) White Blood [...] MAIN LAB Specimen Blood Performing Organization Address City/[facility] Phone Number MAIN LAB [address] [place] [address] * BASIC METABOLIC PANEL (03/11/2018 3:15 AM) Sodium 135 (L) 137 - 147 MMOL/L [facility] Potassium 3.6 3.5 - 5.1 MMOL/L [facility] Chloride 103 98 - 110 MMOL/L [facility] CO2 25 21 - 30 MMOL/L MAIN LAB Anion Gap 7 3 - 12 MAIN LAB Glucose 210 (H) 70 - 100 MG/DL MAIN LAB Blood Urea Nitrogen 16 7 - 25 MG/DL [facility] Creatinine 0.50 0.4 - 1.00 [...] for questions. Specimen Blood Performing Organization Address [facility] Phone Number MAIN LAB [address] [place] [address] * POC GLUCOSE (03/10/2018 8:47 PM) Glucose, POC 239 (H) 70 - 100 MG/DL [facility] Performing Organization Address [facility] Phone Number [facility] [address] [place] [address] * POC GLUCOSE (03/10/2018 6:10 PM) Glucose, POC 212 (H) 70 - 100 MG/DL [facility] Performing Organization Address [facility] Phone Number MAIN LAB [address] [place] [address] * PHOSPHORUS (03/10/2018 3:53 PM) Phosphorus 5.7 (H) 2.0 - 4.0 MG/DL [facility] Specimen Blood Performing Organization Address [facility] Phone Number [facility] [address] [place] [address] * MAGNESIUM (03/10/2018 3:53 PM) Magnesium 1.5 (L) 1.6 - 2.6 mg/dL [facility] Specimen Blood Performing Organization Address [facility] Phone Number [facility] [address] [place] [phone] * CBC (03/10/2018 3:53 PM) White Blood [...] MAIN LAB Specimen Blood Performing Organization Address [facility] Phone Number [facility] [address] [place] [address] * BASIC METABOLIC PANEL (03/10/2018 3:53 PM) [...] Pharmacist for questions. eGFR >60 >60 mL/min [facility]3] LAB Comment: The eGFR is not validated for use in drug dosing adjustments.Continue to use estimated creatinine clearance per dosing reference text.Please contact the Clinical Pharmacist for questions. Specimen Blood Performing Organization Address City/[facility]/Zipcode Phone Number [facility]3] LAB [address] [place] [address] * POC GLUCOSE (03/10/2018 3:17 PM) Glucose, POC 195 (H) 70 - 100 MG/DL [facility]3] LAB Performing Organization Address City/[facility]/Zipcode Phone Number [facility]3] LAB [address] [place] [address] * SURGICAL PATHOLOGY (03/10/2018 1:27 PM) PATHOLOGY REPORT [facility] [email or web address] Department of Pathology and Laboratory Medicine [address] [place] [address] Surgical Pathology Office:[phone] :[phone] SURGICAL PATHOLOGY REPORT NAME: RADHA MOTA GEOVANI SURG PATH #: [id number] MR #: [id number] SPECIMEN CLASS: SR BILLING #: [id number] ALT ID #:LOCATION: [id number] DATE OF PROCEDURE: [...] material indicated in this report. +++ +++ rima/03/11/2018 ############################## ############################## ############ Material Received: A: foreign [...] is opened to reveal yellow-andre, friable material. Printed Circuit Board Drafter sections of the specimen are submitted as follows: B1 Cyst wall. B2 Friable material. B3 Full thickness section of cyst wall fibroadipose tissue. (jrt) C. Received in formalin, labeled with the patient's name and "old mesh" is a 9.6 x 7.5 x 3.6 cm portion of andre-white, mesh like material with attached yellow-andre to pink-purple fibroadipose tissue. A field sales representative section of the attached fibroadipose tissue is submitted in cassette C1. (jrt) D. Received fresh labeled with the patient's name and "abdominal scar" is a 31.5 x 15.0 x 1.5 cm andre-white, annular portion of skin with a 1.5 x 1.5 cm possible umbilicus. No discrete scar is grossly identified on the surface of the skin. Printed Circuit Board Drafter sections are submitted in cassette D1. (sld) jrt/03/10/2018 Performing Organization Address City/[facility] Phone Number LAB RESULTS * POC GLUCOSE (03/10/2018 7:21 AM) Glucose, POC 181 (H) 70 - 100 MG/DL [facility] Performing Organization Address [facility] Phone Number MAIN LAB [address] [place] [address] * TYPE & CROSSMATCH (03/10/2018 7:13 AM) Units Ordered 2 MAIN LAB Crossmatch Expires 03/13/2018 MAIN LAB Record Check FOUND MAIN LAB ABO/RH(D) A POS MAIN LAB Antibody Screen NEG MAIN LAB Electronic Crossmatch YES MAIN LAB Specimen Blood Performing Organization Address [facility] Phone Number MAIN LAB [address] [place] [address] * TEST-URINE (03/10/2018 6:25 AM) Urine-HCG NEG MAIN LAB Samples with Specific [place] <1.010 may result in a false negative test Specific [place] 1.019 MAIN LAB Specimen Urine - Urine Performing Organization Address [facility] Phone Number MAIN LAB [address] [place] [address] in this encounter Visit Diagnoses Diagnosis Incisional hernia, without obstruction or gangrene Incisional hernia without mention of obstruction or gangrene Abdominal pannus Localized adiposity Admitting Diagnoses Diagnosis Incisional hernia, without obstruction [...] CDT Given 03/16/2018 1,000 mg 11:54 CDT albuterol (PROAIR HFA, VENTOLIN HFA, or PROVENTIL HFA) inhaler 2 puff 2 puff, Inhalation, RT EVERY 6 HOURS PRN, Starting Fri03/10/18 at 1905, Until Fri03/16/18 at 2029, RT PROTOCOL, When administered by RT, will be per RT policy. atorvastatin (LIPITOR) tablet 80 mg Given 03/14/2018 80 mg 80 mg, Oral, DAILY, First dose on Fri 09:25 CDT 03/12/18 at 0900, Until Discontinued [...] CDT Given 03/16/2018 0.25 mg 08:04 CDT enoxaparin (LOVENOX) syringe 40 mg Given [...] food Given 03/16/2018 145 mg 08:05 CDT insulin aspart U-100 (NOVOLOG FLEXPEN) Given 03/16/2018 4 Units Abdominal injection PEN 0-28 Units 03:58 CDT Tissue 0-28 Units, Subcutaneous, FIVE TIMES DAILY, First dose on Fri03/11/18 at 1715, Until Discontinued, -POC glucose 140-180mg/dL at , , administer 4 units insulin, at 21, 03* administer 0 units. -POC glucose 181-220mg/dL at , , administer 8 units insulin, at 21, 03* administer 4 units. -POC glucose 221-260mg/dL at , , administer 12 units insulin, at 21, 03* administer 8 units. -POC glucose 261-300mg/dL at , , administer 16 units insulin, at 21, 03* administer 12 units. -POC glucose 301-350mg/dL at , , administer 20 units insulin, at 21, 03* administer 16 units. -POC glucose 351-400mg/dL at , , administer 24 units insulin, at 21, 03* administer 20 units. -POC glucose >400mg/dL at , , administer 28 units insulin, at 21, 03* administer 24 units. *only if ordered [...] puff, Inhalation, FOUR TIMES DAILY PRN, Starting 03/10/18 at 1905, Until Fri03/16/18 at 2028, RT PROTOCOL, When administered by RT, will be per RT policy. NOT TO EXCEED 6 INHALATIONS / 24 HOURS Given 03/15/2018 1 puff 04:59 CDT Given 03/15/2018 1 puff 17:35 CDT lidocaine PF 1% (10 mg/mL) injection 0.1-2 mL 0.1-2 mL, Injection, NEEDED, Starting Tu03/10/18 at 0635, Until Fri03/16/18 at 2028, Other..., for IV insertion melatonin tablet 5 mg Given 03/13/2018 5 mg 5 mg, Oral, AT BEDTIME PRN, Starting Danae 20:57 CDT 03/12/18 at 2059, Until Fri03/16/18 at 2028, Insomnia Given 03/14/2018 5 mg 20:55 CDT [...] CDT Given 03/15/2018 10 mg 20:10 CDT nystatin (NYSTOP) topical powder Given 03/15/2018 Topical, [...] Nausea/Vomiting PO oxyCODONE (ROXICODONE, OXY-IR) tablet Given 03/16/2018 15 mg 5-15 mg 03:57 CDT 5-15 mg, Oral, EVERY 3 HOURS PRN, Starting 03/13/18 at 1712, Until Fri03/16/18 at 2028, Pain PO Given 03/16/2018 15 mg 08:28 CDT Given 03/16/2018 15 mg 13:[address] (PROTONIX) tablet 40 mg Given [...] CDT Given 03/16/2018 34 g 08:04 CDT senna/docusate (SENOKOT-S) tablet 1 Given 03/15/2018 1 tablet tablet 08:50 CDT 1 tablet, Oral, TWICE DAILY, First dose on [place] 03/15/18 at 0900, Until Discontinued, Hold for loose stools Given 03/15/2018 1 tablet 20:09 CDT Given 03/16/2018 1 tablet 08:05 CDT in this encounter
--- OUTSIDE RECORDS SUMMARY | 2018-04-01 00:16 | XMS REPORT | Encounter Summary ---
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 Name Role Phone HerreraLinus mcclain PCP Reason for Visit * Auth/Cert Status Reason Specialty Diagnoses / Referred By Referred To Procedures Contact Contact Diagnoses Incisional hernia, without obstruction or gangrene Abdominal pannus Incisional hernia, without obstruction or gangrene [K43.2] Abdominal pannus [E65] P rocedures WV REPAIR FIRST ABDOMINAL WALL HERNIA WV MUSC MYOCUTANEOUS/FAS CIOCUTANEOUS FLAP TRUNK WV REPAIR COMPLEX TRUNK 2.6-7.5 CM WV REPAIR COMPLEX TRUNK EACH ADDITIONAL 5 CM/< open incisional hernia repair with mesh, bilateral component separation and myoctuaneous flap advancement, abdominal scar revision Encounter Details Date Type Department Care Team Description 03/10/2018 Anesthesia Main Operating Room Fernando Marshall DO [facility] 2nd fl [address] [facility] [address] [place] [address] [place] [address] [phone] Anesthesia Record Procedure Name Responsible Anesthesia Start Time Anesthesia Stop Time Anesthesiologist OPEN INCISIONAL HERNIA Randal Littlejohn MD 03/10/18 0803 03/10/18 1452 REPAIR WITH MESH, BILATERAL COMPONENT SEPARATION AND MYOCUTANOUS FLAP ADVANCEMENT, ABDOMINAL SCAR REVISION, REMOVAL OF FOREIGN OBJECT, REMOVAL AND DRAINAGE OF GRANULOMA/CYST (N/A Abdomen) Date Time Event Comment 717 AN Equip Check 2017 0755 Epidural Placed 0756 Epidural Test Dose 0802 Out of Pre Procedure 0803 Anes Start 0803 In Room 0804 An Start Data 0811 An Induction The patient was reevaluated immediately before moderate or deep sedation use and before anesthesia induction. 0820 An Intubation 0821 IV Placed 0822 Anesthesia Ready 0835 Antibiotic Given 0840 Proc Start 1230 Antibiotic Given 1442 An Extubation 1447 an stop data 1452 Handoff to RN I completed my SBAR handoff to the receiving nurse. 1452 An Stop Meds Name Total midazolam (VERSED) 1 mg/mL injection 2 mg lidocaine (2%) 200 mg/10mL Injection 100 mg syringe propofol (DIPRIVAN) 200 mg/ 20 mL 300 mg injection (VIAL) rocuronium (ZEMURON) injection 120 mg ondansetron (ZOFRAN) injection 4 mg phenylephrine (SCAR-SYNEPHRINE) 0.1 mg/mL 1,150 mcg injection (SYRINGE) sugammadex (BRIDION) 100 mg/mL iv soln 255 mg dextran 70/hypromellose (GENTEAL TEARS; 2 Dose BION TEARS) ophthalmic solution lidocaine 1.5% /EPINEPHrine 1:200,000 3 mL epidural test dose (5 mL amp) lidocaine PF 1% (10 mg/mL) injection 5 mL ceFAZolin (ANCEF) injection 5 g HYDROmorphone injection (DILAUDID) 2 2 mg mg syringe bupivacaine PF (MARCAINE) 0.25 % 5 mL injection bupivacaine 0.125% in NS 50mL epidural 15.2 mL infusion syringe haloperidol (HALDOL) injection 1 mg 1 mg lactated ringers infusion 1,000 mL sodium chloride 0.9 % infusion (1000 1,500 mL mL bag) * Name O2 N2O Inspired N2O Air Sevoflurane Inspired Sevoflurane * No blood administrations on file. Type Details Placement Removal Epidural 03/10/18; 0755 (created via procedure 03/10/18 0755 by Kody, Catheter documentation) MD Yuri Mariee 03/10/18; Right, Lower; Abdomen; 19 FR; 03/10/18 0000 by Sheba, 03/16/18 1121 by Ahn #1; 03/16/18; 1121 BREA Mcfarland Ashton, BREA Drain Yuri 03/10/18; Right, Lower; Abdomen; 19 FR; 03/10/18 0000 by Sheba, 03/16/18 1121 by Ahn #2; 03/16/18; 1121; Per Provider BREA Mcfarland Ashton, RN Drain Yuri 03/10/18; Left, Lower; Abdomen; 19 FR; 03/10/18 0000 by Sheba, 03/16/18 1658 by Ahn #3; 03/16/18; 1658; Per Provider BREA Mcfarland Ashton, RN Drain Yuri 03/10/18; Left, Lower; Abdomen; 19 FR; 03/10/18 0000 by Sheba, 03/16/18 1658 by Ahn #4; 03/16/18; 1658; Per Provider BREA Mcfarland Ashton, BREA Drain Peripheral 03/10/18; 0729; RN; L; Anterior; 03/10/18 0729 by Becher, 08/18 0230 by Syas, IV Forearm; 20 G; No; 2; Symptomatic Savi, BREA Kwon RN (phlebitis, pain, leaking, infiltration); 03/12/18; 0230 Epidural 03/10/18; 0745 (placed by anesthesia in 03/10/18 0745 by Blackstone, 03/12/18 1100 by pre op); 03/12/18; 1100 BREA Del Toro Ashu, RN ETT 03/10/18; 0820; Ventilated by mask (1); 03/10/18 0820 by 03/10/18 1230 by Video laryngoscopy, Stylet; Caitie Garcia CRNA Glazyrina, Anna, CRNA Single-Lumen, Cuffed; GlideScope; 3; Oral; 1-Full view of the glottis; 2 insertion attempts; Auscultation, ETCO2 Detector; 21 centimeters; 2b view with DL, vocal cord was still moving after 5 min of 50 mg. of Rocur. [place] scope was used for safty readon.; 03/10/18; 1230 Peripheral 03/10/18; 0821; Provider; L; Anterior; 03/10/18 0821 by 03/11 0600 by Self, IV Hand; 18 G; 1; 03/11/18; 0600 Caitie Garcia CRNA Teresa, RN Indwelling 03/10/18; 0830; (OR); SURGERY; 16 FR; 03/10/18 0830 by Jimi, 03/12/18 1120 by Urinary Regular (Two-way); 03/12/18; 1120 BREA Stringer Gwemilee, Celso , RN Catheter Wounds 03/10/18; 1411; Abdomen; Surgical 03/10/18 1411 by Sheba, 1658 by (NOT for Incision; 03/16/18; 1658; BREA Mcfarland Ashton, RN Pressure SUTURE,DERMABOND,ABD BINDERX4 Injuries) DRAINS:DRAIN SPONGE,TEGADERM in this encounter Social History Tobacco Use Types Packs/Day Years [...] impairment: No 10/08/2017 as of this encounter OR Notes * Anesthesia Postprocedure Evaluation - Linus Calderón DO - 03/10/2018 4: 45 PM CDT Post-Anesthesia Evaluation Name: Radha Cordova : 1970 Age: 47 y.o. Sex: female Procedure Date: 03/10/2018 Procedure: Procedure(s) with comments: OPEN INCISIONAL HERNIA REPAIR WITH MESH, BILATERAL COMPONENT SEPARATION AND MYOCUTANOUS FLAP ADVANCEMENT, ABDOMINAL SCAR REVISION, REMOVAL OF FOREIGN OBJECT , REMOVAL AND DRAINAGE OF GRANULOMA/CYST - CASE LENGTH 4 HOURS, REQUEST 1ST START Surgeon: Surgeon(s): Max Culver, Todd Bellamy DO Post-Anesthesia Vitals BP: (112)/(56-57) Pulse: [85-89] Respirations: [8 PER MINUTE-21 PER MINUTE] SpO2: [97 %] O2 Delivery: Nasal Cannula (03/10 1630) SpO2 Pulse: [85-89] Post Anesthesia Evaluation Note Evaluation location: Pre/Post Patient participation: recovered; patient participated in evaluation Level of consciousness: alert and sleepy but conscious Pain score: 3 Pain management: adequate Hydration: normovolemia Temperature: 36.0C - 38.4C Airway patency: adequate Regional/Neuraxial: Neurological status: sensory deficit Epidural in place Perioperative Events Perioperative events: no Post-op nausea and vomiting: no PONV Postoperative Status Cardiovascular status: hemodynamically stable Respiratory status: spontaneous ventilation Follow-up needed: none Perioperative Events Perioperative Event: No Emergency Case Activation: No Associated attestation - Jhon Carpenter DO - 03/10/2018 5:04 PM CDT Post-Anesthesia Sign Out: I reviewed the current evaluation and agree the indicated post anesthesia care was provided. Evaluation by: Jhon Carpenter DO Date: 03/10/2018 * Anesthesia Procedure Notes - Elmer Mccauley DO - 03/10/2018 8:00 AM CDT Associated Order(s): ANESTHESIA EPIDURAL BLOCK Anesthesia Procedure: Epidural Block EPIDURAL BLOCK Date/Time: [...] monitoring data during procedure. Performed by: PRAVIN GATES Authorized by: PRAVIN GATES Associated attestation - Pravin Gates MD - 03/10/2018 3:05 PM CDT Formatting of this note may be different from the original. ATTESTATION I was present during the entire procedure performed by a resident Staff name: Pravin Gates MD Date: 03/10/2018 * Anesthesia Preprocedure Evaluation - Randal Littlejohn MD - 02/25/2018 4:09 PM CDT Formatting of this note may be different from the original. Anesthesia Pre-Procedure Evaluation Name: Radha Cordova : 1970 Age: 47 y.o. Sex: female Procedure Date: 03/10/2018 Procedure: Procedure(s) with comments: OPEN INCISIONAL HERNIA REPAIR WITH MESH, BILATERAL COMPONENT SEPARATION AND MYOCUTANOUS FLAP ADVANCEMENT, ABDOMINAL SCAR REVISION - CASE LENGTH 4 HOURS, REQUEST 1ST START Physical Assessment Vital Signs (last filed in past 24 hours): BP: 117/69 (02/25 1530) Temp: 36.9 C (98.5 F) (02/25 1530) Pulse: 86 (02/25 1530) Respirations: 20 PER MINUTE (02/25 1530) SpO2: 96 % (02/25 1530) O2 Delivery: None (Room Air) (02/25 1530) Height: 165.1 cm (65") (02/25 1530) Weight: 127.5 kg (281 lb) (02/25 1530) Patient History Allergies Allergen Reactions Morphine HEADACHE, HIVES, NAUSEA ONLY, SHORTNESS OF BREATH and HYPOTENSION Adhesive Tape (Rosins) ITCHING and REDNESS Paper tape Augmentin [Amoxicillin-Pot Clavulanate] HIVES Pt reports that she tolerates Amoxil Fentanyl NAUSEA ONLY and SEE COMMENTS Hypotension Current Medications Medication Directions albuterol (PROAIR HFA) 90 mcg/actuation inhaler Inhale [...] 10 mg by mouth at bedtime daily. Social History Social History Marital status: Single Spouse name: N/A Number of children: N/A Years of education: N/A Occupational History Not on file. Social History Main Topics Smoking status: Former Smoker Smokeless tobacco: Never Used Alcohol use No Drug use: No Sexual activity: Not on file Other Topics Concern Not on file Social History Narrative No narrative on file Past Medical History: Diagnosis Date Anxiety disorder Asthma Coronary artery disease DM (diabetes mellitus) (HCC) GERD (gastroesophageal reflux disease) Headache Hyperlipidemia Obesity MALINDA on CPAP Past Surgical History: Procedure Laterality Date UMBILICAL HERNIA REPAIR 05/1999 SECTION 04/2000 HX TUBAL LIGATION 04/2000 VENTRAL HERNIA REPAIR 01/2011 rupture SLEEVE GASTROPLASTY 2014 HX CHOLECYSTECTOMY 02/19/2017 HX RETINAL DETACHMENT REPAIR Left 04/2017 HX CATARACT REMOVAL Left 02/09/2018 Review of Systems/Medical History PONV Screening: Female gender, Non-smoker and Postoperative opioids History of anesthetic complications (Pt stats she emerges anxious, pt stats she self extubated in 2010 and had hallucinations. ) No family history of anesthetic complications Pulmonary Not a current smoker (Quit 1996, previousy smoked ) Asthma (symbicort, combivent and Por air PRN. Pt uses pro air 2x/week ) COPD Home oxygen use Sleep apnea ( prescribed BiPAP 15/11 cm H20 with 2.5 lpm of oxygen bled in and heated humidification. Pt stats she has CPAP and does not have the tubing to use O2 with CPAP) Interventions: CPAP; compliant Pt follows with Pulmonology, last OV 03/2017 Cardiovascular Recent diagnostic studies: echocardiogram and stress test EKG: Echo 11/12/2013- 1. Normal to hyperdynamic left ventricle with no evidence of regional wall motion abnormality with evidence of diastolic dysfunction. EF 65-70% 2. No evidence of significant aortic valve disease. 3. Evidence of right ventricular upper limits of normal in size with normal to hyperdynamic function. Dobutamine stress echo 2012- Normal dobutamine stress echo. Exercise tolerance: >4 METS (Pt is able to climb 2 flights of stairs without CP or dyspnea. ) Beta Olegario therapy: No Beta blockers within 24 hours: n/a Hypertension (H/o HTN, improved with weight loss. ), Valvular problems/murmurs (known murmur) Coronary artery disease (per records, pt denies ) CHF (2012, pt is on Torsemide ) Hyperlipidemia (on statin and Tricor ) Denies CP, dyspnea, palpitations, syncope, PND or orthopnea. Pt does not follow with Cardiology. 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 Pt is on Bydureon injection weekly ) Anemia (H/o transfusion 2/2 post op anemia associated with hernia repair, no reaction ) Obesity (morbid) Physical Exam Airway Findings Mallampati: II TM distance: >3 FB Neck ROM: full Mouth opening: good Airway patency: adequate Comments: Large neck circumference Dental Findings: Cardiovascular Findings: Rhythm: regular Rate: normal Other findings: murmur (II/ systolic), peripheral edema (trace bilatearl LE ) No carotid bruit Pulmonary Findings: Breath sounds clear to auscultation. Abdominal Findings: Obese (morbidly ) Neurological Findings: Normal mental status No paralysis Comments: A&O Diagnostic Tests Hematology: Lab Results Component Value Date HGB 12.5 01/13/2018 HCT 35.9 01/13/2018 PLTCT 291 01/13/2018 WBC 15.5 01/13/2018 NEUT 61 01/13/2018 ANC 9.50 01/13/2018 ALC 4.60 01/13/2018 WALESKA 6 01/13/2018 AMC 0.90 01/13/2018 EOSA 2 01/13/2018 ABC 0.20 01/13/2018 MCV 90.0 01/13/2018 MCH 31.5 01/13/2018 MCHC 35.0 01/13/2018 MPV 9.5 01/13/2018 RDW 13.7 01/13/2018 General Chemistry: Lab Results Component Value Date NA 136 01/13/2018 K 3.8 01/13/2018 CL 98 01/13/2018 CO2 31 01/13/2018 GAP 7 01/13/2018 BUN 14 01/13/2018 CR 0.45 01/13/2018 GLU 162 01/13/2018 CA 10.2 01/13/2018 ALBUMIN 3.7 01/13/2018 MG 1.5 01/13/2018 TOTBILI 0.3 01/13/2018 Coagulation: No results found for: PT, PTT, INR Anesthesia Plan ASA score: 3 Plan: general and epidural for post operative pain Induction method: intravenous Informed Consent Anesthetic plan and risks discussed with patient. Use of blood products discussed with patient;. Labs Pending: BMP, CBC, T&S. T&C DOS LMP: ~4 months ago, pt reports irregular menses in this encounter Plan of Treatment Not on fileas of this encounter Results * ANESTHESIA EPIDURAL BLOCK (03/10/2018 1:00 PM) [...] and monitoring data during procedure. Performed by: PARVIN GATES Authorized by: PRAVIN GATES in this encounter Visit Diagnoses Not on filein this encounter Administered Medications Medication Order MAR Action Action Date Dose Rate Site bupivacaine 0.125% in NS 50mL epidural Given - New 03/10/2018 6 mL/hr 6 mL/hr infusion syringe Bag 12:20 CDT 50 mL, INTRA-PROCEDURE MED(CONT), Starting Fri03/10/18 at 1220, Until Fri03/10/18 at 1452, Anesthesia Intra-op bupivacaine PF (MARCAINE) 0.25 % Given 03/10/2018 2 mL injection 11:49 CDT INTRA-PROCEDURE MED, Starting Fri03/10/18 at 1149, Until Fri03/10/18 at 1452, Anesthesia Intra-op Given 03/10/2018 2 mL 11:54 CDT Given 03/10/2018 1 mL 11:59 CDT ceFAZolin (ANCEF) injection Given 03/10/2018 3 g INTRA-PROCEDURE MED, Starting Tu 08:35 CDT 03/10/18 at 0835, Until Fri03/10/18 at 1452, Anesthesia Intra-op Given 03/10/2018 2 g 12:30 CDT dextran 70/hypromellose (GENTEAL TEARS; Given 03/10/2018 2 Doses BION TEARS) ophthalmic solution 08:21 CDT INTRA-PROCEDURE MED, Starting e 03/10/18 at 0821, Until Fri03/10/18 at 1452, Dry Eyes, Anesthesia Intra-op haloperidol (HALDOL) injection 1 mg Given 03/10/2018 1 mg 1 mg, Intravenous, ONCE PRN, 1 dose, 14:18 CDT Starting Fri03/10/18 at 1410, Until Fri03/10/18 at 1418, Other..., Nausea and Vomiting, First line agent. DO NOT ADMINISTER if given intraoperatively HYDROmorphone injection (DILAUDID) Given 03/10/2018 0.5 mg injection 09:50 CDT INTRA-PROCEDURE MED, Starting Fri03/10/18 at 0845, Until Fri03/10/18 at 1452, Pain Injectable, Anesthesia Intra-op Given 03/10/2018 0.5 mg 10:20 CDT Given 03/10/2018 0.5 mg 11:05 CDT lidocaine (PF) injection Given 03/10/2018 100 mg INTRA-PROCEDURE MED, Starting Fri 08:11 CDT 03/10/18 at 0811, Until Fri03/10/18 at 1452, Anesthesia Intra-op lidocaine 1.5%/EPINEPHrine 1:200,000 Given 03/10/2018 3 mL injection 07:56 CDT INTRA-PROCEDURE MED, Starting Fri03/10/18 at 0756, Until Fri03/10/18 at 1452, Anesthesia Intra-op lidocaine PF 1% (10 mg/mL) injection Given 03/10/2018 5 mL INTRA-PROCEDURE MED, Starting Fri 07:50 CDT 03/10/18 at 0750, Until Fri03/10/18 at 1452, Anesthesia Intra-op midazolam (VERSED) injection Given 03/10/2018 2 mg Intravenous, INTRA-PROCEDURE MED, 08:11 CDT Starting Fri03/10/18 at 0811, Until Fri03/10/18 at 1452, Agitation Injectable, Anxiety Injectable, Anesthesia Intra-op ondansetron (ZOFRAN) injection Given 03/10/2018 4 mg Intravenous, INTRA-PROCEDURE MED, 14:34 CDT Starting Fri03/10/18 at 1434, Until Fri03/10/18 at 1452, Nausea/Vomiting Injectable, Anesthesia Intra-op phenylephrine in NS injection syringe Given 03/10/2018 50 mcg Intravenous, INTRA-PROCEDURE MED, 13:31 CDT Starting Fri03/10/18 at 0913, Until Fri03/10/18 at 1452, Symptomatic Hypotension, Anesthesia Intra-op Given 03/10/2018 50 mcg 13:44 CDT Given 03/10/2018 50 mcg 13:56 CDT propofol (DIPRIVAN) injection Given 03/10/2018 200 mg INTRA-PROCEDURE MED, Starting Tue 08:11 CDT 03/10/18 at 0811, Until 03/10/18 at 1452, Anesthesia Intra-op Given 03/10/2018 100 mg 08:19 CDT rocuronium (ZEMURON) injection Given 03/10/2018 10 mg Intravenous, INTRA-PROCEDURE MED, 10:30 CDT Starting 03/10/18 at 0811, Until 03/10/18 at 1452, Anesthesia Intra-op Given 03/10/2018 10 mg 11:10 CDT Given 03/10/2018 10 mg 11:32 CDT sodium chloride 0.9 % infusion Given - New 03/10/2018 INTRA-PROCEDURE MED(CONT), Starting Tu Bag 09:00 CDT 03/10/18 at 0900, Until Discontinued, Anesthesia Intra-op Given - New Bag 03/10/2018 11:30 CDT sugammadex (BRIDION) injection Given 03/10/2018 255 mg Intravenous, INTRA-PROCEDURE MED, 14:33 CDT Starting 03/10/18 at 1433, Until 03/10/18 at 1452, Anesthesia Intra-op in this encounter
--- OUTSIDE RECORDS SUMMARY | 2018-04-01 00:17 | XMS REPORT | Encounter Summary ---
Author Author [facility] Organization [facility] Address Unknown Phone Unavailable Care Team Providers Care Cardiac Care Nurse Name Role Phone HerreraLinus mcclain Guanako DO PCP Encounter Details Date Type Department Care Team Description 02/19/2018 Prep for Case [facility] Max Culver [facility] [place] [address] [facility] [place] [address] [place] [address] [place] [address] [phone] Social History Tobacco Use Types Packs/Day Years [...]
--- OUTSIDE RECORDS SUMMARY | 2018-04-01 00:17 | XMS REPORT | Encounter Summary ---
Author Author [facility] Organization 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); [address] [place] [address] [place] [address] cardiovascular [phone] examination; Preoperative clearance Anesthesia Record Procedure Name Responsible Anesthesia Start Time Anesthesia Stop Time Anesthesiologist OPEN INCISIONAL HERNIA Rnadal Littlejohn MD 03/10/18 0803 03/10/18 1452 REPAIR WITH MESH, BILATERAL COMPONENT SEPARATION AND MYOCUTANOUS FLAP ADVANCEMENT, ABDOMINAL SCAR REVISION, REMOVAL OF FOREIGN OBJECT, REMOVAL AND DRAINAGE OF GRANULOMA/CYST (N/A Abdomen) Date Time Event Comment 717 AN Equip Check 2018 0755 Epidural Placed 0756 Epidural Test Dose [...] the receiving nurse. 1452 An Stop Meds * No agents on file. * No blood administrations on file. Type Details Placement Removal Epidural 03/10/18; 0755 (created via procedure 03/10/18 0755 by Kody, Catheter documentation) MD Yuri Mariee 03/10/18; Right, Lower; Abdomen; 19 FR; 03/10/18 0000 by Sheba, 03/16/18 1121 by Ahn #1; 03/16/18; 1121 BREA Mcfarland Ashton, RN Drain [place] 03/10/18; Right, Lower; Abdomen; 19 FR; 03/10/18 0000 by Sheba, 03/16/18 1121 by Ahn #2; 03/16/18; 1121; Per Provider BREA Mcfarland Ashton, RN Drain [place] 03/10/18; Left, Lower; Abdomen; 19 FR; 03/10/18 0000 by Sheba, 03/16/18 1658 by Ahn #3; 03/16/18; 1658; Per Provider BREA Mcfarland Ashton, RN Drain [place] 03/10/18; Left, Lower; Abdomen; 19 FR; 03/10/18 0000 by Sheba, 03/16/18 1658 by Ahn #4; 03/16/18; 1658; Per Provider BREA Mcfarland Ashton, RN Drain Peripheral 03/10/18; 0729; RN; L; Anterior; 03/10/18 0729 by Becher, 08/18 0230 by Syas, IV Forearm; 20 G; No; 2; Symptomatic Savi, BREA Kwon, RN (phlebitis, pain, leaking, infiltration); 03/12/18; 0230 Epidural 03/10/18; 0745 (placed by anesthesia in 03/10/18 0745 by [place], 03/12/18 1100 by pre op); 03/12/18; 1100 BREA Del Toro Ashu, RN ETT 03/10/18; 0820; Ventilated by mask (1); 03/10/18 0820 by 03/10/18 1230 by Video laryngoscopy, Stylet; Caitie Garcia, Caitie Heaton, DAYAN Single-Lumen, Cuffed; GlideScope; 3; Oral; 1-Full view of the glottis; 2 insertion attempts; Auscultation, ETCO2 Detector; 21 centimeters; 2b view with DL, vocal cord was still moving after 5 min of 50 mg. of Rocur. [place] scope was used for safty readon.; 03/10/18; 1230 Peripheral 03/10/18; 0821; Provider; L; Anterior; 03/10/18 0821 by 03/11 0600 by Self, IV Hand; 18 G; 1; 03/11/18; 0600 Caitie Garcia CRNA Teresa, BREA Indwelling 03/10/18; 0830; (OR); SURGERY; 16 FR; 03/10/18 0830 by Jimi, 03/12/18 1120 by Urinary Regular (Two-way); 03/12/18; 1120 BREA Stringer, BREA [place] Catheter Wounds 03/10/18; 1411; Abdomen; Surgical 03/10/18 1411 by Sheba, 1658 by (NOT for Incision; 03/16/18; 1658; BREA Mcfarland Ashton, BREA Pressure SUTURE,DERMABOND,ABD BINDERX4 Injuries) DRAINS:DRAIN SPONGE,TEGADERM in this encounter Social History Tobacco Use Types Packs/Day Years Used Date Former Smoker Smokeless Tobacco: Never Used Alcohol Use Drinks/Week oz/Week Comments No Sex Assigned at Date Recorded Not on file as of this encounter Last Filed Vital Signs Vital Sign Reading Time Taken Blood Pressure 117/69 02/25/2018 3:30 PM CDT Pulse 86 02/25/2018 3:30 PM CDT Temperature 36.9 C (98.5 F) 02/25/2018 3:30 PM CDT Respiratory Rate - - Oxygen Saturation 96% 02/25/2018 3:30 PM CDT Inhaled Oxygen - - Concentration Weight 127.5 kg (281 lb) 02/25/2018 3:30 PM CDT Height 165.1 cm (5' 5") 02/25/2018 3:30 PM CDT Body Mass Index 46.76 02/25/2018 3:30 PM CDT in this encounter Functional Status [...] 10/08/2017 as of this encounter Instructions * Pre-Anesthesia Patient Instructions - Nestor Sung RN - 02/25/2018 3:55 PM CDT GENERAL INFORMATION Before you come to the hospital Make arrangements for a responsible adult to drive you home and stay with you for 24 hours following surgery. Bath/Shower Instructions Take a bath or shower using the special soap given to you in PAC. Use half the bottle the night before, and the other half the morning of your procedure. Use clean towels with each bath or shower. Put on clean clothes after bath or shower. Avoid using lotion and oils. If you are having surgery above the waist, wear a shirt that fastens up the front. Sleep on clean sheets if bath or shower is done the night before procedure. Leave money, credit cards, jewelry, and any other valuables at home. The [facility] is not responsible for the loss or breakage of personal items. Remove nail japanese, makeup and all jewelry (including piercings) before coming to the hospital. The morning of your procedure: brush your teeth and tongue do not smoke do not shave the area where you will have surgery What to bring to the hospital ID/ Insurance Card Autoclave Operator card Official documents for legal guardianship Copy of your Living Will, Advanced Directives, and/or Durable Power of Vegetable Farm Worker Small bag with a few personal belongings Cases for glasses/hearing aids/contact lens (bring solutions for contacts) Dress in clean, loose, comfortable clothing Eating or drinking before surgery Do not eat or drink anything after 11:00 p.m. the day before your procedure ( including gum, mints, candy, or chewing tobacco) OR follow the specific instructions you were given by your Surgeon. You may have WATER ONLY up to 2 hours before arriving at the hospital. Other instructions: see medication instructions. Other instructions Notify your surgeon if: there is a possibility that you are you become ill with a cough, fever, sore throat, nausea, vomiting or flu- like symptoms you have any open wounds/sores that are red, painful, draining, or are new since you last saw the doctor you need to cancel your procedure You will receive a call with your surgery arrival time from between 2:30pm and 4:30pm the last business day before your procedure. If you do not receive a call, please call [phone] before 4:30pm or [phone] after 4:30pm. Notify us at [facility]: if you need to cancel your procedure if you are going to be late Arrival at the [address] [address] Park in the Parking Garage, located directly across from the main entrance to the hospital. [employer] parking is available from 7 AM to 4 PM Friday through Friday. Enter through the ground floor [facility] entrance and check in at the Information Desk in the lobby. They will validate your parking ticket and direct you to the next location. If you are a woman between the ages of 10 and 55, and have not had a hysterectomy, you will be asked for a urine sample prior to surgery. Please do not urinate before arriving in the Surgery Waiting Room. Once there, check in and let the attendant know if you need to provide a sample. * Pre-Anesthesia Medication Instructions - Jaime Parmar, PHARMD - 02/25/2018 3:48 PM CDT Formatting of this note may be different from the original. YOUR MEDICATIONS: albuterol (PROAIR HFA) 90 mcg/actuation inhaler Inhale [...] 10 mg by mouth at bedtime daily. YOUR MEDICATION INSTRUCTIONS FOR SURGERY: Before surgery Stop the following vitamins, herbals, and natural supplements 14 days before surgery: Biotin Collagen Multivitamin Stop the following medications 7 days before surgery: Anti-inflammatory medications such as ibuprofen (Advil, Motrin) and naproxen (Aleve) You may use acetaminophen (Tylenol), Fioricet and Hydrocodone/Acetaminophen Morning of surgery On the morning of surgery, do NOT take these medications: Remaining vitamins/supplements Vitamin D Vitamin B-12 Ointments/creams/lotions Farxiga Metformin Linzess Bydureon Fenofibrate Potassium chloride Torsemide Fioricet On the morning of surgery, take ONLY these medications with a sip (1-2 ounces) of water: Inhalers, eye drops and nasal spray as usual Atorvastatin May wear Lidocaine patch (apply away from surgical site) Omeprazole Ranitidine If needed: Hydrocodone/acetaminophen Cyclobenzaprine Ondansetron Other information Before surgery, please contact the clinic pharmacist with any medicine updates or questions. E-mail: [email or web address] Before going home from the hospital, please ask your doctor when you should re- start your medicines that were stopped before surgery. in this encounter Plan of Treatment Name Priority Associated Diagnoses Order Schedule ECG 12-LEAD Routine Pre-operative ONE TIME for 1 cardiovascular Occurrences starting examination 02/25/2018 until 02/25/2018 as of this encounter Results * TYPE & SCREEN (NOT CROSSMATCH ELIGIBLE) (02/25/2018 5:06 PM) ABO/RH(D) A POS [facility] Antibody Screen NEG [facility] Blood Component Type RED CELL GROUP [facility] Specimen Blood, venous - Blood Performing Organization Address City/State/Zipcode Phone Number MAIN LAB [address] [place] [address] * BASIC METABOLIC PANEL (02/25/2018 5:06 PM) Sodium 138 137 - 147 MMOL/L [facility] Potassium 3.7 3.5 - 5.1 MMOL/L [facility] Chloride 102 98 - 110 MMOL/L [facility] CO2 26 21 - 30 MMOL/L [facility] Anion Gap 10 3 - 12 [facility] Glucose 145 (H) 70 - 100 MG/DL [facility] Blood Urea Nitrogen 15 7 - 25 MG/DL [facility] Creatinine 0.45 0.4 - 1.00 MG/DL [facility] Calcium 10.3 8.5 - 10.6 MG/DL [facility] [...] for questions. Specimen Blood Performing Organization Address City/[facility]/Zipcode Phone Number MAIN LAB [address] [place] [address] * CBC (02/25/2018 5:06 PM) White Blood Cells 7.6 4.5 - 11.0 K/UL [facility] RBC 4.17 4.0 - 5.0 M/UL [facility] Hemoglobin 12.9 12.0 - 15.0 GM/DL [facility] Hematocrit 38.2 36 - 45 % [facility] MCV 91.5 80 - 100 FL [facility] MCH 30.9 26 - 34 PG [facility] MCHC 33.8 32.0 - 36.0 G/DL [facility] RDW 15.2 (H) 11 - 15 % [facility] Platelet Count 277 150 - 400 K/UL [facility] MPV 8.0 7 - 11 FL [facility] Specimen Blood Performing Organization Address City/[facility]/Zipcode Phone Number MAIN LAB [address] [place] [address] in this encounter Visit Diagnoses Diagnosis Incisional hernia, without obstruction or gangrene - Primary Incisional hernia without mention of obstruction or gangrene Pre-operative cardiovascular examination Preoperative clearance Preoperative examination, unspecified
--- OUTSIDE RECORDS SUMMARY | 2018-04-01 00:19 | XMS REPORT | Encounter Summary ---
Author Author [facility] Organization [facility] Address Unknown Phone Unavailable Care Team Providers Care Accordion Repairer Name Role Phone Linus Herrera DO PCP Reason for Visit * Reason Comments Surgery appeal Encounter Details Date Type Department Care Team Description 01/30/2018 Telephone [facility] Max Culver DO Surgery ( appeal) [address] Surgery Clin [place] [address] [place], [place] [id number] [facility] [phone] [place] [address] [phone] Social History Tobacco Use Types Packs/Day Years [...] Telephone Encounter - Antonia Hope RN - 01/30/2018 2:49 PM CDT Received surgery appeal information in mail from patient. Reviewed with Dr. Culver, final appeal through [facility] for panniculectomy requires court appearance appeal. Unable to do court appearance appeal due to hospital policy. Notified pt of the above. Pt verbalizes understanding. in this encounter Plan of Treatment Not on fileas of this encounter Visit Diagnoses Not on filein this encounter
--- OUTSIDE RECORDS SUMMARY | 2018-04-01 00:19 | XMS REPORT | Encounter Summary ---
Author Author [facility] Organization [facility] Address Unknown Phone Unavailable Care Team Providers Care Dba Name Role Phone HerreraLinus mcclain DO PCP Reason for Visit * Reason Comments Follow Up Encounter Details Date Type Department Care Team Description 02/19/2018 Office Visit [facility] Max Culver DO Preoperative clearance [address] (Primary Dx); Surgery Clin [place] 2005 Incisional hernia, [address] [place] [address] [place] [address] gangrene; [phone] Abdominal pannus Social History Tobacco Use Types Packs/Day Years Used Date Former Smoker Smokeless Tobacco: Never Used Alcohol Use Drinks/Week oz/Week Comments No Sex Assigned at Date Recorded Not on file as of this encounter Last Filed Vital Signs Vital Sign Reading Time Taken Blood Pressure 123/59 02/19/2018 10:44 AM CDT Pulse 83 02/19/2018 10:44 AM CDT Temperature 36.7 C (98 F) 02/19/2018 10:44 AM CDT Respiratory Rate 18 02/19/2018 10:44 AM CDT Oxygen Saturation 96% 02/19/2018 10:44 AM CDT Inhaled Oxygen - - Concentration Weight 127 kg (280 lb) 02/19/2018 10:44 AM CDT Height 165.1 cm (5' 5") 02/19/2018 10:44 AM CDT Body Mass Index 46.59 02/19/2018 10:44 AM CDT in this encounter Functional Status [...] this encounter Instructions * Patient Instructions - Antonia Hope RN - 02/19/2018 10:00 AM CDT Surgery: Saturday March 10, 2018 Surgery will be at the [address] [address] You will need to check into admitting the day of your surgery. Admitting is located inside the main entrance across from the information desk in the hospital lobby. You will receive a call from the surgical team the day prior to your surgery after 2 pm, to inform you of what time you will need to arrive in admitting the day of your surgery. If you have not been contacted by 4:30 pm the day prior your surgery date, please call [phone] or [phone]. [employer] Librarian parking is available Friday through Friday from 7 AM to 4 PM. Have your parking ticket validated at the Information Desk in the hospital lobby. Parking is available in either the [place] parking garage or the [place] parking garage. *Do not eat or drink (including gum, mints, candy, or chewing tobacco) anything after midnight-12 am the night before your surgery. *The morning of your surgery brush your teeth and tongue, ok to rinse, but do not drink any water. *You may take your medications with a sip of water if instructed by your physician to do so. If you have an appointment with PAT (pre-anesthesia testing) they will instruct you on what medications to take on the day of surgery. *Please do not take diabetic medication the morning of your procedure unless otherwise instructed. *If you are taking blood thinning medications such as Warafin/Coumadin, Clopidogrel/Plavix, or aspirins, please stop taking as instructed prior to the procedure if authorized by your prescribing physician. *You will need to have someone drive you home. *Notify [facility]: If you need to cancel your procedure or if you are going to be late Please call with any questions or concerns. Scheduling (Jaclyn) [phone] General Surgery nurse line (Antonia) [phone] Ventral/Incisional Hernia Repair An incisional hernia occurs when the membrane lining of the abdominal cavity ( omentum) or part of the intestines protrudes through a weak area in the abdominal wall. An incisional hernia is usually repaired through an incisioin on your abdominal wall. Mesh is placed to strengthen the repair. Post operative activity: -You will stay in the hospital typically 3-5 days -we recommend that you do NOT do any strenuous activity, do not lift, push or pull anything greater than 10 lbs until your first post-operative appointment.- typically 2 weeks post surgery date. -Your dana will be removed at your first post-operative appointment. Post-operative site care: -sponge baths until instructed that it is okay to shower and get the incision sites wet. -do not submerge in water, bath, pool, vazquez until discussed with your MD Diet: -Your surgeon will ensure you are tolerating your diet before discharge from the hospital. Home medications: You may resume your home medications, unless the doctor has specifically asked that you stop a certain medication. Pain management: -pain medication will be prescribed during the post-operative period. Please take medication as prescribed. Do not take pain medication on an empty stomach. -you may use a heating pad, avoid direct contact to the skin. -No driving or operating heavy machinery while taking pain medication. -avoid alcohol while taking pain medication. -pain medication can cause constipation, begin taking senokot (over the counter ) when taking pain medication,if no bowel movement in 48 hrs post surgery, take senokot and milk of magnesia until daily bowel movement. Please notify the nurse with the following symptoms: [phone] -If pain in not controlled with pain medication. -no bowel movement in 4 days. -signs and symptoms of infection -chills, body aches, fever greater than 101.5 -redness, swelling, warmth around incision sites -purulent drainage from incision sites If you feel you are having an EMERGENCY, please call 911 or go to your nearest emergency room. in this encounter Progress Notes * Max Culver, DO - 02/19/2018 10:00 AM CDT Formatting of this note may be different from the original. Date of Service: 02/19/2018 Subjective: Radha Cordova is a 47 y.o. female. History of [...] for PAT and surgery in this encounter Plan of Treatment Not on fileas of this encounter Visit Diagnoses Diagnosis Preoperative clearance - Primary Preoperative examination, unspecified Incisional hernia, without obstruction or gangrene Incisional hernia without mention of obstruction or gangrene Abdominal pannus Localized adiposity
--- OUTSIDE RECORDS SUMMARY | 2018-04-01 00:20 | XMS REPORT | Encounter Summary ---
Author Author [facility] Organization [facility] Address Unknown Phone Unavailable Care Team Providers Care Editorial Manager Name Role Phone Linus Herrera DO PCP Reason for Visit * Reason Comments General Question Encounter Details Date Type Department Care Team Description 01/16/2018 Telephone [facility] Max Culver DO General Question [facility] [address] [place] [address] Surgery Clin [place] [address] [place] [address] [address] [facility] [phone] [place] [address] [phone] Social History Tobacco Use Types Packs/Day Years [...] Telephone Encounter - Antonia Hope RN - 01/16/2018 12:41 PM CDT Pt states she received denial letter for original repeal for panniculectomy. Educated pt on necessity of panniculectomy to reduce hernia recurrence rate per Dr. Culver. Pt states final appeal can be filed through state with letter by Dr. Culver. Pt states she will mail information to our office to file appeal. Office address provided to pt. in this encounter Plan of Treatment Not on fileas of this encounter Visit Diagnoses Not on filein this encounter
--- OUTSIDE RECORDS SUMMARY | 2018-04-01 00:22 | XMS REPORT | Encounter Summary ---
Author Author [facility] Organization [facility] Address Unknown Phone Unavailable Care Team Providers Care Singer Back Tender Name Role Phone Linus Herrera Guanako DO PCP Encounter Details Date Type Department Care Team Description 01/13/2018 Procedure Pass Emergency Dept. [address] [place] [address] Social History Tobacco Use Types [...]
--- OUTSIDE RECORDS SUMMARY | 2018-04-01 00:23 | XMS REPORT | Encounter Summary ---
Author [facility] Address Unknown Phone Unavailable Care Team Providers Care Aviation Electronic Warfare Operator Name Role Phone Linus Herrera DO PCP Reason for Visit * Reason Comments Abdominal pain eval'd at [facility] on Sun for same CC. hx of hernias. + NV. initially experienced constipation, now reporting diarrhea following meds for K+ and Mag at [facility]. Denies relief with home meds. tolerating PO intake. Encounter Details Date Type Department Care Team Description 01/13/2018 Emergency Emergency Dept. Marbella Ahmadi MD [address] [place] [address] [address] [place] [address] [phone] Social History Tobacco Use Types Packs/Day Years Used Date Former Smoker Smokeless Tobacco: Never Used Alcohol Use Drinks/Week oz/Week Comments No Sex Assigned at Date Recorded Not on file as of this encounter Last Filed Vital Signs Vital Sign Reading Time Taken Blood Pressure 124/79 01/13/2018 6:30 PM CDT Pulse - - Temperature 36.5 C (97.7 F) 01/13/2018 11:04 AM CDT Respiratory Rate - - Oxygen Saturation 97% 01/13/2018 6:30 PM CDT Inhaled Oxygen - - Concentration Weight 126.6 kg (279 lb) 01/13/2018 11:04 AM CDT Height 165.1 cm (5' 5") 01/13/2018 11:04 AM CDT Body Mass Index 46.43 01/13/2018 11:04 AM CDT in this encounter Functional Status [...] as of this encounter Discharge Instructions * Camilla River APRN - 01/13/2018 Formatting of this note may be different from the original. Abdominal Pain Abdominal pain is pain in the stomach or belly area. Everyone has this pain from time to time. In many cases it goes away on its own. But abdominal pain can sometimes be due to a serious problem, such as appendicitis. So its important to know when to seek help. Causes of abdominal pain There are many possible causes of abdominal pain. Common causes in adults include: Constipation, diarrhea, or gas Stomach acid flowing back up into the esophagus (acid reflux or heartburn) Severe acid reflux, called GERD (gastroesophageal reflux disease) A sore in the lining of the stomach or small intestine (peptic ulcer) Inflammation of the gallbladder, liver,or pancreas Gallstones or kidney stones Appendicitis Intestinal blockage An internal organ pushing through a muscle or other tissue (hernia) Urinary tract infections In women, menstrual cramps, fibroids, or endometriosis Inflammation or infection of the intestines Diagnosing the cause of abdominal pain Your healthcare provider will do a physical exam help find the cause of your pain. If needed, tests will be ordered. Belly pain has many possible causes. So it can be hard to find the reason for your pain. Giving details about your pain can help. Tell your provider where and when you feel the pain, and what makes it better or worse. Also let your provider know if you have other symptoms such as: Fever Tiredness Upset stomach (nausea) Vomiting Changes in bathroom habits Treating abdominal pain Some causes of pain need emergency medical treatment right away. These include appendicitis or a bowel blockage. Other problems can be treated with rest, fluids, or medicines. Your healthcare provider can give you specific instructions for treatment or self-care based on what is causing your pain. If you have vomiting or diarrhea,sip water or other clear fluids. When you are ready to eat solid foods again, start with small amounts of gfuo-[id number], low-fat foods. These include apple sauce, toast, or crackers. When to seek medical care Call 911or go to the hospital right away if you: Cant pass stool and are vomiting Are vomiting blood or have bloody diarrhea or black, tarry diarrhea Have chest, neck, or shoulder pain Feel like you might pass out Have pain in your shoulder blades with nausea Have sudden, severe belly pain Have new, severepain unlike any you have felt before Have a belly that is rigid, hard, and tender to touch Call your healthcare provider if you have: Pain for more [id number] Bloating for more than 2days Diarrhea for more [id number] A fever of 100.4F (38C) or higher, or as directed by your healthcare provider Pain that gets worse Weight loss for no reason Continued lack of appetite Blood in your stool How to prevent abdominal pain Here are some tips to help prevent abdominal pain: Eat smaller amounts of food at one time. Avoid greasy, fried, or other high-fat foods. Avoid foods that give you gas. Exercise regularly. Drink plenty of fluids. To help prevent GERD symptoms: Quit smoking. Reduce alcohol and certain foods that increase stomach acid. Avoid aspirin and iuns-xui-rezakjk pain and fever medicines (NSAIDS or nonsteroidal anti-inflammatory drugs), if possible Lose extra weight. Finish eating at least 2 hours before you go to bed or lie down. Raise the head of your bed. Date Last Reviewed: 03/01/[id number] [employer]. [address] [place] [address]. All rights reserved. This information is not intended as a substitute for professional medical care. Always follow your healthcare professional's instructions. in this encounter Medications at Time of Discharge Medication Sig. Disp. Refills Start Date End Date albuterol (PROAIR HFA) 90 Inhale 2 puffs by mouth mcg/actuation inhaler into the lungs every 6 hours as needed for Wheezing or Shortness of Breath. Shake well before use. atorvastatin (LIPITOR) 80 Take 80 mg by mouth mg tablet daily. budesonide/formoterol Inhale 1 puff by mouth 01/10/2017 (SYMBICORT HFA) 160/4.5 into the lungs twice mcg inhalation daily as needed. dapagliflozin 10 mg tab Take 1 tablet by mouth at bedtime daily. exenatide microspheres Inject 2 mg under the ER(+) (REEDON) 2 mg skin every 7 days. injection [...] then remove for 12 hours before repeating. montelukast (SINGULAIR) Take 10 mg by mouth at 10 mg tablet bedtime daily. ondansetron (ZOFRAN) 8 mg Take 8 mg by mouth every tablet 8 hours as needed for Nausea or Vomiting. potassium chloride SR Take 20 mEq by mouth (K-DUR) 20 mEq tablet three times daily. Take with a meal and a full glass of water. ranitidine(+) (ZANTAC) Take 150 mg by mouth 150 mg tablet twice daily. butalbital/acetaminophen/ Take 1 tablet by mouth 03/16/2018 caffeine(+) (FIORICET) every 4 hours as needed 50/325/40 mg tablet for Headache. cyclobenzaprine Take 10 mg by mouth three 03/16/2018 (FLEXERIL) 10 mg tablet times daily as needed for Muscle Cramps. ERGOCALCIFEROL (VITAMIN Take 50,000 Units by 02/25/2018 D2) (VITAMIN D PO) mouth every 7 days. HYDROcodone/acetaminophen Take 1 tablet by mouth 03/25/2018 (+) (NORCO) 10/325 mg every 6 hours as needed tablet for Pain LORazepam (ATIVAN) 0.5 mg Take 1 tablet by mouth at 03/16/2018 tabletIndications: bedtime daily. anxiety, sleep omeprazole DR(+) Take 20 mg by mouth daily 03/25/2018 (PRILOSEC) 20 mg capsule before breakfast. torsemide(+) (DEMADEX) 20 Take 80 mg by mouth 03/25/2018 mg tablet daily. zolpidem (AMBIEN) 10 mg Take 10 mg by mouth at 03/16/2018 tablet bedtime daily. as of this encounter Miscellaneous Notes * ED Notes - Wandy Nolen RN - 01/13/2018 6:54 PM CDT Discharge instructions reviewed with patient and patient verbalized understanding. Patient educated on abdominal pain and need for follow-up with primary care. Patient leaving in agreement with plan of care. Patient wheeled to exit by her daughter. * ED Notes - Wandy Nolen RN - 01/13/2018 6:13 PM CDT 2 unsuccessful PIV attempts by this RN. BREA Roque to bedside for PIV attempt. * ED Notes - Wandy Nolen RN - 01/13/2018 4:24 PM CDT Pt returned from CT at this time. Pt updated on plan of care and resting comfortably. * ED Notes - Wandy Nolen RN - 01/13/2018 4:00 PM CDT Pt reporting improvement in pain following medication administration. * ED Notes - Wandy Nolen RN - 01/13/2018 1:43 PM CDT Pt reporting improvement in pain following pain medication. Pt resting comfortably at this time. * ED Provider Notes - Marbella Ahmadi MD - 01/13/2018 11:34 AM CDT Formatting of this note may be different from the original. Radha Cordova is a 47 y.o. female. Chief Complaint: Chief Complaint Patient presents with Abdominal pain eval'd at [facility] Sun for same CC. hx of hernias. +NV. initially experienced constipation, now reporting diarrhea following meds for K+ and Mag at [facility]. Denies relief with home meds. tolerating PO intake. History of Present Illness: Radha Cordova is a 47 yo F with PMH of DM, HLD, high triglycerides, and asthma who comes to the ED with c/o abdominal pain. Pt states she underwent a gastric sleeve in 2014 and since has had intermittent abdominal pain secondary to a ventral hernia, noting an increase over the past 3 weeks, associated with nausea and vomiting. She reports being seen in the ED in [place], [place] at which time she was diagnosed with cellulitis, constipation, and ulcers. She was prescribed potassium and a medication for constipation. She notes she developed diarrhea over the past 3 days. She states an initial hernia repair occurred in 2010, with recurrence and discussions with a surgeon about possible hernia repair in the future. Pt states she uses a Lidocaine patch and hydrocodone at home for her pain. She denies fever, chills, CP, or SOA. She denies smoking cigarettes, drinking ETOH, or doing drugs. 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 Respiratory: Negative for shortness of breath. Cardiovascular: Negative for chest pain. Gastrointestinal: Positive for abdominal pain, diarrhea, nausea and vomiting. Ventral hernia Allergies: Morphine; Adhesive tape (rosins); Augmentin [amoxicillin-pot clavulanate]; and Fentanyl Past Medical History: Past Medical History: Diagnosis Date Anxiety disorder Asthma DM (diabetes mellitus) (HCC) GERD (gastroesophageal reflux disease) Headache Obesity Sleep apnea Past Surgical History: Past Surgical History: Procedure Laterality Date SECTION 04/2000 HX TUBAL LIGATION 04/2000 UMBILICAL HERNIA REPAIR 01/2011 Ventral hernia SLEEVE GASTROPLASTY 2014 HX CHOLECYSTECTOMY 02/19/2017 BARIATRIC SURGERY Pertinent medical/surgical history reviewed Past Medical History: Diagnosis Date Anxiety disorder Asthma DM (diabetes mellitus) (HCC) GERD (gastroesophageal reflux disease) Headache Obesity Sleep apnea Past Surgical History: Procedure Laterality Date SECTION 04/2000 HX TUBAL LIGATION 04/2000 UMBILICAL HERNIA REPAIR 01/2011 Ventral hernia SLEEVE GASTROPLASTY 2014 HX CHOLECYSTECTOMY 02/19/2017 BARIATRIC SURGERY Social History: Social History Substance Use Topics Smoking status: Former Smoker Smokeless tobacco: Never Used Alcohol use No History Drug Use No Family History: No family history on file. Vitals: ED Vitals Date and Time T BP P RR SPO2P SPO2 User 01/13/18 1830 -- 124/79 -- 16 PER MINUTE 81 97 % DM 01/13/18 1800 -- 107/61 -- -- -- -- DM 01/13/18 1730 -- 106/66 -- -- -- -- DM 01/13/18 1700 -- 118/86 -- -- 78 95 % DM 01/13/18 1630 -- 104/58 -- -- 80 96 % DM 01/13/18 1625 -- 112/67 -- -- -- -- DM 01/13/18 1530 -- 111/66 -- -- 78 95 % DM 01/13/18 1500 -- 104/53 -- -- 87 97 % DM 01/13/18 1400 -- 105/55 -- -- 75 95 % DM 01/13/18 1330 -- 97/53 -- -- 81 99 % DM 01/13/18 1300 -- 113/54 -- -- -- -- DM 01/13/18 1230 -- 114/63 -- 16 PER MINUTE 75 95 % DM 01/13/18 1104 36.5 C (97.7 F) 124/65 -- 12 PER MINUTE 76 97 % BR Physical Exam: Physical Exam Constitutional: She is oriented to person, place, and time. She appears well- developed and well-nourished. No distress. HENT: Head: Normocephalic and atraumatic. Neck: Normal range of motion. Neck supple. Cardiovascular: Normal rate, regular rhythm, normal heart sounds and intact distal pulses. Exam reveals no gallop and no friction rub. No murmur heard. Pulmonary/Chest: Effort normal and breath sounds normal. No respiratory distress. She has no wheezes. She has no rales. She exhibits no tenderness. Abdominal: Soft. Normal appearance and bowel sounds are normal. There is no tenderness. A hernia is present. Hernia confirmed positive in the ventral area ( large). Neurological: She is alert and oriented to person, place, and time. Skin: Skin is warm and dry. She is not diaphoretic. Psychiatric: She has a normal mood and affect. Nursing note and vitals reviewed. Laboratory Results: Results for orders placed or performed during the hospital encounter of (from the past 24 hour(s)) URINALYSIS DIPSTICK POC Result Value Ref Range Urine Color POC YELLOW Urine Turbidity POC CLEAR CLEAR-CLEAR Urine Specific Gray POC <=1.005 1.003 - 1.035 Urine PH POC 5.5 5.0 - 8.0 Urine Protein POC NEG NEG-NEG Urine Glucose POC 3+ (A) NEG-NEG Urine Ketone POC NEG NEG-NEG Urine Bilirubin POC NEG NEG-NEG Urine Blood POC NEG NEG-NEG Urine Urobilinogen POC NORMAL NORM-NORMAL Urine Nitrite POC NEG NEG-NEG Urine Leukocytes POC NEG NEG-NEG URINALYSIS, MICROSCOPIC Result Value Ref Range WBCs,UA 0-2 0 - 2 /HPF RBCs,UA 0-2 0 - 3 /HPF MucousUA TRACE Squamous Epithelial Cells 0-2 0 - 5 CBC AND DIFF Result Value Ref Range White Blood Cells 15.5 (H) 4.5 - 11.0 K/UL RBC 3.98 (L) 4.0 - 5.0 M/UL Hemoglobin 12.5 12.0 - 15.0 GM/DL Hematocrit 35.9 (L) 36 - 45 % MCV 90.0 80 - 100 FL MCH 31.5 26 - 34 PG MCHC 35.0 32.0 - 36.0 G/DL RDW 13.7 11 - 15 % Platelet Count 291 150 - 400 K/UL MPV 9.5 7 - 11 FL Neutrophils 61 41 - 77 % Lymphocytes 30 24 - 44 % Monocytes 6 4 - 12 % Eosinophils 2 0 - 5 % Basophils 1 0 - 2 % Absolute Neutrophil Count 9.50 (H) 1.8 - 7.0 K/UL Absolute Lymph Count 4.60 1.0 - 4.8 K/UL Absolute Monocyte Count 0.90 (H) 0 - 0.80 K/UL Absolute Eosinophil Count 0.30 0 - 0.45 K/UL Absolute Basophil Count 0.20 0 - 0.20 K/UL COMPREHENSIVE METABOLIC PANEL Result Value Ref Range Sodium 136 (L) 137 - 147 MMOL/L Potassium 3.8 3.5 - 5.1 MMOL/L Chloride 98 98 - 110 MMOL/L Glucose 162 (H) 70 - 100 MG/DL Blood Urea Nitrogen 14 7 - 25 MG/DL Creatinine 0.45 0.4 - 1.00 MG/DL Calcium 10.2 8.5 - 10.6 MG/DL Total Protein 7.0 6.0 - 8.0 G/DL Total Bilirubin 0.3 0.3 - 1.2 MG/DL Albumin 3.7 3.5 - 5.0 G/DL Alk Phosphatase 82 25 - 110 U/L AST (SGOT) 23 7 - 40 U/L CO2 31 (H) 21 - 30 MMOL/L ALT (SGPT) 35 7 - 56 U/L Anion Gap 7 3 - 12 eGFR Non >60 >60 mL/min eGFR >60 >60 mL/min MAGNESIUM Result Value Ref Range Magnesium 1.5 (L) 1.6 - 2.6 mg/dL Urine Urine : Negative QC: Acceptable Urine Lot #: [id number] Urine Dipstick Urine Glucose: 1 g/dl or 3+ Urine Bilirubin: Negative Urine Ketone: Negative Urine Specific Gray: 1.005 Urine Blood: Negative Urine pH: 5.5 Urine Protein: Negative Urobilinogen: Normal 0.2 mg/dl Urine Nitrate: Negative Urine Leukocytes: Negative Color: Yellow Turbidity: Clear Urine Dipstick Lot #: [id number] Radiology Interpretation: CT ABD/PELV W CONTRAST Final Result 1. No bowel obstruction, ascites, or focal [...] large hernia is not included on the [id number]. No abdominal wall fluid collections are identified [...] Radha Diehl M.D. on 01/13/2018 4:36 PM. EKG: ED Course: Pt seen and evaluated in the ED by Camilla River APRN and Marbella Ahmadi MD Pt seen for abdominal pains, physical exam significant large abdominal hernia Patient just has continued abdominal pain has been seen in ED in [place] also in [facility]. She recent CT scan had talked about a possible cellulitis in her abdomen and was treated with Keflex. Patient reports that she is just waiting to get this hernia repair done and is waiting on insurance to approve it for medical necessity. This was to be done here at surgery. Patient is concerned about the continued pain. Labs completed and significant for increased white blood cells at 15.5. Otherwise labs within normal limits. We will repeat the CT scan due to an elevation of white blood cells to make sure there is no obstruction or incarcerated hernia. CT scan does not show anything new and acute. Patient does still have this large ventral hernia with small hernias amongst them. In further discussion with patient she is more concerned about getting plastic surgery to approve her surgery through her insurance and patient has not heard back from anybody for this. Patient reports that she is call plastic surgery clinic 8 times in the last couple months and has not heard anything about this from them. Patient is just frustrated because she is really hoping to have the surgery done before March. Discussed with patient that we would forward this information to Dr. Dias and staff in hopes that this would be getting take care of. Patient was stable for discharge and agrees with discharge plan. MDM Reviewed: previous chart, nursing note and vitals Interpretation: labs Facility Administered Meds: Facility-Administered Medications as of 01/13/2018 Medication Last Dose [COMPLETED] iopamidol 370 (ISOVUE-370) injection 100 mL 100 mL at 01/13/18 1630 [COMPLETED] ketamine (KETALAR) injection 12.7 mg 12.7 mg at 01/13/18 1241 [COMPLETED] ketamine (KETALAR) injection 12.7 mg 12.7 mg at 01/13/18 1542 [COMPLETED] metoclopramide (REGLAN) injection 10 mg 10 mg at 01/13/18 1238 [COMPLETED] sodium chloride 0.9 % infusion Stopped at 01/13/18 1343 [COMPLETED] sodium chloride PF 0.9% injection 50 mL 50 mL at 01/13/18 1630 Clinical Impression: Final diagnoses: Abdominal pain, generalized (Primary) Disposition/Follow up Linus Herrera, [address] [place] [address] Schedule an appointment as soon as possible for a visit in 1 week As needed---follow up for further investigation of hernia and liver findings. nothing acute on this scan. Encourage fluids and rest. Medications: Discharge Medication List as of 01/13/2018 6:01 PM Procedure Notes: Procedures Attestation / Supervision: Sherrell Sosa, am scribing for and in the presence of MarbellaMD Sherrell Bales APRN Attestation / Supervision Note concerning Radha Cordova: I personally performed the E/M including history, physical exam, and MDM., I personally interviewed and examined the patient. I have reviewed the history, physical, impression and plan outlined by the Nurse Practitioner. The patient presents with (HPI) chronic abdominal pain and large abdominal hernia, On examination there is a large abdominal hernia, tender to palpation, My impression is abdominal pain secondary to hernia, My plan is labs, CT abd/pelvis, pain control in the ED. and I, Marbella Ahmadi MD, personally performed the services described in this documentation as scribed in my presence and it is both accurate and complete. Marbella Ahmadi MD * ED Notes - Wandy Nolen RN - 01/13/2018 11:21 AM CDT 47 y.o female to ED 12 c/o abdominal pain. Pt reports this has been ongoing and worsening for about 3 weeks. Pt reports hx of gastric sleeve procedure and states it is not abnormal for her to have some abdominal discomfort after meals. Pt reports intermittent nausea, vomiting, and abdominal discomfort over the past few weeks. She reports a recent visit to the [facility] emergency department where she reports being diagnosed with cellulitis, constipation, and ulcers. Pt reports they replaced her potassium and gave her medication for her constipation. She reports she has had diarrhea since being evaluated on Friday. Pt denies any blood in her stool or emesis. She reports the pain is in her lower abdomen. Pt denies any other complaints at this time. She is a&ox4 and eupneic on RA. Cart is in the lowest lying position with side rails up and call light within reach. Awaiting further evaluation. Pt Belongings: Shirt, pants, shoes, cell phone. All belongings remain on pt and at bedside a this time. in this encounter Plan of Treatment Not on fileas of this encounter Results * CT ABD/PELV W CONTRAST (01/13/2018 4:15 [...] large hernia is not included on the hiijd-fi-xrtf. No abdominal wall fluid collections are identified [...] hernia sac is not included in the dwuur-cw-phqj. The hernia contains nonobstructed small and large [...] hernia sac is not included in the qmfqp-ce-gdxp. The hernia contains nonobstructed small and large [...] large hernia is not included on the zkfpk-ow-yecp. No abdominal wall fluid collections are identified [...] PM. Performing Organization Address City/State/Zipcode Phone Number RAD RESULTS * MAGNESIUM (01/13/2018 12:06 PM) Magnesium 1.5 (L) 1.6 - 2.6 mg/dL [facility] Specimen Blood Performing Organization Address City/[facility] Phone Number [facility] [address] [place] [address] * COMPREHENSIVE METABOLIC PANEL (01/13/2018 12:06 PM) [...] for questions. Specimen Blood Performing Organization Address City/[facility]/Zipcode Phone Number MAIN LAB [address] [place] [address] * CBC AND DIFF (01/13/2018 12:06 PM) [...] MAIN LAB Specimen Blood Performing Organization Address [facility] Phone Number [facility] [address] [place] [address] * URINALYSIS, MICROSCOPIC (01/13/2018 11:58 AM) WBCs,UA 0-2 0 - 2 /HPF [facility] RBCs,UA 0-2 0 - 3 /HPF [facility] MucousUA TRACE [facility] Squamous Epithelial Cells 0-2 0 - 5 [facility] Specimen Urine - Urine Performing Organization Address City/[facility]/Zipcode Phone Number [facility] [address] [place] [address] * URINALYSIS DIPSTICK POC (01/13/2018 11:57 AM) Urine Color POC YELLOW [facility] Urine Turbidity POC CLEAR CLEAR-CLEAR [facility] Urine Specific Gray <=1.005 1.003 - 1.035 [facility] [...] NEG-NEG [facility] Performing Organization Address City/[facility] Phone Number MA[facility] LAB [address] [place] [address] in this encounter Visit Diagnoses Diagnosis Abdominal pain, generalized - Primary Administered Medications Medication Order MAR Action Action Date Dose Rate Site iopamidol 370 (ISOVUE-370) injection 100 Given 01/13/2018 100 mL mL 16:30 CDT 100 mL, Intravenous, ONCE, 1 dose, 01/13/18 at 1630, NOTE: This is a HIGH ALERT Medication. ketamine (KETALAR) injection 12.7 mg Given 01/13/2018 12.7 mg 12.7 mg (rounded from 12.66 mg=0.1 mg/kg 12:41 CDT 126.6 kg), Intravenous, ONCE, 1 dose, 01/13/18 at 1200, NOTE: This is a HIGH ALERT Medication. ketamine (KETALAR) injection 12.7 mg Given 01/13/2018 12.7 mg 12.7 mg (rounded from 12.66 mg=0.1 mg/kg 15:42 CDT 126.6 kg), Intravenous, ONCE, 1 dose, 01/13/18 at 1545, NOTE: This is a HIGH ALERT Medication. metoclopramide (REGLAN) injection 10 mg Given 01/13/2018 10 mg 10 mg, Intravenous, ONCE, 1 dose, Tue 12:38 CDT 01/13/18 at 1200 sodium chloride 0.9 % infusion Given - New 01/13/2018 1,000 mL 1000 mL/hr 1,000 mL, 1,000 mL, Intravenous, at Bag 12:38 CDT 1,000 mL/hr, BOLUS, 1 dose, 01/13/18 at 1200 sodium chloride PF 0.9% injection 50 mL Given 01/13/2018 50 mL 50 mL, Intravenous, ONCE, 1 dose, Tue 16:30 CDT 01/13/18 at 1630, DO NOT SEND this medication unless it is requested. This med is usually available in floor stock. in this encounter
--- OUTSIDE RECORDS SUMMARY | 2018-04-01 00:24 | XMS REPORT | Encounter Summary ---
Author Author [facility] Organization [facility] Address Unknown Phone Unavailable Care Team Providers Care Transformer Assembly Supervisor Name Role Phone Linus Herrera DO PCP Reason for Visit * Reason Comments Abdominal pain Encounter Details Date Type Department Care Team Description 01/12/2018 Telephone [facility] Max Culver DO Abdominal pain [facility] [address] [facility] [address] [place], [place] [id number] [facility] [phone] [place] [address] [phone] Social History Tobacco Use Types Packs/Day Years [...] Telephone Encounter - Antonia Hope RN - 01/12/2018 10:52 AM CDT Daughter reports pt developed N/V of "coffee" emesis yesterday afternoon. Reports going to ER near hometown for evaluation and was sent home. Per daughter, pain persists, unable to touch abdomen without pain. States there is a hard area in abdomen with redness. Pt did not have BM for 7days until last night. Denies fevers. Instructed pt & daughter to go to a different ER for evaluation of symptoms. Daughter to call back with update. Notified Dr. Culver. in this encounter Plan of Treatment Not on fileas of this encounter Visit Diagnoses Not on filein this encounter
== END 2018-03-31 23:45 | disposition home or self-care (01) ==
LOC: EDUNIT# 21:17 → ER 21:18
DX: K91.89 Other postprocedural complications and disorders of digestive system (principal); L02.211 Cutaneous abscess of abdominal wall; I10 Essential (primary) hypertension; E78.00 Pure hypercholesterolemia, unspecified; E66.01 Morbid (severe) obesity due to excess calories; E11.9 Type 2 diabetes mellitus without complications; Z98.890 Other specified postprocedural states; Z88.1 Allergy status to other antibiotic agents; Z88.6 Allergy status to analgesic agent; Z88.8 Allergy status to other drugs, medicaments and biological substances; Z98.51 Tubal ligation status; Z87.59 Personal history of other complications of pregnancy, childbirth and the puerperium; Z98.84 Bariatric surgery status
CPT/HCPCS: 36415; 80053; 83605; 85025; 85652; 86141; 87040; 87070; 87077; 87186; 87205; 96374; 96375

== ENCOUNTER → 2018-05-04 | Outpatient (CLI) | payer MEDICAID ==
[2018-05-04 10:53] LABS: BASOPHILS % (AUTO) 1 % (0-10); EOSINOPHILS # (AUTO) 0.2 10^3/uL (0.0-0.3); EOSINOPHILS % (AUTO) 4 % (0-10); HEMATOCRIT 30 % (35-52); LYMPHOCYTES # (AUTO) 1.9 X 10^3 (1.0-4.0); LYMPHOCYTES % (AUTO) 33 % (12-44); MEAN CORPUSCULAR HEMOGLOBIN 31 PG (25-34); MEAN CORPUSCULAR HGB CONC 33 G/DL (32-36); MEAN CORPUSCULAR VOLUME 93 FL (80-99); MEAN PLATELET VOLUME 9.9 FL (7.4-10.4); MONOCYTES # (AUTO) 0.3 X 10^3 (0.0-1.0); MONOCYTES % (AUTO) 6 % (0-12); NEUTROPHILS # (AUTO) 3.3 X 10^3 (1.8-7.8); NEUTROPHILS % (AUTO) 57 % (42-75); PLATELET COUNT 238 10^3/uL (130-400); RED BLOOD COUNT 3.24 10^6/uL (4.35-5.85); WHITE BLOOD COUNT 5.8 10^3/uL (4.3-11.0)
[2018-05-04 11:13] LABS: ALANINE AMINOTRANSFERASE 23 U/L (0-55); ALBUMIN 3.7 GM/DL (3.2-4.5); ALKALINE PHOSPHATASE 79 U/L (40-136); BILIRUBIN,TOTAL 0.2 MG/DL (0.1-1.0); BUN/CREATININE RATIO 20; CALCIUM 9.5 MG/DL (8.5-10.1); CARBON DIOXIDE 20 MMOL/L (21-32); CHLORIDE 106 MMOL/L (98-107); CREATININE SERUM 0.54 MG/DL (0.60-1.30); GFR ESTIMATED > 60; GLUCOSE 213 MG/DL (70-105); POTASSIUM 3.7 MMOL/L (3.6-5.0); SODIUM 137 MMOL/L (135-145); TOTAL PROTEIN 6.4 GM/DL (6.4-8.2)
[2018-05-04 11:19] LABS: VANCOMYCIN,TROUGH 6.4 UG/ML (10.0-20.0)
[2018-05-04 11:41] LABS: ERYTHROCYTE SEDIMENTATION RATE 45 MM/HR (0-20)
== END ==
LOC: HH 08:00
PROVIDERS: ATTEND Internal Medicine Infectious Disease
DX: L02.211 Cutaneous abscess of abdominal wall (principal)
CPT/HCPCS: 36415; 80053; 80202; 85025; 85652

== ENCOUNTER → 2018-05-04 | Outpatient (CLI) | payer MEDICAID | LOC: LAB 10:40 | PROVIDERS: ATTEND Surgery | DX: Z98.890 Other specified postprocedural states (principal); Z87.19 Personal history of other diseases of the digestive system; Z53.8 Procedure and treatment not carried out for other reasons | CPT/HCPCS: 36415; 80053; 80202; 85025; 85652 ==

== ENCOUNTER → 2018-05-07 | Outpatient (CLI) | payer MEDICAID ==
[2018-05-07 11:16] LABS: CREATININE SERUM 0.55 MG/DL (0.60-1.30)
[2018-05-07 11:24] LABS: VANCOMYCIN,TROUGH 6.1 UG/ML (10.0-20.0)
== END ==
LOC: HH 08:00
PROVIDERS: ATTEND Internal Medicine Infectious Disease
DX: L02.211 Cutaneous abscess of abdominal wall (principal)
CPT/HCPCS: 80202; 82565

== ENCOUNTER → 2018-05-11 | Outpatient (CLI) | payer MEDICAID ==
[2018-05-11 11:00] LABS: BASOPHILS # (AUTO) 0.1 10^3/uL (0.0-0.1); BASOPHILS % (AUTO) 1 % (0-10); EOSINOPHILS # (AUTO) 0.3 10^3/uL (0.0-0.3); EOSINOPHILS % (AUTO) 4 % (0-10); HEMATOCRIT 37 % (35-52); HEMOGLOBIN 11.8 G/DL (11.5-16.0); LYMPHOCYTES # (AUTO) 1.8 X 10^3 (1.0-4.0); LYMPHOCYTES % (AUTO) 28 % (12-44); MEAN CORPUSCULAR HEMOGLOBIN 29 PG (25-34); MEAN CORPUSCULAR HGB CONC 32 G/DL (32-36); MEAN CORPUSCULAR VOLUME 91 FL (80-99); MEAN PLATELET VOLUME 10.2 FL (7.4-10.4); MONOCYTES # (AUTO) 0.6 X 10^3 (0.0-1.0); MONOCYTES % (AUTO) 9 % (0-12); NEUTROPHILS # (AUTO) 3.9 X 10^3 (1.8-7.8); NEUTROPHILS % (AUTO) 59 % (42-75); PLATELET COUNT 314 10^3/uL (130-400); RED BLOOD COUNT 4.04 10^6/uL (4.35-5.85); RED CELL DISTRIBUTION WIDTH 14.9 % (10.0-14.5); WHITE BLOOD COUNT 6.7 10^3/uL (4.3-11.0)
[2018-05-11 11:20] LABS: ALANINE AMINOTRANSFERASE 23 U/L (0-55); ALBUMIN 4.2 GM/DL (3.2-4.5); ALKALINE PHOSPHATASE 94 U/L (40-136); BILIRUBIN,TOTAL 0.4 MG/DL (0.1-1.0); BUN/CREATININE RATIO 28; CALCIUM 10.1 MG/DL (8.5-10.1); CARBON DIOXIDE 26 MMOL/L (21-32); CHLORIDE 101 MMOL/L (98-107); CREATININE SERUM 0.64 MG/DL (0.60-1.30); GFR ESTIMATED > 60; GLUCOSE 206 MG/DL (70-105); POTASSIUM 3.5 MMOL/L (3.6-5.0); SODIUM 139 MMOL/L (135-145); TOTAL PROTEIN 7.4 GM/DL (6.4-8.2)
[2018-05-11 11:27] LABS: ERYTHROCYTE SEDIMENTATION RATE 32 MM/HR (0-20)
[2018-05-11 11:28] LABS: VANCOMYCIN,TROUGH 14.7 UG/ML (10.0-20.0)
== END ==
LOC: HH 08:00
PROVIDERS: ATTEND Internal Medicine Infectious Disease
DX: L02.211 Cutaneous abscess of abdominal wall (principal)
CPT/HCPCS: 80053; 80202; 85025; 85652

== ENCOUNTER → 2018-05-12 | Outpatient (CLI) | payer MEDICAID ==
[~2018-05-12] MED LIST changes: +BARIUM SUSPENSION 2.1% (VANILLA SILQ) 450 ML PO ONE; +CATHETER FLUSH 10 ML SYR IV PRN; +IOHEXOL 350 MG/ML 100 ML (OMNIPAQUE 350) VIAL IV ONE; +NS 250 ML (IVPB) BAG IV ONE
--- NOTE | 2018-05-12 16:24 | Diagnostic Imaging Report ---
PROCEDURE: CT abdomen and pelvis with contrast. TECHNIQUE: Multiple contiguous axial images were obtained through the abdomen and pelvis after administration of intravenous contrast. INDICATION: Left-sided hernia repair eight weeks ago. COMPARISON: Exam compared to 01/11/2018. FINDINGS: There is substantial improvement in ventral bulging and anterior displacement of abdominal solid and hollow visceral content. There is a large amount of bubbly lucency and gas-like material just left of midline deep to the surgical dana. This extends to the thickened skin surface. This is presumed wound packing material, although correlate clinically as gas-forming infectious etiology could not be excluded. No drainable fluid collection. Some skin thickening and subcutaneous edema infraumbilical may reflect cellulitis. Liver, spleen, adrenals, and pancreas are all unremarkable. The gallbladder is surgically absent. There is no hydronephrosis. There is no bowel obstruction nor evidence for an ileus. Urinary bladder, uterus, and adnexa are unremarkable. IMPRESSION: 1. Improvement in ventral abdominal wall bulging, subcutaneous edema, and skin thickening with bubbly gaseous collection in the subcutaneous just left of midline. This contains no drainable fluid. The area in aggregate measures transverse 9 cm with AP thickness of 5 cm and there appears to be a pigtail drainage catheter just outside this air pocket, this catheter formed in loop within the skin and superficial subcutaneous fat itself and is nearly completely outside. 2. No ileus, obstruction, ascites, or fluid collection. No inflammatory changes within the intra or retroperitoneal spaces. Dictated by: Dictated on workstation # [id number]
== END ==
LOC: RAD 13:07
PROVIDERS: ATTEND Surgery
DX: Z98.890 Other specified postprocedural states (principal); Z87.19 Personal history of other diseases of the digestive system
CPT/HCPCS: 74177

== ENCOUNTER → 2018-05-14 | Outpatient (CLI) | payer MEDICAID ==
[~2018-05-14] MED LIST changes: -BARIUM SUSPENSION 2.1% (VANILLA SILQ) 450 ML PO ONE; -CATHETER FLUSH 10 ML SYR IV PRN; -IOHEXOL 350 MG/ML 100 ML (OMNIPAQUE 350) VIAL IV ONE; -NS 250 ML (IVPB) BAG IV ONE
== END ==
LOC: HH 08:00
PROVIDERS: ATTEND Internal Medicine Infectious Disease
DX: L02.211 Cutaneous abscess of abdominal wall (principal)
CPT/HCPCS: 80202; 82565

== ENCOUNTER → 2018-05-18 | Outpatient (CLI) | payer MEDICAID ==
[2018-05-18 11:40] LABS: BASOPHILS % (AUTO) 1 % (0-10); EOSINOPHILS # (AUTO) 0.3 10^3/uL (0.0-0.3); EOSINOPHILS % (AUTO) 5 % (0-10); HEMATOCRIT 34 % (35-52); HEMOGLOBIN 11.1 G/DL (11.5-16.0); LYMPHOCYTES # (AUTO) 1.5 X 10^3 (1.0-4.0); LYMPHOCYTES % (AUTO) 28 % (12-44); MEAN CORPUSCULAR HEMOGLOBIN 30 PG (25-34); MEAN CORPUSCULAR HGB CONC 32 G/DL (32-36); MEAN CORPUSCULAR VOLUME 92 FL (80-99); MEAN PLATELET VOLUME 10.3 FL (7.4-10.4); MONOCYTES # (AUTO) 0.4 X 10^3 (0.0-1.0); MONOCYTES % (AUTO) 8 % (0-12); NEUTROPHILS # (AUTO) 3.3 X 10^3 (1.8-7.8); NEUTROPHILS % (AUTO) 59 % (42-75); PLATELET COUNT 282 10^3/uL (130-400); RED BLOOD COUNT 3.75 10^6/uL (4.35-5.85); RED CELL DISTRIBUTION WIDTH 14.7 % (10.0-14.5); WHITE BLOOD COUNT 5.5 10^3/uL (4.3-11.0)
[2018-05-18 11:59] LABS: ALANINE AMINOTRANSFERASE 27 U/L (0-55); ALBUMIN 3.9 GM/DL (3.2-4.5); ALKALINE PHOSPHATASE 86 U/L (40-136); BILIRUBIN,TOTAL 0.3 MG/DL (0.1-1.0); BUN/CREATININE RATIO 21; CALCIUM 9.6 MG/DL (8.5-10.1); CARBON DIOXIDE 27 MMOL/L (21-32); CHLORIDE 104 MMOL/L (98-107); CREATININE SERUM 0.52 MG/DL (0.60-1.30); GFR ESTIMATED > 60; GLUCOSE 150 MG/DL (70-105); SODIUM 139 MMOL/L (135-145); TOTAL PROTEIN 6.8 GM/DL (6.4-8.2)
[2018-05-18 12:02] LABS: ERYTHROCYTE SEDIMENTATION RATE 45 MM/HR (0-20)
[2018-05-18 12:04] LABS: VANCOMYCIN,TROUGH 8.2 UG/ML (10.0-20.0)
== END ==
LOC: HH 08:00
PROVIDERS: ATTEND Internal Medicine Infectious Disease
DX: L02.211 Cutaneous abscess of abdominal wall (principal)
CPT/HCPCS: 80053; 80202; 85025; 85652

== ENCOUNTER → 2018-05-21 | Outpatient (CLI) | payer MEDICAID ==
[2018-05-21 11:52] LABS: CREATININE SERUM 0.62 MG/DL (0.60-1.30)
[2018-05-21 12:00] LABS: VANCOMYCIN,TROUGH 12.3 UG/ML (10.0-20.0)
== END ==
LOC: HH 08:00
PROVIDERS: ATTEND Internal Medicine Infectious Disease
DX: L02.211 Cutaneous abscess of abdominal wall (principal)
CPT/HCPCS: 80202; 82565

== ENCOUNTER → 2018-05-25 | Outpatient (CLI) | payer MEDICAID ==
[2018-05-25 12:01] LABS: BASOPHILS % (AUTO) 0 % (0-10); EOSINOPHILS # (AUTO) 0.2 10^3/uL (0.0-0.3); EOSINOPHILS % (AUTO) 3 % (0-10); HEMATOCRIT 37 % (35-52); HEMOGLOBIN 12.1 G/DL (11.5-16.0); LYMPHOCYTES # (AUTO) 1.6 X 10^3 (1.0-4.0); LYMPHOCYTES % (AUTO) 23 % (12-44); MEAN CORPUSCULAR HEMOGLOBIN 30 PG (25-34); MEAN CORPUSCULAR HGB CONC 33 G/DL (32-36); MEAN CORPUSCULAR VOLUME 90 FL (80-99); MEAN PLATELET VOLUME 10.5 FL (7.4-10.4); MONOCYTES # (AUTO) 0.7 X 10^3 (0.0-1.0); MONOCYTES % (AUTO) 10 % (0-12); NEUTROPHILS # (AUTO) 4.4 X 10^3 (1.8-7.8); NEUTROPHILS % (AUTO) 64 % (42-75); PLATELET COUNT 319 10^3/uL (130-400); RED BLOOD COUNT 4.05 10^6/uL (4.35-5.85); RED CELL DISTRIBUTION WIDTH 13.9 % (10.0-14.5); WHITE BLOOD COUNT 6.9 10^3/uL (4.3-11.0)
[2018-05-25 12:20] LABS: ALANINE AMINOTRANSFERASE 19 U/L (0-55); ALKALINE PHOSPHATASE 107 U/L (40-136); BILIRUBIN,TOTAL 0.4 MG/DL (0.1-1.0); BUN/CREATININE RATIO 35; CALCIUM 9.7 MG/DL (8.5-10.1); CARBON DIOXIDE 25 MMOL/L (21-32); CHLORIDE 101 MMOL/L (98-107); GFR ESTIMATED > 60; GLUCOSE 174 MG/DL (70-105); POTASSIUM 3.8 MMOL/L (3.6-5.0); SODIUM 139 MMOL/L (135-145); TOTAL PROTEIN 7.1 GM/DL (6.4-8.2)
[2018-05-25 12:26] LABS: VANCOMYCIN,TROUGH 11.4 UG/ML (10.0-20.0)
[2018-05-25 12:32] LABS: ERYTHROCYTE SEDIMENTATION RATE 31 MM/HR (0-20)
== END ==
LOC: HH 08:00
PROVIDERS: ATTEND Internal Medicine Infectious Disease
DX: L02.211 Cutaneous abscess of abdominal wall (principal)
CPT/HCPCS: 80053; 80202; 85025; 85652

== ENCOUNTER → 2018-05-26 | Outpatient (CLI) | payer MEDICAID ==
[~2018-05-26] MED LIST changes: +IOHEXOL 350 MG/ML 100 ML (OMNIPAQUE 350) VIAL IV ONE; +NS 250 ML (IVPB) BAG IV ONE
--- NOTE | 2018-05-26 12:15 | Diagnostic Imaging Report ---
PROCEDURE: CT abdomen and pelvis with contrast. TECHNIQUE: Multiple contiguous axial images were obtained through the abdomen and pelvis after administration of intravenous contrast. INDICATION: Hernia repair, abscess with drain. FINDINGS: Previous percutaneous drain has been removed. Bubbly gaseous and minimally fluid-comprised density ventral to the inferior aspect of anterior abdominal wall hernia extending to the skin surface is a redemonstrated finding. This fluid composition has increased but is largely air-containing. It today measures 11 cm transverse with an AP thickness of 7.6 cm, previously 9 cm x 5 cm. Some adjacent subcutaneous edema and overlying skin thickening. No new fluid collection is found. There is trace pelvic free fluid nonloculated. The uterus, adnexa and urinary bladder appeared unremarkable. There is no evidence for an ileus or bowel obstruction and there is no extravasation of the enteric contrast media. The gallbladder surgically absent. The liver, spleen, adrenals and pancreas negative. Kidneys are unobstructed and nonacute. IMPRESSION: Subcutaneous ventral elbert-hernia abdominal wall subcutaneous gas fluid collection measures slightly larger than on prior with a slightly greater intraluminal fluid composition. There may be some adjacent cellulitis and skin edema. Trace free fluid in the pelvis is nonloculated. No other significant finding. Dictated by: Dictated on workstation # [id number]
== END ==
LOC: RAD 10:25
PROVIDERS: ATTEND Surgery
DX: Z98.890 Other specified postprocedural states (principal); Z87.19 Personal history of other diseases of the digestive system
CPT/HCPCS: 74177

== ENCOUNTER 2018-10-22 08:21 | Outpatient (RCR) | payer MEDICAID ==
[2018-10-10] MEDS: ERTAPENEM 1 GM/NS 50 ML IVPB IV SCH ×2 (10:03)
[2018-10-10 10:35] VITALS: BP 116/72
[2018-10-11] MEDS: ERTAPENEM 1 GM/NS 50 ML IVPB IV SCH ×2 (10:11)
[2018-10-11 10:43] VITALS: BP 97/65
[2018-10-12] MEDS: ERTAPENEM 1 GM/NS 50 ML IVPB IV SCH ×2 (10:38)
[2018-10-12 11:05] VITALS: BP 111/63
[2018-10-13 09:30] VITALS: BP 118/59
[2018-10-13] MEDS: ERTAPENEM 1 GM/NS 50 ML IVPB IV SCH ×2 (09:38)
[2018-10-14] MEDS: ERTAPENEM 1 GM/NS 50 ML IVPB IV SCH ×2 (09:40)
[2018-10-14 09:45] VITALS: BP 125/8
[2018-10-15 09:42] VITALS: BP 119/64
[2018-10-15 10:06] LABS: HEMOGLOBIN 12.9 G/DL (11.5-16.0); WHITE BLOOD COUNT 7.6 10^3/uL (4.3-11.0)
[2018-10-15] MEDS: ERTAPENEM 1 GM/NS 50 ML IVPB IV SCH ×2 (10:15)
[2018-10-16] MEDS: ERTAPENEM 1 GM/NS 50 ML IVPB IV SCH ×2 (11:20)
[2018-10-16 11:56] VITALS: BP 131/85
[2018-10-17 10:20] VITALS: BP 113/65
[2018-10-17] MEDS: ERTAPENEM 1 GM/NS 50 ML IVPB IV SCH ×2 (10:40)
[2018-10-18 10:15] VITALS: BP 131/70
[2018-10-18] MEDS: ERTAPENEM 1 GM/NS 50 ML IVPB IV SCH ×2 (10:28)
[2018-10-19] MEDS: ERTAPENEM 1 GM/NS 50 ML IVPB IV SCH ×2 (09:53)
[2018-10-19 10:25] VITALS: BP 117/66
[2018-10-20] MEDS: ERTAPENEM 1 GM/NS 50 ML IVPB IV SCH ×2 (08:51)
[2018-10-20 08:55] VITALS: BP 121/68
[2018-10-21] MEDS: ERTAPENEM 1 GM/NS 50 ML IVPB IV SCH ×2 (10:25)
[2018-10-21 10:33] VITALS: BP 135/71
[~2018-10-22] VITALS: Ht 165.1 cm; Wt 129.3 kg
[~2018-10-22 08:21] MED LIST changes: -IOHEXOL 350 MG/ML 100 ML (OMNIPAQUE 350) VIAL IV ONE; -NS 250 ML (IVPB) BAG IV ONE
[2018-10-22] MEDS: ERTAPENEM 1 GM/NS 50 ML IVPB IV SCH ×2 (10:15)
[2018-10-22 10:20] VITALS: BP 135/71
[2018-10-22 10:56] VITALS: BP 135/71
--- NOTE | 2018-10-22 13:00 | Diagnostic Imaging Report ---
EXAMINATION: Portable erect AP chest at 09:42 a.m. INDICATION: PICC line insertion. FINDINGS: There are no prior chest examinations available for comparison. The heart size is within normal limits and stable when compared to the CT abdomen/pelvis exam of 05/26/2018. The lungs are clear. There is no evidence for failure, pneumonia, or for a pleural effusion to indicate an acute abnormality. The mediastinum is not widened. The osseous structures are intact. There is a right-sided PICC line in place. The tip of the line is near the junction of the subclavian vein and the superior vena cava. There is no pneumothorax on the right. IMPRESSION: 1. There is no evidence for an acute cardiopulmonary abnormality. In particular, there is no sign of a pneumothorax on the right. 2. The tip of the right-sided PICC line overlies the junction of right subclavian and superior vena cava. Dictated by: Dictated on workstation # [id number]
== END 2018-10-22 10:47 | disposition home or self-care (01) ==
LOC: SDC 08:21
PROVIDERS: ATTEND Specialist
DX: L02.211 Cutaneous abscess of abdominal wall (principal)
CPT/HCPCS: 36415; 71045; 85027; 96365

== ENCOUNTER 2018-11-05 07:52 | Outpatient (RCR) | payer MEDICAID ==
[2018-09-11] MEDS: ERTAPENEM 1 GM/NS 50 ML IVPB IV SCH ×2 (14:07)
[2018-09-11 14:45] VITALS: BP 117/66
[2018-09-12] MEDS: ERTAPENEM 1 GM/NS 50 ML IVPB IV SCH ×2 (14:03)
[2018-09-12 14:08] VITALS: BP 122/80
[2018-09-13 12:33] VITALS: BP 118/76
[2018-09-13] MEDS: ERTAPENEM 1 GM/NS 50 ML IVPB IV SCH ×2 (12:35)
[2018-09-14] MEDS: ERTAPENEM 1 GM/NS 50 ML IVPB IV SCH ×2 (13:30)
[2018-09-14 14:05] VITALS: BP 108/57
[2018-09-15] MEDS: ERTAPENEM 1 GM/NS 50 ML IVPB IV SCH ×2 (17:08)
[2018-09-15 17:39] VITALS: BP 129/74
[2018-09-16] MEDS: ERTAPENEM 1 GM/NS 50 ML IVPB IV SCH ×2 (12:53)
[2018-09-16 13:22] VITALS: BP 109/64
[2018-09-17] MEDS: ERTAPENEM 1 GM/NS 50 ML IVPB IV SCH ×2 (13:55)
[2018-09-17 14:11] LABS: BASOPHILS % (AUTO) 1 % (0-10); EOSINOPHILS # (AUTO) 0.1 10^3/uL (0.0-0.3); EOSINOPHILS % (AUTO) 2 % (0-10); HEMATOCRIT 35 % (35-52); HEMOGLOBIN 11.6 G/DL (11.5-16.0); LYMPHOCYTES # (AUTO) 1.8 X 10^3 (1.0-4.0); LYMPHOCYTES % (AUTO) 29 % (12-44); MEAN CORPUSCULAR HEMOGLOBIN 29 PG (25-34); MEAN CORPUSCULAR HGB CONC 33 G/DL (32-36); MEAN CORPUSCULAR VOLUME 90 FL (80-99); MEAN PLATELET VOLUME 9.8 FL (7.4-10.4); MONOCYTES # (AUTO) 0.4 X 10^3 (0.0-1.0); MONOCYTES % (AUTO) 7 % (0-12); NEUTROPHILS # (AUTO) 3.8 X 10^3 (1.8-7.8); NEUTROPHILS % (AUTO) 62 % (42-75); PLATELET COUNT 257 10^3/uL (130-400); RED CELL DISTRIBUTION WIDTH 14.5 % (10.0-14.5); WHITE BLOOD COUNT 6.1 10^3/uL (4.3-11.0)
[2018-09-17 14:25] VITALS: BP 127/74
[2018-09-17 14:27] LABS: BUN/CREATININE RATIO 17; CALCIUM 9.4 MG/DL (8.5-10.1); CARBON DIOXIDE 24 MMOL/L (21-32); CHLORIDE 105 MMOL/L (98-107); CREATININE SERUM 0.76 MG/DL (0.60-1.30); GFR ESTIMATED > 60; GLUCOSE 138 MG/DL (70-105); POTASSIUM 3.9 MMOL/L (3.6-5.0); SODIUM 139 MMOL/L (135-145)
[2018-09-17 14:40] LABS: ERYTHROCYTE SEDIMENTATION RATE 45 MM/HR (0-20)
--- NOTE | 2018-09-17 14:46 | NUR ---
LABS FAXED TO DR. BLEDSOE'S OFFICE.
[2018-09-18] MEDS: ERTAPENEM 1 GM/NS 50 ML IVPB IV SCH ×2 (16:10)
[2018-09-18 16:44] VITALS: BP 117/82
[2018-09-19 10:25] VITALS: BP 125/86
[2018-09-19] MEDS: ERTAPENEM 1 GM/NS 50 ML IVPB IV SCH ×2 (10:40)
[2018-09-20] MEDS: ERTAPENEM 1 GM/NS 50 ML IVPB IV SCH ×2 (10:25)
[2018-09-20 10:29] VITALS: BP 122/66
[2018-09-21] MEDS: ERTAPENEM 1 GM/NS 50 ML IVPB IV SCH ×2 (13:14)
[2018-09-21 13:23] VITALS: BP 112/67
[2018-09-22] MEDS: ERTAPENEM 1 GM/NS 50 ML IVPB IV SCH ×2 (12:45)
[2018-09-22 12:50] VITALS: BP 118/62
[2018-09-23] MEDS: ERTAPENEM 1 GM/NS 50 ML IVPB IV SCH ×2 (13:36)
[2018-09-23 13:50] VITALS: BP 104/63
[2018-09-24 11:15] VITALS: BP 116/62
[2018-09-24 11:21] LABS: BASOPHILS % (AUTO) 0 % (0-10); EOSINOPHILS # (AUTO) 0.1 10^3/uL (0.0-0.3); EOSINOPHILS % (AUTO) 2 % (0-10); HEMATOCRIT 35 % (35-52); HEMOGLOBIN 11.5 G/DL (11.5-16.0); LYMPHOCYTES # (AUTO) 1.8 X 10^3 (1.0-4.0); LYMPHOCYTES % (AUTO) 29 % (12-44); MEAN CORPUSCULAR HEMOGLOBIN 29 PG (25-34); MEAN CORPUSCULAR HGB CONC 33 G/DL (32-36); MEAN CORPUSCULAR VOLUME 90 FL (80-99); MEAN PLATELET VOLUME 9.8 FL (7.4-10.4); MONOCYTES # (AUTO) 0.4 X 10^3 (0.0-1.0); MONOCYTES % (AUTO) 6 % (0-12); NEUTROPHILS # (AUTO) 3.9 X 10^3 (1.8-7.8); NEUTROPHILS % (AUTO) 63 % (42-75); PLATELET COUNT 217 10^3/uL (130-400); RED CELL DISTRIBUTION WIDTH 14.6 % (10.0-14.5); WHITE BLOOD COUNT 6.2 10^3/uL (4.3-11.0)
[2018-09-24] MEDS: ERTAPENEM 1 GM/NS 50 ML IVPB IV SCH ×2 (11:25)
[2018-09-24 11:42] LABS: BUN/CREATININE RATIO 20; CALCIUM 9.3 MG/DL (8.5-10.1); CARBON DIOXIDE 22 MMOL/L (21-32); CHLORIDE 102 MMOL/L (98-107); CREATININE SERUM 0.61 MG/DL (0.60-1.30); GFR ESTIMATED > 60; GLUCOSE 207 MG/DL (70-105); POTASSIUM 3.9 MMOL/L (3.6-5.0); SODIUM 136 MMOL/L (135-145)
[2018-09-24 11:47] LABS: ERYTHROCYTE SEDIMENTATION RATE 58 MM/HR (0-20)
[2018-09-25 14:35] VITALS: BP 118/65
[2018-09-25] MEDS: ERTAPENEM 1 GM/NS 50 ML IVPB IV SCH ×2 (14:53)
[2018-09-26 10:06] VITALS: BP 113/65
[2018-09-26] MEDS: ERTAPENEM 1 GM/NS 50 ML IVPB IV SCH ×2 (10:26)
[2018-09-27 10:15] VITALS: BP 122/70
[2018-09-27] MEDS: ERTAPENEM 1 GM/NS 50 ML IVPB IV SCH ×2 (10:28)
[2018-09-28] MEDS: ERTAPENEM 1 GM/NS 50 ML IVPB IV SCH ×2 (13:35)
[2018-09-28 14:06] VITALS: BP 114/78
[2018-09-29] MEDS: ERTAPENEM 1 GM/NS 50 ML IVPB IV SCH ×2 (12:46)
[2018-09-29 13:25] VITALS: BP 125/65
[2018-09-30 14:20] VITALS: BP 118/56
[2018-09-30 14:38] LABS: HEMOGLOBIN 12.7 G/DL (11.5-16.0); MEAN PLATELET VOLUME 10.1 FL (7.4-10.4); RED CELL DISTRIBUTION WIDTH 14.5 % (10.0-14.5)
[2018-09-30] MEDS: ERTAPENEM 1 GM/NS 50 ML IVPB IV SCH ×2 (14:40)
[2018-09-30 14:58] LABS: BUN/CREATININE RATIO 27; CALCIUM 9.7 MG/DL (8.5-10.1); CARBON DIOXIDE 27 MMOL/L (21-32); CHLORIDE 97 MMOL/L (98-107); CREATININE SERUM 0.74 MG/DL (0.60-1.30); GFR ESTIMATED > 60; GLUCOSE 212 MG/DL (70-105); POTASSIUM 3.4 MMOL/L (3.6-5.0); SODIUM 138 MMOL/L (135-145)
[2018-10-29 08:58] VITALS: BP 136/76
[~2018-11-05] VITALS: Ht 165.1 cm; Wt 129.3 kg
[2018-11-05 07:55] VITALS: BP 0/0
== END 2018-12-10 | disposition home or self-care (01) ==
LOC: SDC 07:52
PROVIDERS: ATTEND Specialist
DX: L02.211 Cutaneous abscess of abdominal wall (principal); B96.20 Unspecified Escherichia coli [E. coli] as the cause of diseases classified elsewhere; Z45.2 Encounter for adjustment and management of vascular access device
CPT/HCPCS: 36415; 80048; 85025; 85027; 85652; 86141; 96365; 99211

== ENCOUNTER → 2018-12-14 | Outpatient (CLI) | payer MEDICAID ==
[2018-12-14 18:21] LABS: BASOPHILS % (AUTO) 1 % (0-10); EOSINOPHILS % (AUTO) 1 % (0-10); HEMATOCRIT 37 % (35-52); HEMOGLOBIN 12.6 G/DL (11.5-16.0); LYMPHOCYTES % (AUTO) 28 % (12-44); MEAN CORPUSCULAR HEMOGLOBIN 31 PG (25-34); MEAN CORPUSCULAR HGB CONC 34 G/DL (32-36); MEAN CORPUSCULAR VOLUME 92 FL (80-99); MEAN PLATELET VOLUME 10.8 FL (7.4-10.4); MONOCYTES % (AUTO) 7 % (0-12); NEUTROPHILS % (AUTO) 63 % (42-75); PLATELET COUNT 287 10^3/uL (130-400); RED CELL DISTRIBUTION WIDTH 14.7 % (10.0-14.5); WHITE BLOOD COUNT 8.7 10^3/uL (4.3-11.0)
[2018-12-14 18:22] LABS: BASOPHILS # (AUTO) 0.1 10^3/uL (0.0-0.1); EOSINOPHILS # (AUTO) 0.1 10^3/uL (0.0-0.3); LYMPHOCYTES # (AUTO) 2.4 X 10^3 (1.0-4.0); MONOCYTES # (AUTO) 0.6 X 10^3 (0.0-1.0); NEUTROPHILS # (AUTO) 5.5 X 10^3 (1.8-7.8)
[2018-12-14 18:57] LABS: BAND NEUTROPHILS 2 %; BASOPHILS % (MANUAL) 1 %; EOSINOPHILS % (MANUAL) 2 %; LYMPHOCYTES % (MANUAL) 30 %; METAMYELOCYTES % 1 %; MONOCYTES % (MANUAL) 1 %; NEUTROPHILS % (MANUAL) 63 %; RBC MORPH NORMAL
[2018-12-14 19:55] LABS: ALANINE AMINOTRANSFERASE 5 U/L (0-55); ALBUMIN 0.2 GM/DL (3.2-4.5); ALKALINE PHOSPHATASE 92 U/L (40-136); BILIRUBIN,TOTAL 0.2 MG/DL (0.1-1.0); BUN/CREATININE RATIO 57; CALCIUM 9.4 MG/DL (8.5-10.1); CARBON DIOXIDE 23 MMOL/L (21-32); CHLORIDE 60 MMOL/L (98-107); CREATININE SERUM 0.37 MG/DL (0.60-1.30); GFR ESTIMATED > 60; GLUCOSE 191 MG/DL (70-105); POTASSIUM 1.5 MMOL/L (3.6-5.0); SODIUM 80 MMOL/L (135-145); TOTAL PROTEIN 6.8 GM/DL (6.4-8.2)
== END ==
LOC: HH 17:12
DX: L02.211 Cutaneous abscess of abdominal wall (principal)
CPT/HCPCS: 80053; 82550; 85007; 85027

== ENCOUNTER → 2018-12-29 | Outpatient (CLI) | payer MEDICAID ==
[2018-12-29 17:11] LABS: BASOPHILS % (AUTO) 1 % (0-10); EOSINOPHILS # (AUTO) 0.2 10^3/uL (0.0-0.3); EOSINOPHILS % (AUTO) 3 % (0-10); HEMATOCRIT 36 % (35-52); LYMPHOCYTES # (AUTO) 1.9 X 10^3 (1.0-4.0); LYMPHOCYTES % (AUTO) 28 % (12-44); MEAN CORPUSCULAR HEMOGLOBIN 30 PG (25-34); MEAN CORPUSCULAR HGB CONC 33 G/DL (32-36); MEAN CORPUSCULAR VOLUME 92 FL (80-99); MEAN PLATELET VOLUME 10.7 FL (7.4-10.4); MONOCYTES # (AUTO) 0.5 X 10^3 (0.0-1.0); MONOCYTES % (AUTO) 8 % (0-12); NEUTROPHILS # (AUTO) 3.9 X 10^3 (1.8-7.8); NEUTROPHILS % (AUTO) 60 % (42-75); PLATELET COUNT 268 10^3/uL (130-400); WHITE BLOOD COUNT 6.6 10^3/uL (4.3-11.0)
[2018-12-29 18:00] LABS: BUN/CREATININE RATIO 39; CARBON DIOXIDE 23 MMOL/L (21-32); CHLORIDE 100 MMOL/L (98-107); CREATININE SERUM 0.38 MG/DL (0.60-1.30); GFR ESTIMATED > 60; POTASSIUM 3.3 MMOL/L (3.6-5.0); SODIUM 139 MMOL/L (135-145)
[2018-12-29 18:01] LABS: ALANINE AMINOTRANSFERASE 21 U/L (0-55); ALBUMIN 3.7 GM/DL (3.2-4.5); ALKALINE PHOSPHATASE 89 U/L (40-136); BILIRUBIN,TOTAL 0.3 MG/DL (0.1-1.0); CALCIUM 9.5 MG/DL (8.5-10.1); GLUCOSE 154 MG/DL (70-105); TOTAL PROTEIN 7.1 GM/DL (6.4-8.2)
[2018-12-30 15:00] LABS: CREATINE KINASE 34 U/L (29-168)
== END ==
LOC: LAB FS 16:44
DX: L02.211 Cutaneous abscess of abdominal wall (principal)
CPT/HCPCS: 36415; 80053; 82550; 85025

== ENCOUNTER → 2019-01-05 | Outpatient (CLI) | payer MEDICAID ==
[2019-01-05 16:00] LABS: BASOPHILS % (AUTO) 1 % (0-10); EOSINOPHILS % (AUTO) 3 % (0-10); HEMATOCRIT 35 % (35-52); HEMOGLOBIN 11.5 G/DL (11.5-16.0); LYMPHOCYTES # (AUTO) 1.8 X 10^3 (1.0-4.0); LYMPHOCYTES % (AUTO) 33 % (12-44); MEAN CORPUSCULAR HEMOGLOBIN 30 PG (25-34); MEAN CORPUSCULAR HGB CONC 33 G/DL (32-36); MEAN CORPUSCULAR VOLUME 91 FL (80-99); MEAN PLATELET VOLUME 10.4 FL (7.4-10.4); MONOCYTES # (AUTO) 0.4 X 10^3 (0.0-1.0); MONOCYTES % (AUTO) 6 % (0-12); NEUTROPHILS # (AUTO) 3.1 X 10^3 (1.8-7.8); NEUTROPHILS % (AUTO) 56 % (42-75); PLATELET COUNT 272 10^3/uL (130-400); RED CELL DISTRIBUTION WIDTH 14.6 % (10.0-14.5); WHITE BLOOD COUNT 5.5 10^3/uL (4.3-11.0)
[2019-01-05 16:01] LABS: BASOPHILS # (AUTO) 0.1 10^3/uL (0.0-0.1); EOSINOPHILS # (AUTO) 0.2 10^3/uL (0.0-0.3)
[2019-01-05 17:48] LABS: POTASSIUM 3.8 MMOL/L (3.6-5.0); SODIUM 140 MMOL/L (135-145)
[2019-01-05 17:49] LABS: ALANINE AMINOTRANSFERASE 27 U/L (0-55); ALBUMIN 3.6 GM/DL (3.2-4.5); ALKALINE PHOSPHATASE 83 U/L (40-136); BILIRUBIN,TOTAL 0.3 MG/DL (0.1-1.0); BUN/CREATININE RATIO 33; CALCIUM 9.4 MG/DL (8.5-10.1); CARBON DIOXIDE 26 MMOL/L (21-32); CHLORIDE 102 MMOL/L (98-107); CREATININE SERUM 0.33 MG/DL (0.60-1.30); GFR ESTIMATED > 60; GLUCOSE 151 MG/DL (70-105); TOTAL PROTEIN 6.7 GM/DL (6.4-8.2)
[2019-01-06 09:29] LABS: CREATINE KINASE 143 U/L (29-168)
== END ==
LOC: LAB FS 15:04
PROVIDERS: ATTEND Surgery
DX: L02.211 Cutaneous abscess of abdominal wall (principal)
CPT/HCPCS: 36415; 80053; 82550; 85025

== ENCOUNTER → 2019-01-11 | Outpatient (CLI) | payer MEDICAID ==
[2019-01-11 20:08] LABS: CARBON DIOXIDE 24 MMOL/L (21-32); CHLORIDE 96 MMOL/L (98-107); POTASSIUM 3.2 MMOL/L (3.6-5.0); SODIUM 141 MMOL/L (135-145)
[2019-01-11 20:09] LABS: ALANINE AMINOTRANSFERASE 33 U/L (0-55); ALBUMIN 4.5 GM/DL (3.2-4.5); ALKALINE PHOSPHATASE 94 U/L (40-136); BILIRUBIN,TOTAL 0.5 MG/DL (0.1-1.0); BUN/CREATININE RATIO 27; CREATININE SERUM 0.37 MG/DL (0.60-1.30); GFR ESTIMATED > 60; GLUCOSE 131 MG/DL (70-105); TOTAL PROTEIN 7.8 GM/DL (6.4-8.2)
[2019-01-11 20:18] LABS: HEMATOCRIT 40 % (35-52); HEMOGLOBIN 12.7 G/DL (11.5-16.0); MEAN CORPUSCULAR HEMOGLOBIN 30 PG (25-34); MEAN CORPUSCULAR HGB CONC 32 G/DL (32-36); MEAN CORPUSCULAR VOLUME 93 FL (80-99); PLATELET COUNT 296 10^3/uL (130-400); RED CELL DISTRIBUTION WIDTH 14.5 % (10.0-14.5); WHITE BLOOD COUNT 5.8 10^3/uL (4.3-11.0)
[2019-01-11 20:19] LABS: BASOPHILS # (AUTO) 0.1 10^3/uL (0.0-0.1); BASOPHILS % (AUTO) 1 % (0-10); EOSINOPHILS # (AUTO) 0.1 10^3/uL (0.0-0.3); EOSINOPHILS % (AUTO) 2 % (0-10); LYMPHOCYTES # (AUTO) 1.8 X 10^3 (1.0-4.0); LYMPHOCYTES % (AUTO) 31 % (12-44); MEAN PLATELET VOLUME 10.5 FL (7.4-10.4); MONOCYTES # (AUTO) 0.4 X 10^3 (0.0-1.0); MONOCYTES % (AUTO) 7 % (0-12); NEUTROPHILS # (AUTO) 3.5 X 10^3 (1.8-7.8); NEUTROPHILS % (AUTO) 59 % (42-75)
[2019-01-12 01:15] LABS: CREATINE KINASE 42 U/L (29-168)
== END ==
LOC: LAB FS 18:30
PROVIDERS: ATTEND Internal Medicine Infectious Disease
DX: L02.211 Cutaneous abscess of abdominal wall (principal)
CPT/HCPCS: 36415; 80053; 82550; 85025

== ENCOUNTER → 2019-01-29 | Outpatient (CLI) | payer MEDICAID ==
[2019-01-29 15:34] LABS: HEMATOCRIT 37 % (35-52); HEMOGLOBIN 11.7 G/DL (11.5-16.0); MEAN CORPUSCULAR HEMOGLOBIN 30 PG (25-34); MEAN CORPUSCULAR VOLUME 95 FL (80-99); WHITE BLOOD COUNT 5.9 10^3/uL (4.3-11.0)
[2019-01-29 15:35] LABS: MEAN CORPUSCULAR HGB CONC 32 G/DL (32-36); PLATELET COUNT 248 10^3/uL (130-400); RED CELL DISTRIBUTION WIDTH 14.7 % (10.0-14.5)
[2019-01-29 15:37] LABS: MEAN PLATELET VOLUME 10.6 FL (7.4-10.4)
[2019-01-29 15:38] LABS: BASOPHILS % (AUTO) 1 % (0-10); EOSINOPHILS % (AUTO) 3 % (0-10); LYMPHOCYTES % (AUTO) 30 % (12-44); MONOCYTES % (AUTO) 8 % (0-12); NEUTROPHILS % (AUTO) 59 % (42-75)
[2019-01-29 15:39] LABS: EOSINOPHILS # (AUTO) 0.2 10^3/uL (0.0-0.3); LYMPHOCYTES # (AUTO) 1.8 X 10^3 (1.0-4.0); MONOCYTES # (AUTO) 0.4 X 10^3 (0.0-1.0); NEUTROPHILS # (AUTO) 3.5 X 10^3 (1.8-7.8)
[2019-01-29 16:09] LABS: CHLORIDE 101 MMOL/L (98-107); POTASSIUM 3.5 MMOL/L (3.6-5.0); SODIUM 143 MMOL/L (135-145)
[2019-01-29 16:10] LABS: ALANINE AMINOTRANSFERASE 32 U/L (0-55); ALBUMIN 3.9 GM/DL (3.2-4.5); ALKALINE PHOSPHATASE 93 U/L (40-136); BILIRUBIN,TOTAL 0.2 MG/DL (0.1-1.0); BUN/CREATININE RATIO 48; CALCIUM 9.5 MG/DL (8.5-10.1); CARBON DIOXIDE 28 MMOL/L (21-32); CREATININE SERUM 0.33 MG/DL (0.60-1.30); GFR ESTIMATED > 60; GLUCOSE 142 MG/DL (70-105); TOTAL PROTEIN 6.6 GM/DL (6.4-8.2)
== END ==
LOC: LAB FS 14:44
PROVIDERS: ATTEND Internal Medicine Infectious Disease
DX: L02.211 Cutaneous abscess of abdominal wall (principal)
CPT/HCPCS: 36415; 80053; 85025

== ENCOUNTER → 2019-02-07 | Outpatient (CLI) | payer MEDICAID ==
[2019-02-07 09:44] LABS: BASOPHILS % (AUTO) 1 % (0-10); EOSINOPHILS % (AUTO) 2 % (0-10); HEMATOCRIT 40 % (35-52); HEMOGLOBIN 13.3 G/DL (11.5-16.0); LYMPHOCYTES % (AUTO) 33 % (12-44); MEAN CORPUSCULAR HEMOGLOBIN 30 PG (25-34); MEAN CORPUSCULAR HGB CONC 34 G/DL (32-36); MEAN CORPUSCULAR VOLUME 89 FL (80-99); MONOCYTES % (AUTO) 8 % (0-12); NEUTROPHILS % (AUTO) 56 % (42-75); PLATELET COUNT 262 10^3/uL (130-400); RED CELL DISTRIBUTION WIDTH 13.7 % (10.0-14.5); WHITE BLOOD COUNT 6.8 10^3/uL (4.3-11.0)
[2019-02-07 09:45] LABS: BASOPHILS # (AUTO) 0.1 10^3/uL (0.0-0.1); EOSINOPHILS # (AUTO) 0.1 10^3/uL (0.0-0.3); LYMPHOCYTES # (AUTO) 2.2 X 10^3 (1.0-4.0); MONOCYTES # (AUTO) 0.5 X 10^3 (0.0-1.0); NEUTROPHILS # (AUTO) 3.8 X 10^3 (1.8-7.8)
[2019-02-07 10:10] LABS: BUN/CREATININE RATIO 49; CARBON DIOXIDE 28 MMOL/L (21-32); CHLORIDE 94 MMOL/L (98-107); CREATININE SERUM 0.43 MG/DL (0.60-1.30); GFR ESTIMATED > 60; POTASSIUM 3.6 MMOL/L (3.6-5.0); SODIUM 138 MMOL/L (135-145)
[2019-02-07 10:11] LABS: ALKALINE PHOSPHATASE 98 U/L (40-136); BILIRUBIN,TOTAL 0.3 MG/DL (0.1-1.0); CALCIUM 9.5 MG/DL (8.5-10.1); GLUCOSE 172 MG/DL (70-105)
[2019-02-07 10:12] LABS: ALANINE AMINOTRANSFERASE 18 U/L (0-55); ALBUMIN 4.2 GM/DL (3.2-4.5); TOTAL PROTEIN 7.3 GM/DL (6.4-8.2)
== END ==
LOC: LAB FS 09:22
PROVIDERS: ATTEND Internal Medicine Infectious Disease
DX: L02.211 Cutaneous abscess of abdominal wall (principal)
CPT/HCPCS: 36415; 80053; 85025

== ENCOUNTER 2019-03-13 17:55 | Emergency (ER) | payer MEDICAID ==
[~2019-03-13] VITALS: Ht 165.1 cm; Wt 123.4 kg
[2019-03-13 19:53] LABS: BASOPHILS % (AUTO) 0 % (0-10); EOSINOPHILS # (AUTO) 0.1 10^3/uL (0.0-0.3); EOSINOPHILS % (AUTO) 1 % (0-10); HEMATOCRIT 37 % (35-52); HEMOGLOBIN 12.9 G/DL (11.5-16.0); LYMPHOCYTES # (AUTO) 2.5 X 10^3 (1.0-4.0); LYMPHOCYTES % (AUTO) 35 % (12-44); MEAN CORPUSCULAR HEMOGLOBIN 31 PG (25-34); MEAN CORPUSCULAR HGB CONC 35 G/DL (32-36); MEAN CORPUSCULAR VOLUME 89 FL (80-99); MEAN PLATELET VOLUME 10.6 FL (7.4-10.4); MONOCYTES # (AUTO) 0.6 X 10^3 (0.0-1.0); MONOCYTES % (AUTO) 8 % (0-12); NEUTROPHILS % (AUTO) 55 % (42-75); PLATELET COUNT 238 10^3/uL (130-400); RED CELL DISTRIBUTION WIDTH 14.1 % (10.0-14.5); WHITE BLOOD COUNT 7.2 10^3/uL (4.3-11.0)
--- NOTE | 2019-03-13 19:53 | NUR ---
LUIGI CARLTON IN ROOM
[2019-03-13 20:00] LABS: INR 0.9 (0.8-1.4); PROTHROMBIN TIME PATIENT 12.1 SEC (12.2-14.7)
[2019-03-13] MEDS ORDERED: ASPIRIN 81 MG CHEW (CHILDREN'S ASA) PO ONE (20:00)
[2019-03-13] MEDS ORDERED: KETOROLAC 30 MG/ML VIAL IVP ONE (20:00)
--- NOTE | 2019-03-13 20:02 | ED Chest Pain ---
General Chief Complaint: Chest Wall Stated Complaint: CHEST PAINS, DIARRHEA Nursing Triage Note: ARRIVED VIA WC TO TRIAGE. COMPLAINS OF RIGHT TO MID CHEST PAIN THAT IS REPRODUCABLE X 2 DAYS. ALSO COMPLAINS OF A HEADACHE AND DIARRHEA. Nursing Sepsis Screen: No Definite Risk Source: patient Exam Limitations: no limitations History of Present Illness Date Seen by Provider: Mar 13, 2019 Time Seen by Provider: 20:00 Initial Comments To ER with reports of chest pain. Pain radiates all across the upper chest. Present for 2 days. Reproducible. She's also had a headache and diarrhea. She is currently on oral Zyvox for infected hernia mesh prescribed by a hospital out of [place]. She denies fevers or chills per she also has some tingling in her fingers. 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er, 20 MEQ PO TID Prescribed by: ANTHONY BAIRD on 01/11/18 155 Sucralfate 1 Gm/10 Ml Oral.susp, 1 GM PO QID 30 minutes before meals and before bed. Shake well before use Prescribed by: ELIAS RIVERA on 02/04/17516 Tramadol HCl 50 Mg Tablet, 50 MG PO Q6H PRN for PAIN-MODERATE TO SEVERE Prescribed by: ELIAS RIVERA on 02/04/17 05 Patient Home Medication List Home Medication List Reviewed: Yes Review of Systems Review of Systems Constitutional: see HPI EENTM: No Symptoms Reported Respiratory: No Symptoms Reported Cardiovascular: See HPI, Chest Pain Gastrointestinal: No Symptoms Reported Genitourinary: No Symptoms Reported Musculoskeletal: no symptoms reported Skin: no symptoms reported Psychiatric/Neurological: No Symptoms Reported Endocrine: No Symptoms Reported Hematologic/Lymphatic: No Symptoms Reported Past Afrhxso-Jjksvo-Jvtjit Hx Patient Social History 2nd Hand Smoke Exposure: No Recent Foreign Travel: No Contact w/Someone Who Travel: No Recent Infectious Disease Expo: No Recent Hopitalizations: No Immunizations Up To Date Tetanus Booster (TDap): Unknown Seasonal Allergies Seasonal Allergies: Yes Past Medical History Surgeries: Yes Abdominal, Section, Tubal Ligation Respiratory: Yes Asthma Cardiac: Yes High Cholesterol, Hypertension 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 0.0oz. 123.318664yc; BMI Method:Stated General Appearance: No Apparent Distress, WD/WN HEENT: PERRL/EOMI, TMs Normal Neck: Full Range of Motion, Normal Inspection Respiratory: Normal Breath Sounds, No Accessory Muscle Use, No Respiratory Distress, Other (upper chest at the location of pain is very tender to palpation.) Cardiovascular: Regular Rate, Rhythm, Normal Peripheral Pulses, Other (she is not tachycardic) Gastrointestinal: Normal Bowel Sounds, Non Tender, Soft Extremity: Normal Capillary Refill, Normal Inspection Neurologic/Psychiatric: Alert, Oriented x3 Skin: Normal Color, Warm/Dry Progress/Results/Core Measures Results/Orders Lab Results Laboratory Tests Test 03/13/19 19:28 Range/Units White Blood Count 7.2 4.3-11.0 10^3/uL Red Blood Count 4.21 L 4.35-5.85 10^6/uL Hemoglobin 12.9 11.5-16.0 G/DL Hematocrit 37 35-52 % Mean Corpuscular Volume 89 80-99 FL Mean Corpuscular Hemoglobin 31 25-34 PG Mean Corpuscular Hemoglobin Concent 35 32-36 G/DL Red Cell Distribution Width 14.1 10.0-14.5 % Platelet Count 238 130-400 10^3/uL Mean Platelet Volume 10.6 H 7.4-10.4 FL Neutrophils (%) (Auto) 55 42-75 % Lymphocytes (%) (Auto) 35 12-44 % Monocytes (%) (Auto) 8 0-12 % Eosinophils (%) (Auto) 1 0-10 % Basophils (%) (Auto) 0 0-10 % Neutrophils # (Auto) 4.0 1.8-7.8 X 10^3 Lymphocytes # (Auto) 2.5 1.0-4.0 X 10^3 Monocytes # (Auto) 0.6 0.0-1.0 X 10^3 Eosinophils # (Auto) 0.1 0.0-0.3 10^3/uL Basophils # (Auto) 0.0 0.0-0.1 10^3/uL Prothrombin Time 12.1 L 12.2-14.7 SEC INR Comment 0.9 0.8-1.4 Activated Partial Thromboplast Time 27 24-35 SEC Sodium Level 136 135-145 MMOL/L Potassium Level 3.7 3.6-5.0 MMOL/L Chloride Level 100 98-107 MMOL/L Carbon Dioxide Level 20 L 21-32 MMOL/L Anion Gap 16 H 5-14 MMOL/L Blood Urea Nitrogen 10 7-18 MG/DL Creatinine 0.61 0.60-1.30 MG/DL Estimat Glomerular Filtration Rate > 60 BUN/Creatinine Ratio 16 Glucose Level 167 H 70-105 MG/DL Calcium Level 9.8 8.5-10.1 MG/DL Corrected Calcium 9.7 8.5-10.1 MG/DL Magnesium Level 2.2 1.8-2.4 MG/DL Total Bilirubin 0.3 0.1-1.0 MG/DL Aspartate Amino Transf (AST/SGOT) 17 5-34 U/L Alanine Aminotransferase (ALT/SGPT) 28 0-55 U/L Alkaline Phosphatase 74 40-136 U/L Myoglobin 16.7 10.0-92.0 NG/ML Troponin I < 0.028 <0.028 NG/ML Total Protein 7.6 6.4-8.2 GM/DL Albumin 4.1 3.2-4.5 GM/DL My Orders Orders - SOPHIA CARLTON APRN Cbc With Automated Diff (03/13/19 19:48) Magnesium (03/13/19 19:48) Chest 1 View, Ap/Pa Only (03/13/19 19:48) Ekg Tracing (03/13/19 19:48) Cardiac Profile 1 (03/13/19 19:48) Comprehensive Metabolic Panel (03/13/19 19:48) Myoglobin Serum (03/13/19 19:48) Protime With Inr (03/13/19 19:48) Partial Thromboplastin Time (03/13/19 19:48) O2 (03/13/19 19:48) Monitor-Rhythm Ecg Trace Only (03/13/19 19:48) Lipid Panel (03/14/19 06:00) Ed Iv/Invasive Line Start (03/13/19 19:48) Aspirin Chewable Tablet (Baby Aspirin Ch (03/13/19 20:00) Ketorolac Injection (Toradol Injection) (03/13/19 20:00) Medications Given in ED Current Medications Medications Dose Ordered Sig/Jj Route Start Time Stop Time Status Last Admin Dose Admin Aspirin 324 mg ONCE ONCE PO 03/13/19 20:00 03/13/19 20:01 DC 03/13/19 20:03 324 MG Ketorolac Tromethamine 15 mg ONCE ONCE IVP 03/13/19 20:00 03/13/19 20:01 DC 03/13/19 20:03 15 MG Vital Signs/I&O 03/13/19 17:58 Temp 97.8 Pulse 82 Resp 16 B/P (MAP) 140/74 (96) Pulse Ox 98 O2 Delivery Room Air Blood Pressure Mean: 96 Departure Impression Primary Impression: Chest wall pain Additional Impression: Costochondritis Disposition: HOME, SELF-CARE Condition: Stable Departure-Patient Inst. Decision time for Depature: 20:46 Referrals: [facility] [place] ([place]) Primary Care Physician Patient Instructions: Costochondritis (DC) Add. Discharge Instructions: 1. Return to ER for any concerns 2. Follow-up with your doctor next week All discharge instructions reviewed with patient and/or family. Voiced understanding. SOPHIA CARLTON APRN Mar 13, 2019 20:01
[2019-03-13 20:04] LABS: ALANINE AMINOTRANSFERASE 28 U/L (0-55); ALBUMIN 4.1 GM/DL (3.2-4.5); ALKALINE PHOSPHATASE 74 U/L (40-136); BILIRUBIN,TOTAL 0.3 MG/DL (0.1-1.0); BUN/CREATININE RATIO 16; CALCIUM 9.8 MG/DL (8.5-10.1); CARBON DIOXIDE 20 MMOL/L (21-32); CHLORIDE 100 MMOL/L (98-107); CREATININE SERUM 0.61 MG/DL (0.60-1.30); GFR ESTIMATED > 60; GLUCOSE 167 MG/DL (70-105); MAGNESIUM 2.2 MG/DL (1.8-2.4); POTASSIUM 3.7 MMOL/L (3.6-5.0); SODIUM 136 MMOL/L (135-145); TOTAL PROTEIN 7.6 GM/DL (6.4-8.2)
--- NOTE | 2019-03-13 20:34 | Diagnostic Imaging Report ---
INDICATION: Chest pain EXAMINATION: Chest 03/13/2019 COMPARISON: 10/22/2018 FINDINGS: Heart prominent. Pulmonary vasculature unremarkable. The lungs clear. No infiltrates or effusions. IMPRESSION: 1. Cardiomegaly, otherwise negative chest. Dictated by: Dictated on workstation # [id number]
[2019-03-13] MEDS ORDERED: NS 100 ML (IVPB) BAG IV ONE (21:15)
[2019-03-13] MEDS ORDERED: HOLD METFORMIN - RECEIVED CONTRAST 20 ML VIAL IV SCH (21:15)
[2019-03-13] MEDS ORDERED: IOHEXOL 350 MG/ML 100 ML (OMNIPAQUE 350) VIAL IV ONE (21:15)
--- NOTE | 2019-03-13 22:25 | Diagnostic Imaging Report ---
INDICATION: Right-sided mid chest pain reducible 2 days. Headache, diarrhea EXAMINATION: CT angiogram of the chest and CT angiogram of the abdomen and pelvis dated 03/13/2018 Comparison made to a CT abdomen and pelvis 05/26/2018 FINDINGS: Cardiomegaly noted. If there is concern for a thoracic dissection bolus is somewhat missed but no obvious dissection is seen. No evidence for aneurysm or atherosclerotic disease is noted. Motion artifact limits evaluation of the ascending aorta. The pulmonary arteries demonstrate no central emboli. No adenopathy. No significant pericardial or pleural effusions. Nonspecific groundglass opacities noted throughout both lungs; correlate clinically as this could be due to some type of infectious etiology or due to mild edema. Abdomen and pelvis: There is no significant free fluid or air. A large anterior abdominal wall hernia is noted which contains small bowel loops. In the lower portion of the hernia some of the bowel loops demonstrate mild dilatation. Immediately anterior to the herniation is a small collection of fluid and air which has been seen on multiple prior CTs but has decreased in size and clinical correlation for a focal infectious process at this time would be new infectious etiology versus a resolving process recommended. This does appear to possibly connect with the adjacent skin. Adjacent fat stranding is noted. What appears to be the appendix and portions of the cecum also contained within the herniation. Kidneys demonstrate heterogeneity. No gross acute abnormality. Remaining abdominal viscera demonstrates no acute process, small hiatal hernia. Osseous structures demonstrate chronic changes. The abdominal aorta unremarkable for acute abnormality. IMPRESSION: 1. No acute process within the thoracic, abdominal aorta. 2. Anterior abdominal hernia containing large amount of small bowel loops and some colon as well with the appendix seen also in the region. A few small bowel loops slightly distended but no obvious obstructive process seen at this time, however, clinical correlation for focal pain to the area suggesting early strangulation recommended. 3. Fluid air collection anterior border of the herniation decreased in size from previous imaging and possibly connecting to the skin likely residual abnormality versus a recurrent process; correlate for point tenderness or infection. 4. Diffuse other incidental and chronic changes as discussed above. Dictated by: Dictated on workstation # [id number]
[2019-03-13 22:32] VITALS: BP 125/73
== END 2019-03-13 22:32 | disposition home or self-care (01) ==
LOC: EDUNIT# 17:55 → ER 17:57
DX: M94.0 Chondrocostal junction syndrome [Tietze] (principal); J45.909 Unspecified asthma, uncomplicated; I10 Essential (primary) hypertension; E78.00 Pure hypercholesterolemia, unspecified; E66.01 Morbid (severe) obesity due to excess calories; E11.9 Type 2 diabetes mellitus without complications; Z87.19 Personal history of other diseases of the digestive system; Z88.1 Allergy status to other antibiotic agents; Z88.8 Allergy status to other drugs, medicaments and biological substances; Z98.51 Tubal ligation status; Z68.42 Body mass index [BMI] 45.0-49.9, adult
CPT/HCPCS: 36415; 71045; 71275; 74177; 80053; 83735; 83874; 84484; 85025; 85610; 85730; 93005; 93041; 96374

== ENCOUNTER → 2020-05-03 | Outpatient (CLI) | payer MEDICAID ==
--- NOTE | 2020-05-03 19:29 | Diagnostic Imaging Report ---
INDICATION: Pain along the trapezius, bilaterally. FINDINGS: Ultrasound along the medial scapula along the trapezial attachment shows symmetrical appearing muscle without evidence of hematomas. No evidence of hypervascularity. No disruption to suggest tear of the muscles. IMPRESSION: Normal limited bilateral ultrasound to the trapezius muscles posteriorly. Dictated by: Dictated on workstation # [id number]
== END ==
LOC: RAD 13:00
PROVIDERS: ATTEND Nurse Practitioner Community Health
DX: M54.12 Radiculopathy, cervical region (principal)
CPT/HCPCS: 76536